=== PATIENT | male | born 1945 | race Caucasian/White ===

== ENCOUNTER 2019-09-02 21:14 | Emergency (ER) | payer OTHER ==
--- OUTSIDE RECORDS SUMMARY | 2019-09-02 21:16 | XMS REPORT ---
:1945 Author Organization eClinicalWorks Care Team Providers Name Role Phone Adriano Efrain Provider Role Unavailable Allergies No Known Allergies Problems Problem Type Condition Code Onset Dates Condition Status Problem Hypertension I10 Active Problem Sleep apnea, obstructive G47.33 Active Problem Osteoarthritis M19.90 Active Assessment Diabetes type 2, uncontrolled E11.65 Active Problem Diabetes type 2, uncontrolled E11.65 Active Problem Asthma J45.909 Active Problem GERD with esophagitis K21.0 Active Problem Adult BMI 31.0-31.9 kg/sq m Z68.31 Active Problem Positive FIT (fecal immunochemical R19.5 Active test) Problem Neck pain M54.2 Active Problem Mixed hyperlipidemia E78.2 Active Problem Nonalcoholic fatty liver disease K76.0 Active Problem CPAP (continuous positive airway Z99.89 Active pressure) dependence Medications Medication Code Code Instructions Start End Date Status Dosage System Date Metformin HCl [facility] 94698740407 1000 MG Orally Active 1 tablet Twice a day with meals Results No Known Results Summary Purpose eClinicalWorks Submission
--- OUTSIDE RECORDS SUMMARY | 2019-09-02 21:16 | XMS REPORT ---
:1945 Author Organization eClinicalWorks Care Team Providers Name Role Phone Efrain Oh Provider Role Unavailable Allergies No Known Allergies Problems Problem Type Condition Code Onset Dates Condition Status Problem Asthma J45.909 Active Problem Osteoarthritis M19.90 Active Problem Hypertension I10 Active Assessment Positive FIT (fecal immunochemical R19.5 Active test) Problem Diabetes type 2, uncontrolled E11.65 Active Problem Adult BMI 31.0-31.9 kg/sq m Z68.31 Active Problem Nonalcoholic fatty liver disease K76.0 Active Problem Positive FIT (fecal immunochemical R19.5 Active test) Problem Mixed hyperlipidemia E78.2 Active Problem Sleep apnea, obstructive G47.33 Active Problem CPAP (continuous positive airway Z99.89 Active pressure) dependence Problem Neck pain M54.2 Active Medications No Known Medications Results No Known Results Summary Purpose eClinicalWorks Submission
--- OUTSIDE RECORDS SUMMARY | 2019-09-02 21:16 | XMS REPORT ---
:1945 Author Organization eClinicalWorks Care Team Providers Name Role Phone Adriano Efrain Provider Role Unavailable Allergies No Known Allergies Problems Problem Type Condition Code Onset Dates Condition Status Problem Asthma J45.909 Active Problem Osteoarthritis M19.90 Active Problem Hypertension I10 Active Problem Adult BMI 31.0-31.9 kg/sq m Z68.31 Active Problem Nonalcoholic fatty liver disease K76.0 Active Problem Positive FIT (fecal immunochemical R19.5 Active test) Problem Mixed hyperlipidemia E78.2 Active Problem Sleep apnea, obstructive G47.33 Active Problem CPAP (continuous positive airway Z99.89 Active pressure) dependence Problem Neck pain M54.2 Active Assessment Diabetes type 2, uncontrolled E11.65 Active Assessment Hypertension I10 Active Assessment Anemia, unspecified type D64.9 Active Assessment Mixed hyperlipidemia E78.2 Active Problem Diabetes type 2, uncontrolled E11.65 Active Medications No Known Medications Results No Known Results Summary Purpose eClinicalWorks Submission
--- OUTSIDE RECORDS SUMMARY | 2019-09-02 21:16 | XMS REPORT ---
:1945 Author Organization eClinicalWorks Care Team Providers Name Role Phone Adriano Efrain Provider Role Unavailable Allergies No Known Allergies Problems Problem Type Condition Code Onset Dates Condition Status Problem Hypertension I10 Active Problem Sleep apnea, obstructive G47.33 Active Problem Osteoarthritis M19.90 Active Assessment Hypertension I10 Active Problem Diabetes type 2, uncontrolled E11.65 [...] Start End Date Status Dosage System Date Amlodipine [facility] 37269290994 5 MG Orally Once Active 1 tablet Besylate a day Results No Known Results Summary Purpose eClinicalWorkSnug Submission
--- OUTSIDE RECORDS SUMMARY | 2019-09-02 21:16 | XMS REPORT ---
:1945 Author Organization eClinicalWorks Care Team Providers Name Role Phone Efrain Oh Provider Role Unavailable Allergies, Adverse Reactions, Alerts Substance Reaction Event Type N.K.D.A. Info Not Available Non Drug Allergy Problems Problem Type Condition Code Onset Dates Condition Status Assessment Chronic cough R05 Active Assessment Adult BMI 31.0-31.9 kg/sq m Z68.31 Active Problem Diabetes type 2, uncontrolled E11.65 Active Assessment Anemia, unspecified type D64.9 Active Problem Asthma J45.909 Active Assessment Elevated LFTs R94.5 Active Problem Hypertension I10 Active Problem Sleep apnea, obstructive G47.33 Active Problem Osteoarthritis M19.90 Active Problem GERD with esophagitis K21.0 Active Problem Adult BMI 31.0-31.9 kg/sq m Z68.31 Active Assessment CPAP (continuous positive airway Z99.89 Active pressure) dependence Assessment Asthma J45.909 Active Problem Positive FIT (fecal immunochemical R19.5 Active test) Assessment Osteoarthritis M19.90 Active Problem Neck pain M54.2 Active Problem Mixed hyperlipidemia E78.2 Active Problem Nonalcoholic fatty liver disease K76.0 Active Problem CPAP (continuous positive airway Z99.89 Active pressure) dependence Assessment GERD with esophagitis K21.0 Active Assessment Mixed hyperlipidemia E78.2 Active Assessment Nonalcoholic fatty liver disease K76.0 Active Assessment Sleep apnea, obstructive G47.33 Active Assessment Diabetes type 2, uncontrolled E11.65 Active Assessment Hypertension I10 Active Assessment Medicare annual wellness visit, Z00.00 Active subsequent Medications Medication Code Code Instructions Start End Status Dosage System Date Date [facility] 56868827507 81 MG Orally Active 1 tablet Once a day Amlodipine Besylate [facility] 81897040326 5 MG Orally Active 1 tablet Once a day Vitamin B12 [facility] 00049685376 2500 orally Active one under tongue once a day Multivitamins [facility] 83433137279 - Orally Active not defined Metformin HCl [place] 53554853852 1000 MG Orally Active 1 tablet Twice a day with meals Omeprazole [facility] 96003971744 40 MG Orally Active 1 capsule Once a day 30 minutes before morning meal Simvastatin [facility] 64005018154 40 MG Orally Active 1 tablet Once a day in the evening Omeprazole [facility] 30718885798 40 MG Orally Jun 09, Active 1 capsule Once a day 2018 30 minutes before morning meal Garlic [facility] 12388012401 500 MG Orally Active not defined Fish Oil [facility] 11540978832 1000 MG Orally Active 1 capsule Once a day Etodolac [facility] 96088401947 500 MG Orally Active 1 tablet Twice a day with food Hydrochlorothiazide [facility] 58374802888 25 MG Orally Active 1 tablet Once a day in the morning Breo Ellipta [facility] [address]-89 Active not defined Results No Known Results Summary Purpose eClinicalWorks Submission
--- OUTSIDE RECORDS SUMMARY | 2019-09-02 21:16 | XMS REPORT ---
[...] Start End Status Dosage System Date Date Hydrochlorothiazide [facility] 80438787526 25 MG Orally Active 1 tablet Once a day in the morning Results No Known Results Summary Purpose eClinicalWorks Submission
--- NOTE | 2019-09-02 22:37 | EDPHYS ---
Physician Documentation [facility] Name: Kevin Barrow Age: 74 yrs Sex: Male : 1945 Arrival Date: 09/02/2019 Time: 21:15 Bed 20 Private MD: ED Physician Jaden Steinberg HPI: 09/01 22:32 This 74 yrs old Male presents to ER via Ambulatory with complaints of Pain In la1 Right Calf. 22:32 The patient presents with pain, swelling. The complaints affect the posterior aspect of la1 right knee and right calf. Context: The problem was sustained at home, the patient can fully bear weight, the patient is able to ambulate, without difficulty, Problem is a result from a previous injury: No. Onset: The symptoms/episode began/occurred today. Treatment prior to arrival includes: no previous treatment. Severity of symptoms: At their worst the symptoms were moderate. The patient has experienced a previous episode. Historical: - Allergies: 21:39 No Known Allergies; ea - Home Meds: 21:39 amlodipine oral [Active]; Metformin Oral [Active]; Aspirin Oral [Active]; etodolac 500 ea mg Oral tab 1 tab 2 times per day [Active]; - PMHx: 21:39 Hypertension; ea - PSHx: 21:39 neck surgery; ankle surgery; wrist surgery; rotator cuff; ea - Immunization history:: Adult Immunizations up to date. - Social history:: Smoking status: Patient denies any tobacco usage or history of. ROS: 22:33 Constitutional: Negative for fever, chills, and weight loss, Eyes: Negative for injury, la1 pain, redness, and discharge, ENT: Negative for injury, pain, and discharge, Neck: Negative for injury, pain, and swelling, Cardiovascular: Negative for chest pain, palpitations, and edema, Respiratory: Negative for shortness of breath, cough, wheezing, and pleuritic chest pain, Abdomen/GI: Negative for abdominal pain, nausea, vomiting, diarrhea, and constipation, Back: Negative for injury and pain, : Negative for injury, bleeding, discharge, and swelling, Skin: Negative for injury, rash, and discoloration, Neuro: Negative for headache, weakness, numbness, tingling, and seizure. 22:33 MS/extremity: Positive for pain, swelling, of the posterior aspect of right knee and right calf. Exam: 22:33 Constitutional: This is a well developed, well nourished patient who is awake, alert, la1 and in no acute distress. Head/Face: Normocephalic, atraumatic. ENT: Mucous membranes moist. Neck: Trachea midline, Chest/axilla: Normal chest wall appearance and motion. Nontender with no deformity. No lesions are appreciated. Cardiovascular: Regular rate and rhythm with a normal S1 and S2. Respiratory: Lungs have equal breath sounds bilaterally, clear to auscultation Abdomen/GI: Soft, non-tender, with normal bowel sounds. No distension or tympany. No guarding or rebound. No evidence of tenderness throughout. Back: No spinal tenderness. No costovertebral tenderness. Full range of motion. Skin: Warm, dry with normal turgor. Normal color with no rashes, no lesions, and no evidence of cellulitis. MS/ Extremity: Pulses equal, no cyanosis. Neurovascular intact. Full, normal range of motion. 22:33 Cardiovascular: Pulses: Pulses are 3+ in right posterior tibial artery, right dorsalis pedis artery, left posterior tibial artery and left dorsalis pedis artery. Edema: 2+ edema to level of right midcalf and right ankle. 22:33 Musculoskeletal/extremity: Vital Signs: 21:29 BP 149 / 86; Pulse 88; Resp 18; Temp 98.1; Pulse Ox 98% on R/A; ea MDM: 21:51 Patient medically screened. la1 22:34 Data reviewed: vital signs, nurses notes, radiologic studies, I have discussed the la1 patient's presentation/case with the attending Emergency Department Physician; and as a result, I will discharge patient. Counseling: I had a detailed discussion with the patient and/or guardian regarding: the historical points, exam findings, and any diagnostic results supporting the discharge/admit diagnosis, radiology results, the need for outpatient follow up, a family practitioner, to return to the emergency department if symptoms worsen or persist or if there are any questions or concerns that arise at home. ED course: Ultrasound negative for DVT but does identify a bakers cyst. Pt given strict return precautions and instructed to FU with PCP and ortho. . 09/01 21:27 Order name: US Extremity Venous Unilateral Ltd kb 09/01 22:38 Order name: Miller Wrap; Complete Time: 22:44 la1 Administered Medications: No medications were administered Disposition: 09/02 03:50 Co-signature as Attending Physician, Jaden Steinberg MD I agree with the assessment and tw4 plan of care. Disposition: 09/02/19 22:36 Discharged to Home. Impression: Synovial cyst of popliteal space [[place]ll[place]], right knee, Swelling of the distal right lower extremity. - Condition is Stable. - Discharge Instructions: [place] Cyst. - Medication Reconciliation Form, Thank You Letter form. - Follow up: Private Physician; When: 2 - 3 days; Reason: Recheck today's complaints, Re-evaluation by your physician. - Problem is new. - Symptoms have improved. Signatures: Dispatcher [employer] EDMS Vaughn Zeng, PIPING DESIGN SPECIALIST-C PIPING DESIGN SPECIALIST-Cla1 Tiffani Francois, RN Jaden Dempsey ea, MD MD tw4 Mehreen Harding RN RN Corrections: (The following items were deleted from the chart) 03 22:50 22:36 09/02/2019 22:36 Discharged to Home. Impression: Synovial cyst of popliteal space ah [[place]ll[place]], right knee; Swelling of the distal right lower extremity. Condition is Stable. Forms are Medication Reconciliation Form, Thank You Letter, Antibiotic Education, Prescription Opioid Use. Follow up: Private Physician; When: 2 - 3 days; Reason: Recheck today's complaints, Re-evaluation by your physician. Problem is new. Symptoms have improved. la1
--- NOTE | 2019-09-02 22:37 | ER ---
Nurse's Notes [facility] Name: Kevin Barrow Age: 74 yrs Sex: Male : 1945 Arrival Date: 09/02/2019 Time: 21:15 Bed 20 Private MD: Diagnosis: Synovial cyst of popliteal space [[place]ll[place]], right knee;Swelling of the distal right lower extremity Presentation: 09/01 21:29 Chief complaint: Patient states: Pt reports around lunch time he noticed swelling to ea right lower extremity, reports it worsened in the evening and started having pain and tightness with walking. Coronavirus screen: The patient has NOT traveled to a country currently being monitored by the [facility] within the last 14 days. Ebola Screen: No symptoms or risks identified at this time. Initial Sepsis Screen: Does the patient meet any 2 criteria? No. Patient's initial sepsis screen is negative. Does the patient have a suspected source of infection? No. Patient's initial sepsis screen is negative. Risk Assessment: Do you want to hurt yourself or someone else? Patient reports no desire to harm self or others. 21:29 Method Of Arrival: Ambulatory ea 21:29 Acuity: PIERRE 3 ea 22:48 Onset of symptoms was September 02, 2019. Triage Assessment: 21:50 General: Appears in no apparent distress. Behavior is appropriate for age. Pain: ea Complains of pain in right calf. Neuro: Level of Consciousness is awake, alert, obeys commands, Oriented to person, place, time, situation. Respiratory: Airway is patent Respiratory effort is even, unlabored, Respiratory pattern is regular, symmetrical. Derm: Reports swelling to right lower extremity. Historical: - Allergies: 21:39 No Known Allergies; ea - Home Meds: 21:39 amlodipine oral [Active]; Metformin Oral [Active]; Aspirin Oral [Active]; etodolac 500 ea mg Oral tab 1 tab 2 times per day [Active]; - PMHx: 21:39 Hypertension; ea - PSHx: 21:39 neck surgery; ankle surgery; wrist surgery; rotator cuff; ea - Immunization history:: Adult Immunizations up to date. - Social history:: Smoking status: Patient denies any tobacco usage or history of. Screenin:31 Abuse screen: Denies threats or abuse. Nutritional screening: No deficits noted. ea Tuberculosis screening: No symptoms or risk factors identified. Fall Risk None identified. Vital Signs: 21:29 BP 149 / 86; Pulse 88; Resp 18; Temp 98.1; Pulse Ox 98% on R/A; ea ED Course: 21:15 Patient arrived in ED. cl3 21:23 Mehreen Harding, RN is Primary Nurse. 21:31 Triage completed. ea 21:31 Arm band placed on right wrist. Patient placed in an exam room, on a stretcher, on ea pulse oximetry. 21:32 Patient has correct armband on for positive identification. Bed in low position. Call ea light in reach. Side rails up X2. 21:50 Vaughn Zeng FNP-C is PHCP. la1 21:51 Jaden Steinberg MD is Attending Physician. la1 22:07 US Extremity Venous Unilateral Ltd In Process Unspecified. EDMS 22:47 Patient did not have IV access during this emergency room visit. Miller wrap to right knee. 22:48 No provider procedures requiring assistance completed. Administered Medications: No medications were administered Outcome: 22:36 Discharge ordered by . la1 22:45 Discharged to home ambulatory. 22:45 Condition: good 22:45 Discharge instructions given to patient, family, Instructed on discharge instructions, follow up and referral plans. Demonstrated understanding of instructions, follow-up care. 22:50 Patient left the ED. Signatures: Dispatcher [employer] EDMS Vaughn Zeng FNP-C COMPUTER GAME PROGRAMMER-Cla1 Tiffani Francois RN RN ea Lewis, Charde cl3 Mehreen Harding, RN [place]
[2019-09-02 23:11] VITALS: BP 149/86; TEMP 98.1; O2SAT 98
--- NOTE | 2019-09-03 08:01 | RAD REPORT ---
EXAM DESCRIPTION: USExtremity Venous Uni Ltd09/02/2019 10:06 pm CLINICAL HISTORY: Right leg pain and swelling. COMPARISON: None. FINDINGS: Right common femoral, superficial femoral, popliteal and right posterior tibial veins are compressible and demonstrate augmentation. Doppler demonstrates good flow. A 3 centimeter right popliteal cyst IMPRESSION: No evidence of deep venous thrombosis involving the right lower extremity. Two 3 centimeter right popliteal cyst
== END 2019-09-02 22:50 | disposition home or self-care (01) ==
LOC: ER 21:14
DX: M71.21 Synovial cyst of popliteal space [Baker], right knee (principal); M79.89 Other specified soft tissue disorders; Z79.82 Long term (current) use of aspirin
CPT/HCPCS: 93971; 99283

== ENCOUNTER 2020-12-23 19:54 | Observation (INO) | payer OTHER ==
--- OUTSIDE RECORDS SUMMARY | 2020-12-23 19:59 | XMS REPORT | Continuity of Care Document ---
:1945 Author Organization [facility] t Address 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 5-24 Me thodi L3-L4 L3-L4 00:00: st level level 00 723.0 - Diagnosis Active 2013-01-20 Me moria CERVICAL - 13:13:00 l SPINAL 723.0 - 00:01: [place] CERVICAL 00 SPINAL Active 12/22/2012 [facility] [place] LFLT Diagnosis Active 2011-062013-03-23 Mem oria - 15:36:00 l LFLT 09:30: Jason 00 Active 05/09/2012 [facility] CERVICAL Diagnosis Active 2011-062012-05-18 M emoria STENOSIS,S - 13:43:00 l /P FALL CERVICAL 00:00: Marjorie nn STENOSIS,S 00 /P FALL Active 05/09/2012 [facility] ADMINISTRT Diagnosis Active 2012-05-18 Memoria VE ENCOUNT 13:43:00 l NOS Jason ADMINISTRT VE ENCOUNT NOS Active [facility] Pain Problem Active 2013-01-30 Memor ia 20:46:12 l Pain Jason Active Problem 01/30/2013 [facility], [facility] Jason Allergies, Adverse Reactions, Alerts This patient has no known allergies or adverse reactions. Social History Social Habit Start Date Stop Date Quantity Comments Source Tobacco use and 2017-11-17 2017-11-17 Never used [facility] ethodist exposure 00:00:00 00:00:00 Alcohol intake 2017-11-17 2017-11-17 Current [facility] thodist 00:00:00 00:00:00 non-drinker of alcohol (finding) Sex Ass[birth year] At [birth year] [place] ethodist 00:00:00 00:00:00 Smoking Status Start Date Stop Date Source Never smoker [place] Method[facility] t Medications Ordered Filled Start Stop Current Ordering Indication Dosage Frequency Signature Comments Components Source Medication Medication Date Date Medication? Clinician (SIG) Name Name valsartan Yes 160mg QD Take [address]on (DIOVAN) 5-21 mg by Methodi 160 MG 13:00: mouth st tablet 04 daily. aspirin Yes 81mg QD Take 81 mg [place] (ECOTRIN) 5-21 by mouth Method i 81 MG 13:00: daily. st enteric 04 coated tablet gluc Yes Take by Tamayo mejia/chondro 5-21 mouth. Methodi mejia A/vit 13:00: st C/Mn 04 (GLUCOSAMIN E 1500 COMPLEX ORAL) metFORMIN Yes 1000mg Q.5D Take 1,000 Tamayo (GLUCOPHAGE 5-21 mg by Methodi ) 1,000 mg 13:00: mouth 2 st tablet 04 (two) times a day with meals. simvastatin Yes 20mg QD Take 20 mg Roni (ZOCOR) 20 4-03 by mouth Metho di MG tablet 00:00: every st 00 evening. docusate 2011-06 Yes Kayla 100 mg, 1 Me moria sodium 100 1-14 Stevan cap, PO, l mg oral 16:19: Q12H, PRN, Herm sherry capsule 05 30 cap, as needed for constipati on, Substituti on Allowed, CAP diazepam 5 2011-06 Yes Kayla 5 mg, 1 Me moria mg oral 14 Stevan tab, PO, l tablet 16:19: Q8H, PRN, Izaiah n 01 30 tab, spasm, Substituti on Allowed, TAB acetaminoph 2011-06 Yes Kayla 1 tab, PO, Memoria en-hydrocod 14 Stevan Q4H, PRN, l one 325 16:18: 60 tab, Jason mg-10 mg 59 Pain Score oral tablet 4-6, Substituti on Allowed, Maintenanc e, TAB heparin 2011-06 No [place] 5,000 Mem oria 5000 -14 n Mike unit, 1 l units/mL 13:14: mL, Route: Her kraft injectable 00 SUB-Q, solution Drug form: INJ, Q8H, Dosing Weight 102.273, kg, Priority: STAT, Start date: 05/13/12 7:14:00, Duration: 30 day, Stop date: 06/12/12 0:00:00 bisacodyl 2011-06 No Wilbert M 10 mg, 1 M emoria 14 Allam supp, l 03:00: Route: [place], [place] 00 Drug form: SUPP, Bedtime, Dosing Weight 102.273, kg, Start date: 05/12/12 21:00:00, Duration: 30 day, Stop date: 06/10/12 21:00:00 Ancef + 2011-06 No [facility] 2 gm, Mem oria Sodium -13 ammon Mckeon Route: l Chloride 03:00: IVPB, Drug Her kraft 0.9% IV 100 00 form: INJ, mL ABXQ8H, Dosing Weight 102.273, kg, Start date: 05/11/12 21:00:00, Duration: 1 day, Stop date: 05/12/12 13:00:00 metFORmin 2011-06 No [facility] 500 mg, 1 Memoria -12 ammon Mckeon tab, l 23:00: Route: PO, [place] 00 Drug form: TAB, BID, Dosing Weight 102.273, kg, Start date: 05/11/12 17:00:00, Duration: 30 day, Stop date: 06/10/12 9:00:00 ondansetron 2011-06 No Elaine 4 mg, 2 Memoria 1-12 Elder mL, Route: l 22:29: [place] IVP, Drug Izaiah n 00 form: INJ, ONCE, Dosing Weight 102.273, kg, PRN Nausea & Vomiting, Start date: 05/11/12 16:29:00 naloxone 2011-06 No Elaine 0.04 mg, Me moria 1-12 Elder 0.1 mL, l 22:29: [place] Route: Jason 00 IVP, Drug form: INJ, Q2MIN, Dosing Weight 102.273, kg, PRN Narcotic Reversal, Start date: 05/11/12 16:29:00, Duration: 8 doses or times, Stop date: 05/11/12 23:00:00 flumazenil 2011-06 No Elaine 0.2 mg, 2 Memoria 1-12 Elder mL, Route: l 22:29: [place] IVP, Drug Izaiah n 00 form: INJ, PRN, Dosing Weight 102.273, kg, PRN Benzodiaze pine Reversal, Initial dose, Start date: 05/11/12 16:29:00, Stop date: 05/11/12 23:00:00 hydromorpho 2011-06 No Elaine 0.5 mg, Memoria ne 1-12 Elder 0.25 mL, l 22:29: [place] Route: Jason 00 IVP, Drug form: INJ, Q5Min, Dosing Weight 102.273, kg, PRN Pain Score 4-6, Start date: 05/11/12 16:29:00, Duration: 5 doses or times, Stop date: 05/11/12 23:00:00 labetalol 2011-06 No Elaine 5 mg, 1 Me moria 1-12 Elder mL, Route: l 22:29: [place] IVP, Drug Izaiah n 00 form: INJ, Q5Min, Dosing Weight 102.273, kg, PRN Elevated BP, Start date: 05/11/12 16:29:00, Duration: 5 doses or times, Stop date: 05/11/12 23:00:00 labetalol 2011-06 No [facility] 20 mg, 4 Memoria 1-12 n Mike mL, Route: l 21:59: IVP, Drug Jason 00 form: INJ, Q15Min, Dosing Weight 102.273, kg, Start date: 05/11/12 15:59:00, Duration: 3 doses or times, Stop date: 05/11/12 16:29:00, SBP > 150 mmHg Ancef 2011-06 No Tomasz Jerry 2 gm, Memor ia 07-11 [place] Route: l 20:33: IVPB, [place] 00 ONCE, Dosing Weight 102.273, kg, Start date: 05/11/12 14:33:00, Duration: 1 doses or times, Stop date: 05/11/12 14:33:00 Sodium 2011-06 No [facility] 1,000 mL, Memoria Chloride 12 ammon Mckeon Rate: 100 l 0.9% IV 06:01: ml/hr, Jason 1,000 mL 00 Infuse over: 10 hr, Route: IV, kg, Total Volume: 1,000, Start date: 05/11/12 0:01:00, Duration: 30 day, Stop date: 06/10/12 0:00:00 heparin 2011-06 No [place] 5,000 Mem oria -11 ammon Mckeon unit, 1 l 06:00: mL, Route: Jason 00 SUB-Q, Drug form: INJ, Q8H, Dosing Weight 102.273, kg, Start date: 05/10/12 0:00:00, Duration: 30 day, Stop date: 06/08/12 16:00:00 diazepam 2011-06 No [place] 5 mg, 1 Memoria -11 ammon Mckeon tab, l 06:00: Route: PO, [place] 00 Drug form: TAB, Q8H, Dosing Weight 102.273, kg, Start date: 05/10/12 0:00:00, Duration: 30 day, Stop date: 06/08/12 16:00:00 metFORmin 2011-06 Yes [facility] 500 mg, Memoria 1-11 ammon Mckeon PO, BID, l 03:15: Substituti Jason 49 on Allowed Diovan HCT 2011-06 Yes 12.5 mg, Mem oria 1-11 PO, Daily, l 03:12: Substituti Jason 23 on Allowed, Maintenanc e Saline 2011-06 No [facility] 5 ml, Robin gilma Flush 0.9% 07-10 ammon Mckeon Route: l 03:00: IVP, Drug Jason 00 Form: INJ, Dosing Weight 102.273, kg, Q12H, Start date: 05/09/12 21:00:00, Duration: 30 day, Stop date: 06/08/12 9:00:00 senna 2011- No [facility] 8.6 mg, 1 M emoria 07-10 ammon Mckeon tab, l 03:00: Route: PO, [place] 00 Drug Form: TAB, Dosing Weight 102.273, kg, Q12H, Start date: 05/09/12 21:00:00, Duration: 30 day, Stop date: 06/08/12 9:00:00 docusate 2011- No [facility] 100 mg, 1 Memoria 07-10 ammon Mckeon cap, l 03:00: Route: PO, Jason 00 Drug form: CAP, Q12H, Dosing Weight 102.273, kg, Start date: 05/09/12 21:00:00, Duration: 30 day, Stop date: 06/08/12 9:00:00 morphine 2011-06 No Sean 6 mg, 1.5 M emoria Sulfate 07-10 Aman mL, Route: l 01:29: Giovani IVP, Drug Izaiah n 00 form: INJ, ONCE, Dosing Weight 102.273, kg, Start date: 05/09/12 19:29:00, Stop date: 05/09/12 19:29:00 Saline 2011- No [facility] 5 ml, Robin gilma Flush 0.9% 07-09 ammon Mckeon Route: l 23:57: IVP, Drug [place] Form: INJ, Dosing Weight 102.273, kg, PRN, PRN Line Flush, Start date: 05/09/12 17:57:00, Duration: 30 day, Stop date: 06/08/12 17:56:00 morphine 2011-06 No [facility] 2 mg, 1 Memoria Sulfate 07-09 ammon Mckeon mL, Route: l 23:57: IVP, Drug Jason 00 form: INJ, Q1H, Dosing Weight 102.273, kg, PRN Pain Score 7-10, Start date: 05/09/12 17:57:00, Duration: 30 day, Stop date: 06/08/12 17:56:00 acetaminoph 2011-06 No [facility] 1 tab, Memoria en-hydrocod 1-10 n Mike Route: PO, l one 325 23:57: Drug Form: Herm sherry mg-10 mg 00 TAB, oral tablet Dosing Weight 102.273, kg, Q4H, PRN Pain Score 4-6, Start date: 05/09/12 17:57:00, Duration: 30 day, Stop date: 06/08/12 17:56:00 ondansetron 2011-06 No [place] 4 mg, 2 Memoria 1-10 n Mike mL, Route: l 23:57: IVP, Drug Jason form: INJ, Q8H, Dosing Weight 102.273, kg, PRN Nausea & Vomiting, Start date: 05/09/12 17:57:00, Duration: 30 day, Stop date: 06/08/12 17:56:00 Lactated 2011-06 No Sean 1,000 mL, M emoria Ringers -10 Aman Rate: l (Bolus) IV 22:33: Giovani 1,000 Herm sherry 1,000 mL 00 ml/hr, Infuse over: 1 hr, Route: IV, kg, Total Volume: 1,000, Bolus Dose, Priority: STAT, Start date: 05/09/12 16:33:00, Duration: 1 doses or times, Stop date: 05/09/12 17:32:00 Visipaque 2011-06 No Cain D 85 mL, Me moria 320mg/ml 1-10 Person Route: l 21:46: IVP, Drug Form: SOLN, Dosing Weight 102.273, kg, ONCALL, STAT, Start date: 05/09/12 15:46:00, Duration: 1 doses or times, Dose = 2.2ml/kg, Max dose = 150mlDose = 2.2ml/kg, Max dose = 150ml Omnipaque 2011-06 No Cain D 100 mL, M emoria 350mg/ml 1-10 Person Route: l 21:40: IVP, Drug Jason 00 Form: SOLN, Dosing Weight 102.273, kg, ONCALL, STAT, Start date: 05/09/12 15:40:00, Duration: 1 doses or times, Dose = 2.2ml/kg, Max dose = 100mlDose = 2.2ml/kg, Max dose = 100ml morphine 2011-06 No Sean 6 mg, 0.6 M emoria Sulfate 1-10 Aman mL, Route: l 21:14: Giovani IVP, Drug Izaiah n 00 form: INJ, ONCE, Dosing Weight 102.273, kg, Priority: STAT, Start date: 05/09/12 15:14:00, Stop date: 05/09/12 15:14:00 morphine 2011-06 No Sean 6 mg, 3 Mem oria Sulfate -10 Aman mL, Route: l 17:31: Giovani IVP, Drug Izaiah n 00 form: INJ, ONCE, Dosing Weight 102.273, kg, Priority: STAT, Start date: 05/09/12 11:31:00, Stop date: 05/09/12 11:31:00 Visipaque 2011-06 No Sean 126 mL, Me moria 320mg/ml 07-09 Aman Route: l 17:22: Giovani IVP, Drug Izaiah n 00 Form: SOLN, Dosing Weight 102.273, kg, ONCALL, STAT, Start date: 05/09/12 11:22:00, Duration: 1 doses or times, Dose = 2.2ml/kg, Max dose = 150mlDose = 2.2ml/kg, Max dose = 150ml Tdap 2011-06 No Sean 0.5 mL, Memoria 1-10 Aman Route: IM, l 16:06: Giovani Drug Form: Marjorie nn 00 INJ, Dosing Weight 102.273, kg, ONCE, Start date: 05/09/12 10:06:00, Stop date: 05/09/12 10:06:00 morphine 2011-06 No Sean 4 mg, 1 Mem oria Sulfate 1-10 Aman mL, Route: l 16:06: Giovani IVP, Drug Izaiah n 00 form: INJ, ONCE, Dosing Weight 102.273, kg, Priority: STAT, Start date: 05/09/12 10:06:00, Stop date: 05/09/12 10:06:00 ondansetron 2011-06 No Sean 4 mg, 2 Memoria 1-10 Aman mL, Route: l 16:06: Giovani IVP, Drug Izaiah n 00 form: INJ, ONCE, Dosing Weight 102.273, kg, Priority: STAT, Start date: 05/09/12 10:06:00, Stop date: 05/09/12 10:06:00 Saline 2011-06 No Sean 5 ml, Memoria Flush 0.9% 10 Aman Route: l 16:06: Giovani IVP, Drug Izaiah n 00 Form: INJ, Dosing Weight 102.273, kg, PRN, PRN Line Flush, Administer at least once every 12 hours, Start date: 05/09/12 10:06:00, Duration: 30 day, Stop date: 06/08/12 10:05:00 Lactated 2011-06 No Sean 1,000 mL, M emoria Ringers 10 Aman Rate: l (Bolus) IV 16:06: Giovani 1,000 Herm sherry 1,000 mL 00 ml/hr, Infuse over: 1 hr, Route: IV, kg, Total Volume: 1,000, Bolus dose, Priority: STAT, Start date: 05/09/12 10:06:00, Duration: 1 doses or times, Stop date: 05/09/12 11:05:00 Hydrochloro Hydrochloro Yes Efrain [address] [facility] thiazide thiazide Oh in the Luke s - morning [facility] Atorvastati Atorvastati Yes Efrain [address] [facility] n Calcium n Calcium Oh Luke s - [facility] Omeprazole Omeprazole Yes Efrain [address] [facility] Oh 30 minutes [facility] - before Memoria morning l meal [facility] Fish Oil Fish Oil Yes Efrain [address] [facility] Iron Iron Yes Efrain [address] [facility] Oh with water [facility] - or juice Memoria between l meals [facility] Breo Breo Yes Efrain not [facility] Ellipta Ellipta Oh defined [facility] Simvastatin Simvastatin Yes Efrain [address] [facility] Oh in the [facility] - evening [facility] Metformin Metformin Yes Efrain [address] [facility] HCl HCl Oh with meals [facility] Simvastatin Simvastatin Yes Efrain [address] [facility] Oh in the [facility] - evening [facility] Vitamin B12 Vitamin B12 Yes Efrain one [facility] Multivitami Multivitami Yes Ef[place] not [facility] ns ns Oh defined [facility] Garlic Garlic Yes Efrain not [facility] defined [facility] Amlodipine Amlodipine Yes Efrain [address] [facility] Besylate Besylate Oh [facility] Etodolac Etodolac Yes Efrain [address] [facility] with food [facility] Aspir-81 Aspir-81 Yes Efrain [address] [facility] Immunizations Ordered Filled Immunization Date Status Comments Sourc e Immunization Name Name FLUZONE HIGH DOSE FLUZONE HIGH DOSE 2019-03-[address] [facility] OVER [facility] OVER 65 00:00:00 [facility] Vital Signs Vital Name Observation Time Observation Value Comments Source Diastolic (mm Hg) 2012-05-13 17:51:00 Mem orial [place] Systolic (mm Hg) 2012-05-13 17:51:00 Robin rial [place] Heart Rate 2012-05-13 17:51:00 [facility] Jason Temperature Oral (F) 2012-05-13 17:51:00 98.6 F [facility] [place] Respitory Rate 2012-05-13 17:51:00 Memori al Jason Systolic (mm Hg) 2012-05-13 13:50:00 Robin rial [place] Diastolic (mm Hg) 2012-05-13 13:50:00 Mem orial Jason Heart Rate 2012-05-13 13:50:00 Memorial Jason Respitory Rate 2012-05-13 13:50:00 Memori al Jason Temperature Oral (F) 2012-05-13 13:50:00 98.4 F Memorial Jason Temperature Oral (F) 2012-05-13 10:35:00 97.7 F [facility] Jason Diastolic (mm Hg) 2012-05-13 10:35:00 Mem orial [place] Systolic (mm Hg) 2012-05-13 10:35:00 Robin rial Jason Respitory Rate 2012-05-13 10:35:00 Memori al Jason Heart Rate 2012-05-13 10:35:00 Memorial Jason Height 2012-05-09 15:43:00 177.80 cm [facility] [place] Weight 2012-05-09 15:43:00 [facility] [place] Procedures This patient has no known procedures. Plan of Care Planned Activity Planned Date Details Comments Source Future Scheduled 2021-01-28 INFLUENZA VACCINE [place] [facility] 00:00:00 [code = INFLUENZA VACCINE] Future Scheduled 2011 65+ PNEUMOCOCCAL [place] [facility] Test 00:00:00 VACCINE (1 of 1 - PPSV23) [code = 65+ PNEUMOCOCCAL VACCINE (1 of 1 - PPSV23)] Future Scheduled 1996 COLONOSCOPY SCREENING Ho servando [facility] Test 00:00:00 [code = COLONOSCOPY SCREENING] Future Scheduled 1996 SHINGLES VACCINES (#1) H prashant [facility] Test 00:00:00 [code = SHINGLES VACCINES (#1)] Future Scheduled 1958 COVID-19 VACCINE (1) Richa pastrana [facility] Test 00:00:00 [code = COVID-19 VACCINE (1)] Encounters Start End Encounter Admission Attending Care Care Encounter Source Date/Time Date/Time Type Type Clinicians Facility Department ID 2020-12-23 2020-12-23 Urgent Provider, [facility] [id number] 18:46:40 19:25:50 Care [facility] [id number] Care [place] [id number] [facility] [id number] nal [address] 2020-12-23 2020-12-23 Orders Doctor AMBER [id number] 00:00:00 00:00:00 Only Unassigned, FREDDY [id number] [place] [facility] [id number] 2020-12-22 2020-12-22 Outpatient [facility] [id number] [facility] 2020-12-21 2020-12-21 [facility] [id number] [facility] 2020-12-07 2020-12-07 [facility] [id number] [facility] 2020-11-07 2020-11-07 Outpatient [facility] [id number] [facility] 2020-11-07 2020-11-07 Outpatient [facility] [id number] [facility] 2020-10-18 2020-10-18 Outpatient [facility] [id number] [facility] 2020-10-18 2020-10-18 Outpatient [facility] [id number] [facility] 2020-10-13 2020-10-13 Outpatient [facility] [id number] [facility] 2020-10-05 2020-10-05 Outpatient [facility] [id number] [facility] 2020-10-05 2020-10-05 Outpatient [facility] [id number] [facility] 2020-10-05 2020-10-05 Outpatient [facility] [id number] [facility] 2020-09-28 2020-09-28 Outpatient [facility] [id number] [facility] 2020-08-30 2020-08-30 Outpatient [facility] [id number] [facility] 2020-07-25 2020-07-25 Outpatient [facility] [id number] [facility] 2020-07-07 2020-07-07 Outpatient [facility] [id number] [facility] 2020-07-06 2020-07-06 Outpatient [facility] [id number] [facility] 2020-07-06 2020-07-06 Outpatient [facility] [id number] [facility] 2020-06-16 2020-06-16 Outpatient [facility] [id number] [facility] 2020-05-08 2020-05-08 Outpatient [facility] [id number] [facility] 2020-05-05 2020-05-05 Outpatient [facility] [id number] [facility] 2020-04-18 2020-04-18 Outpatient [facility] [id number] [facility] 2020-03-14 2020-03-14 [facility] [id number] [facility] 09:47:00 09:47:00 [facility] l Medicine Outpati ent Clinics 2020-03-14 2020-03-14 [facility] [id number] 08:40:00 08:40:00 t [place] [employer] [facility] - Drive [facility] l Medicine Outpati ent Clinics 2019-12-30 2019-12-30 [facility] [id number] 16:19:00 16:19:00 [facility] Medicine l Medicine Outpati ent Clinics 2019-12-14 2019-12-14 [facility] [id number] [address] 16:59:00 16:59:00 [facility] - Drive [facility] Medicine l Medicine Outpati ent Clinics 2019-12-09 2019-12-09 [facility] [id number] 08:30:00 08:30:00 t [place] [employer] [facility] - [facility]end[facility] l Medicine Outpati ent Clinics 2019-11-30 2019-11-30 [facility] [id number] 14:15:00 14:15:00 t [facility] l Medicine Outpati ent Clinics 2019-10-01 2019-10-01 [facility] [id number] 15:37:00 15:37:00 t [place] [employer] [facility] - [place] [facility] l Medicine Outpati ent Clinics 2019-09-17 2019-09-17 [facility] [id number] 14:18:00 14:18:00 t [facility] [employer] [facility] Medicine Outpati ent Clinics 2019-09-16 2019-09-16 [facility] [id number] 11:31:00 11:31:00 t [facility] [employer] [facility] Medicine Outpati ent Clinics 2019-09-16 2019-09-16 [facility] [id number] 10:40:00 10:40:00 t [facility] [employer] [facility] Medicine Outpati ent Clinics 2019-09-08 2019-09-08 [facility] [id number] 08:00:00 08:00:00 t [facility] [employer] [facility] Medicine Medicine Outpati ent Clinics 2019-07-07 2019-07-07 [facility] [id number] 11:04:00 11:04:00 t [facility] [employer] [facility] Medicine Outpati ent Clinics 2019-06-28 2019-06-28 [facility] [id number] 10:47:00 10:47:00 t [facility] [employer] [address] [facility] Medicine Outpati ent Clinics 2019-06-17 2019-06-17 [facility] [id number] 10:39:00 10:39:[address] [place] [address] [facility] [place] [address] [facility] Medicine Medicine Outpati ent Clinics 2019-06-09 2019-06-09 [facility] [id number] [facility] 08:45:00 08:45:[address] [place] [address] [facility] [place] - [address] [facility] l Medicine Outpati ent Clinics 2019-06-02 2019-06-02 [facility] [id number] [facility] 09:21:00 09:21:00 [place] [facility] [place] - Drive [facility] Medicine Medicine Outpati ent Clinics 2019-04-08 2019-04-08 [facility] [id number] 10:52:00 10:52:00 [place] [facility] - Drive [facility] Medicine Outpati ent Clinics 2019-04-05 2019-04-05 [facility] [id number] 16:24:00 16:24:00 [place] [facility] - Drive [facility] Medicine Outpati ent Clinics 2019-03-30 2019-03-30 [facility] [id number] [address] 15:56:00 15:56:00 [place] - Drive [facility] Medicine Outpati ent Clinics 2019-03-19 2019-03-19 [facility] [id number] 11:15:00 11:15:00 [place] [facility] - Drive [facility] Medicine Medicine Outpati ent Clinics 2019-03-10 2019-03-10 [facility] [id number] 10:03:00 10:03:00 [place] - Drive [facility] Medicine Medicine Outpati ent Clinics 2019-03-10 2019-03-10 [facility] [id number] 08:45:00 08:45:00 [place] - Drive [facility] Medicine Outpati ent Clinics 2019-01-11 2019-01-11 [facility] [id number] 16:12:00 16:12:00 [place] [facility] - Drive [facility] l Medicine Outpati ent Clinics 2018-12-24 2018-12-24 [facility] [id number] 13:08:00 13:08:[address] [place] [address] [facility] [place] - [address] [facility] Medicine Medicine Outpati ent Clinics 2018-12-15 2018-12-15 [facility] [id number] 11:30:00 11:30:[address] [place] [address] [facility] [place] - [address] [facility] Medicine l Medicine Outpati ent Clinics 2018-12-11 2018-12-11 [facility] [id number] [facility] 10:00:00 10:00:00 [place] [facility] - [facility] Medicine l Medicine Outpati ent Clinics 2018-12-10 2018-12-10 [facility] [id number] [facility] 11:32:00 11:32:00 [place] - [facility] l Medicine Outpati ent Clinics 2018-12-10 2018-12-10 [facility] [id number] [facility] 08:15:00 08:15:00 [place] Luke s - Drive [facility] Medicine Medicine Outpati ent Clinics 2018-10-29 2018-10-29 [facility] [id number] [facility] 14:57:00 14:57:00 [place] [facility] - [facility] Medicine l Medicine Outpati ent Clinics 2018-10-19 2018-10-19 [facility] [id number] [facility] 08:45:00 08:45:00 [place] Luke s - Drive [facility] Medicine l Medicine Outpati ent Clinics 2018-10-15 2018-10-15 [facility] [id number] [facility] 10:55:00 10:55:00 [place] Luke [place] - Drive [facility] Medicine Medicine Outpati ent Clinics 2018-10-12 2018-10-12 [facility] [id number] [facility] 16[facility]02:00 16:02:00 [place] [facility] - Drive [facility] Medicine l Medicine Outpati ent Clinics 2018-09-10 2018-09-10 [facility] [id number] [facility] 08:30:00 08:30:00 [place] [facility] - Drive [facility] Clinics 2018-07-15 2018-07-15 [facility] [id number] [facility] 08:15:00 08:15:[address] [place] [address] Luke [address] - Drive [facility] Medicine l Medicine Outpati ent Clinics 2018-06-09 2018-06-09 [facility] [id number] [facility] 08:15:00 08:15:[address] Luke [address] - Drive [facility] Medicine l Medicine Outpati ent Clinics 2018-04-10 2018-04-10 [facility] [id number] [facility] 08:45:00 08:45:[address] Luke [address] - [address] [facility] Medicine l Medicine Outpati ent Clinics 2018-03-13 2018-03-13 [facility] [id number] [facility] 14:12:00 14:12:00 [place] [facility] - Drive [facility] Medicine l Medicine Outpati ent Clinics 2018-02-13 2018-02-13 [facility] [id number] [facility] 10:02:00 10:02:00 [place] Luke [place] - Drive [facility] Medicine l Medicine Outpati ent Clinics 2018-01-12 2018-01-12 [facility] [id number] 15:40:00 15:40:00 [place] [facility] - Drive [facility] Medicine l Medicine Outpati ent Clinics 2018-01-08 2018-01-08 [facility] [id number] [address] 08:15:00 08:15:00 [place] Luke s - Drive [facility] Medicine l Medicine Outpati ent Clinics 2017-12-18 2017-12-18 [facility] [id number] 08:30:00 08:30:[address] Luke [address] - Drive [facility] Medicine l Medicine Outpati ent Clinics 2017-10-29 2017-10-29 [facility] [id number] [address] 08:15:00 08:15:00 [place] Luke [place] - Drive [facility] Medicine l Medicine Outpati ent Clinics 2017-10-10 2017-10-10 [facility] [id number] [facility] 15:42:00 15:42:00 t [facility] 2017-09-30 2017-09-30 [facility] [id number] 14:06:00 14:06:00 t [facility] 2017-09-30 2017-09-30 [facility] [id number] 09:30:00 09:30:00 [facility] Results Test Description Test Time Test Comments Results Result Comments Source BEDSIDE GLUCOSE 2012-05-13 136 [facility] TESTING 17:31:00 BEDSIDE GLUCOSE 2012-05-13 79 [facility] TESTING 12:28:00 BEDSIDE GLUCOSE 2012-05-13 135 [facility] TESTING 03:17:00 CHEMISTRY 2012-05-11 11.3 [facility] 07:59:00 CHEMISTRY 2012-05-11 79 [facility] 07[facility]59:00 CHEMISTRY 2012-05-11 1.0 [facility] 07:59:00 CHEMISTRY 2012-05-11 12 [facility] 07:59:00 CHEMISTRY 2012-05-11 4.3 [facility] 07:59:00 CHEMISTRY 2012-05-11 137 [facility] 07:59:00 CHEMISTRY 2012-05-11 8.4 [facility] 07:59:00 CHEMISTRY 2012-05-11 28 [facility] 07:59:00 CHEMISTRY 2012-05-11 102 [facility] 07:59:00 CHEMISTRY 2012-05-11 126 [facility] 07:59:00 HEMATOLOGY 2012-05-11 184 [facility] 07:59:00 HEMATOLOGY 2012-05-11 8.4 [facility] 07:59:00 HEMATOLOGY 2012-05-11 34.4 [facility] 07:59:00 HEMATOLOGY 2012-05-11 15.0 [facility] 07:59:00 HEMATOLOGY 2012-05-11 9.0 [facility] 07:59:00 HEMATOLOGY 2012-05-11 36.4 [facility] 07:59:00 HEMATOLOGY 2012-05-11 96.4 [facility] 07:59:00 HEMATOLOGY 2012-05-11 3.78 [facility] 07:59:00 HEMATOLOGY 2012-05-11 12.5 [facility] 07:59:00 HEMATOLOGY 2012-05-11 07:59:00 Test Item Value Reference Range Interpretation Comme nts MCH (test code = MCH) 33.1 pg 27.0-31.0 H [facility] PdloosyUEVCWMUQUT6246-06-34 07:59:001.03[facility]ann[facility]MATOLOGY 2012-05-11 07:59:00 Test Item Value Reference Range Interpretation Comments PTT (test code = PTT) 29.3 s 22.9-35.8 N [facility] ItazmrkTJRIDKCDWV3190-64-54 07:59:00 Test Item Value Reference Range Interpretation Comments PT (test code = PT) 13.7 s 12.0-14.7 N [facility] DhywakkWYYPQMVTLP8491-32-70 07:59:000.8[facility]annHEMATOLOGY 2012-05-11 07:59:000.2[facility] MpyriynDSTMTFDXHB3953-63-53 07:59:001.6[facility] IajwihlQBQDBMWCXY1654-68-24 07:59:0071.2[facility] TxnydjdGQVORDGVRY7947-99-67 07:59:000.3[facility] ComneslKLJTYECYZA6310-38-36 07:59:006.4[facility] UMXORORSSG5963-86-99 07:59:008.5[facility] BqfqvxzFSWIMQUZYA9379-14-95 07:59:002.3 [facility] BpcpjnnYDEBCBAXZQ9117-28-88 07:59:0017.7[facility] HermannURINALYSIS 2012-05-09 22:00:00 Test Item Value Reference Range Interpretation Comments UA pH (test code = UA pH) 5.5 1 5.0-8.0 N [facility] GcaahsqSXXSWHOQWI4386-00-46 22:00:00Negative (05/09/2012 16:00:00) [facility] FfhsrniYNTSQMUWQQ0909-80-77 22:00:00Negative *NA*(05/09/2012 16:00:00) [facility] OipnfddYWJOTUCGAN1559-80-13 22:00:00Moderate *ABN*(05/09/2012 16:00:00) [facility] QtxmrykETCIYMWYBG5443-76-26 22:00:00Occasional /HPF (05/09/2012 16:00:00)[facility] EcidmboODMMHYZVBS0422-16-63 22:00:00Performed (05/09/2012 16:00:00)[facility] OzhagmiBAYJBBHASR9308-08-20 22:00:00Negative (05/09/2012 16:00:00)[facility] GothupnHYWDTMSKEH4662-43-10 22:00:003-5 /HPF *ABN*(05/09/2012 16:00:00)[facility] LidzpgiQTIMTTSVEW7795-60-00 22:00:00Rare /LPF (05/09/2012 16:00:00)[facility] SyampypRGUJFFGDAT2247-62-23 22:00:000-2 /HPF (05/09/2012 16:00:00)[facility] KwlfmgvSBZNYUQFZX1112-51-50 22:00:00 Test Item Value Reference Range Interpretation Comments UA Spec Grav (test code = UA Spec 1.010 1 N Grav) [facility] RpjaffqLIHZJZYZKT5834-37-71 22:00:00Slight Cloudy (05/09/2012 16:00:00) [facility] ThmeylzXLSVAIHEQU0474-45-95 22:00:00Light Yellow (05/09/2012 16:00:00) [facility] PtdamfmDEWMDJWBKD6512-85-69 22:00:00Negative *NA*(05/09/2012 16:00:00) [facility] HeouueiTWMKJKCYXT8150-30-87 22:00:00Negative (05/09/2012 16:00:00) [facility] CdejhjpATGCTTEFSY3387-65-67 22:00:000.2[facility] HermannURINALYSIS 2012-05-09 22:00:00Negative (05/09/2012 16:00:00)[facility]annCHEMISTRY 2012-05-09 19:55:00<0.02[facility] BmzcdxaSXVEAWVJK8237-34-11 15:48:0037.0 [facility] MujevdfSYXYKPASC0206-36-03 15:48:007.37[facility] HermannCHEMISTRY 2012-05-09 15:48:0044[facility] EzzfgmlBAOQAXDDL8258-03-33 15:48:0067[facility] FtznnyzIFIXYNSHS6227-27-16 15:48:0025.4[facility] SifbcazYUWKLIYLE9441-13-80 15:48:0092.0[facility] DuvzhecWATCNOTQQ2206-69-23 15:48:000[facility] TAGRPSLRH2773-78-06 15:48:00<3[facility] IltuijcTOVZFSUIA8683-31-06 15:48:00 <0.003[facility] XhmsyfyIFYXWAZBK0009-36-26 15:48:001.5[facility] EPVQGEZUN6221-34-00 15:48:0015.5[facility] GnkkneoOSCHHDCXG4355-86-97 15:48:0079 [facility] JxpwwykJBKGJDXZC5962-22-00 15:48:009.1[facility] HermannCHEMISTRY 2012-05-09 15:48:0023[facility] EnaxpwzKXNHOMDWX9510-66-31 15:48:31003Dephnlbr VjgsoxcOPUUNUWNB2363-06-07 15:48:004.5[facility] YyqzvyeAQKYGROTN3625-32-64 15:48:35879Uvrytmvj VtallmxHTSGJDXMT1615-66-82 15:48:001.0[facility] SFCPQHQHS8818-89-76 15:48:89980Vhlownqa YoibrmcYNLEYVOLG5405-96-31 15:48:0015 [facility] GbzaiecRUDYYIFEIB6468-08-87 15:48:0014.0[facility] HermannHEMATOLOGY 2012-05-09 15:48:93079Svxvqxst RpymsdrWHVEDDOCBV2330-26-28 15:48:008.7[facility] ZdxmxmhZCNDMFMDOU4466-43-65 15:48:00 Test Item Value Reference Range Interpretation Comments MCH (test code = MCH) 32.1 pg 27.0-31.0 H [facility] UubnqtdVENOWDLFFT3721-40-88 15:48:0033.4[facility] HermannHEMATOLOGY 2012-05-09 15:48:0012.7[facility] NvlooneVJZXJZEQRB6963-09-21 15:48:0038.1[facility] YylavkhCGGVGFBRGV9256-58-90 15:48:0096.0[facility] FwhkubgMQPDQZLEDF2050-93-59 15:48:009.0[facility] CmwgkcbQQJFVXIYBE5240-45-29 15:48:003.97[facility] TQUGNYFXYF9396-35-42 15:48:00 Test Item Value Reference Range Interpretation Comments K-time (test code = K-time) 1.0 min 0.6-2.3 N [facility] IxvflpaEIQLLBKBVL8340-20-26 15:48:00 Test Item Value Reference Range Interpretation Comments Split Point (test code = Split Point) 0.6 min [facility] EyffpxjPJVAPWCHMA0469-39-55 15:48:00 Test Item Value Reference Range Interpretation Comments R-time (test code = R-time) 0.8 min 0.4-0.7 H [facility] EgaenduTNTINVKRAO5361-23-74 15:48:00 Test Item Value Reference Range Interpretation Comments Angle (test code = Angle) 76 degrees 64-80 N [facility] WhvnxgtRPPCOGEWLZ4510-74-04 15:48:00 Test Item Value Reference Range Interpretation Comments Max Amp (test code = Max Amp) 69 mm 52-71 N [facility] GewpfvrOHHDLVHYTA3550-74-29 15:48:0011.1[facility] HermannHEMATOLOGY 2012-05-09 15:48:00 Test Item Value Reference Range Interpretation Comments ACT (TEG) (test code = ACT (TEG)) 121 s 86-118 H [facility] WayvjzdDKNLRKTZDL1949-52-79 15:48:000.1[facility] HermannHEMATOLOGY 2012-05-09 15:48:002.3[facility] FlmikwxSWTLYRHJRQ1381-48-31 15:48:000.3[facility] BaddakcKGWNVLGMNF2044-36-10 15:48:006.2[facility] TzxscsbSZLCJRHXXN0709-42-73 15:48:001.9[facility] LtuzzjbSIJJDGFMFX0442-48-98 15:48:0021.7[facility] UITLHRLTYB8427-30-16 15:48:006.4[facility] FdmgpdmDSNWCESPXF2747-79-65 15:48:00 69.3[facility] VufxucrEUZYLRGDUV9159-11-85 15:48:000.2[facility] HermannHEMATOLOGY 2012-05-09 15:48:000.6[facility] ZWHAWKE2383-46-92 15:40:00 Negative (05/09/2012 09:40:00)[facility]
[2020-12-23 20:42] LABS: Basophils % 0.6 % (0-1.3); Hematocrit 37.9 % (39.6-49.0); Lymphocytes % 26.7 % (15.3-44.8); MPV 8.4 fL (7.6-11.3); RBC Red Blood Cell Count 4.07 M/uL (4.33-5.43)
[2020-12-23 20:47] LABS: Protime INR 0.97
[2020-12-23 21:02] LABS: ALT/SGPT 48 U/L (12-78); AST/SGOT 18 U/L (15-37); Albumin 3.9 g/dL (3.4-5.0); Alkaline Phosphatase 67 U/L (45-117); BUN Blood Urea Nitrogen 14 mg/dL (7-18); Bicarbonate 27 mmol/L (21-32); Bilirubin Direct < 0.1 mg/dL (0-0.2); Bilirubin Total 0.3 mg/dL (0.2-1.0); Glucose Level 104 mg/dL (74-106); Magnesium 2.1 mg/dL (1.8-2.4); NT PRO-BNP 149 pg/mL (<125); Potassium 3.7 mmol/L (3.5-5.1); Protein, Total 7.4 g/dL (6.4-8.2); Sodium Level 138 mmol/L (136-145); Troponin (Emerg Dept Use Only) < 0.02 ng/mL (0.0-0.045)
--- NOTE | 2020-12-23 21:43 | RAD REPORT ---
EXAM DESCRIPTION: RAD - Chest Single View - 12/23/2020 9:27 pm CLINICAL HISTORY: PALPITATIONS COMPARISON: Two view chest December 2018 TECHNIQUE: AP portable chest image was obtained 12/23/2020 9:27 pm . FINDINGS: Lung volumes are low accentuating the baseline interstitial pattern. No true significant c hange to the lung markings. No mass, consolidation or failure suspected. Heart and vasculature are no rmal. No measurable pleural effusion and no pneumothorax. No acute bony abnormality seen. No acute ao rtic findings suspected. IMPRESSION: No acute cardiopulmonary process. No significant change from comparison study.
--- NOTE | 2020-12-23 22:05 | ER ---
Nurse's Notes [facility] Name: Kevin Barrow Age: 75 yrs Sex: Male : 1945 Arrival Date: 12/23/2020 Time: 19:58 Bed 8 Private MD: Efrain Oh Diagnosis: Bradycardia, unspecified;Bigeminy Presentation: 12/23 20:09 Chief complaint: Patient states: he took his blood pressure because he was hot bb and feeling week and noticed his heart rate was low in the 30s to 40s went to Urgent Care today and was told to come to the ED. Coronavirus screen: At this time, the client does not indicate any symptoms associated with coronavirus-19. Ebola Screen: No symptoms or risks identified at this time. Initial Sepsis Screen: Does the patient meet any 2 criteria? No. Patient's initial sepsis screen is negative. Does the patient have a suspected source of infection? No. Patient's initial sepsis screen is negative. Risk Assessment: Do you want to hurt yourself or someone else? Patient reports no desire to harm self or others. Onset of symptoms was December 21, 2020. 20:09 Method Of Arrival: Ambulatory bb 20:09 Acuity: PIERRE 3 bb Historical: - Allergies: 20:15 No Known Allergies; bb - Home Meds: 20:15 Hydrochlorothiazide Oral [Active]; amlodipine oral [Active]; atorvastatin oral oral bb [Active]; Metformin Oral [Active]; B-12 [Active]; garlic oral oral [Active]; multivitamin [Active]; Fish Oil oral oral [Active]; glucosamine-chondroitin oral oral [Active]; Iron CR Oral [Active]; curcumin/tummeric [Active]; Aspirin Oral [Active]; - PMHx: 20:15 Hypertension; Diabetes - NIDDM; bb - PSHx: 20:15 neck surgery; ankle surgery; wrist surgery; rotator cuff; bb - Immunization history:: Adult Immunizations up to date, Client reports receiving the 2nd dose of the Covid vaccine. - Social history:: Smoking status: Patient denies any tobacco usage or history of. Screenin:29 Abuse screen: Denies threats or abuse. Denies injuries from another. Nutritional rr5 screening: No deficits noted. Tuberculosis screening: No symptoms or risk factors identified. Fall Risk IV access (20 points). Total Lamar Fall Scale indicates No Risk (0-24 pts). Assessment: 20:29 General: Appears in no apparent distress. comfortable, Behavior is calm, cooperative, rr5 appropriate for age. Pain: Denies pain. Neuro: Level of Consciousness is awake, alert, obeys commands, Oriented to person, place, time, Reports weakness. Cardiovascular: Reports low HR Capillary refill < 3 seconds. Respiratory: Airway is patent Respiratory effort is even, unlabored, Respiratory pattern is regular, symmetrical. GI: No signs and/or symptoms were reported involving the gastrointestinal system. : No signs and/or symptoms were reported regarding the genitourinary system. EENT: No signs and/or symptoms were reported regarding the EENT system. Derm: Skin is intact, is healthy with good turgor, Skin temperature is warm. Musculoskeletal: Circulation, motion, and sensation intact. 22:30 Reassessment: Patient and/or family updated on plan of care and expected duration. Pain ea level reassessed. Patient is alert, oriented x 3, equal unlabored respirations, skin warm/dry/pink. 23:25 Reassessment: Patient and/or family updated on plan of care and expected duration. Pain ea level reassessed. Patient is alert, oriented x 3, equal unlabored respirations, skin warm/dry/pink. Report called to receiving nurse, pt left ED via wheelchair per tech. Pt tolerating well. Vital Signs: 20:09 BP 149 / 77; Pulse 41; Resp 16 S; Temp 98.5(O); Pulse Ox 97% on R/A; Weight 101.15 kg bb (R); Height 5 ft. 10 in. (177.80 cm) (R); Pain 0/10; 21:14 BP 130 / 82; Pulse 74; Resp 18; Pulse Ox 96% ; rr5 23:30 BP 129 / 68; Pulse 72; Resp 18; Pulse Ox 98% ; ea 20:09 Body Mass Index 32.00 (101.15 kg, 177.80 cm) bb ED Course: 19:58 Patient arrived in ED. es 19:58 Efrain Oh, is Private Physician. es 20:11 Triage completed. bb 20:15 Arm band placed on Patient placed in an exam room, on a stretcher, on monitoring manager, bb on pulse oximetry. Family accompanied patient. 20:16 Rupesh Lynn, RN is Primary Nurse. rr5 20:17 Chi Gross NP is PHCP. pm1 20:17 Joshua Barclay MD is Attending Physician. pm1 20:25 EKG done, by ED staff, reviewed by Chi Gross NP. rr5 20:29 Inserted saline lock: 20 gauge in right forearm, using aseptic technique. ,using rr5 aseptic technique. inserted by tiffani Blood collected. 20:30 Patient has correct armband on for positive identification. Bed in low position. Call rr5 light in reach. lunchroom monitor on. Pulse ox on. NIBP on. 21:27 XRAY Chest (1 view) In Process Unspecified. EDMS 22:04 Rupesh Ortiz MD is Hospitalizing Provider. pm1 23:14 No provider procedures requiring assistance completed. Patient admitted, IV remains in ea place. Administered Medications: No medications were administered Outcome: 22:04 Decision to Hospitalize by Provider. pm1 23:15 Condition: stable ea 23:15 Instructed on the need for admit, Demonstrated understanding of instructions. 23:25 Admitted to Med/surg accompanied by tech, via wheelchair, room 223, with chart, Report ea called to Receiving nurse on second floor. 23:31 Patient left the ED. ea Signatures: Dispatcher [employer] EDDC Karen Garcia Brenda, RN RN Chi Wright NP TUMBLERS SUPERVISOR pm1 Tiffani Francois RN RN ea Roque, Raymond, RN RN rr5
--- NOTE | 2020-12-23 22:05 | EDPHYS ---
Physician Documentation [facility] Name: Kevin Barrow Age: 75 yrs Sex: Male : 1945 Arrival Date: 12/23/2020 Time: 19:58 Bed 8 Private MD: Ritu Ohh ED Physician Joshua Barclay HPI: 12/23 20:27 This 75 yrs old Male presents to ER via Ambulatory with complaints of low pm1 heart rate. 20:27 The patient presents with a history of bradycardia. pm1 20:27 Context: The symptoms occur at rest. Onset: The symptoms/episode began/occurred 3 pm1 day(s) ago. Duration: The patient or guardian reports multiple episodes. Modifying factors: The symptoms are aggravated by nothing. The symptoms are alleviated by nothing. Associated signs and symptoms: The patient has no apparent associated signs or symptoms, Pertinent negatives: chest pain, lightheadedness, SOB, syncope, near-syncope. Severity of symptoms: in the emergency department the symptoms have improved. The patient has not experienced similar symptoms in the past. The patient has not recently seen a physician. Patient reports heart rates intermittently going into the upper 30s and lower 40s for the past three days. Feels that the bradycardia is lasting longer. Historical: - Allergies: 20:15 No Known Allergies; bb - Home Meds: 20:15 Hydrochlorothiazide Oral [Active]; amlodipine oral [Active]; atorvastatin oral oral bb [Active]; Metformin Oral [Active]; B-12 [Active]; garlic oral oral [Active]; multivitamin [Active]; Fish Oil oral oral [Active]; glucosamine-chondroitin oral oral [Active]; Iron CR Oral [Active]; curcumin/tummeric [Active]; Aspirin Oral [Active]; - PMHx: 20:15 Hypertension; Diabetes - NIDDM; bb - PSHx: 20:15 neck surgery; ankle surgery; wrist surgery; rotator cuff; bb - Immunization history:: Adult Immunizations up to date, Client reports receiving the 2nd dose of the Covid vaccine. - Social history:: Smoking status: Patient denies any tobacco usage or history of. ROS: 20:27 Constitutional: Negative for fever, chills, and weight loss. pm1 20:27 Eyes: Negative for injury, pain, redness, and discharge, ENT: Negative for injury, pain, and discharge, Neck: Negative for injury, pain, and swelling, Respiratory: Negative for shortness of breath, cough, wheezing, and pleuritic chest pain, Abdomen/GI: Negative for abdominal pain, nausea, vomiting, diarrhea, and constipation, Back: Negative for injury and pain, MS/Extremity: Negative for injury and deformity, Skin: Negative for injury, rash, and discoloration, Neuro: Negative for headache, weakness, numbness, tingling, and seizure. 20:27 Cardiovascular: Negative for chest pain, edema, palpitations. Exam: 20:27 Constitutional: This is a well developed, well nourished patient who is awake, alert, pm1 and in no acute distress. Head/Face: Normocephalic, atraumatic. 20:27 Back: No spinal tenderness. No costovertebral tenderness. Full range of motion. Skin: Warm, dry with normal turgor. Normal color with no rashes, no lesions, and no evidence of cellulitis. MS/ Extremity: Pulses equal, no cyanosis. Neurovascular intact. Full, normal range of motion. 20:27 Eyes: Exam is negative for acute changes, Extraocular movements: intact throughout, Conjunctiva: normal, no injection. 20:27 ENT: Mouth: Lips: normal, Oral mucosa: normal, pink and intact, moist. 20:27 Cardiovascular: Rate: normal, Rhythm: irregular, Pulses: no pulse deficits are appreciated, Edema: is not appreciated, Bigeminy on ECG and NSR both with rates in the 70s. 20:27 Respiratory: Exam negative for acute changes, the patient does not display signs of respiratory distress, Respirations: normal, Breath sounds: are clear throughout. 20:27 Abdomen/GI: Inspection: abdomen appears normal, Palpation: abdomen is soft and non-tender, in all quadrants. 20:27 Neuro: Exam negative for acute changes, Orientation: is normal, Mentation: is normal, Motor: is normal, moves all fours. Vital Signs: 20:09 BP 149 / 77; Pulse 41; Resp 16 S; Temp 98.5(O); Pulse Ox 97% on R/A; Weight 101.15 kg bb (R); Height 5 ft. 10 in. (177.80 cm) (R); Pain 0/10; 21:14 BP 130 / 82; Pulse 74; Resp 18; Pulse Ox 96% ; rr5 23:30 BP 129 / 68; Pulse 72; Resp 18; Pulse Ox 98% ; ea 20:09 Body Mass Index 32.00 (101.15 kg, 177.80 cm) bb MDM: 20:19 Patient medically screened. pm1 20:31 Data reviewed: vital signs. Data interpreted: Pulse oximetry: on room air is 97 %. pm1 Interpretation: normal. 21:12 Counseling: I had a detailed discussion with the patient and/or guardian regarding: the pm1 historical points, exam findings, and any diagnostic results supporting the discharge/admit diagnosis, lab results, radiology results, the need for further work-up and treatment in the hospital. 21:59 Physician consultation: Vaughn FERNANDEZ and will see patient in ED, . pm1 12/23 20:27 Order name: Basic Metabolic Panel; Complete Time: 21: 12/23 20:27 Order name: CBC with Diff; Complete Time: 21: 12/23 20:27 Order name: LFT's; Complete Time: 21: 12/23 20:27 Order name: Magnesium; Complete Time: 21: 12/23 20:27 Order name: NT PRO-BNP; Complete Time: 21: 12/23 20:27 Order name: PT-INR; Complete Time: 21: 12/23 20:27 Order name: Troponin (emerg Dept Use Only); Complete Time: 21: 12/23 20:27 Order name: XRAY Chest (1 view); Complete Time: 21:47 12/23 20:27 Order name: EKG; Complete Time: 20: 12/23 20:27 Order name: Cardiac monitoring; Complete Time: 20:27 12/23 20:27 Order name: EKG - Nurse/Tech; Complete Time: 20: 12/23 21:12 Order name: TSH pm1 12/23 21:12 Order name: Thyroid Stimulating Hormone; Complete Time: 22:21 [facility] 12/23 21:48 Order name: T4 Free; Complete Time: 22:21 EDDC 12/23 20:27 Order name: IV Saline Lock; Complete Time: 20: 12/23 20:27 Order name: Labs collected and sent; Complete Time: 20: bb 12/23 20:27 Order name: O2 Per Protocol; Complete Time: bb 12/23 20: Order name: O2 Sat Monitoring; Complete Time: bb Administered Medications: No medications were administered Disposition: 12/24 05:36 Co-signature as Attending Physician, Joshua Barclay MD. 7 Disposition: 12/23/20 22:04 Hospitalization ordered by Rupesh Ortiz for Observation. Preliminary diagnosis are Bradycardia, unspecified, Bigeminy. - Bed requested for Telemetry/MedSurg (observation). - Status is Observation. ea - Condition is Stable. - Problem is new. - Symptoms have improved. Signatures: Dispatcher [employer] EDMS Fatuma Blakely, RN RN bb Chi Gross, AUTO SUSPENSION AND STEERING MECHANIC AUTO SUSPENSION AND STEERING MECHANIC pm1 Tiffani Francois, RN RN Joshua Hernandez MD MD 7 Amber Richardson, RN RN rd1 Corrections: (The following items were deleted from the chart) 12/23 23:04 22:04 Hospitalization Ordered by Rupesh Ortiz MD for Observation. Preliminary rd1 diagnosis is Bradycardia, unspecified; Bigeminy. Bed requested for Telemetry/MedSurg (observation). Status is Observation. Condition is Stable. Problem is new. Symptoms have improved. pm1 23:31 23:04 12/23/2020 22:04 Hospitalization Ordered by Rupesh Ortiz MD for Observation. ea Preliminary diagnosis is Bradycardia, unspecified; Bigeminy. Bed requested for Telemetry/MedSurg (observation). Status is Observation. Condition is Stable. Problem is new. Symptoms have improved. rd1
--- NOTE | 2020-12-23 23:01 | P.HP ---
Certification for Inpatient Patient admitted to: Observation With expected LOS: <2 Midnights Patient will require the following post-hospital care: None Practitioner: I am a practitioner with admitting privileges, knowledge of patient current condition, hospital course, and medical plan of care. Services: Services provided to patient in accordance with Admission requirements found in Title 42 Section 412.3 of the Code of Federal Regulations Patient History Date of Service: 12/23/20 Reason for admission: Bradycardia History of Present Illness: 75-year-old male with history of hypertension, diabetes mellitus type 2, hyperlipidemia presents emergency department for bradycardia. Patient reports that he is feeling flushed and a little bit weak so he went to urgent care, urgent care noted that his heart rate was very low in the 30s to 40s and sent into the emergency department for evaluation. Upon arrival to the emergency department patient's heart rate was in the 30s to 40s, EKGs obtained but did not catch the significant bradycardia, EKG did demonstrate ventricular bigeminy. Patient in and out of ventricular bigeminy alternating with normal sinus rhythm with a rate of around 70 throughout his stay in the emergency department. Patient denies any chest pain, shortness of breath, dizziness, lightheadedness, syncope. ED provider wishes to admit patient under observation for further evaluation and management. Patient denies taking any beta-blockers, takes amlodipine for his blood pressure. Will admit for further evaluation and management. - Past Medical/Surgical History -: Hypertension -: Diabetes mellitus type 2 -: Hyperlipidemia -: Right hip surgery -: Neck surgery -: Hernia repair -: Testicular surgery Psychosocial/ Personal History: Lives with , retired - Family History Father -: Heart disease Mother -: Lung disease - Social History Smoking Status: Never smoker Alcohol use: No CD- Drugs: No Caffeine use: Yes Place of Residence: Home Review of Systems Unremarkable Physical Examination - Physical Exam General: Alert, In no apparent distress, Oriented x3 HEENT: Atraumatic, PERRLA, Mucous membr. moist/pink, EOMI, Sclerae nonicteric Neck: Supple, 2+ carotid pulse no bruit, No LAD, Without JVD or thyroid abnormality Respiratory: Clear to auscultation bilaterally, Normal air movement Cardiovascular: Regular rate/rhythm, Normal S1 S2, Irregular heart rate/rhythm (Intermittent bradycardia versus sinus rhythm) Capillary refill: <2 Seconds Gastrointestinal: Normal bowel sounds, No tenderness Musculoskeletal: No tenderness Integumentary: No rashes Neurological: Normal speech, Normal strength at 5/5 x4 extr, Normal tone, Normal affect Lymphatics: No axilla or inguinal lymphadenopathy - Studies Laboratory Data (last 24 hrs) 12/23/20 20:26: PT 11.1, INR 0.97 12/23/20 20:26: WBC 7.50, Hgb 12.9 L, Hct 37.9 L, Plt Count 209 12/23/20 20:26: Sodium 138, Potassium 3.7, BUN 14, Creatinine 0.82, Glucose 104, Magnesium 2.1, Total Bilirubin 0.3, AST 18, ALT 48, Alkaline Phosphatase 67 Assessment and Plan - Plan Assessment Bradycardia, ventricular bigeminy-paroxysmal Diabetes mellitus type 2 Hypertension, hyperlipidemia Plan Bradycardia, ventricular bigeminy-paroxysmal: Will monitor on telemetry throughout the evening, recheck electrolytes the morning. Thyroid panel pending. Cardiology consult in place. DVT prophylaxis Lovenox 40 mg subcutaneous once daily. Patient not taking any beta-blockers. Patient asymptomatic at this time. Diabetes mellitus type 2: A.c. HS Accu-Cheks, sliding scale insulin therapy. Hypertension, hyperlipidemia: Continue medications, withhold any beta-anna therapy. Discharge Plan: Home Plan to discharge in: 24 Hours - Advance Directives Does patient have a Living Will: No Does patient have a Durable POA for Healthcare: No - Code Status/Comfort Care Code Status Assessed: Yes (Full code) Critical Care: No Time Spent Managing Pts Care (In Minutes): 55
[2020-12-23] MEDS ORDERED: ONDANSETRON 4 MG/2 ML VIAL IV PRN (23:43)
[2020-12-23] MEDS ORDERED: ACETAMINOPHEN 500 MG TAB PO PRN (23:43)
[2020-12-23 23:50] VITALS: BMI 31.6
[2020-12-24 07:10] LABS: Absolute Lymphocytes (CBC) 1.5 K/uL (0.7-4.9); Basophils % 0.8 % (0-1.3); Hematocrit 36.6 % (39.6-49.0); Lymphocytes % 24.4 % (15.3-44.8); MPV 8.6 fL (7.6-11.3); RBC Red Blood Cell Count 3.87 M/uL (4.33-5.43)
[2020-12-24 07:30] LABS: ALT/SGPT 42 U/L (12-78); AST/SGOT 17 U/L (15-37); Albumin 3.3 g/dL (3.4-5.0); Alkaline Phosphatase 60 U/L (45-117); BUN Blood Urea Nitrogen 14 mg/dL (7-18); Bicarbonate 27 mmol/L (21-32); Bilirubin Total 0.3 mg/dL (0.2-1.0); Glucose Level 118 mg/dL (74-106); Magnesium 2.1 mg/dL (1.8-2.4); Potassium 3.6 mmol/L (3.5-5.1); Protein, Total 6.7 g/dL (6.4-8.2); Sodium Level 142 mmol/L (136-145); Troponin I < 0.02 ng/mL (0.0-0.045)
[2020-12-24] MEDS ORDERED: INSULIN -REGULAR HUMAN 50 UNIT/0.5 ML ML SQ SCH (07:30)
[2020-12-24 08:40] VITALS: BP 138/65; TEMP 97.6
--- NOTE | 2020-12-24 08:44 | EKG ---
Test Date: 2020-12-23 Test Time: 20:24:39 Wool And Pelt Grader: ALIYAH MEASUREMENT RESULTS: Intervals: Rate: 83 NC: 152 QRSD: 88 QT: 392 QTc: 460 [place]: P: 39 NC: 152 QRS: 6 T: 35 INTERPRETIVE STATEMENTS: Sinus rhythm with frequent premature ventricular complexes in a pattern of bigeminy Moderate voltage criteria for LVH, may be normal variant Borderline ECG Compared to ECG 03/02/1994 16:12:00 Ventricular premature complex(es) now present Left ventricular hypertrophy now present Electronically Signed On 12-24-20 08:43:05 CDT by Diomedes Fox
[2020-12-24] MEDS ORDERED: ENOXAPARIN 40 MG/0.4 ML SQ SCH (09:00)
[2020-12-24 09:09] VITALS: O2SAT 95
--- NOTE | 2020-12-24 11:34 | P.DS ---
Admission Date: 12/23/20 Discharge Date: 12/24/20 Disposition: ROUTINE DISCHARGE Reason for Admission: Bradycardia Consultations: Cardiology - Dr. Fox Procedures: CXR (12/23): FINDINGS: Lung volumes are low accentuating the baseline interstitial pattern. No true significant change to the lung markings. No mass, consolidation or failure suspected. Heart and vasculature are normal. No measurable pleural effusion and no pneumothorax. No acute bony abnormality seen. No acute aortic findings suspected. IMPRESSION: No acute cardiopulmonary process. No significant change from comparison study. Problem List Bradycardia, Ventricular bigeminy-paroxysmal Diabetes mellitus type 2, non-insulin dependent Hypertension Hyperlipidemia Brief History of Present Illness: 75-year-old male with history of hypertension, diabetes mellitus type 2, hyperlipidemia presents emergency department for bradycardia. Patient reports that he is feeling flushed and a little bit weak so he went to urgent care, urgent care noted that his heart rate was very low in the 30s to 40s and sent into the emergency department for evaluation. Upon arrival to the emergency department patient's heart rate was in the 30s to 40s, EKGs obtained but did not catch the significant bradycardia, EKG did demonstrate ventricular bigeminy. Patient in and out of ventricular bigeminy alternating with normal sinus rhythm with a rate of around 70 throughout his stay in the emergency department. Patient denies any chest pain, shortness of breath, dizziness, lig htheadedness, syncope. ED provider wishes to admit patient under observation for further evaluation and management. Patient denies taking any beta-blockers, takes amlodipine for his blood pressure. Will admit for further evaluation and management. Hospital Course: Monitored on telemetry with paroxysmal bigeminy. Troponin trended and negative. Cardiology was consulted. Recommended discharge home, to be set up for event monitor as outpatient. Patient was feeling at his baseline, denied any symptoms while hospitalized. Follow up with Dr. Fox Vital Signs/Physical Exam: Physical Exam General: Alert, In no apparent distress, Oriented x3 HEENT: normal conjunctiva, sclera anicteric Neck: 2+ carotid pulse no bruit Respiratory: Clear to auscultation bilaterally, Normal air movement Cardiovascular: Normal S1 S2, no murmur Gastrointestinal: soft, nontender, nondistended Integumentary: No rashes Neurological: Normal speech, Normal strength at 5/5 x4 extr, Normal tone, Normal affect Temp Pulse Resp BP Pulse Ox 97.6 F 78 16 138/65 95 12/24/20 08:00 12/24/20 08:00 12/24/20 08:00 12/24/20 08:00 12/24/20 08:00 Laboratory Data at Discharge: WBC 6.30 K/uL (4.3-10.9) D 12/24/20 05:55 Hgb 12.1 g/dL (13.6-17.9) L 12/24/20 05:55 Hct 36.6 % (39.6-49.0) L 12/24/20 05:55 Plt Count 218 K/uL (152-406) 12/24/20 05:55 PT 11.1 SECONDS (9.5-12.5) 12/23/20 20:26 INR 0.97 12/23/20 20:26 Sodium 142 mmol/L (136-145) 12/24/20 05:55 Potassium 3.6 mmol/L (3.5-5.1) 12/24/20 05:55 BUN 14 mg/dL (7-18) 12/24/20 05:55 Creatinine 0.67 mg/dL (0.55-1.3) 12/24/20 05:55 Glucose 118 mg/dL (74-106) H 12/24/20 05:55 Magnesium 2.1 mg/dL (1.8-2.4) 12/24/20 05:55 Total Bilirubin 0.3 mg/dL (0.2-1.0) 12/24/20 05:55 AST 17 U/L (15-37) 12/24/20 05:55 ALT 42 U/L (12-78) 12/24/20 05:55 Alkaline Phosphatase 60 U/L (45-117) 12/24/20 05:55 Troponin I < 0.02 ng/mL (0.0-0.045) 12/24/20 05:55 Home Medications: Amlodipine [Norvasc*] 5 mg PO DAILY 12/24/20 Aspirin 81 mg PO DAILY 12/24/20 Atorvastatin Calcium [Lipitor*] 20 mg PO DAILY 12/24/20 Metformin HCl 1,000 mg PO BID 12/24/20 hydroCHLOROthiazide [Hydrochlorothiazide] 25 mg PO DAILY 12/24/20 Physician Discharge Instructions: You were found to have an irregular rhythm with occasional bigeminy. Dr.. Fox was consulted and recommended follow up with him to be set up for a cardiac event monitor. Diet: ADA Activity: Ad manny Followup: Diomedes Fox MD [ACTIVE - CAN ADMIT] - Efrain Oh DO [Primary Care Provider] - Time spent managing pt's care (in minutes): 40
--- NOTE | 2020-12-25 13:16 | CON ---
Date of Consultation: 12/23/2020 Reason For Consultation: Bradycardia and bigeminy. History Of Present Illness: Mr. Barrow is a 75-year-old male who has a history of hypertension, di abetes, dyslipidemia, had noted on the pulse ox that his heart rate was low and came to the hospital. He was found to have bradycardia with bigeminy. By the time I saw, his heart rate was 70, he had n o cardiac symptoms with that. Denied chest pain, shortness of breath, nausea, vomiting, diaphoresis, PND, orthopnea, pedal edema, palpitations, or syncope. Past Medical History: As stated above. Allergies: NONE. Review of Systems: Negative. Social History: Negative. Family History: Noncontributory. Medications: At home include Norvasc, Lipitor, metformin, hydrochlorothiazide, and aspirin. Physical Examination: Vital Signs: Stable, afebrile HEENT: Negative. Neck: Supple without any bruit, lymphadenopathy, JVD, or thyromegaly. Chest: Clear to auscultation and percussion. Cardiac: Revealed a regular rhythm and rate. No murmurs, gallops, or rubs. Abdomen: Benign. Extremities: Revealed no clubbing, cyanosis, or edema. Physical Examination: Vital Signs: Stable. He was afebrile. . Diagnostic Data: Normal. Impression And Plan: Bigeminy, premature ventricular contractions, bradycardia. He is not on any be ta anna, asymptomatic, has significant past medical history including hypertension, dyslipidemia, and diabetes all of that was controlled. I am comfortable with him going home. I will make arrangem ents for him to have an outpatient echocardiogram and event monitor and see me as soon as possible. No change in medical therapy for now. TAE/CRYSTAL Voice ID: [id number] Report ID: [id number]
--- NOTE | 2020-12-25 15:52 | EKG ---
Test Date: 2020-12-23 Test Time: 20:26:21 Marsh Buggy Operator: ALIYAH MEASUREMENT RESULTS: Intervals: Rate: 76 [place]: 154 QRSD: 90 QT: 382 QTc: 429 [place]: P: 22 AK: 154 QRS: 3 T: 33 INTERPRETIVE STATEMENTS: Normal sinus rhythm Moderate voltage criteria for LVH, may be normal variant Borderline ECG Compared to ECG 12/23/2020 20:24:39 Ventricular premature complex(es) no longer present Electronically Signed On 12-25-20 15:47:31 CDT by Diomedes Fox
--- NOTE | 2020-12-25 15:52 | EKG ---
Test Date: 2020-12-23 Test Time: 21:23:45 Keno Writer: ALIYAH MEASUREMENT RESULTS: Intervals: Rate: 74 LA: 150 QRSD: 86 QT: 408 QTc: 452 [place]: P: 33 LA: 150 QRS: 4 T: 35 INTERPRETIVE STATEMENTS: Sinus rhythm with frequent premature ventricular complexes in a pattern of bigeminy Moderate voltage criteria for LVH, may be normal variant Borderline ECG Compared to ECG 12/23/2020 20:26:21 Ventricular premature complex(es) now present Electronically Signed On 12-25-20 15:47:31 CDT by Diomedes Fox
== END 2020-12-24 11:40 | disposition home or self-care (01) ==
LOC: ER 19:54 → 2ND 23:18
PROVIDERS: ADMIT Hospitalist; ATTEND Hospitalist
DX: R00.1 Bradycardia, unspecified (principal); R00.8 Other abnormalities of heart beat; E11.9 Type 2 diabetes mellitus without complications; I10 Essential (primary) hypertension; E78.5 Hyperlipidemia, unspecified; Z79.84 Long term (current) use of oral hypoglycemic drugs
CPT/HCPCS: 93005 ×3; 85025 ×2; 80048; 36415; 83735 ×2; 85610; 82947 ×2; 80076; 84443; 84484 ×2; 84439; 80053; 83880; 71045; 99285; J1650; G0378 ×2

== ENCOUNTER 2021-03-21 06:07 | Day surgery (SDC) | payer OTHER ==
[2021-03-15 08:55] LABS: Absolute Lymphocytes (CBC) 1.5 K/uL (0.7-4.9); Basophils % 0.7 % (0-1.3); Hematocrit 38.1 % (39.6-49.0); Lymphocytes % 27.6 % (15.3-44.8); MPV 7.6 fL (7.6-11.3); RBC Red Blood Cell Count 4.03 M/uL (4.33-5.43)
[2021-03-15 08:57] LABS: Protime INR 1.01
[2021-03-15 09:05] LABS: Potassium 3.9 mmol/L (3.5-5.1)
[2021-03-21] MEDS ORDERED: CEFAZOLIN/SWI 1gm 1 GM/10 ML SYR ONE (06:37)
[2021-03-21] MEDS ORDERED: NA CHLORIDE 0.9% 1,000 ML ONE (06:37)
[2021-03-21] MEDS ORDERED: dexAMETHasone 10 MG/ML VIAL ONE (06:42)
[2021-03-21] MEDS ORDERED: LIDOCAINE 1% MPF 5 ML VIAL ONE (06:42)
[2021-03-21] MEDS ORDERED: NS 0.9% VIAL 10 ML ONE (06:42)
[2021-03-21] MEDS ORDERED: FENTANYL CITR 100 MCG/2 ML ONE ×2 (06:42→09:59)
[2021-03-21] MEDS ORDERED: MIDAZOLAM HCL 2 MG/2 ML INJ ONE ×2 (06:42→09:59)
[2021-03-21] MEDS ORDERED: ROPLVACAINE HCL 40 ML ONE (06:43)
[2021-03-21] MEDS ORDERED: EPINEPHRINE/PF 1 MG/ML AMP ONE (07:09)
[2021-03-21] MEDS ORDERED: ROCURONIUM 50 MG/5 ML VIAL IV ONE (07:46)
[2021-03-21] MEDS ORDERED: LIDOCAINE 2% MPF 5 ML VIAL ONE ×2 (07:46→09:59)
[2021-03-21] MEDS ORDERED: propofoL 200 MG/20 ML VIAL IV ONE ×2 (07:46→09:59)
[2021-03-21] MEDS ORDERED: Ringers Lactate 1,000 ML IV ONE (07:50)
[2021-03-21] MEDS ORDERED: EPHEDRINE SULF 50 MG/ML VIAL ONE (08:19)
[2021-03-21] MEDS ORDERED: KETOROLAC 30 MG/ML INJ ONE (09:54)
--- NOTE | 2021-03-21 10:09 | P.BOP ---
Preoperative diagnosis: left rotator cuff tear, bicipital tenosynovitis Postoperative diagnosis: same Primary procedure: left shoulder arthroscopic rotator cuff repair Secondary procedure: left shoulder arthroscopic biceps tenotomy Mortuary Technician: NONE,NONE Estimated blood loss: 5 cc Specimen: none Findings: see dictation Anesthesia: General Complications: None Implants: 1- 5.5 mm Arthrex Corkscrew, 1- 4.75 mm Arthrex Swivelock Fluids & blood products: per anesthesia record Transferred to: Recovery Room Condition: Good
[2021-03-21] MEDS ORDERED: ONDANSETRON 4 MG/2 ML VIAL ONE (11:04)
[2021-03-21 11:05] VITALS: BP 141/57; TEMP 97.2
--- NOTE | 2021-03-21 11:34 | RAD REPORT ---
EXAM DESCRIPTION: RAD - Shoulder 1 View - 03/21/2021 10:16 am CLINICAL HISTORY: s/p L shoulder RCR COMPARISON: Shoulder Left Wo Cont dated 02/07/2021 FINDINGS: Frontal AP projection of the left shoulder is submitted. No unexpected postoperative findi ng is evident. Mild degenerative AC joint and glenohumeral joint arthritic changes.
[2021-03-21 14:32] VITALS: O2SAT 95
--- NOTE | 2021-03-21 23:40 | OP ---
Date of Procedure: 03/21/2021 Surgeon: Angelo Ram MD Preoperative Diagnoses: 1.Left shoulder rotator cuff tear. 2.Left shoulder bicipital tenosynovitis. Postoperative Diagnoses: 1.Left shoulder rotator cuff tear. 2.Left shoulder bicipital tenosynovitis. Procedures Performed: 1.Left shoulder arthroscopic rotator cuff repair. 2.Left shoulder arthroscopic biceps tenotomy. Anesthesia: General endotracheal. Fluids: Per Anesthesia record. Estimated Blood Loss: 5 cc. Complications: None. Implants: 1.One 5.5 mm Arthrex Corkscrew. 2.One 4.75 mm Arthrex SwiveLock. Complications: None. Indication For Procedure: Kevin is a 75-year-old male presented to my clinic signs, symptoms, and MRI findings consistent with a left shoulder rotator cuff tear. The patient had significant pain and difficulties with activities of daily living. I discussed with the patient at length risks and bene fits associated with operative and nonoperative treatment. He expressed understanding, elected to pr oceed with operative treatment. Description Of Procedure: After informed consent was obtained, the patient was identified in the pre operative holding area. The left upper extremity was marked. The patient was transferred to PACU where he underwent an interscalene block to his left upper extrem ity and was then transferred to the operating room, transferred to operating table in supine fashion, placed under general endotracheal anesthesia. The patient was noted to have his wedding ring on as it was too tight to remove preoperatively. At that point, it was elected to cut the ring as given th e significant amount of fluid put through his shoulder. There was a chance for swelling in the left hand putting his ring finger at risk. The wedding ring was cut prior to surgery. The left upper ext remity was then prepped and draped in usual sterile fashion. A time-out was initiated. The correct patient and procedure confirmed and identified. The patient did receive his preoperative prophylacti c antibiotics. The left upper extremity was then prepped and draped in usual sterile fashion. A neelam e-out was initiated. Correct patient and procedure were confirmed and identified. The patient did r eceive his preoperative prophylactic antibiotics. A spinal needle was brought into the glenohumeral joint via the posterior portal position and then shoulder was injected with 30 cc of normal saline. The skin capsule standard approach posterior portal was created using 11 blade and arthroscope was br ought in via the posterior portal position. Diagnostic arthroscopy was performed. The patient was n oted to have some significant fraying and tenosynovitis of the biceps tendon at the anchor. A biceps tenotomy was performed using a meniscal biter. After an anterior portal and cannula were placed, th ere was some mild degenerative changes noted at the humeral head and glenoid surface. Anterior and p osterior labral more stable to probe. No loose bodies were found within the axillary pouch. There w as some fraying over the superior port of the subscapularis, which was debrided using arthroscopic sh aver. The patient was noted to have fraying and tearing on the undersurface of the supraspinatus ant erior. A lateral portal was created and it was noted that the patient had a full-thickness tear of t he anterior supraspinatus. The supraspinatus tear was then debrided using an arthroscopic shaver. B oth on the articular and the bursal side. Arthroscope was brought in the subacromial space and then subacromial bursectomy was performed. The rotator cuff tear was again identified and debrided using arthroscopic shaver. The greater tuberosity was then debrided to create a bleeding bony bed to aid w ith healing. A stab incision was made just lateral to the acromion and a 5.5 mm double loaded Arthre x Corkscrew was placed just lateral to the articular surface. The sutures were then passed through t he rotator cuff tear in an anterior-posterior fashion and were tied in a horizontal mattress fashion with overall good reduction of the rotator cuff tear. The four sutures were then brought into one si ngle lateral row of SwiveLock anchor for increasing of the surface area on the repair site over the g reater tuberosity. There was no significant fraying noted of the local acromial again and no subacro mial decompression was required. Arthroscopic instruments were removed without complications. Wound irrigated with normal saline. Skin was approximated using 3-0 Monocryl. Sterile dressings were suma lied. The patient was placed in his postoperative shoulder immobilizer, awakened, and transferred to PACU in stable condition. Postoperative Plan: The patient will be nonweightbearing to his left lower extremity. Recycler apy will be consulted in 4 weeks postoperatively. Now, we will proceed with a medium rotator cuff re pair protocol. GORDO/PANFILOL Voice ID: [id number] Report ID: [id number]
== END 2021-03-21 12:00 | disposition home or self-care (01) ==
LOC: OR 06:07
PROVIDERS: ATTEND Orthopaedic Surgery Sports Medicine
PROC: 0RHK44Z Insertion of Internal Fixation Device into Left Shoulder Joint, Percutaneous Endoscopic Approach (ICD-10-PCS; 2021-03-21)
PROC: 0LQ24ZZ Repair Left Shoulder Tendon, Percutaneous Endoscopic Approach (ICD-10-PCS; principal; 2021-03-21 07:30)
DX: M75.102 Unspecified rotator cuff tear or rupture of left shoulder, not specified as traumatic (principal); M75.52 Bursitis of left shoulder; M75.22 Bicipital tendinitis, left shoulder; M75.42 Impingement syndrome of left shoulder; Z20.822 Contact with and (suspected) exposure to COVID-19
CPT/HCPCS: 85025; 80048; 36415; 85610; 82947 ×2; 85730; 73020; 29827; U0002; J2704; J0171; J2250; J3010; J1100; J2795; J0690; J7120; J7030; J2405

== ENCOUNTER 2022-01-24 06:08 | Observation (INO) | payer OTHER ==
--- NOTE | 2022-01-18 11:21 | RAD REPORT ---
EXAM DESCRIPTION: Martha Steele (2 Views)01/18/2022 11:14 am CLINICAL HISTORY: Preop for knee surgery COMPARISON: 2020 FINDINGS: The lungs appear clear of acute infiltrate. The heart is normal size IMPRESSION: No acute abnormalities displayed
[2022-01-18 11:24] LABS: Protime INR 1.09
[2022-01-18 11:37] LABS: SARS-CoV-2 Antigen Rapid Res Negative (Negative)
--- NOTE | 2022-01-19 06:22 | EKG ---
Test Date: 2022-01-18 Test Time: 10:56:29 Fruit Press Operator: KEESHA MEASUREMENT RESULTS: Intervals: Rate: 68 AL: 172 QRSD: 96 QT: 398 QTc: 423 [place]: P: 0 AL: 172 QRS: -9 T: 8 INTERPRETIVE STATEMENTS: Normal sinus rhythm Moderate voltage criteria for LVH, may be normal variant Borderline ECG Compared to ECG 12/23/2020 21:23:45 Ventricular premature complex(es) no longer present Electronically Signed On 01-19-22 06:21:48 CDT by Diomedes Fox
[2022-01-24] MEDS ORDERED: CEFAZOLIN 2 GM IN 0.9% NACL 2 GM/100 ML BAG ONE (06:21)
[2022-01-24] MEDS ORDERED: NA CHLORIDE 0.9% 1,000 ML ONE (06:21)
[2022-01-24] MEDS ORDERED: dexAMETHasone 10 MG/ML VIAL ONE ×2 (06:43→08:36)
[2022-01-24] MEDS ORDERED: LIDOCAINE 1% MPF 5 ML VIAL ONE (06:43)
[2022-01-24] MEDS ORDERED: BUPIVACAINE 0.25% PF 10 ML VIAL ONE (06:43)
[2022-01-24] MEDS ORDERED: FENTANYL CITR 100 MCG/2 ML ONE (06:43)
[2022-01-24] MEDS ORDERED: MIDAZOLAM HCL 2 MG/2 ML INJ ONE (06:44)
[2022-01-24] MEDS ORDERED: LIDOCAINE 2% MPF 5 ML VIAL ONE (06:46)
[2022-01-24] MEDS ORDERED: propofoL 200 MG/20 ML VIAL IV ONE (06:46)
[2022-01-24] MEDS ORDERED: ONDANSETRON 4 MG/2 ML VIAL ONE (06:49)
[2022-01-24] MEDS ORDERED: BUPIVACA 0.5%/EPI 0.0005%/PF 30 ML VIAL ONE (07:37)
[2022-01-24] MEDS ORDERED: TRANEXAMIC ACID 1,000 MG/10 ML VIAL IV ONE (07:38)
[2022-01-24] MEDS ORDERED: HYDROMORPHONE HCL 1 MG/ML INJ ONE ×2 (08:02→11:30)
[2022-01-24] MEDS ORDERED: KETAMINE HCL 500 MG/5 ML VIAL ONE (08:36)
[2022-01-24] MEDS ORDERED: EPHEDRINE SULF 50 MG/ML VIAL ONE (08:42)
--- NOTE | 2022-01-24 10:48 | P.BOP ---
Preoperative diagnosis: left knee osteoarthritis Postoperative diagnosis: same Primary procedure: left total knee arthroplasty Properties Supervisor: NONE,NONE Estimated blood loss: 30 cc Specimen: left knee bone remnants Findings: see dictation Anesthesia: General Complications: None Implants: Biomet Renea Persona 10 CR femur, F tibia, 10 CR poly, 29 patella Fluids & blood products: per anesthesia record; TT: 79 mins @ 300 mmHg Transferred to: Recovery Room Condition: Good
[2022-01-24] MEDS ORDERED: ACETAMINOPHEN 325 MG TABLET PO PRN (10:49)
[2022-01-24] MEDS ORDERED: ONDANSETRON 4 MG/2 ML VIAL IV PRN (10:49)
[2022-01-24] MEDS ORDERED: DOCUSATE NA 100 MG CAP PO PRN (10:49)
[2022-01-24] MEDS ORDERED: TRAMADOL HCL 50 MG TAB PO PRN (10:51)
--- NOTE | 2022-01-24 11:43 | RAD REPORT ---
EXAM DESCRIPTION: RAD - Knee Left 2 View - 01/24/2022 11:08 am CLINICAL HISTORY: Post Op COMPARISON: No comparisons FINDINGS/IMPRESSION: Postoperative changes from left knee arthroplasty. No evidence of immediate clayton dware complications. A curvilinear metallic radiopaque foreign body overlies the anterior joint space . It is not seen on the frontal view. It may be external to the patient however correlation is needed . This was discussed with Nayely in the PACU by Dr. Lim at 1132 on 01/24/22
[2022-01-24 11:46] LABS: Hematocrit 33.2 % (39.6-49.0)
[2022-01-24 12:37] VITALS: O2SAT 96
[2022-01-24] MEDS: IRON 18 MG PO SCH ×2 (14:00→21:00)
[2022-01-24] MEDS: MORPHINE 2 MG/ML SYR IV PRN ×3 (14:47→23:33)
[2022-01-24 15:02] VITALS: BMI 31.7
[2022-01-24] MEDS: HYDROCODONE/APAP 7.5/325 MG TAB PO PRN ×2 (15:57→21:15)
[2022-01-24] MEDS ORDERED: PNEUMOCOCCAL VACCINE 0.5 ML IMVAC ONE (16:00)
[2022-01-24] MEDS: CEFAZOLIN SODIUM 2 GM in NA CHLORIDE 0.9% 100 ML IVPB SCH (17:37)
[2022-01-24] MEDS: METFORMIN HCL 500 MG TAB PO SCH (17:39)
[2022-01-24] MEDS ORDERED: ATORVASTATIN 20 MG TAB PO SCH (21:00)
[2022-01-24] MEDS ORDERED: HOME MED 1 EA UNK (Metformin Hcl [Metformin Hcl] 1,000 MG Tablet) PO SCH (21:00)
[2022-01-25] MEDS: CEFAZOLIN SODIUM 2 GM in NA CHLORIDE 0.9% 100 ML IVPB SCH (01:13)
[2022-01-25] MEDS: HYDROCODONE/APAP 7.5/325 MG TAB PO PRN ×2 (01:13→05:41)
[2022-01-25] MEDS: MORPHINE 2 MG/ML SYR IV PRN (03:55)
[2022-01-25] MEDS ORDERED: ENOXAPARIN 30 MG/0.3 ML SQ SCH (06:00)
[2022-01-25 06:21] LABS: Hematocrit 31.7 % (39.6-49.0)
[2022-01-25] MEDS ORDERED: MULTIVIT W/ MINERAL TAB PO SCH (09:00)
[2022-01-25] MEDS ORDERED: HOME MED 1 EA UNK (Omeprazole [Prilosec] 40 MG Capsule.Dr) PO SCH (09:00)
[2022-01-25] MEDS ORDERED: CELECOXIB 100 MG CAPSULE PO SCH (09:00)
[2022-01-25] MEDS ORDERED: PANTOPRAZOLE 40MG TABLET PO SCH (09:00)
[2022-01-25] MEDS ORDERED: AMLODIPINE 5 MG TAB PO SCH (09:00)
[2022-01-25] MEDS: IRON 18 MG PO SCH (09:00)
[2022-01-25] MEDS ORDERED: HOME MED 1 EA UNK (Multivitamin [Multivitamin] Tablet) PO SCH (09:00)
[2022-01-25] MEDS ORDERED: hydroCHLOROthiazide 25 MG TAB PO SCH (09:00)
[2022-01-25] MEDS: METFORMIN HCL 500 MG TAB PO SCH (09:03)
[2022-01-25 10:31] VITALS: BP 146/63; TEMP 97
--- NOTE | 2022-01-29 08:10 | P.OP ---
Preoperative diagnosis: left knee osteoarthritis Postoperative diagnosis: same Primary procedure: left total knee arthroplasty Anesthesia: general Estimated blood loss: 30 cc Specimen: left knee bone remnants Findings: see dictation Operative Technique: Indication For Procedure: Kevin is a 76 year-old male presenting to my clinic with signs, symptoms and x-ray findings consistent with left knee osteoarthritis. I discussed with the patient at length risks and benefits associated with operative and nonoperative treatment. He had failed conservative treatment measures including corticosteroid injections, viscosupplementation injections and had significant difficulties with ADLs secondary to his pain. We discussed operative treatment and elected to proceed with left total knee arthroplasty. He expressed understanding and elected to proceed with operative treatment. Description Of Procedure: After informed consent was obtained, the patient was identified in the preoperative holding area. The leftt lower extremity was marked. The patient was then taken to the PACU where he underwent a left lower extremity adductor canal block performed by Anesthesia. He was then taken to the operating room, transferred to the operating table in supine fashion, and placed under general anesthesia. His left lower extremity was then prepped and draped in usual sterile fashion. A time-out was initiated. The correct patient and procedure were confirmed and identified. The patient did receive his preoperative prophylactic antibiotics. The left lower extremity was then exsanguinated and tourniquet was inflated to 300 mmHg. Approximately 15 cm longitudinal incision was made centered over the anterior aspect of the left knee. Dissection was then taken to the extensor mechanism and a medial parapatellar arthrotomy was performed. The patella was everted and dislocated laterally with some difficulty and the knee was flexed and the fat pad was excised. Medial meniscus, lateral meniscus and ACL were all excised exposing the distal femur. Excess hypertrophic synovium was also excised within the suprapatellar pouch. The patient had a CT scanI of his left knee preoperatively for surgical planning and creation of cutting blocks. The cutting block was then placed over the distal femur and pins were then placed. The distal femoral cutting block was then placed over the pins. Knee joint was then used to ensure proper depth cut and the distal femur was then cut. The chamfer cutting guide was then placed over the distal end of the femur. Anterior, posterior cuts as well as anterior and posterior chamfer cuts were then made again confirming proper depth of the cut using an Rojelio wing. Excess bone remnants were then sent to pathology for further evaluation. Next, attention was taken to the proximal tibia. A tibial jig and tibial cutting block was then placed on proximal aspect of the left tibia and locked into position. Pins were then angie maryjo and alignment guide was then used to confirm proper alignment of the cut and then coronal and sagittal planes. Once this was confirmed, the cutting jig was placed over the pins and the proximal tibia was cut. Sizing trays were then selected and size 10 mm spacer was used. After this was completed there was good overall balance in flexion and extension with the 10 mm spacer. Next, the trial implants were then placed using the size 10 standard CR femur and a size F tibia with an 10 mm poly. There was overall good range of motion and good stability trial implants were then removed. The wound was then irrigated thoroughly with normal saline and the knee was then injected with 30 cc of 0.5% Marcaine both in the posterior capsule and medial and lateral gutters as well as quadriceps tendon and periosteum. The tibia was then punched and marked after the patella button was placed. The femur was drilled. The cement was then prepared on the back table. Cement was then placed first on the tibial surface followed by size F tibia. Excess cement was removed with [place] elevators. Size 10 standard CR femur was then placed on the distal femur after cement was placed on the distal femur. Excess cement was then removed and a size 10 mm trial poly was then placed. The knee was held in extension as the cement hardened. Undersurface of the patella was prepared debriding osteophytes using rongeurs as well as osteophytes had been debrided off the proximal tibia with rongeurs and osteotomes to aid with the medial tightness. Cement was placed on the undersurface of the patella after it was cut and a size 29 patella was placed. Once the cement was hardened, the knee was ranged, there was good overall stability both in flexion, extension and as well as stability with varus and valgus stresses. Trial poly was then removed and a size 10 mm CR poly was then placed and locked into position. The knee was then ranged again. There was good overall range of motion both for flexion and extension with good stability. The wound was then irrigated again thoroughly with normal saline using pulse lavage. Tourniquet was let down. Hemostasis was achieved using Bovie electrocautery. Extensor mechanism was then approximated using a #1 Vicryl both in interrupted and running fashion. The fascia was then approximated using 0 Vicryl. Subcutaneous tissue was approximated with a 2-0 Vicryl. Skin was approximated using kaye. Sterile dressings were applied. The patient was awakened and transferred back in stable condition Complications: None Implants: Biomet Renea Persona 10 CR femur, F tibia, 10 CR poly, 29 patella Fluids & blood products: per anesthesia record; TT: 79 mins @ 300 mmHg Transferred to: Recovery Room Condition: Good
== END 2022-01-25 10:50 | disposition home health service (06) ==
LOC: OR 06:08 → 2ND 10:49 → 4TH 01-25 10:13 → 2ND 01-25 10:28
PROVIDERS: ADMIT Orthopaedic Surgery Sports Medicine; ATTEND Orthopaedic Surgery Sports Medicine
PROC: 0SRD069 Replacement of Left Knee Joint with Oxidized Zirconium on Polyethylene Synthetic Substitute, Cemented, Open Approach (ICD-10-PCS; principal; 2022-01-24 08:00)
DX: M17.12 Unilateral primary osteoarthritis, left knee (principal); E11.9 Type 2 diabetes mellitus without complications; I10 Essential (primary) hypertension; G47.33 Obstructive sleep apnea (adult) (pediatric); J45.909 Unspecified asthma, uncomplicated; E78.2 Mixed hyperlipidemia; Z20.822 Contact with and (suspected) exposure to COVID-19; Z79.84 Long term (current) use of oral hypoglycemic drugs; Z79.82 Long term (current) use of aspirin; Z79.899 Other long term (current) drug therapy; Z85.47 Personal history of malignant neoplasm of testis; Z87.891 Personal history of nicotine dependence; Z82.49 Family history of ischemic heart disease and other diseases of the circulatory system; Z83.3 Family history of diabetes mellitus
CPT/HCPCS: 93005; 36415 ×3; 85610; 82947 ×5; 88304; 88311; 85730; 85018 ×2; 85014 ×2; 71046; 73560; 97110; 97116 ×2; 97139 ×2; 97161; 97530; 94010; 87811; 27447; C1776; J2704; J1650; J2250; J3010; J1100 ×2; J2270 ×4; J1170 ×2; J0690; J7030; J2405; G0379; G0378 ×2

== ENCOUNTER 2022-08-21 06:39 | Observation (INO) | payer OTHER ==
--- NOTE | 2022-08-16 10:03 | RAD REPORT ---
EXAM DESCRIPTION: RAD - Chest Pa And Lat (2 Views) - 08/16/2022 9:35 am CLINICAL HISTORY: pre op for surgery COMPARISON: Chest Pa And Lat (2 Views) dated 01/18/2022; Chest Single View dated 12/23/2020; Chest Pa And Lat (2 Views) dated 01/13/2019; Chest Pa And Lat (2 Views) dated 12/10/2018 FINDINGS: Lines: None. Lungs: No evidence of edema or pneumonia. Pleural: No significant pleural effusions or pneumothorax. Cardiac: The heart size is within normal limits. Mediastinum: Within normal limits. Bones: No acute fractures. Other: None IMPRESSION: No acute cardiopulmonary disease.
[2022-08-16 10:54] LABS: Absolute Lymphocytes (CBC) 1.3 K/uL (0.7-4.9); Hematocrit 37.1 % (39.6-49.0); Lymphocytes % 18.1 % (15.3-44.8); MCV 91.9 fL (80-100); MPV 8.2 fL (7.6-11.3); RBC Red Blood Cell Count 4.04 M/uL (4.33-5.43)
[2022-08-16 11:01] LABS: Protime INR 0.94
[2022-08-16 11:02] LABS: Potassium 3.9 mmol/L (3.5-5.1)
[2022-08-16 11:07] LABS: SARS-CoV-2 Antigen Rapid Res Negative (Negative)
--- NOTE | 2022-08-16 16:00 | EKG ---
Test Date: 2022-08-16 Test Time: 09:12:25 Civil Engineer: YULI MEASUREMENT RESULTS: Intervals: Rate: 80 LA: 160 QRSD: 92 QT: 372 QTc: 429 [place]: P: 47 LA: 160 QRS: 13 T: 40 INTERPRETIVE STATEMENTS: Normal sinus rhythm Normal ECG Compared to ECG 01/18/2022 10:56:29 Left ventricular hypertrophy no longer present Electronically Signed On 08-16-22 15:59:49 [employer] HELPER by Prasad Conner
[2022-08-21] MEDS ORDERED: dexAMETHasone 10 MG/ML VIAL ONE (06:52)
[2022-08-21] MEDS ORDERED: MIDAZOLAM HCL 2 MG/2 ML INJ ONE (06:53)
[2022-08-21] MEDS ORDERED: EPINEPHRINE/PF 1 MG/ML AMP ONE (06:53)
[2022-08-21] MEDS ORDERED: FENTANYL CITR 100 MCG/2 ML ONE (06:53)
[2022-08-21] MEDS ORDERED: BUPIVACAINE 0.25% PF 30 ML VIAL ONE (06:54)
[2022-08-21] MEDS ORDERED: CEFAZOLIN SODIUM 2 GM/VIAL ONE (07:01)
[2022-08-21] MEDS ORDERED: NA CHLORIDE 0.9% 1,000 ML ONE ×2 (07:01→10:12)
[2022-08-21] MEDS ORDERED: LIDOCAINE 2% MPF 5 ML VIAL ONE ×2 (07:07→07:28)
[2022-08-21] MEDS ORDERED: CELECOXIB 100 MG CAPSULE ONE (07:14)
[2022-08-21] MEDS ORDERED: GABAPENTIN 100 MG CAP ONE (07:14)
[2022-08-21] MEDS ORDERED: Oxycodone HCl/Acetaminophen 1 TAB TAB ONE (07:14)
[2022-08-21] MEDS ORDERED: ACETAMINOPHEN 500 MG TAB ONE (07:15)
[2022-08-21] MEDS ORDERED: HYDROMORPHONE HCL 2 MG/ML inj ONE (07:26)
[2022-08-21] MEDS ORDERED: propofoL 200 MG/20 ML VIAL IV ONE (07:28)
[2022-08-21] MEDS ORDERED: TRANEXAMIC ACID 1,000 MG/10 ML VIAL IV ONE (07:32)
[2022-08-21] MEDS ORDERED: EPHEDRINE SULF 50 MG/ML VIAL ONE (08:53)
[2022-08-21] MEDS ORDERED: KETAMINE HCL 500 MG/5 ML VIAL ONE (08:53)
--- NOTE | 2022-08-21 11:23 | P.BOP ---
Preoperative diagnosis: right knee osteoarthritis Postoperative diagnosis: same Primary procedure: right total knee arthroplasty Door Trimmer: NONE,NONE Estimated blood loss: 40 cc Specimen: right knee bone remnants Findings: see dictation Anesthesia: General Complications: None Implants: Biomet Renea Persona 9 CR femur, F tibia, 29 patella, 13 CR poly Fluids & blood products: per anesthesia record; TT: 95 mins @ 300 mmHg Transferred to: Recovery Room Condition: Good
[2022-08-21] MEDS ORDERED: ACETAMINOPHEN 325 MG TABLET PO PRN (11:27)
[2022-08-21] MEDS ORDERED: ONDANSETRON 4 MG/2 ML VIAL IV PRN (11:27)
[2022-08-21] MEDS ORDERED: DOCUSATE NA 100 MG CAP PO PRN (11:27)
[2022-08-21] MEDS ORDERED: HYDROCODONE/APAP 7.5/325 MG TAB PO PRN (11:27)
[2022-08-21] MEDS: NALOXONE 0.4 MG/ML VIAL ONE ×3 (11:35→11:45)
--- NOTE | 2022-08-21 12:25 | RAD REPORT ---
EXAM DESCRIPTION: RAD - Knee Right 2 View - 08/21/2022 12:00 pm CLINICAL HISTORY: Post Op COMPARISON: No comparisons FINDINGS/IMPRESSION: Interval right total knee arthroplasty. No evidence of immediate hardware compl ications. No malalignment. No fractures.
[2022-08-21 12:36] LABS: Hematocrit 31.9 % (39.6-49.0)
[2022-08-21] MEDS ORDERED: MORPHINE 2 MG/ML SYR IV PRN (12:53)
[2022-08-21 13:09] VITALS: BMI 32.4
--- OUTSIDE RECORDS SUMMARY | 2022-08-21 13:11 | XMS REPORT | Continuity of Care Document ---
:1945 Author Organization [facility] t Address [address] [place] [address] Care Team Providers Name Role Phone Adriano DO [facility] Primary Care Physician [phone] Efrain Oh Attending Clinician Unavailable Gracy العلي RN Attending Clinician Unavailable Only, Darren Db Test Attending Clinician Unavailable Megan Davenport MD Attending Clinician MEGAN DAVENPORT Attending Clinician Unavailable Mabel Leonard Attending Clinician MABEL RAYO Attending Clinician Unavailable Provider, [facility] Attending Clinician Unavailable Epifanio Land MD Attending Clinician EPIFANIO LAND Attending Clinician Unavailable Doctor Unassigned, [place] Attending Clinician Unavailable Perla-Mbayo_A_AH Attending Clinician Unavailable Perla-Mbayo_A_AH Admitting Clinician Unavailable Payers Payer Name Policy Type Policy Number Effective Date Expiration Date [place] wer[place] [address] [id number] 2018 [facility] 00:00:00 [place] [address] [id number] 2018 [facility] 00:00:[place] [address] [id number] 2018 [facility] 00:00:00 - [facility] C1 [id number] 2018 [facility] t 00:00:00 - [facility] C1 [id number] 2018 [facility] t 00:00:00 - [facility] [place] [facility] C1 [id number] 2018 [facility] t 00:00:00 - [facility] [place] [facility] [id number] 2018 [facility] 00:00:00 - [facility] C1 [id number] 2018 [facility] 00:00:00 - [facility]ARE OF [place] [id number] 2019 - [employer] 00:00:00 (MEDICARE REPLACEMENT/ADV ANTAGE - HMO) Problems Condition Condition Condition Status Onset Resolution Last Treating Co mments Source Name Details Category Date Date Treatment Clinician Date Cervical Cervical Disease Active 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 00 l Spondyloli Spondyloli Disease Active 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-L4 00:00: Hospita level level 00 l 723.0 - 723.0 - Diagnosis Active 2013-01-20 Memoria CERVICAL CERVICAL 6-25 13:13:00 l SPINAL SPINAL 00:01: Jason Active 12/22/2012 JANNA Gomez LFLT LFLT Diagnosis Active 2011-062013-03-23 Mem oria Active 07-09 15:36:00 l 05/09/2012 09:30: Izaiah verde [address] CERVICAL CERVICAL Diagnosis Active 2011-062012-05-18 Memoria STENOSIS,S STENOSIS,S 07-09 13:43:00 l /P FALL /P FALL 00:00: Jason Active 00 05/09/2012 [facility] [id number] Status Problem Commo n 105 post total [id number] Aftercare Problem Com mon [facility] joint - [facility] repl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 - CHI knee joint [facility] Obstructiv Sleep Problem Commo n e sleep apnea, Spirit apnea obstructiv - CHI syndrome e [facility] Asthma Asthma Problem Common Spirit - [facility] Type II Diabetes Problem Common diabetes type 2, Spirit mellitus uncontroll - CH I uncontroll ed [facility] Osteoarthr Osteoarthr Problem C ommon itis itis [facility] Hypertensi Hypertensi Problem C ommon on on Spirit - [facility] [id number] Neck pain Problem Comm on Spirit [facility] [id number] Mixed Problem Common hyperlipid [facility] emia - [facility] [id number] Adult BMI Problem Com mon 31.0-31.9 Spirit kg/sq m [facility] [id number] Gastroesop Problem Co mmon hageal Spirit reflux - CHI disease [facility] esophagiti Medica l s, Center unspecifie d whether hemorrhage [id number] Positive Problem Commo n FIT (fecal Spirit immunochem - [facility] ical test) [facility] [id number] Arthritis Problem Co mmon [id number] of knee, [facility] left [facility] [id number] Nonalcohol Problem Co mmon ic fatty Spirit liver - CHI disease [facility] [id number] Tear of Problem Commo n left Spirit rotator - [facility], [facility] unspecifie d whether traumatic [id number] Spondylosi Problem Comm on s Spirit [facility] [id number] CPAP Problem Common (continuou Spirit s positive - CHI airway St pressure) [facility] dependence Medica l Center [id number] Other Problem Common chronic Spirit pain - [facility] [id number] Osteoarthr Problem Co mmon itis of Spirit lumbar - [facility], [facility] Center itis complicati on status [id number] Irregular Problem Com mon cardiac Spirit rhythm - [facility] [id number] Arthritis Problem Co mmon [id number] of right Spirit knee - CHI [facility] [id number] Primary Problem Comm on osteoarthr Spirit itis of - CHI right knee [facility] [id number] Status Problem Common post left Spirit rotator - CHI cuff [facility] Hearing Decreased Problem Commo n loss hearing of Spirit both ears - [facility] Arthritis Arthritis Problem Com mon of both of both Spirit knees knees - [facility] Pain Pain Problem Active 2013-01-30 Memor maximino Active 20:46:12 l Problem Jason 01/30/2013 [facility], JANNA Gomez ADMINISTRT ADMINISTR Diagnosis Active 2012-05-18 Memoria VE ENCOUNT TVE 13:43:00 l NOS ENCOUNT Jason NOS Active [facility] No known No known Disease Unive rs active active ity of problems problems [facility] Allergies, Adverse Reactions, Alerts Allergy Allergy Status Severity Reaction(s) Onset Inactive Treating Comm ents Source Name Type Date Date Clinician NO KNOWN Drug Active Univers ALLERGIE Class ity of [facility] Social History Social Habit Start Date Stop Date Quantity Comments Source History of [facility] - Tobacco Use [facility] Exposure to Not sure [facility]-CoV-2 [facility] (event) [place] Tobacco use and 2020-12-23 2020-12-23 Never used Universit y of exposure 00:00:00 00:00:00 [facility] Alcohol intake 2017-11-17 2017-11-17 [facility] 00:00:00 00:00:00 non-drinker of alcohol (finding) Sex Ass[birth year] [facility] 00:00:00 00:00:00 Smoking Status Start Date Stop Date Source Unknown if ever smoked [facility] Former Smoker 2022-08-02 00:00:00 2022-08-02 00:00:00 Common S [facility]irit - [facility] Never smoker [facility] Medications Ordered Filled Start Stop Current Ordering Indication Dosage Frequency Signature Comments Components Source Medication Medication Date Date Medication? Clinician (SIG) Name Name traMADol traMADol No 1{table traMADol HCl 50 MG HCl 50 MG 8-11 t_as_ne HCl 50 MG 00:00: eded} 00 traMADol traMADol No 1{table traMADol HCl 50 MG HCl 50 MG 8-11 t_as_ne HCl 50 MG 00:00: eded} 00 traMADol traMADol No 1{table traMADol HCl 50 MG HCl 50 MG 8-11 t_as_ne HCl 50 MG 00:00: eded} 00 traMADol traMADol 2-0 No 1{table traMADol HCl 50 MG HCl 50 MG 8-11 t_as_ne HCl 50 MG 00:00: eded} 00 traMADol traMADol 2-0 No 1{table traMADol HCl 50 MG HCl 50 MG 8-11 t_as_ne HCl 50 MG 00:00: eded} 00 traMADol traMADol 2-0 No 1{table traMADol HCl 50 MG HCl 50 MG 8-11 t_as_ne HCl 50 MG 00:00: eded} 00 traMADol traMADol 2021-0 No 1{table traMADol HCl 50 MG HCl 50 MG 8-11 t_as_ne HCl 50 MG 00:00: eded} 00 traMADol traMADol 2021-0 No 1{table traMADol HCl 50 MG HCl 50 MG 8-11 t_as_ne HCl 50 MG 00:00: eded} 00 traMADol traMADol 2021-0 No 1{table traMADol HCl 50 MG HCl 50 MG 8-11 t_as_ne HCl 50 MG 00:00: eded} 00 traMADol traMADol 2021-0 No 1{table traMADol HCl 50 MG HCl 50 MG 8-11 t_as_ne HCl 50 MG 00:00: eded} 00 Xarelto 10 Xarelto 10 2021-0 No 1{table QD Xarelto 10 MG MG 7-26 t} MG 00:00: 00 HYDROcodone HYDROcodone 2021-0 No 1{table HYDROcodon -Acetaminop -Acetaminop 7-26 t_as_ne e-Acetamin hen 7.5-325 hen 7.5-325 00:00: eded} ophen MG MG 00 7.5-325 MG Xarelto 10 Xarelto 10 2021-0 No 1{table QD Xarelto 10 MG MG 7-26 t} MG 00:00: 00 HYDROcodone HYDROcodone 2021-0 No 1{table HYDROcodon -Acetaminop -Acetaminop 7-26 t_as_ne e-Acetamin hen 7.5-325 hen 7.5-325 00:00: eded} ophen MG MG 00 7.5-325 MG Xarelto 10 Xarelto 10 2021-0 No 1{table QD Xarelto 10 MG MG 7-26 t} MG 00:00: 00 Xarelto 10 Xarelto 10 2021-0 No 1{table QD Xarelto 10 MG MG 7-26 t} MG 00:00: 00 HYDROcodone HYDROcodone 2021-0 No 1{table HYDROcodon -Acetaminop -Acetaminop 7-26 t_as_ne e-Acetamin hen 7.5-325 hen 7.5-325 00:00: eded} ophen MG MG 00 7.5-325 MG Xarelto 10 Xarelto 10 2021-0 No 1{table QD Xarelto 10 MG MG 7-26 t} MG 00:00: 00 HYDROcodone HYDROcodone 2021-0 No 1{table HYDROcodon -Acetaminop -Acetaminop 7-26 t_as_ne e-Acetamin hen 7.5-325 hen 7.5-325 00:00: eded} ophen MG MG 00 7.5-325 MG Xarelto 10 Xarelto 10 2021-0 No 1{table QD Xarelto 10 MG MG 7-26 t} MG 00:00: 00 HYDROcodone HYDROcodone 2021-0 No 1{table HYDROcodon -Acetaminop -Acetaminop 7-26 t_as_ne e-Acetamin hen 7.5-325 hen 7.5-325 00:00: eded} ophen MG MG 00 7.5-325 MG Xarelto 10 Xarelto 10 2021-0 No 1{table QD Xarelto 10 MG MG 7-26 t} MG 00:00: 00 HYDROcodone HYDROcodone 2021-0 No 1{table HYDROcodon -Acetaminop -Acetaminop 7-26 t_as_ne e-Acetamin hen 7.5-325 hen 7.5-325 00:00: eded} ophen MG MG 00 7.5-325 MG Xarelto 10 Xarelto 10 2021-0 No 1{table QD Xarelto 10 MG MG 7-26 t} MG 00:00: 00 HYDROcodone HYDROcodone 2021-0 No 1{table HYDROcodon -Acetaminop -Acetaminop 7-26 t_as_ne e-Acetamin hen 7.5-325 hen 7.5-325 00:00: eded} ophen MG MG 00 7.5-325 MG HYDROcodone HYDROcodone 2021-0 No 1{table HYDROcodon -Acetaminop -Acetaminop 7-26 t_as_ne e-Acetamin hen 7.5-325 hen 7.5-325 00:00: eded} ophen MG MG 00 7.5-325 MG Xarelto 10 Xarelto 10 2021-0 No 1{table QD Xarelto 10 MG MG 7-26 t} MG 00:00: 00 HYDROcodone HYDROcodone 2021-0 No 1{table HYDROcodon -Acetaminop -Acetaminop 7-26 t_as_ne e-Acetamin hen 7.5-325 hen 7.5-325 00:00: eded} ophen MG MG 00 7.5-325 MG Xarelto 10 Xarelto 10 2021-0 No 1{table QD Xarelto 10 MG MG 7-26 t} MG 00:00: 00 HYDROcodone HYDROcodone 2021-0 No 1{table HYDROcodon -Acetaminop -Acetaminop 7-26 t_as_ne e-Acetamin hen 7.5-325 hen 7.5-325 00:00: eded} ophen MG MG 00 7.5-325 MG Xarelto 10 Xarelto 10 2021-0 No 1{table QD Xarelto 10 MG MG 7-26 t} MG 00:00: 00 HYDROcodone HYDROcodone 2021-0 No 1{table HYDROcodon -Acetaminop -Acetaminop 7-26 t_as_ne e-Acetamin hen 7.5-325 hen 7.5-325 00:00: eded} ophen MG MG 00 7.5-325 MG Xarelto 10 Xarelto 10 2021-0 No 1{table QD Xarelto 10 MG MG 7-26 t} MG 00:00: 00 HYDROcodone HYDROcodone 2021-0 No 1{table HYDROcodon -Acetaminop -Acetaminop 7-26 t_as_ne e-Acetamin hen 7.5-325 hen 7.5-325 00:00: eded} ophen MG MG 00 7.5-325 MG Xarelto 10 Xarelto 10 2021-0 No 1{table QD Xarelto 10 MG MG 7-26 t} MG 00:00: 00 HYDROcodone HYDROcodone 2022-0 No 1{table HYDROcodon -Acetaminop -Acetaminop -26 t_as_ne e-Acetamin hen 7.5-325 hen 7.5-325 00:00: eded} ophen MG MG 00 7.5-325 MG Bupivicaine Bupivicaine 2020-06 No 2.5mg [place] 2-21 Spirit 00:00: - CHI 00 [facility] Hyalgan 20 Hyalgan 20 2020-06 No 20mg C ommon mg mg 2-21 Spirit 00:00: - CHI 00 [facility] Hyalgan 20 Hyalgan 20 2020-06 No 20mg C ommon mg mg 2-21 Spirit 00:00: - CHI 00 [facility] Kenalog Kenalog 2020-06 No 40mg Common (Triamcinol (Triamcinol 2-21 S pirit one) one) 00:00: - CHI 00 [facility] Bupivicaine Bupivicaine 2020-06 No 2.5mg [place] 2-21 Spirit 00:00: - CHI 00 [facility] Hyalgan 20 Hyalgan 20 2020-06 No 20mg C ommon mg mg 2-21 Spirit 00:00: - CHI 00 [facility] Hyalgan 20 Hyalgan 20 2020-06 No 20mg C ommon mg mg 2-21 Spirit 00:00: - CHI 00 [facility] Kenalog Kenalog 2020-06 No 40mg Common (Triamcinol (Triamcinol 2-21 S pirit one) one) 00:00: - CHI 00 [facility] Bupivicaine Bupivicaine 2020-06 No 2.5mg [place] 2-21 Spirit 00:00: - CHI 00 [facility] Hyalgan 20 Hyalgan 20 2020-06 No 20mg C ommon mg mg 2-21 Spirit 00:00: - CHI 00 [facility] Hyalgan 20 Hyalgan 20 2020-06 No 20mg C ommon mg mg 2-21 Spirit 00:00: - CHI 00 [facility] Kenalog Kenalog 2020-06 No 40mg Common (Triamcinol (Triamcinol 2-21 S pirit one) one) 00:00: - CHI 00 [facility] Bupivicaine Bupivicaine 2020-06 No 2.5mg [place] 2-21 Spirit 00:00: - CHI 00 [facility] Hyalgan 20 Hyalgan 20 2020-06 No 20mg C ommon mg mg 2-21 Spirit 00:00: - CHI 00 [facility] Hyalgan 20 Hyalgan 20 2020-06 No 20mg C ommon mg mg 2-21 Spirit 00:00: - CHI 00 [facility] Kenalog Kenalog 2020-06 No 40mg Common (Triamcinol (Triamcinol 2-21 S pirit one) one) 00:00: - CHI 00 [facility] Bupivicaine Bupivicaine 2020-06 No 2.5mg [place] 2-21 Spirit 00:00: - CHI 00 [facility] Hyalgan 20 Hyalgan 20 2020-06 No 20mg C ommon mg mg 2-21 Spirit 00:00: - CHI 00 [facility] Hyalgan 20 Hyalgan 20 2020-06 No 20mg C ommon mg mg 2-21 Spirit 00:00: - CHI 00 [facility] Kenalog Kenalog 2020-06 No 40mg Common (Triamcinol (Triamcinol 2-21 S pirit one) one) 00:00: - CHI 00 [facility] Bupivicaine Bupivicaine 2020-06 No 2.5mg Common [place] 2-21 Spirit 00:00: - CHI 00 [facility] Hyalgan 20 Hyalgan 20 2020-06 No 20mg C ommon mg mg 2-21 Spirit 00:00: - CHI 00 [facility] Hyalgan 20 Hyalgan 20 2020-06 No 20mg C ommon mg mg 2-21 Spirit 00:00: - CHI 00 [facility] Kenalog Kenalog 2020-06 No 40mg Common (Triamcinol (Triamcinol 2-21 S pirit one) one) 00:00: - CHI 00 [facility] Bupivicaine Bupivicaine 2020-06 No 2.5mg [place] 2-21 Spirit 00:00: - CHI 00 [facility] Hyalgan 20 Hyalgan 20 2020-06 No 20mg C ommon mg mg 2-21 Spirit 00:00: - CHI 00 [facility] Hyalgan 20 Hyalgan 20 2020-06 No 20mg C ommon mg mg 2-21 Spirit 00:00: - CHI 00 [facility] Kenalog Kenalog 2020-06 No 40mg Common (Triamcinol (Triamcinol 2-21 S pirit one) one) 00:00: - CHI 00 [facility] Bupivicaine Bupivicaine 2020-06 No 2.5mg [place] 2-21 Spirit 00:00: - CHI 00 [facility] Hyalgan 20 Hyalgan 20 2020-06 No 20mg C ommon mg mg 2-21 Spirit 00:00: - CHI 00 [facility] Hyalgan 20 Hyalgan 20 2020-06 No 20mg C ommon mg mg 2-21 Spirit 00:00: - CHI 00 [facility] Kenalog Kenalog 2020-06 No 40mg Common (Triamcinol (Triamcinol 2-21 S pirit one) one) 00:00: - CHI 00 [facility] Bupivicaine Bupivicaine 2020-06 No 2.5mg [place] 2-21 Spirit 00:00: - CHI 00 [facility] Hyalgan 20 Hyalgan 20 2020-06 No 20mg C ommon mg mg 2-21 Spirit 00:00: - CHI 00 [facility] Hyalgan 20 Hyalgan 20 2020-06 No 20mg C ommon mg mg 2-21 Spirit 00:00: - CHI 00 [facility] Kenalog Kenalog 2020-06 No 40mg Common (Triamcinol (Triamcinol 2-21 S pirit one) one) 00:00: - CHI 00 [facility] Bupivicaine Bupivicaine 2020-06 No 2.5mg [place] 2-21 Spirit 00:00: - CHI 00 [facility] Hyalgan 20 Hyalgan 20 2020-06 No 20mg C ommon mg mg 2-21 Spirit 00:00: - CHI 00 [facility] Hyalgan 20 Hyalgan 20 2020-06 No 20mg C ommon mg mg 2-21 Spirit 00:00: - CHI 00 [facility] Kenalog Kenalog 2020-06 No 40mg Common (Triamcinol (Triamcinol 2-21 S pirit one) one) 00:00: - CHI 00 [facility] Bupivicaine Bupivicaine 2020-06 No 2.5mg [place] 2-21 Spirit 00:00: - CHI 00 [facility] Hyalgan 20 Hyalgan 20 2020-06 No 20mg C ommon mg mg 2-21 Spirit 00:00: - CHI 00 [facility] Hyalgan 20 Hyalgan 20 2020-06 No 20mg C ommon mg mg 2-21 Spirit 00:00: - CHI 00 [facility] Kenalog Kenalog 2020-06 No 40mg Common (Triamcinol (Triamcinol 2-21 S pirit one) one) 00:00: - CHI 00 [facility] Bupivicaine Bupivicaine 2020-06 No 2.5mg [place] 2-21 Spirit 00:00: - CHI 00 [facility] Hyalgan 20 Hyalgan 20 2020-06 No 20mg C ommon mg mg 2-21 Spirit 00:00: - CHI 00 [facility] Hyalgan 20 Hyalgan 20 2020-06 No 20mg C ommon mg mg 2-21 Spirit 00:00: - CHI 00 [facility] Alexi Kenalog 2020-06 No 40mg Common (Triamcinol (Triamcinol 2-21 S pirit one) one) 00:00: - CHI 00 [facility] Bupivicaine Bupivicaine 2020-06 No 2.5mg [place] 2-21 Spirit 00:00: - CHI 00 [facility] Hyalgan 20 Hyalgan 20 2020-06 No 20mg C ommon mg mg 2-21 Spirit 00:00: - CHI 00 [facility] Hyalgan 20 Hyalgan 20 2020-06 No 20mg C ommon mg mg 2-21 Spirit 00:00: - CHI 00 [facility] Kenalog Kenalog 2020-06 No 40mg Common (Triamcinol (Triamcinol 2-21 S pirit one) one) 00:00: - CHI 00 [facility] Bupivicaine Bupivicaine 2020-06 No 2.5mg [place] 2-21 Spirit 00:00: - CHI 00 [facility] Hyalgan 20 Hyalgan 20 2020-06 No 20mg C ommon mg mg 2-21 Spirit 00:00: - CHI 00 [facility] Hyalgan 20 Hyalgan 20 2020-06 No 20mg C ommon mg mg 2-21 Spirit 00:00: - CHI 00 [facility] Kenalog Kenalog 2020-06 No 40mg Common (Triamcinol (Triamcinol 2-21 S pirit one) one) 00:00: - CHI 00 [facility] Bupivicaine Bupivicaine 2020-06 No 2.5mg [place] 2-21 Spirit 00:00: - CHI 00 [facility] Hyalgan 20 Hyalgan 20 2020-06 No 20mg C ommon mg mg 2-21 Spirit 00:00: - CHI 00 [facility] Hyalgan 20 Hyalgan 20 2020-06 No 20mg C ommon mg mg 2-21 Spirit 00:00: - CHI 00 [facility] Kenalog Kenalog 2020-06 No 40mg Common (Triamcinol (Triamcinol 2-21 S pirit one) one) 00:00: - CHI 00 [facility] Bupivicaine Bupivicaine 2020-06 No 2.5mg [place] 2-21 Spirit 00:00: - CHI 00 [facility] Hyalgan 20 Hyalgan 20 2020-06 No 20mg C ommon mg mg 2-21 Spirit 00:00: - CHI 00 [facility] Hyalgan 20 Hyalgan 20 2020-06 No 20mg C ommon mg mg 2-21 Spirit 00:00: - CHI 00 [facility] Kenalog Kenalog 2020-06 No 40mg Common (Triamcinol (Triamcinol 2-21 S pirit one) one) 00:00: - CHI 00 [facility] Bupivicaine Bupivicaine 2020-06 No 2.5mg [place] 2-21 Spirit 00:00: - CHI 00 [facility] Hyalgan 20 Hyalgan 20 2020-06 No 20mg C ommon mg mg 2-21 Spirit 00:00: - CHI 00 [facility] Hyalgan 20 Hyalgan 20 2020-06 No 20mg C ommon mg mg 2-21 Spirit 00:00: - CHI 00 [facility] Kenalog Kenalog 2020-06 No 40mg Common (Triamcinol (Triamcinol 2-21 S pirit one) one) 00:00: - CHI 00 [facility] Bupivicaine Bupivicaine 2020-06 No 2.5mg [place] 2-21 Spirit 00:00: - CHI 00 [facility] Hyalgan 20 Hyalgan 20 2020-06 No 20mg C ommon mg mg 2-21 Spirit 00:00: - CHI 00 [facility] Hyalgan 20 Hyalgan 20 2020-06 No 20mg C ommon mg mg 2-21 Spirit 00:00: - CHI 00 [facility] Kenalog Kenalog 2020-06 No 40mg Common (Triamcinol (Triamcinol 2-21 S pirit one) one) 00:00: - CHI 00 [facility] Bupivicaine Bupivicaine 2020-06 No [place] 2-21 Spirit 00:00: - CHI 00 [facility] Hyalgan 20 Hyalgan 20 2020-06 No 20mg C ommon mg mg 2-21 Spirit 00:00: - CHI 00 [facility] Hyalgan 20 Hyalgan 20 2020-06 No 20mg C ommon mg mg 2-21 Spirit 00:00: - CHI 00 [facility] Kenalog Kenalog 2020-06 No 40mg Common (Triamcinol (Triamcinol 2-21 S pirit one) one) 00:00: - CHI 00 [facility] Bupivicaine Bupivicaine 2020-06 No [place] 2-21 Spirit 00:00: - CHI 00 [facility] Hyalgan 20 Hyalgan 20 2020-06 No 20mg C ommon mg mg 2-21 Spirit 00:00: - CHI 00 [facility] Hyalgan 20 Hyalgan 20 2020-06 No 20mg C ommon mg mg 2-21 Spirit 00:00: - CHI 00 [facility] Kenalog Kenalog 2020-06 No 40mg Common (Triamcinol (Triamcinol 2-21 S pirit one) one) 00:00: - CHI 00 [facility] Bupivicaine Bupivicaine 2020-06 No 2.5mg [place] 2-21 Spirit 00:00: - CHI 00 [facility] Hyalgan 20 Hyalgan 20 2020-06 No 20mg C ommon mg mg 2-21 Spirit 00:00: - CHI 00 [facility] Hyalgan 20 Hyalgan 20 2020-06 No 20mg C ommon mg mg 2-21 Spirit 00:00: - CHI 00 [facility] Kenalog Kenalog 2020-06 No 40mg Common (Triamcinol (Triamcinol 2-21 S pirit one) one) 00:00: - CHI 00 [facility] Bupivicaine Bupivicaine 2020-06 No 2.5mg [place] 2-21 Spirit 00:00: - CHI 00 [facility] Hyalgan 20 Hyalgan 20 2020-06 No 20mg C ommon mg mg 2-21 Spirit 00:00: - CHI 00 [facility] Hyalgan 20 Hyalgan 20 2020-06 No 20mg C ommon mg mg 2-21 Spirit 00:00: - CHI 00 [facility] Kenalog Kenalog 2020-06 No 40mg Common (Triamcinol (Triamcinol 2-21 S pirit one) one) 00:00: - CHI 00 [facility] Bupivicaine Bupivicaine 2020-06 No 2.5mg [place] 2-21 Spirit 00:00: - CHI 00 [facility] Hyalgan 20 Hyalgan 20 2020-06 No 20mg C ommon mg mg 2-21 Spirit 00:00: - CHI 00 [facility] Hyalgan 20 Hyalgan 20 2020-06 No 20mg C ommon mg mg 2-21 Spirit 00:00: - CHI 00 [facility] Kenalog Kenalog 2020-06 No 40mg Common (Triamcinol (Triamcinol 2-21 S pirit one) one) 00:00: - CHI 00 [facility] Bupivicaine Bupivicaine 2020-06 No 2.5mg [place] 2-21 Spirit 00:00: - CHI 00 [facility] Hyalgan 20 Hyalgan 20 2020-06 No 20mg C ommon mg mg 2-21 Spirit 00:00: - CHI 00 [facility] Hyalgan 20 Hyalgan 20 2020-06 No 20mg C ommon mg mg 2-21 Spirit 00:00: - CHI 00 [facility] Kenalog Kenalog 2020-06 No 40mg Common (Triamcinol (Triamcinol 2-21 S pirit one) one) 00:00: - CHI 00 [facility] Bupivicaine Bupivicaine 2020-06 No 2.5mg [place] 2-21 Spirit 00:00: - CHI 00 [facility] Hyalgan 20 Hyalgan 20 2020-06 No 20mg C ommon mg mg 2-21 Spirit 00:00: - CHI 00 [facility] Hyalgan 20 Hyalgan 20 2020-06 No 20mg C ommon mg mg 2-21 Spirit 00:00: - CHI 00 [facility] Kenalog Kenalog 2020-06 No 40mg Common (Triamcinol (Triamcinol 2-21 S pirit one) one) 00:00: - CHI 00 [facility] Bupivicaine Bupivicaine 2020-06 No 2.5mg [place] 2-21 Spirit 00:00: - CHI 00 [facility] Hyalgan 20 Hyalgan 20 2020-06 No 20mg C ommon mg mg 2-21 Spirit 00:00: - CHI 00 [facility] Hyalgan 20 Hyalgan 20 2020-06 No 20mg C ommon mg mg 2-21 Spirit 00:00: - CHI 00 [facility] Kenalog Kenalog 2020-06 No 40mg Common (Triamcinol (Triamcinol 2-21 S pirit one) one) 00:00: - CHI 00 [facility] Bupivicaine Bupivicaine 2020-06 No 2.5mg [place] 2-21 Spirit 00:00: - CHI 00 [facility] Hyalgan 20 Hyalgan 20 2020-06 No 20mg C ommon mg mg 2-21 Spirit 00:00: - CHI 00 [facility] Hyalgan 20 Hyalgan 20 2020-06 No 20mg C ommon mg mg 2-21 Spirit 00:00: - CHI 00 [facility] Alexi Kenalog 2020-06 No 40mg Common (Triamcinol (Triamcinol 2-21 S pirit one) one) 00:00: - [facility] 00 [facility] Bupivicaine Bupivicaine 2020-06 No 2.5mg [place] [facility] 00:00: - [facility] 00 [facility] Hyalgan 20 Hyalgan 20 2020-06 No 20mg C ommon mg mg 2-21 Spirit 00:00: - [facility] 00 [facility] Hyalgan 20 Hyalgan 20 2020-06 No 20mg C ommon mg mg 2-21 Spirit 00:00: - [facility] 00 [facility] Alexi Truong 2020-06 No 40mg Common (Triamcinol (Triamcinol 2-21 S pirit one) one) 00:00: - [facility]I 00 [facility] Bupivicaine Bupivicaine 2020-06 No 2.5mg Common [place]21 Spirit 00:00: - [facility] 00 [facility] Hyalgan 20 Hyalgan 20 2020-06 No 20mg C ommon mg mg 2-21 Spirit 00:00: - [facility]I 00 [facility] Hyalgan 20 Hyalgan 20 2020-06 No 20mg C ommon mg mg 2-21 Spirit 00:00: - [facility] 00 [facility] Alexi Truong 2020-06 No 40mg Common (Triamcinol (Triamcinol 2-21 S pirit one) one) 00:00: - [facility]I 00 [facility] Hyalgan 20 Hyalgan 20 2020-06 No 20mg C ommon mg mg 2-14 Spirit 00:00: - [facility]I 00 [facility] Hyalgan 20 Hyalgan 20 2020-06 No 20mg C ommon mg mg 2-14 Spirit 00:00: - [facility] 00 [facility] Hyalgan 20 Hyalgan 20 2020-06 No 20mg C ommon mg mg 2-14 Spirit 00:00: - [facility] 00 [facility] Hyalgan 20 Hyalgan 20 2020-06 No 20mg C ommon mg mg 2-14 Spirit 00:00: - [facility] 00 [facility] Hyalgan 20 Hyalgan 20 2020-06 No 20mg C ommon mg mg 2-14 Spirit 00:00: - [facility] 00 [facility] Hyalgan 20 Hyalgan 20 2020-06 No 20mg C ommon mg mg 2-14 Spirit 00:00: - [facility] 00 [facility] Hyalgan 20 Hyalgan 20 2020-06 No 20mg C ommon mg mg 2-14 Spirit 00:00: - [facility] 00 [facility] Hyalgan 20 Hyalgan 20 2020-06 No 20mg C ommon mg mg 2-14 Spirit 00:00: - [facility] 00 [facility] Hyalgan 20 Hyalgan 20 2020-06 No 20mg C ommon mg mg 2-14 Spirit 00:00: - [facility] 00 [facility] Hyalgan 20 Hyalgan 20 2020-06 No 20mg C ommon mg mg 2-14 Spirit 00:00: - [facility] 00 [facility] Hyalgan 20 Hyalgan 20 2020-06 No 20mg C ommon mg mg 2-14 Spirit 00:00: - [facility] 00 [facility] Hyalgan 20 Hyalgan 20 2020-06 No 20mg C ommon mg mg 2- Spirit 00:00: - [facility] 00 [facility] Hyalgan 20 Hyalgan 20 2020-06 No 20mg C ommon mg mg 2- Spirit 00:00: - [facility] 00 [facility] Hyalgan 20 Hyalgan 20 2020-06 No 20mg C ommon mg mg 2- Spirit 00:00: - [facility] 00 [facility] Hyalgan 20 Hyalgan 20 2020-06 No 20mg C ommon mg mg 2-14 Spirit 00:00: - [facility] 00 [facility] Hyalgan 20 Hyalgan 20 2020-06 No 20mg C ommon mg mg 2-14 Spirit 00:00: - [facility] 00 [facility] Hyalgan 20 Hyalgan 20 2020-06 No 20mg C ommon mg mg 2-14 Spirit 00:00: - [facility] 00 [facility] Hyalgan 20 Hyalgan 20 2020-06 No 20mg C ommon mg mg 2-14 Spirit 00:00: - [facility] 00 [facility] Hyalgan 20 Hyalgan 20 2020-06 No 20mg C ommon mg mg 2-14 Spirit 00:00: - [facility]I 00 [facility] Hyalgan 20 Hyalgan 20 2020-06 No 20mg C ommon mg mg 2-14 Spirit 00:00: - [facility]I 00 [facility] Hyalgan 20 Hyalgan 20 2020-06 No 20mg C ommon mg mg 2-14 Spirit 00:00: - [facility]I 00 [facility] Hyalgan 20 Hyalgan 20 2020-06 No 20mg C ommon mg mg 2-14 Spirit 00:00: - [facility]I 00 [facility] Hyalgan 20 Hyalgan 20 2020-06 No 20mg C ommon mg mg 2-14 Spirit 00:00: - [facility]I 00 [facility] Hyalgan 20 Hyalgan 20 2020-06 No 20mg C ommon mg mg 2-14 Spirit 00:00: - [facility]I 00 [facility] Hyalgan 20 Hyalgan 20 2020-06 No 20mg C ommon mg mg 2-14 Spirit 00:00: - [facility]I 00 [facility] Hyalgan 20 Hyalgan 20 2020-06 No 20mg C ommon mg mg 2-14 Spirit 00:00: - [facility]I 00 [facility] Hyalgan 20 Hyalgan 20 2020-06 No 20mg C ommon mg mg 2-14 Spirit 00:00: - [facility]I 00 [facility] Hyalgan 20 Hyalgan 20 2020-06 No 20mg C ommon mg mg 2-14 Spirit 00:00: - [facility]I 00 [facility] Hyalgan 20 Hyalgan 20 2020-06 No 20mg C ommon mg mg 2-14 Spirit 00:00: - [facility]I 00 [facility] Hyalgan 20 Hyalgan 20 2020-06 No 20mg C ommon mg mg 2-14 Spirit 00:00: - [facility]I 00 [facility] Hyalgan 20 Hyalgan 20 2020-06 No 20mg C ommon mg mg 2-14 Spirit 00:00: - [facility]I 00 [facility] Hyalgan 20 Hyalgan 20 2020-06 No 20mg C ommon mg mg 2-14 Spirit 00:00: - [facility]I 00 [facility] Hyalgan 20 Hyalgan 20 2020-06 No 20mg C ommon mg mg 2-14 Spirit 00:00: - [facility]I 00 [facility] Hyalgan 20 Hyalgan 20 2020-06 No 20mg C ommon mg mg 2-14 Spirit 00:00: - [facility]I 00 [facility] Hyalgan 20 Hyalgan 20 2020-06 No 20mg C ommon mg mg 2-14 Spirit 00:00: - [facility]I 00 [facility] Hyalgan 20 Hyalgan 20 2020-06 No 20mg C ommon mg mg 2-14 Spirit 00:00: - [facility]I 00 [facility] Hyalgan 20 Hyalgan 20 2020-06 No 20mg C ommon mg mg 2-14 Spirit 00:00: - [facility]I 00 [facility] Hyalgan 20 Hyalgan 20 2020-06 No 20mg C ommon mg mg 2-14 Spirit 00:00: - [facility]I 00 [facility] Hyalgan 20 Hyalgan 20 2020-06 No 20mg C ommon mg mg 2-14 Spirit 00:00: - [facility]I 00 [facility] Hyalgan 20 Hyalgan 20 2020-06 No 20mg C ommon mg mg 2-14 Spirit 00:00: - [facility]I 00 [facility] Hyalgan 20 Hyalgan 20 2020-06 No 20mg C ommon mg mg 2-14 Spirit 00:00: - [facility]I 00 [facility] Hyalgan 20 Hyalgan 20 2020-06 No 20mg C ommon mg mg 2-14 Spirit 00:00: - [facility]I 00 [facility] Hyalgan 20 Hyalgan 20 2020-06 No 20mg C ommon mg mg 2-14 Spirit 00:00: - [facility]I 00 [facility] Hyalgan 20 Hyalgan 20 2020-06 No 20mg C ommon mg mg 2-14 Spirit 00:00: - [facility]I 00 [facility] Hyalgan 20 Hyalgan 20 2020-06 No 20mg C ommon mg mg 2-14 Spirit 00:00: - [facility]I 00 [facility] Hyalgan 20 Hyalgan 20 2020-06 No 20mg C ommon mg mg 2-14 Spirit 00:00: - [facility] 00 [facility] Hyalgan 20 Hyalgan 20 2020-06 No 20mg C ommon mg mg 2-14 Spirit 00:00: - [facility]I 00 [facility] Hyalgan 20 Hyalgan 20 2020-06 No 20mg C ommon mg mg 2-14 Spirit 00:00: - [facility] 00 [facility] Hyalgan 20 Hyalgan 20 2020-06 No 20mg C ommon mg mg 2-14 Spirit 00:00: - [facility] 00 [facility] Hyalgan 20 Hyalgan 20 2020-06 No 20mg C ommon mg mg 2-14 Spirit 00:00: - [facility]I 00 [facility] Hyalgan 20 Hyalgan 20 2020-06 No 20mg C ommon mg mg 2-14 Spirit 00:00: - [facility]I 00 [facility] Hyalgan 20 Hyalgan 20 2020-06 No 20mg C ommon mg mg 2-14 Spirit 00:00: - [facility]I 00 [facility] Hyalgan 20 Hyalgan 20 2020-06 No 20mg C ommon mg mg 2-14 Spirit 00:00: - [facility] 00 [facility] Hyalgan 20 Hyalgan 20 2020-06 No 20mg C ommon mg mg 2-14 Spirit 00:00: - [facility] 00 [facility] Hyalgan 20 Hyalgan 20 2020-06 No 20mg C ommon mg mg 2-14 Spirit 00:00: - [facility] 00 [facility] Hyalgan 20 Hyalgan 20 2020-06 No 20mg C ommon mg mg 2-14 Spirit 00:00: - [facility] 00 [facility] Hyalgan 20 Hyalgan 20 2020-06 No 20mg C ommon mg mg 2- Spirit 00:00: - [facility] 00 [facility] Hyalgan 20 Hyalgan 20 2020-06 No 20mg C ommon mg mg 2- Spirit 00:00: - [facility] 00 [facility] Hyalgan 20 Hyalgan 20 2020-06 No 20mg C ommon mg mg 2- Spirit 00:00: - [facility] 00 [facility] Hyalgan 20 Hyalgan 20 2020-06 No 20mg C ommon mg mg 2- Spirit 00:00: - [facility] 00 [facility] Bupivicaine Bupivicaine 2020-06 No 2.5mg Common [place]- Spirit 00:00: - [facility] 00 [facility] Kenalog Kenalog 2020-06 No 40mg Common (Triamcinol (Triamcinol 2- S pirit one) one) 00:00: - [facility]I 00 [facility] Hyalgan 20 Hyalgan 20 2020-06 No 20mg C ommon mg mg 2- Spirit 00:00: - [facility]I 00 [facility] Hyalgan 20 Hyalgan 20 2020-06 No 20mg C ommon mg mg 2 Spirit 00:00: - [facility] 00 [facility] Bupivicaine Bupivicaine 2020-06 No 2.5mg Common [place] 2 [facility] 00:00: - [facility]I 00 [facility] Onielalog Kenalog 2020-06 No 40mg Common (Triamcinol (Triamcinol 2-07 S pirit one) one) 00:00: - [facility]I 00 [facility] Hyalgan 20 Hyalgan 20 2020-06 No 20mg C ommon mg mg 2 Spirit 00:00: - [facility] 00 [facility] Hyalgan 20 Hyalgan 20 2020-06 No 20mg C ommon mg mg 2 Spirit 00:00: - [facility] 00 [facility] Bupivicaine Bupivicaine 2020-06 No 2.5mg Common [place] 2 [facility] 00:00: - CHI [facility] Alexi Kenalog 2020-06 No 40mg Common (Triamcinol (Triamcinol 2-07 S pirit one) one) 00:00: - [facility]I 00 [facility] Hyalgan 20 Hyalgan 20 2020-06 No 20mg C ommon mg mg 2 Spirit 00:00: - [facility] 00 [facility] Hyalgan 20 Hyalgan 20 2020-06 No 20mg C ommon mg mg 2 Spirit 00:00: - [facility] 00 [facility] Bupivicaine Bupivicaine 2020-06 No 2.5mg Common [place] 2 [facility] 00:00: - [facility] 00 [facility] Kengilda Kenalog 2020-06 No 40mg Common (Triamcinol (Triamcinol 2-07 S pirit one) one) 00:00: - [facility]I 00 [facility] Hyalgan 20 Hyalgan 20 2020-06 No 20mg C ommon mg mg 2 Spirit 00:00: - [facility]I 00 [facility] Hyalgan 20 Hyalgan 20 2020-06 No 20mg C ommon mg mg 2 Spirit 00:00: - [facility] 00 [facility] Bupivicaine Bupivicaine 2020-06 No 2.5mg Common [place] 2-07 Spirit 00:00: - [facility]I 00 [facility] Kenalog Kenalog 2020-06 No 40mg Common (Triamcinol (Triamcinol 2-07 S pirit one) one) 00:00: - [facility]I 00 [facility] Hyalgan 20 Hyalgan 20 2020-06 No 20mg C ommon mg mg 2-07 Spirit 00:00: - [facility]I 00 [facility] Hyalgan 20 Hyalgan 20 2020-06 No 20mg C ommon mg mg 207 Spirit 00:00: - [facility]I 00 [facility] Bupivicaine Bupivicaine 2020-06 No Common [place] 2-07 Spirit 00:00: - [facility] 00 [facility] Alexi Truong 2020-06 No 40mg Common (Triamcinol (Triamcinol 2-07 S pirit one) one) 00:00: - [facility]I 00 [facility] Hyalgan 20 Hyalgan 20 2020-06 No 20mg C ommon mg mg 207 Spirit 00:00: - [facility]I 00 [facility] Hyalgan 20 Hyalgan 20 2020-06 No 20mg C ommon mg mg 2-07 Spirit 00:00: - [facility]I 00 [facility] Bupivicaine Bupivicaine 2020-06 No Common [place] 2-07 Spirit 00:00: - [facility]I 00 [facility] Alexi Truong 2020-06 No 40mg Common (Triamcinol (Triamcinol 2-07 S pirit one) one) 00:00: - [facility]I 00 [facility] Hyalgan 20 Hyalgan 20 2020-06 No 20mg C ommon mg mg 2-07 Spirit 00:00: - [facility]I 00 [facility] Hyalgan 20 Hyalgan 20 2020-06 No 20mg C ommon mg mg 2-07 Spirit 00:00: - [facility]I 00 [facility] Bupivicaine Bupivicaine 2020-06 No 2.5mg Common [place] 2-07 Spirit 00:00: - [facility]I 00 [facility] Onielalog Kenalog 2020-06 No 40mg Common (Triamcinol (Triamcinol 2-07 S pirit one) one) 00:00: - [facility]I 00 [facility] Hyalgan 20 Hyalgan 20 2020-06 No 20mg C ommon mg mg 2 Spirit 00:00: - [facility]I 00 [facility] Hyalgan 20 Hyalgan 20 2020-06 No 20mg C ommon mg mg 2 Spirit 00:00: - [facility] 00 [facility] Bupivicaine Bupivicaine 2020-06 No 2.5mg Common [place] 2 [facility] 00:00: - [facility]I 00 [facility] Kenalog Kenalog 2020-06 No 40mg Common (Triamcinol (Triamcinol 2-07 S pirit one) one) 00:00: - [facility]I 00 [facility] Hyalgan 20 Hyalgan 20 2020-06 No 20mg C ommon mg mg 2 Spirit 00:00: - [facility]I 00 [facility] Hyalgan 20 Hyalgan 20 2020-06 No 20mg C ommon mg mg 2 Spirit 00:00: - [facility] 00 [facility] Bupivicaine Bupivicaine 2020-06 No 2.5mg Common [place] 2 [facility] 00:00: - [facility]I 00 [facility] Kenalog Kenalog 2020-06 No 40mg Common (Triamcinol (Triamcinol 2-07 S pirit one) one) 00:00: - [facility]I 00 [facility] Hyalgan 20 Hyalgan 20 2020-06 No 20mg C ommon mg mg 08-06 Spirit 00:00: - [facility]I 00 [facility] Hyalgan 20 Hyalgan 20 2020-06 No 20mg C ommon mg mg 2 Spirit 00:00: - [facility] 00 [facility] Bupivicaine Bupivicaine 2020-06 No 2.5mg Common [place] 2 [facility] 00:00: - [facility] 00 [facility] Kenalog Kenalog 2020-06 No 40mg Common (Triamcinol (Triamcinol 2-07 S pirit one) one) 00:00: - [facility]I 00 [facility] Hyalgan 20 Hyalgan 20 2020-06 No 20mg C ommon mg mg 2 Spirit 00:00: - [facility]I 00 [facility] Hyalgan 20 Hyalgan 20 2020-06 No 20mg C ommon mg mg 2 Spirit 00:00: - [facility]I 00 [facility] Bupivicaine Bupivicaine 2020-06 No 2.5mg Common [place] 2- [facility] 00:00: - [facility]I 00 [facility] Kenalog Kenalog 2020-06 No 40mg Common (Triamcinol (Triamcinol 2-07 S pirit one) one) 00:00: - [facility]I 00 [facility] Hyalgan 20 Hyalgan 20 2020-06 No 20mg C ommon mg mg 2 Spirit 00:00: - [facility]I 00 [facility] Hyalgan 20 Hyalgan 20 2020-06 No 20mg C ommon mg mg 2 Spirit 00:00: - [facility]I 00 [facility] Bupivicaine Bupivicaine 2020-06 No 2.5mg Common [place] 2 [facility] 00:00: - [facility]I 00 [facility] Kenalog Kenalog 2020-06 No 40mg Common (Triamcinol (Triamcinol 2-07 S pirit one) one) 00:00: - [facility]I 00 [facility] Hyalgan 20 Hyalgan 20 2020-06 No 20mg C ommon mg mg 2 Spirit 00:00: - [facility]I 00 [facility] Hyalgan 20 Hyalgan 20 2020-06 No 20mg C ommon mg mg 2 Spirit 00:00: - [facility]I 00 [facility] Bupivicaine Bupivicaine 2020-06 No 2.5mg Common [place] 2 [facility] 00:00: - [facility]I 00 [facility] Kenalog Kenalog 2020-06 No 40mg Common (Triamcinol (Triamcinol 2-07 S pirit one) one) 00:00: - CHI 00 [facility] Hyalgan 20 Hyalgan 20 2020-06 No 20mg C ommon mg mg 2 Spirit 00:00: - [facility]I 00 [facility] Hyalgan 20 Hyalgan 20 2020-06 No 20mg C ommon mg mg 2 Spirit 00:00: - [facility]I 00 [facility] Bupivicaine Bupivicaine 2020-06 No 2.5mg Common [place] 2 [facility] 00:00: - [facility]I 00 [facility] Kenalog Kenalog 2021-1 No 40mg Common (Triamcinol (Triamcinol 2-07 S pirit one) one) 00:00: - CHI 00 [facility] Hyalgan 20 Hyalgan 20 2020-06 No 20mg C ommon mg mg 2 Spirit 00:00: - [facility]I 00 [facility] Hyalgan 20 Hyalgan 20 2020-06 No 20mg C ommon mg mg 2 Spirit 00:00: - [facility]I 00 [facility] Bupivicaine Bupivicaine 2020-06 No 2.5mg Common [place] 2 [facility] 00:00: - [facility]I 00 [facility] Kenalog Kenalog 2020-06 No 40mg Common (Triamcinol (Triamcinol 2-07 S pirit one) one) 00:00: - CHI 00 [facility] Hyalgan 20 Hyalgan 20 2020-06 No 20mg C ommon mg mg 2 Spirit 00:00: - [facility]I 00 [facility] Hyalgan 20 Hyalgan 20 2020-06 No 20mg C ommon mg mg 2 Spirit 00:00: - [facility]I 00 [facility] Bupivicaine Bupivicaine 2020-06 No 2.5mg Common [place] 2 [facility] 00:00: - [facility]I 00 [facility] Kenalog Kenalog 2020-06 No 40mg Common (Triamcinol (Triamcinol 2-07 S pirit one) one) 00:00: - CHI 00 [facility] Hyalgan 20 Hyalgan 20 2020-06 No 20mg C ommon mg mg 2 Spirit 00:00: - [facility]I 00 [facility] Hyalgan 20 Hyalgan 20 2020-06 No 20mg C ommon mg mg 2 Spirit 00:00: - [facility]I 00 [facility] Bupivicaine Bupivicaine 2020-06 No 2.5mg Common [place] 2 [facility] 00:00: - [facility]I 00 [facility] Kenalog Kenalog 2020-06 No 40mg Common (Triamcinol (Triamcinol 2-07 S pirit one) one) 00:00: - CHI 00 [facility] Hyalgan 20 Hyalgan 20 2020-06 No 20mg C ommon mg mg 2 Spirit 00:00: - [facility]I 00 [facility] Hyalgan 20 Hyalgan 20 2020-06 No 20mg C ommon mg mg 2 Spirit 00:00: - [facility]I 00 [facility] Bupivicaine Bupivicaine 2020-06 No 2.5mg Common [place] 2 [facility] 00:00: - [facility]I 00 [facility] Kenalog Kenalog 2020-06 No 40mg Common (Triamcinol (Triamcinol 2-07 S pirit one) one) 00:00: - CHI 00 [facility] Hyalgan 20 Hyalgan 20 2020-06 No 20mg C ommon mg mg 2 Spirit 00:00: - [facility]I 00 [facility] Hyalgan 20 Hyalgan 20 2020-06 No 20mg C ommon mg mg 2 Spirit 00:00: - [facility]I 00 [facility] Bupivicaine Bupivicaine 2020-06 No 2.5mg Common [place] 2 [facility] 00:00: - [facility]I 00 [facility] Kenalog Kenalog 2020-06 No 40mg Common (Triamcinol (Triamcinol 2-07 S pirit one) one) 00:00: - CHI 00 [facility] Hyalgan 20 Hyalgan 20 2020-06 No 20mg C ommon mg mg 2 Spirit 00:00: - [facility]I 00 [facility] Hyalgan 20 Hyalgan 20 2020-06 No 20mg C ommon mg mg 2 [facility] 00:00: - [facility]I 00 [facility] Bupivicaine Bupivicaine 2020-06 No 2.5mg Common [place] 2 [facility] 00:00: - [facility]I 00 [facility] Kenalog Kenalog 2020-06 No 40mg Common (Triamcinol (Triamcinol 2-07 S pirit one) one) 00:00: - [facility]I 00 [facility] Hyalgan 20 Hyalgan 20 2020-06 No 20mg C ommon mg mg 2 Spirit 00:00: - [facility]I 00 [facility] Hyalgan 20 Hyalgan 20 2020-06 No 20mg C ommon mg mg 2 [facility] 00:00: - [facility]I 00 [facility] Bupivicaine Bupivicaine 2020-06 No 2.5mg Common [place] 2-07 [facility] 00:00: - [facility]I 00 [facility] Kenalog Kenalog 2020-06 No 40mg Common (Triamcinol (Triamcinol 2-07 S pirit one) one) 00:00: - [facility]I 00 [facility] Hyalgan 20 Hyalgan 20 2020-06 No 20mg C ommon mg mg 207 [facility] 00:00: - [facility] 00 [facility] Hyalgan 20 Hyalgan 20 2020-06 No 20mg C ommon mg mg 2 [facility] 00:00: - [facility] 00 [facility] Bupivicaine Bupivicaine 2020-06 No 2.5mg Common [place] 2 [facility] 00:00: - [facility] 00 [facility] Kenalog Kenalog 2020-06 No 40mg Common (Triamcinol (Triamcinol 2-07 S pirit one) one) 00:00: - [facility]I 00 [facility] Hyalgan 20 Hyalgan 20 2020-06 No 20mg C ommon mg mg 2 Spirit 00:00: - [facility]I 00 [facility] Hyalgan 20 Hyalgan 20 2020-06 No 20mg C ommon mg mg 2 [facility] 00:00: - [facility] 00 [facility] Bupivicaine Bupivicaine 2020-06 No 2.5mg Common [place] 2- [facility] 00:00: - [facility]I 00 [facility] Kenalog Kenalog 2020-06 No 40mg Common (Triamcinol (Triamcinol 2-07 S pirit one) one) 00:00: - CHI 00 [facility] Hyalgan 20 Hyalgan 20 2020-06 No 20mg C ommon mg mg 2- Spirit 00:00: - [facility]I 00 [facility] Hyalgan 20 Hyalgan 20 2020-06 No 20mg C ommon mg mg 2- Spirit 00:00: - [facility] 00 [facility] Bupivicaine Bupivicaine 2020-06 No 2.5mg [place] 2-07 [facility] 00:00: - [facility] 00 [facility] Kenalog Kenalog 2020-06 No 40mg Common (Triamcinol (Triamcinol 2-07 S pirit one) one) 00:00: - [facility]I 00 [facility] Hyalgan 20 Hyalgan 20 2020-06 No 20mg C ommon mg mg 2 Spirit 00:00: - [facility] 00 [facility] Hyalgan 20 Hyalgan 20 2020-06 No 20mg C ommon mg mg 2 [facility] 00:00: - [facility] 00 [facility] Bupivicaine Bupivicaine 2020-06 No 2.5mg [place] 2 [facility] 00:00: - [facility] 00 [facility] Kenalog Kenalog 2020-06 No 40mg Common (Triamcinol (Triamcinol 2-07 S pirit one) one) 00:00: - [facility]I 00 [facility] Hyalgan 20 Hyalgan 20 2020-06 No 20mg C ommon mg mg 2 [facility] 00:00: - [facility] 00 [facility] Hyalgan 20 Hyalgan 20 2020-06 No 20mg C ommon mg mg 2 [facility] 00:00: - [facility] 00 [facility] Bupivicaine Bupivicaine 2020-06 No 2.5mg [place] 2 [facility] 00:00: - [facility] 00 [facility] Kenalog Kenalog 2020-06 No 40mg Common (Triamcinol (Triamcinol 2-07 S pirit one) one) 00:00: - [facility]I 00 [facility] Hyalgan 20 Hyalgan 20 2020-06 No 20mg C ommon mg mg 2 [facility] 00:00: - [facility] 00 [facility] Hyalgan 20 Hyalgan 20 2020-06 No 20mg C ommon mg mg 2 [facility] 00:00: - [facility] 00 [facility] Bupivicaine Bupivicaine 2020-06 No 2.5mg [place] 2 [facility] 00:00: - [facility] 00 [facility] Kenalog Kenalog 2020-06 No 40mg Common (Triamcinol (Triamcinol 2-07 S pirit one) one) 00:00: - [facility]I 00 [facility] Hyalgan 20 Hyalgan 20 2020-06 No 20mg C ommon mg mg 2 [facility] 00:00: - [facility] 00 [facility] Hyalgan 20 Hyalgan 20 2020-06 No 20mg C ommon mg mg 2-07 [facility] 00:00: - [facility] 00 [facility] Bupivicaine Bupivicaine 2020-06 No 2.5mg [place] 2 [facility] 00:00: - [facility] 00 [facility] Kenalog Kenalog 2020-06 No 40mg Common (Triamcinol (Triamcinol 2-07 S pirit one) one) 00:00: - [facility] 00 [facility] HYDROcodone HYDROcodone 2020- No 1{table HYDROcodon -Acetaminop -Acetaminop 03-26 t_as_ne e-Acetamin hen 7.5-325 hen 7.5-325 00:00: 00:00 eded} ophen MG MG 00 :00 7.5-325 MG HYDROcodone HYDROcodone 2020- No 1{table HYDROcodon -Acetaminop -Acetaminop 03-26 t_as_ne e-Acetamin hen 7.5-325 hen 7.5-325 00:00: 00:00 eded} ophen MG MG 00 :00 7.5-325 MG HYDROcodone HYDROcodone 2020- No 1{table HYDROcodon -Acetaminop -Acetaminop 03-26 t_as_ne e-Acetamin hen 7.5-325 hen 7.5-325 00:00: 00:00 eded} ophen MG MG 00 :00 7.5-325 MG HYDROcodone HYDROcodone 2020- No 1{table HYDROcodon -Acetaminop -Acetaminop 03-26 t_as_ne e-Acetamin hen 7.5-325 hen 7.5-325 00:00: 00:00 eded} ophen MG MG 00 :00 7.5-325 MG HYDROcodone HYDROcodone 2020- No 1{table HYDROcodon -Acetaminop -Acetaminop 03-26 t_as_ne e-Acetamin hen 7.5-325 hen 7.5-325 00:00: 00:00 eded} ophen MG MG 00 :00 7.5-325 MG HYDROcodone HYDROcodone 2020- No 1{table HYDROcodon -Acetaminop -Acetaminop -16 04-14 t_as_ne e-Acetamin hen 5-325 hen 5-325 00:00: 00:00 eded} ophen MG MG 00 :00 5-325 MG HYDROcodone HYDROcodone 202- No 1{table HYDROcodon -Acetaminop -Acetaminop -04-14 t_as_ne e-Acetamin hen 5-325 hen 5-325 00:00: 00:00 eded} ophen MG MG 00 :00 5-325 MG HYDROcodone HYDROcodone 202- No 1{table HYDROcodon -Acetaminop -Acetaminop -16 04-14 t_as_ne e-Acetamin hen 5-325 hen 5-325 00:00: 00:00 eded} ophen MG MG 00 :00 5-325 MG HYDROcodone HYDROcodone 2020- No 1{table HYDROcodon -Acetaminop -Acetaminop -04-14 t_as_ne e-Acetamin hen 5-325 hen 5-325 00:00: 00:00 eded} ophen MG MG 00 :00 5-325 MG aspirin 81 Yes 81mg Take 81 mg U nivers mg EC 6-27 by mouth. ity of tablet 00:06: [address] metFORMIN Yes 1000mg Take 1,000 Univers 1,000 mg 6-27 mg by ity of tablet 00:06: mouth. [address] cyanocobala Yes Take by Uni vers min, 6-27 mouth. ity of vitamin 00:06: [place] [id number] (VITAMIN Branch B-12 ORAL) MULTIVITAMI Yes Take by Uni vers N ORAL 6-27 mouth ity of 00:06: daily. [address] TURMERIC Yes Take by Univer s ORAL 6-27 mouth ity of 00:06: daily. [address] aspirin 81 0 Yes 81mg Take 81 mg U nivers mg EC 6-27 by mouth. ity of tablet 00:06: [address] metFORMIN Yes 1000mg Take 1,000 Univers 1,000 mg 6-27 mg by ity of tablet 00:06: mouth. [address] cyanocobala Yes Take by Uni vers min, 6- mouth. ity of vitamin 00:06: [place] [id number] [facility] (VITAMIN Branch B-12 ORAL) MULTIVITAMI Yes Take by Uni vers N ORAL 6- mouth ity of 00:06: daily. [address] TURMERIC Yes Take by Univer s ORAL 6- mouth ity of 00:06: daily. [address] aspirin 81 Yes 81mg Take 81 mg U nivers mg EC 6 by mouth. ity of tablet 00:06: [address] metFORMIN Yes 1000mg Take 1,000 Univers 1,000 mg 6-27 mg by ity of tablet 00:06: mouth. [address] cyanocobala Yes Take by Uni vers min, - mouth. ity of vitamin 00:06: [place] [id number] [facility] (VITAMIN Branch B-12 ORAL) MULTIVITAMI Yes Take by Uni vers N ORAL 6- mouth ity of 00:06: daily. [address] TURMERIC Yes Take by Univer s ORAL 6- mouth ity of 00:06: daily. [address] metFORMIN Yes 1000mg Take 1,000 [facility] 1,000 mg 6-26 mg by ity of tablet 19:06: mouth. [address] cyanocobala Yes Take by Uni vers min, 6- mouth. ity of vitamin 19:06: [place] [id number] Medical (VITAMIN Branch B-12 ORAL) MULTIVITAMI Yes Take by Uni vers N ORAL 6- mouth ity of 19:06: daily. [address] TURMERIC Yes Take by Univer s ORAL 6-26 mouth ity of 19:06: daily. [address] aspirin 81 0 Yes 81mg Take 81 mg U nivers mg EC 6 by mouth. ity of tablet 19:06: [address] metFORMIN Yes 1000mg Take 1,000 [facility] 1,000 mg 6-26 mg by ity of tablet 19:06: mouth. [address] cyanocobala Yes Take by Uni vers min, - mouth. ity of vitamin 19:06: [place] B12, Medical (VITAMIN Branch B-12 ORAL) MULTIVITAMI 0 Yes Take by Uni vers N ORAL - mouth ity of 19:06: daily. [address] Branch TURMERIC 0 Yes Take by Univer s ORAL - mouth ity of 19:06: daily. [address] aspirin 81 2020-0 Yes 81mg Take 81 mg U nivers mg EC 12-23 by mouth. ity of tablet 19:06: [address] [place] atorvastati 0 Yes Univer s n 20 mg 6-25 ity of tablet 00:00: [facility] atorvastati 0 Yes Univer s n 20 mg 6-25 ity of tablet 00:00: [facility] atorvastati 0 Yes Univer s n 20 mg 6-25 ity of tablet 00:00: [place] [facility] atorvastati 0 Yes Univer s n 20 mg 6-25 ity of tablet 00:00: [facility] atorvastati 0 Yes Univer s n 20 mg 6-25 ity of tablet 00:00: [address] [place] hydroCHLORO 0 Yes Univer s thiazide 25 6-11 ity of mg tablet 00:00: [address] amLODIPine 2020-0 Yes Univers 5 mg tablet 6-11 ity of 00:00: [address] hydroCHLORO 2020-0 Yes Univer s thiazide 25 6-11 ity of mg tablet 00:00: [place] [facility] amLODIPine 2020-0 Yes Univers 5 mg tablet 6-11 ity of 00:00: [place] [facility] hydroCHLORO 2020-0 Yes Univer s thiazide 25 6-11 ity of mg tablet 00:00: [address] amLODIPine 2020-0 Yes Univers 5 mg tablet 6-11 ity of 00:00: [address] hydroCHLORO 2020-0 Yes Univer s thiazide 25 6-11 ity of mg tablet 00:00: [address] amLODIPine 2020-0 Yes Univers 5 mg tablet 6-11 ity of 00:00: [place] [facility] hydroCHLORO 2020-0 Yes Univer s thiazide 25 6-11 ity of mg tablet 00:00: [place] [facility] amLODIPine 2020-0 Yes Univers 5 mg tablet 6-11 ity of 00:00: [facility] Kenalog Kenalog 2020-0 No 40mg Common (Triamcinol (Triamcinol 6-10 S pirit one) one) 00:00: - [facility] Bupivicaine Bupivicaine 2020-0 No 2.5mg [place] [facility] 00:00: - [facility] Bupivicaine Bupivicaine 2020-0 No 2.5mg [place] [facility] 00:00: - [facility] Kenalog Kenalog 2020-0 No 40mg Common (Triamcinol (Triamcinol 6-10 S pirit one) one) 00:00: - [facility] Kenalog Kenalog 2020-0 No 40mg Common (Triamcinol (Triamcinol 6-10 S pirit one) one) 00:00: - [facility] Bupivicaine Bupivicaine 2020-0 No 2.5mg [place] [facility] 00:00: - [facility] Bupivicaine Bupivicaine 2020-0 No 2.5mg [place] [facility] 00:00: - [facility] Kenalog Kenalog 2020-0 No 40mg Common (Triamcinol (Triamcinol 6-10 S pirit one) one) 00:00: - [facility] Kenalog Kenalog 2020-0 No 40mg Common (Triamcinol (Triamcinol 6-10 S pirit one) one) 00:00: - [facility] Bupivicaine Bupivicaine 2020-0 No 2.5mg [place] [facility] 00:00: - [facility] Bupivicaine Bupivicaine 2020-0 No 2.5mg [place] [facility] [facility] 00:00: - [facility] Kenalog Kenalog 2020-0 No 40mg Common (Triamcinol (Triamcinol 6-10 S pirit one) one) 00:00: - [facility] Kenalog Kenalog 2020-0 No 40mg Common (Triamcinol (Triamcinol 6-10 S pirit one) one) 00:00: - [facility] Bupivicaine Bupivicaine 2020-0 No 2.5mg [place] [facility] [facility] 00:00: - [facility] Bupivicaine Bupivicaine 2020-0 No 2.5mg [facility] [place] [facility] [facility] 00:00: - [facility] Kenalog Kenalog 2020-0 No 40mg Common (Triamcinol (Triamcinol 6-10 S pirit one) one) 00:00: - [facility] Kenalog Kenalog 2020-0 No 40mg Common (Triamcinol (Triamcinol 6-10 S pirit one) one) 00:00: - [facility] Bupivicaine Bupivicaine 2020-0 No 2.5mg [place] [facility] [facility] 00:00: - [facility] Bupivicaine Bupivicaine 2020-0 No 2.5mg [place] [facility] [facility] 00:00: - [facility] Kenalog Kenalog 2020-0 No 40mg Common (Triamcinol (Triamcinol 6-10 S pirit one) one) 00:00: - [facility] Kenalog Kenalog 2020-0 No 40mg Common (Triamcinol (Triamcinol 6-10 S pirit one) one) 00:00: - [facility] Bupivicaine Bupivicaine 2020-0 No 2.5mg [place] [facility] [facility] 00:00: - [facility] Bupivicaine Bupivicaine 2020-0 No 2.5mg [place] [facility] [facility] 00:00: - [facility] Kenalog Kenalog 2020-0 No 40mg Common (Triamcinol (Triamcinol 6-10 S pirit one) one) 00:00: - [facility] Kenalog Kenalog 2020-0 No 40mg Common (Triamcinol (Triamcinol 6-10 S pirit one) one) 00:00: - [facility] Bupivicaine Bupivicaine 2020-0 No 2.5mg [place] [facility] [facility] 00:00: - [facility] Bupivicaine Bupivicaine 2020-0 No 2.5mg [place] [facility] [facility] 00:00: - [facility] Kenalog Kenalog 2020-0 No 40mg Common (Triamcinol (Triamcinol 6-10 S pirit one) one) 00:00: - [facility] Kenalog Kenalog 2020-0 No 40mg Common (Triamcinol (Triamcinol 6-10 S pirit one) one) 00:00: - [facility] Bupivicaine Bupivicaine 2020-0 No 2.5mg [place] [facility] [facility] 00:00: - [facility] Bupivicaine Bupivicaine 2020-0 No 2.5mg [place] [facility] [facility] 00:00: - [facility] Kenalog Kenalog 2020-0 No 40mg Common (Triamcinol (Triamcinol 6-10 S pirit one) one) 00:00: - [facility] Kenalog Kenalog 2020-0 No 40mg Common (Triamcinol (Triamcinol 6-10 S pirit one) one) 00:00: - [facility] Bupivicaine Bupivicaine 2020-0 No 2.5mg [place] [facility] [facility] 00:00: - [facility] Bupivicaine Bupivicaine 2020-0 No 2.5mg [place] [facility] [facility] 00:00: - [facility] Kenalog Kenalog 2020-0 No 40mg Common (Triamcinol (Triamcinol 6-10 S pirit one) one) 00:00: - [facility] Kenalog Kenalog 2020-0 No 40mg Common (Triamcinol (Triamcinol 6-10 S pirit one) one) 00:00: - [facility] Bupivicaine Bupivicaine 2020-0 No 2.5mg [place] [facility] [facility] 00:00: - [facility] Bupivicaine Bupivicaine 2020-0 No 2.5mg [place] [facility] [facility] 00:00: - [facility] Kenalog Kenalog 2020-0 No 40mg Common (Triamcinol (Triamcinol 6-10 S pirit one) one) 00:00: - [facility] Kenalog Kenalog 2020-0 No 40mg Common (Triamcinol (Triamcinol 6-10 S pirit one) one) 00:00: - [facility] Bupivicaine Bupivicaine 2020-0 No 2.5mg [place] [facility] [facility] 00:00: - [facility] Bupivicaine Bupivicaine 2020-0 No 2.5mg [place] [facility] [facility] 00:00: - [facility] Kenalog Kenalog 2020-0 No 40mg Common (Triamcinol (Triamcinol 6-10 S pirit one) one) 00:00: - [facility] Kenalog Kenalog 2020-0 No 40mg Common (Triamcinol (Triamcinol 6-10 S pirit one) one) 00:00: - [facility] Bupivicaine Bupivicaine 2020-0 No 2.5mg [place] [facility] [facility] 00:00: - [facility] Bupivicaine Bupivicaine 2020-0 No 2.5mg [place] [facility] [facility] 00:00: - [facility] Kenalog Kenalog 2020-0 No 40mg Common (Triamcinol (Triamcinol 6-10 S pirit one) one) 00:00: - [facility] Kenalog Kenalog 2020-0 No 40mg Common (Triamcinol (Triamcinol 6-10 S pirit one) one) 00:00: - [facility] Bupivicaine Bupivicaine 2020-0 No 2.5mg [place] [facility] [facility] 00:00: - [facility] Bupivicaine Bupivicaine 2020-0 No 2.5mg [place] [facility] [facility] 00:00: - [facility] Kenalog Kenalog 2020-0 No 40mg Common (Triamcinol (Triamcinol 6-10 S pirit one) one) 00:00: - [facility] Kenalog Kenalog 2020-0 No 40mg Common (Triamcinol (Triamcinol 6-10 S pirit one) one) 00:00: - [facility] Bupivicaine Bupivicaine 2020-0 No 2.5mg [place] [facility] [facility] 00:00: - [facility] Bupivicaine Bupivicaine 2020-0 No 2.5mg [place] [facility] [facility] 00:00: - [facility] Kenalog Kenalog 2020-0 No 40mg Common (Triamcinol (Triamcinol 6-10 S pirit one) one) 00:00: - [facility] Kenalog Kenalog 2020-0 No 40mg Common (Triamcinol (Triamcinol 6-10 S pirit one) one) 00:00: - [facility] Bupivicaine Bupivicaine 2020-0 No 2.5mg [place] [facility] [facility] 00:00: - [facility] Bupivicaine Bupivicaine 2020-0 No 2.5mg [place] [facility] [facility] 00:00: - [facility] Kenalog Kenalog 2020-0 No 40mg Common (Triamcinol (Triamcinol 6-10 S pirit one) one) 00:00: - [facility] Kenalog Kenalog 2020-0 No 40mg Common (Triamcinol (Triamcinol 6-10 S pirit one) one) 00:00: - [facility] Bupivicaine Bupivicaine 2020-0 No 2.5mg [place] [facility] [facility] 00:00: - [facility] Bupivicaine Bupivicaine 2020-0 No 2.5mg [place] [facility] [facility] 00:00: - [facility] Kenalog Kenalog 2020-0 No 40mg Common (Triamcinol (Triamcinol 6-10 S pirit one) one) 00:00: - [facility] Kenalog Kenalog 2020-0 No 40mg Common (Triamcinol (Triamcinol 6-10 S pirit one) one) 00:00: - [facility] Bupivicaine Bupivicaine 2020-0 No 2.5mg [place] [facility] [facility] 00:00: - [facility] Bupivicaine Bupivicaine 2020-0 No 2.5mg [place] [facility] [facility] 00:00: - [facility] Kenalog Kenalog 2020-0 No 40mg Common (Triamcinol (Triamcinol 6-10 S pirit one) one) 00:00: - [facility] Kenalog Kenalog 2020-0 No 40mg Common (Triamcinol (Triamcinol 6-10 S pirit one) one) 00:00: - [facility] Bupivicaine Bupivicaine 2020-0 No 2.5mg [place] [facility] [facility] 00:00: - [facility] Bupivicaine Bupivicaine 2020-0 No 2.5mg [place] [facility] [facility] 00:00: - [facility] Kenalog Kenalog 2020-0 No 40mg Common (Triamcinol (Triamcinol 6-10 S pirit one) one) 00:00: - [facility] Kenalog Kenalog 2020-0 No 40mg Common (Triamcinol (Triamcinol 6-10 S pirit one) one) 00:00: - [facility] Bupivicaine Bupivicaine 2020-0 No [place] [facility] [facility] 00:00: - [facility] Bupivicaine Bupivicaine 2020-0 No [place] [facility] 00:00: - [facility] Kenalog Kenalog 2020-0 No 40mg Common (Triamcinol (Triamcinol 6-10 S pirit one) one) 00:00: - [facility] Kenalog Kenalog 2020-0 No 40mg Common (Triamcinol (Triamcinol 6-10 S pirit one) one) 00:00: - [facility] Bupivicaine Bupivicaine 2020-0 No [place] [facility] [facility] 00:00: - [facility] Bupivicaine Bupivicaine 2020-0 No [place] [facility] [facility] 00:00: - [facility] Kenalog Kenalog 2020-0 No 40mg Common (Triamcinol (Triamcinol 6-10 S pirit one) one) 00:00: - [facility] Kenalog Kenalog 2020-0 No 40mg Common (Triamcinol (Triamcinol 6-10 S pirit one) one) 00:00: - [facility] Bupivicaine Bupivicaine 2020-0 No 2.5mg [place] [facility] [facility] 00:00: - [facility] Bupivicaine Bupivicaine 2020-0 No 2.5mg [place] [facility] [facility] 00:00: - [facility] Kenalog Kenalog 2020-0 No 40mg Common (Triamcinol (Triamcinol 6-10 S pirit one) one) 00:00: - [facility] Kenalog Kenalog 2020-0 No 40mg Common (Triamcinol (Triamcinol 6-10 S pirit one) one) 00:00: - [facility] Bupivicaine Bupivicaine 1-0 No 2.5mg [place] [facility] [facility] 00:00: - [facility] Bupivicaine Bupivicaine 1-0 No 2.5mg [place] [facility] [facility] 00:00: - [facility] Kenalog Kenalog 2020-0 No 40mg Common (Triamcinol (Triamcinol 6-10 S pirit one) one) 00:00: - [facility] Kenalog Kenalog 2020-0 No 40mg Common (Triamcinol (Triamcinol 6-10 S pirit one) one) 00:00: - [facility] Bupivicaine Bupivicaine 2020-0 No 2.5mg [place] [facility] 00:00: - [facility] Bupivicaine Bupivicaine 2020-0 No 2.5mg [place] [facility] [facility] 00:00: - [facility] Kenalog Kenalog 2020-0 No 40mg Common (Triamcinol (Triamcinol 6-10 S pirit one) one) 00:00: - [facility] Kenalog Kenalog 2020-0 No 40mg Common (Triamcinol (Triamcinol 6-10 S pirit one) one) 00:00: - [facility] Bupivicaine Bupivicaine 2020-0 No 2.5mg [facility] [place] [facility] [facility] 00:00: - [facility] Bupivicaine Bupivicaine 2020-0 No 2.5mg [facility] [place] [facility] [facility] 00:00: - [facility] Kenalog Kenalog 2020-0 No 40mg Common (Triamcinol (Triamcinol 6-10 S pirit one) one) 00:00: - [facility] Kenalog Kenalog 2020-0 No 40mg Common (Triamcinol (Triamcinol 6-10 S pirit one) one) 00:00: - [facility] Bupivicaine Bupivicaine 1-0 No 2.5mg [place] [facility] [facility] 00:00: - [facility] Bupivicaine Bupivicaine 2020-0 No 2.5mg [facility] [place] [facility] [facility] 00:00: - [facility] Kenalog Kenalog 2020-0 No 40mg Common (Triamcinol (Triamcinol 6-10 S pirit one) one) 00:00: - [facility] Alexi Kenalog 2020-0 No 40mg Common (Triamcinol (Triamcinol 6-10 S pirit one) one) 00:00: - [facility] Bupivicaine Bupivicaine 2020-0 No 2.5mg [facility] [place] [facility] 00:00: - [facility] Bupivicaine Bupivicaine 2020-0 No 2.5mg [facility] [place] [facility] [facility] 00:00: - [facility] Alexi Englealog 2020-0 No 40mg Common (Triamcinol (Triamcinol 6-10 S pirit one) one) 00:00: - [facility] Alexi Englealog 2020-0 No 40mg Common (Triamcinol (Triamcinol 6-10 S pirit one) one) 00:00: - [facility] Bupivicaine Bupivicaine 2020-0 No 2.5mg [facility] [place] [facility] 00:00: - [facility] Bupivicaine Bupivicaine 2020-0 No 2.5mg [facility] [place] [facility] 00:00: - [facility] Alexi Kenalog 2020-0 No 40mg Common (Triamcinol (Triamcinol 6-10 S pirit one) one) 00:00: - [facility] Alexi Kenalog 2020-0 No 40mg Common (Triamcinol (Triamcinol 6-10 S pirit one) one) 00:00: - [facility] Bupivicaine Bupivicaine 2020-0 No 2.5mg [facility] [place] [facility] 00:00: - [facility] Bupivicaine Bupivicaine 2020-0 No 2.5mg [facility] [place] [facility] 00:00: - [facility] Alexi Kenalog 2020-0 No 40mg Common (Triamcinol (Triamcinol 6-10 S pirit one) one) 00:00: - [facility] Kenalog Kenalog 2020-0 No 40mg Common (Triamcinol (Triamcinol 6-10 S pirit one) one) 00:00: - [facility] Bupivicaine Bupivicaine 2020-0 No 2.5mg [facility] [place] [facility] 00:00: - [facility] Bupivicaine Bupivicaine 2020-0 No 2.5mg [facility] [place] [facility] 00:00: - [facility] Kenalog Kenalog 2020-0 No 40mg Common (Triamcinol (Triamcinol 6-10 S pirit one) one) 00:00: - [facility] Kenalog Kenalog 2020-0 No 40mg Common (Triamcinol (Triamcinol 5-11 S pirit one) one) 00:00: - [facility] Bupivicaine Bupivicaine 2020-0 No 2.5mg [facility] [place] [facility] 00:00: - [facility] Kenalog Kenalog 2020-0 No 40mg Common (Triamcinol (Triamcinol 5-11 S pirit one) one) 00:00: - [facility] Bupivicaine Bupivicaine 2020-0 No 2.5mg [facility] [place] [facility] 00:00: - [facility] Kenalog Kenalog 2020-0 No 40mg Common (Triamcinol (Triamcinol 5-11 S pirit one) one) 00:00: - [facility] Bupivicaine Bupivicaine 2020-0 No 2.5mg [facility] [place] [facility] 00:00: - [facility] Kenalog Kenalog 2020-0 No 40mg Common (Triamcinol (Triamcinol 5-11 S pirit one) one) 00:00: - [facility] Bupivicaine Bupivicaine 2020-0 No 2.5mg [facility] [place] [facility] 00:00: - [facility] Kenalog Kenalog 2020-0 No 40mg Common (Triamcinol (Triamcinol 5-11 S pirit one) one) 00:00: - [facility] Bupivicaine Bupivicaine 2020-0 No 2.5mg [facility] [place] [facility] 00:00: - [facility] Kenalog Kenalog 2020-0 No 40mg Common (Triamcinol (Triamcinol 5-11 S pirit one) one) 00:00: - [facility] Bupivicaine Bupivicaine 2020-0 No 2.5mg [facility] [place] [facility] 00:00: - [facility] Kenalog Kenalog 2020-0 No 40mg Common (Triamcinol (Triamcinol 5-11 S pirit one) one) 00:00: - [facility] Bupivicaine Bupivicaine 2020-0 No 2.5mg [facility] [place] [facility] 00:00: - [facility] Kenalog Kenalog 2020-0 No 40mg Common (Triamcinol (Triamcinol 5-11 S pirit one) one) 00:00: - [facility] Bupivicaine Bupivicaine 2020-0 No 2.5mg [facility] [place] [facility] 00:00: - [facility] Kenalog Kenalog 2020-0 No 40mg Common (Triamcinol (Triamcinol 5-11 S pirit one) one) 00:00: - [facility] Bupivicaine Bupivicaine 2020-0 No 2.5mg [facility] [place] [facility] 00:00: - [facility] Kenalog Kenalog 2020-0 No 40mg Common (Triamcinol (Triamcinol 5-11 S pirit one) one) 00:00: - [facility] Bupivicaine Bupivicaine 2020-0 No 2.5mg [facility] [place] [facility] 00:00: - [facility] Kenalog Kenalog 2020-0 No 40mg Common (Triamcinol (Triamcinol 5-11 S pirit one) one) 00:00: - [facility] Bupivicaine Bupivicaine 2020-0 No 2.5mg [facility] [place] [facility] 00:00: - [facility] Kenalog Kenalog 2020-0 No 40mg Common (Triamcinol (Triamcinol 5-11 S pirit one) one) 00:00: - [facility] Bupivicaine Bupivicaine 2020-0 No 2.5mg [facility] [place] [facility] 00:00: - [facility] Kenalog Kenalog 2020-0 No 40mg Common (Triamcinol (Triamcinol 5-11 S pirit one) one) 00:00: - [facility] Bupivicaine Bupivicaine 2020-0 No 2.5mg [facility] [place] [facility] 00:00: - [facility] Kenalog Kenalog 2020-0 No 40mg Common (Triamcinol (Triamcinol 5-11 S pirit one) one) 00:00: - [facility] Bupivicaine Bupivicaine 2020-0 No 2.5mg [facility] [place] [facility] 00:00: - [facility] Kenalog Kenalog 2020-0 No 40mg Common (Triamcinol (Triamcinol 5-11 S pirit one) one) 00:00: - [facility] Bupivicaine Bupivicaine 2020-0 No 2.5mg [facility] [place] [facility] 00:00: - [facility] Kenalog Kenalog 2020-0 No 40mg Common (Triamcinol (Triamcinol 5-11 S pirit one) one) 00:00: - [facility] Bupivicaine Bupivicaine 1-0 No 2.5mg [facility] [place] [facility] 00:00: - [facility] Kenalog Kenalog 2020-0 No 40mg Common (Triamcinol (Triamcinol 5-11 S pirit one) one) 00:00: - [facility] Bupivicaine Bupivicaine 2020-0 No 2.5mg [facility] [place] [facility] 00:00: - [facility] Kenalog Kenalog 2020-0 No 40mg Common (Triamcinol (Triamcinol 5-11 S pirit one) one) 00:00: - [facility] Bupivicaine Bupivicaine 2020-0 No 2.5mg [facility] [place] [facility] 00:00: - [facility] Kenalog Kenalog 2020-0 No 40mg Common (Triamcinol (Triamcinol 5-11 S pirit one) one) 00:00: - [facility] Bupivicaine Bupivicaine 2020-0 No [place] [facility] 00:00: - [facility] Kenalog Kenalog 2020-0 No 40mg Common (Triamcinol (Triamcinol 5-11 S pirit one) one) 00:00: - [facility] Bupivicaine Bupivicaine 2020-0 No [place] [facility] 00:00: - [facility] Kenalog Kenalog 2020-0 No 40mg Common (Triamcinol (Triamcinol 5-11 S pirit one) one) 00:00: - [facility] Bupivicaine Bupivicaine 2020-0 No 2.5mg [facility] [place] [facility] 00:00: - [facility] Kenalog Kenalog 2020-0 No 40mg Common (Triamcinol (Triamcinol 5-11 S pirit one) one) 00:00: - [facility] Bupivicaine Bupivicaine 2020-0 No 2.5mg [facility] [place] [facility] 00:00: - [facility] Kenalog Kenalog 2020-0 No 40mg Common (Triamcinol (Triamcinol 5-11 S pirit one) one) 00:00: - [facility] Bupivicaine Bupivicaine 2020-0 No 2.5mg [facility] [place] [facility] 00:00: - [facility] Kenalog Kenalog 2020-0 No 40mg Common (Triamcinol (Triamcinol 5-11 S pirit one) one) 00:00: - [facility] Bupivicaine Bupivicaine 2020-0 No 2.5mg [facility] [place] [facility] 00:00: - [facility] Kenalog Kenalog 2020-0 No 40mg Common (Triamcinol (Triamcinol 5-11 S pirit one) one) 00:00: - [facility] Bupivicaine Bupivicaine 2020-0 No 2.5mg [facility] [place] [facility] 00:00: - [facility] Kenalog Kenalog 2020-0 No 40mg Common (Triamcinol (Triamcinol 5-11 S pirit one) one) 00:00: - [facility] Bupivicaine Bupivicaine 2020-0 No 2.5mg [facility] [place] [facility] 00:00: - [facility] Kenalog Kenalog 2020-0 No 40mg Common (Triamcinol (Triamcinol 5-11 S pirit one) one) 00:00: - [facility] Bupivicaine Bupivicaine 2020-0 No 2.5mg [facility] [place] [facility] 00:00: - [facility] Kenalog Kenalog 2020-0 No 40mg Common (Triamcinol (Triamcinol 5-11 S pirit one) one) 00:00: - [facility] Bupivicaine Bupivicaine 2020-0 No 2.5mg [facility] [place] [facility] 00:00: - [facility] Kenalog Kenalog 2020-0 No 40mg Common (Triamcinol (Triamcinol 5-11 S pirit one) one) 00:00: - [facility] Bupivicaine Bupivicaine 1-0 No 2.5mg [place] 5-11 Spirit 00:00: - [facility] 00 [facility] Kenalog Kenalog 2019-0 No 40mg Common (Triamcinol (Triamcinol 4-22 S pirit one) one) 00:00: - [facility] 00 [facility] Kenalog Kenalog 2019-0 No 40mg Common (Triamcinol (Triamcinol 4-22 S pirit one) one) 00:00: - [facility] 00 [facility] Kenalog Kenalog 2019-0 No 40mg Common (Triamcinol (Triamcinol 4-22 S pirit one) one) 00:00: - [facility] 00 [facility] Kenalog Kenalog 2019-0 No 40mg Common (Triamcinol (Triamcinol 4-22 S pirit one) one) 00:00: - [facility] 00 [facility] [place] Kenalog 2019-0 No 40mg Common (Triamcinol (Triamcinol 4-22 S pirit one) one) 00:00: - [facility] 00 [facility] [place] Kenalog 2019-0 No 40mg Common (Triamcinol (Triamcinol 4-22 S pirit one) one) 00:00: - [facility] 00 [facility] Kenalog Kenalog 2019-0 No 40mg Common (Triamcinol (Triamcinol 4-22 S pirit one) one) 00:00: - [facility] 00 [facility] Kenalog Kenalog 2019-0 No 40mg Common (Triamcinol (Triamcinol 4-22 S pirit one) one) 00:00: - [facility] Kenalog Kenalog 2019-0 No 40mg Common (Triamcinol (Triamcinol 4-22 S pirit one) one) 00:00: - [facility] Kenalog Kenalog 2019-0 No 40mg Common (Triamcinol (Triamcinol 4-22 S pirit one) one) 00:00: - [facility] Kenalog Kenalog 2019-0 No 40mg Common (Triamcinol (Triamcinol 4-22 S pirit one) one) 00:00: - [facility] Kenalog Kenalog 2019-0 No 40mg Common (Triamcinol (Triamcinol 4-22 S pirit one) one) 00:00: - [facility] Kenalog Kenalog 2019-0 No 40mg Common (Triamcinol (Triamcinol 4-22 S pirit one) one) 00:00: - [facility] Kenalog Kenalog 2019-0 No 40mg Common (Triamcinol (Triamcinol 4-22 S pirit one) one) 00:00: - [facility] Kenalog Kenalog 2019-0 No 40mg Common (Triamcinol (Triamcinol 4-22 S pirit one) one) 00:00: - [facility] Kenalog Kenalog 2019-0 No 40mg Common (Triamcinol (Triamcinol 4-22 S pirit one) one) 00:00: - [facility] Kengilda Kenalog 2019-0 No 40mg Common (Triamcinol (Triamcinol 4-22 S pirit one) one) 00:00: - [facility] Kengilda Kenalog 2019-0 No 40mg Common (Triamcinol (Triamcinol 4-22 S pirit one) one) 00:00: - [facility] Kengilda Kenalog 2019-0 No 40mg Common (Triamcinol (Triamcinol 4-22 S pirit one) one) 00:00: - [facility] Kengilda Kenalog 2019-0 No 40mg Common (Triamcinol (Triamcinol 4-22 S pirit one) one) 00:00: - [facility] Kenalog Kenalog 2019-0 No 40mg Common (Triamcinol (Triamcinol 4-22 S pirit one) one) 00:00: - [facility] Kenalog Kenalog 2019-0 No 40mg Common (Triamcinol (Triamcinol 4-22 S pirit one) one) 00:00: - [facility] Kenalog Kenalog 2019-0 No 40mg Common (Triamcinol (Triamcinol 4-22 S pirit one) one) 00:00: - [facility] Kenalog Kenalog 2019-0 No 40mg Common (Triamcinol (Triamcinol 4-22 S pirit one) one) 00:00: - [facility] Alexi Kenalog 2019-0 No 40mg Common (Triamcinol (Triamcinol 4-22 S pirit one) one) 00:00: - [facility] Onielalog Kenalog 2019-0 No 40mg Common (Triamcinol (Triamcinol 4-22 S pirit one) one) 00:00: - [facility] Alexi Kenalog 2019-0 No 40mg Common (Triamcinol (Triamcinol 4-22 S pirit one) one) 00:00: - [facility] Alexi Kenalog 2019-0 No 40mg Common (Triamcinol (Triamcinol 4-22 S pirit one) one) 00:00: - [facility] Alexi Kenalog 2019-0 No 40mg Common (Triamcinol (Triamcinol 4-22 S pirit one) one) 00:00: - [facility] aspirin 2018-0 Yes 81mg QD Take 81 mg Meth carla (ECOTRIN) 5-[address] 81 MG 13:00: daily. [facility]osp[facility] enteric 04 l coated tablet valsartan 2017-0 Yes 160mg QD Take 160 Met hodi (DIOVAN) 5-[address] 160 MG 13:00: mouth Hospita tablet 04 daily. l aspirin 2018-0 Yes 81mg QD Take 81 mg Meth carla (ECOTRIN) 5-[address] 81 MG 13:00: daily. [facility]osp[facility] enteric 04 l coated tablet gluc 2018-0 Yes Take by [facility] mejia/chondro 5-[address] mejia A/vit 13:00: Hospita C/Mn 04 l (GLUCOSAMIN E 1500 COMPLEX ORAL) metFORMIN 2018-0 Yes 1000mg Q.5D Take 1,000 [facility] (GLUCOPHAGE 5-[address] ) 1,000 mg 13:00: mouth 2 [facility]osp [facility] tablet 04 (two) l times a day with meals. gluc 2018-0 Yes Take by [facility] mejia/chondro 5-[address] mejia A/vit 13:00: Hospita C/Mn 04 l (GLUCOSAMIN E 1500 COMPLEX ORAL) metFORMIN 2018-0 Yes 1000mg Q.5D Take 1,000 [facility] (GLUCOPHAGE 5-[address] ) 1,000 mg 13:00: mouth 2 [facility]osp [facility] tablet 04 (two) l times a day with meals. valsartan Yes 160mg QD Take 160 Met [facility] (DIOVAN) 5-[address] 160 MG 13:00: mouth Hospita tablet 04 daily. l simvastatin Yes 20mg QD Take 20 mg [facility] (ZOCOR) 20 4-[address] MG tablet 00:00: every Hospita 00 evening. l simvastatin 0 Yes 20mg QD Take 20 mg [facility] (ZOCOR) 20 4-[address] MG tablet 00:00: every Hospita 00 evening. l docusate 2011-06 Yes Kayla 100 mg, 1 Me moria sodium 100 07-13 Stevan cap, PO, l mg oral 16:19: Q12H, PRN, Herm sherry capsule 05 30 cap, as needed for constipati on, Substituti on Allowed, CAP docusate 2011-06 Yes Kayla 100 mg, 1 Me moria sodium 100 07-13 Stevan cap, PO, l mg oral 16:19: Q12H, PRN, Herm sherry capsule 05 30 cap, as needed for constipati on, Substituti on Allowed, CAP diazepam 5 2011-06 Yes Kayla 5 mg, 1 Me moria mg oral 07-13 Stevan tab, PO, l tablet 16:19: Q8H, PRN, Izaiah n 01 30 tab, spasm, Substituti on Allowed, TAB diazepam 5 2011-06 Yes Kayla 5 mg, 1 Me moria mg oral 07-13 Stevan tab, PO, l tablet 16:19: Q8H, PRN, Izaiah n 01 30 tab, spasm, Substituti on Allowed, TAB acetaminoph 2011-06 Yes Kayla 1 tab, PO, Memoria en-hydrocod 07-13 Stevan Q4H, PRN, l one 325 16:18: 60 tab, [place] mg-10 mg 59 Pain Score oral tablet 4-6, Substituti on Allowed, Maintenanc e, TAB acetaminoph 2011-06 Yes Kayla 1 tab, PO, Memoria en-hydrocod - Stevan Q4H, PRN, l one 325 16:18: 60 tab, Jason mg-10 mg 59 Pain Score oral tablet 4-6, Substituti on Allowed, Maintenanc e, TAB heparin 2011-06 No [facility] 5,000 Mem oria 5000 1-14 n Mike unit, 1 l units/mL 13:14: mL, Route: Her kraft injectable 00 SUB-Q, solution Drug form: INJ, Q8H, Dosing Weight 102.273, kg, Priority: STAT, Start date: 05/13/12 7:14:00, Duration: 30 day, Stop date: 06/12/12 0:00:00 heparin 2011- No [facility] 5,000 Mem oria 5000 1-14 n Mike unit, 1 l units/mL 13:14: mL, Route: Her kraft injectable 00 SUB-Q, solution Drug form: INJ, Q8H, Dosing Weight 102.273, kg, Priority: STAT, Start date: 05/13/12 7:14:00, Duration: 30 day, Stop date: 06/12/12 0:00:00 bisacodyl 2011-06 No Wilbert M 10 mg, 1 M emoria -14 Allam supp, l 03:00: Route: ID, Jason Drug form: SUPP, Bedtime, Dosing Weight 102.273, kg, Start date: 05/12/12 21:00:00, Duration: 30 day, Stop date: 06/10/12 21:00:00 bisacodyl 2011-06 No Wilbert M 10 mg, 1 M emoria -14 Allam supp, l 03:00: Route: ID, Jason Drug form: SUPP, Bedtime, Dosing Weight 102.273, kg, Start date: 05/12/12 21:00:00, Duration: 30 day, Stop date: 06/10/12 21:00:00 Ancef + 2011-06 No [facility] 2 gm, Mem oria Sodium -13 n Mike Route: l Chloride 03:00: IVPB, Drug Her kraft 0.9% IV 100 00 form: INJ, mL ABXQ8H, Dosing Weight 102.273, kg, Start date: 05/11/12 21:00:00, Duration: 1 day, Stop date: 05/12/12 13:00:00 Ancef + 2011-06 No [facility] 2 gm, Mem oria Sodium 1-13 ammon Mckeon Route: l Chloride 03:00: IVPB, Drug Her kraft 0.9% IV 100 00 form: INJ, mL ABXQ8H, Dosing Weight 102.273, kg, Start date: 05/11/12 21:00:00, Duration: 1 day, Stop date: 05/12/12 13:00:00 metFORmin 2011- No [facility] 500 mg, 1 Memoria -12 ammon Mckeon tab, l 23:00: Route: PO, Jason 00 Drug form: TAB, BID, Dosing Weight 102.273, kg, Start date: 05/11/12 17:00:00, Duration: 30 day, Stop date: 06/10/12 9:00:00 metFORmin 2011- No [facility] 500 mg, 1 Memoria -12 ammon Mckeon tab, l 23:00: Route: PO, Jason 00 Drug form: TAB, BID, Dosing Weight 102.273, kg, Start date: 05/11/12 17:00:00, Duration: 30 day, Stop date: 06/10/12 9:00:00 ondansetron 2011- No Elaine 4 mg, 2 Memoria 1-12 Elder mL, Route: l 22:29: [place] IVP, Drug Izaiah n 00 form: INJ, ONCE, Dosing Weight 102.273, kg, PRN Nausea & Vomiting, Start date: 05/11/12 16:29:00 naloxone 2011-06 No Elaine 0.04 mg, Me moria - Elder 0.1 mL, l 22:29: [place] Route: [place] 00 IVP, Drug form: INJ, Q2MIN, Dosing Weight 102.273, kg, PRN Narcotic Reversal, Start date: 05/11/12 16:29:00, Duration: 8 doses or times, Stop date: 05/11/12 23:00:00 flumazenil 2011-06 No Elaine 0.2 mg, 2 Memoria 1-12 Elder mL, Route: l 22:29: [place] IVP, Drug Izaiah n 00 form: INJ, PRN, Dosing Weight 102.273, kg, PRN Benzodiaze pine Reversal, Initial dose, Start date: 05/11/12 16:29:00, Stop date: 05/11/12 23:00:00 hydromorpho 2011-06 No Elaine 0.5 mg, Memoria ne 1-12 Elder 0.25 mL, l 22:29: [place] Route: Jason 00 IVP, Drug form: INJ, Q5Min, Dosing Weight 102.273, kg, PRN Pain Score 4-6, Start date: 05/11/12 16:29:00, Duration: 5 doses or times, Stop date: 05/11/12 23:00:00 labetalol 2011-06 No Elaine 5 mg, 1 Me moria 1-12 Elder mL, Route: l 22:29: [place] IVP, Drug Izaiah n 00 form: INJ, Q5Min, Dosing Weight 102.273, kg, PRN Elevated BP, Start date: 05/11/12 16:29:00, Duration: 5 doses or times, Stop date: 05/11/12 23:00:00 ondansetron 2011-06 No Elaine 4 mg, 2 Memoria 1-12 Elder mL, Route: l 22:29: [place] IVP, Drug Izaiah n 00 form: INJ, ONCE, Dosing Weight 102.273, kg, PRN Nausea & Vomiting, Start date: 05/11/12 16:29:00 naloxone 2011-06 No Elaine 0.04 mg, Me moria 1-12 Elder 0.1 mL, l 22:29: [place] Route: Jason 00 IVP, Drug form: INJ, Q2MIN, Dosing Weight 102.273, kg, PRN Narcotic Reversal, Start date: 05/11/12 16:29:00, Duration: 8 doses or times, Stop date: 05/11/12 23:00:00 flumazenil 2011-06 No Elaine 0.2 mg, 2 Memoria 1-12 Elder mL, Route: l 22:29: [place] IVP, Drug Izaiah n 00 form: INJ, PRN, Dosing Weight 102.273, kg, PRN Benzodiaze pine Reversal, Initial dose, Start date: 05/11/12 16:29:00, Stop date: 05/11/12 23:00:00 hydromorpho 2011-06 No Elaine 0.5 mg, Memoria ne 1-12 Elder 0.25 mL, l 22:29: [place] Route: Jason 00 IVP, Drug form: INJ, Q5Min, Dosing Weight 102.273, kg, PRN Pain Score 4-6, Start date: 05/11/12 16:29:00, Duration: 5 doses or times, Stop date: 05/11/12 23:00:00 labetalol 2011- No Elaine 5 mg, 1 Me moria 1-12 Elder mL, Route: l 22:29: [place] IVP, Drug Izaiah n 00 form: INJ, Q5Min, Dosing Weight 102.273, kg, PRN Elevated BP, Start date: 05/11/12 16:29:00, Duration: 5 doses or times, Stop date: 05/11/12 23:00:00 labetalol 2011- No [facility] 20 mg, 4 Memoria 1-12 n Mike mL, Route: l 21:59: IVP, Drug [place] 00 form: INJ, Q15Min, Dosing Weight 102.273, kg, Start date: 05/11/12 15:59:00, Duration: 3 doses or times, Stop date: 05/11/12 16:29:00, SBP > 150 mmHg labetalol 2011-06 No [facility] 20 mg, 4 Memoria 1-12 n Mike mL, Route: l 21:59: IVP, Drug [place] 00 form: INJ, Q15Min, Dosing Weight 102.273, kg, Start date: 05/11/12 15:59:00, Duration: 3 doses or times, Stop date: 05/11/12 16:29:00, SBP > 150 mmHg Ancef 2011-06 No Tomasz Rosalino 2 gm, Memor ia -12 Mirna Route: l 20:33: IVPB, [place] 00 ONCE, Dosing Weight 102.273, kg, Start date: 05/11/12 14:33:00, Duration: 1 doses or times, Stop date: 05/11/12 14:33:00 Ancef 2011-06 No Tomasz Rosalino 2 gm, Memor ia -12 [place] Route: l 20:33: IVPB, Jason 00 ONCE, Dosing Weight 102.273, kg, Start date: 05/11/12 14:33:00, Duration: 1 doses or times, Stop date: 05/11/12 14:33:00 Sodium 2011-06 No [facility] 1,000 mL, Memoria Chloride 1-12 n Mike Rate: 100 l 0.9% IV 06:01: ml/hr, [place] 1,000 mL 00 Infuse over: 10 hr, Route: IV, kg, Total Volume: 1,000, Start date: 05/11/12 0:01:00, Duration: 30 day, Stop date: 06/10/12 0:00:00 Sodium 2011-06 No [facility] 1,000 mL, Memoria Chloride 1-12 n Mike Rate: 100 l 0.9% IV 06:01: ml/hr, [place] 1,000 mL 00 Infuse over: 10 hr, Route: IV, kg, Total Volume: 1,000, Start date: 05/11/12 0:01:00, Duration: 30 day, Stop date: 06/10/12 0:00:00 heparin 2011-06 No [facility] 5,000 Mem oria 1-11 n Mike unit, 1 l 06:00: mL, Route: Jason 00 SUB-Q, Drug form: INJ, Q8H, Dosing Weight 102.273, kg, Start date: 05/10/12 0:00:00, Duration: 30 day, Stop date: 06/08/12 16:00:00 diazepam 2011-06 No [facility] 5 mg, 1 Memoria 1-11 n Mike tab, l 06:00: Route: PO, Jason 00 Drug form: TAB, Q8H, Dosing Weight 102.273, kg, Start date: 05/10/12 0:00:00, Duration: 30 day, Stop date: 06/08/12 16:00:00 heparin 2011-06 No [facility] 5,000 Mem oria 1-11 n Mike unit, 1 l 06:00: mL, Route: [place] 00 SUB-Q, Drug form: INJ, Q8H, Dosing Weight 102.273, kg, Start date: 05/10/12 0:00:00, Duration: 30 day, Stop date: 06/08/12 16:00:00 diazepam 2011-06 No [facility] 5 mg, 1 Memoria 1-11 n Mike tab, l 06:00: Route: PO, [place] 00 Drug form: TAB, Q8H, Dosing Weight 102.273, kg, Start date: 05/10/12 0:00:00, Duration: 30 day, Stop date: 06/08/12 16:00:00 metFORmin 2011-06 Yes [facility] 500 mg, Memoria 1-11 n Mike PO, BID, l 03:15: Substituti [place] 49 on Allowed metFORmin 2011-06 Yes [facility] 500 mg, Memoria -11 n Mike PO, BID, l 03:15: Substituti Jason 49 on Allowed Diovan HCT 2011-06 Yes 12.5 mg, Mem oria 1-11 PO, Daily, l 03:12: Substituti Jason 23 on Allowed, Maintenanc e Diovan HCT 2011-06 Yes 12.5 mg, Mem oria 1-11 PO, Daily, l 03:12: Substituti [place] 23 on Allowed, Maintenanc e Saline 2011-06 No [facility] 5 ml, Robin gilma Flush 0.9% 07-10 ammon Mckeon Route: l 03:00: IVP, Drug Form: INJ, Dosing Weight 102.273, kg, Q12H, Start date: 05/09/12 21:00:00, Duration: 30 day, Stop date: 06/08/12 9:00:00 senna 2011-06 No [facility] 8.6 mg, 1 M emoria 07-10 ammon Mckeon tab, l 03:00: Route: PO, Drug Form: TAB, Dosing Weight 102.273, kg, Q12H, Start date: 05/09/12 21:00:00, Duration: 30 day, Stop date: 06/08/12 9:00:00 docusate 2011-06 No [facility] 100 mg, 1 Memoria -11 n Mike cap, l 03:00: Route: PO, Drug form: CAP, Q12H, Dosing Weight 102.273, kg, Start date: 05/09/12 21:00:00, Duration: 30 day, Stop date: 06/08/12 9:00:00 Saline 2011-06 No [facility] 5 ml, Robin gilma Flush 0.9% 07-10 ammon Mckeon Route: l 03:00: IVP, Drug Jason 00 Form: INJ, Dosing Weight 102.273, kg, Q12H, Start date: 05/09/12 21:00:00, Duration: 30 day, Stop date: 06/08/12 9:00:00 senna 2011- No [facility] 8.6 mg, 1 M emoria 07-10 ammon Mckeon tab, l 03:00: Route: PO, Jason 00 Drug Form: TAB, Dosing Weight 102.273, kg, Q12H, Start date: 05/09/12 21:00:00, Duration: 30 day, Stop date: 06/08/12 9:00:00 docusate 2011-06 No [facility] 100 mg, 1 Memoria 07-10 ammon Mckeon cap, l 03:00: Route: PO, [place] 00 Drug form: CAP, Q12H, Dosing Weight 102.273, kg, Start date: 05/09/12 21:00:00, Duration: 30 day, Stop date: 06/08/12 9:00:00 morphine 2011-06 No Sean 6 mg, 1.5 M emoria Sulfate 07-10 Aman mL, Route: l 01:29: Giovani IVP, Drug Izaiah n 00 form: INJ, ONCE, Dosing Weight 102.273, kg, Start date: 05/09/12 19:29:00, Stop date: 05/09/12 19:29:00 morphine 2011-06 No Sean 6 mg, 1.5 M emoria Sulfate 07-10 Aman mL, Route: l 01:29: Giovani IVP, Drug Izaiah n 00 form: INJ, ONCE, Dosing Weight 102.273, kg, Start date: 05/09/12 19:29:00, Stop date: 05/09/12 19:29:00 Saline 2011-06 No [facility] 5 ml, Robin gilma Flush 0.9% 07-09 ammon Mckeon Route: l 23:57: IVP, Drug Jason 00 Form: INJ, Dosing Weight 102.273, kg, PRN, PRN Line Flush, Start date: 05/09/12 17:57:00, Duration: 30 day, Stop date: 06/08/12 17:56:00 morphine 2011-06 No [facility] 2 mg, 1 Memoria Sulfate 10 n Mike mL, Route: l 23:57: IVP, Drug [place] form: INJ, Q1H, Dosing Weight 102.273, kg, [...] 23:57: IVP, Drug Jason 00 form: INJ, Q8H, Dosing Weight 102.273, kg, PRN Nausea & Vomiting, Start date: 05/09/12 17:57:00, Duration: 30 day, Stop date: 06/08/12 17:56:00 Saline 2011-06 No [facility] 5 ml, Robin gilma Flush 0.9% 1-10 n Mike Route: l 23:57: IVP, Drug [place] 00 Form: INJ, Dosing Weight 102.273, kg, PRN, PRN Line Flush, Start date: 05/09/12 17:57:00, Duration: 30 day, Stop date: 06/08/12 17:56:00 morphine 2011- No [facility] 2 mg, 1 Memoria Sulfate 1-10 n Mike mL, Route: l 23:57: [...] Stop date: 06/08/12 17:56:00 ondansetron 2011-06 No Felice 4 mg, 2 Memoria 1-10 n Mike mL, Route: l 23:57: IVP, Drug form: INJ, Q8H, Dosing Weight 102.273, kg, PRN Nausea & Vomiting, Start date: 05/09/12 17:57:00, Duration: 30 day, Stop date: 06/08/12 17:56:00 Lactated 2011-06 No Sean 1,000 mL, M emoria Ringers 1-10 Aman Rate: l (Bolus) IV 22:33: Giovani 1,000 Herm sherry 1,000 mL 00 ml/hr, Infuse over: 1 hr, Route: IV, kg, Total Volume: 1,000, Bolus Dose, Priority: STAT, Start date: 05/09/12 16:33:00, Duration: 1 doses or times, Stop date: 05/09/12 17:32:00 Lactated 2011-06 No Sean 1,000 mL, M emoria Ringers 1-10 Aman Rate: l (Bolus) IV 22:33: Giovani 1,000 Herm sherry 1,000 mL 00 ml/hr, Infuse over: 1 hr, Route: IV, kg, Total Volume: 1,000, Bolus Dose, Priority: STAT, Start date: 05/09/12 16:33:00, Duration: 1 doses or times, Stop date: 05/09/12 17:32:00 Visipaque 2011-06 No Cain D 85 mL, Me moria 320mg/ml 1-10 Person Route: l 21:46: IVP, Drug Jason 00 Form: SOLN, Dosing Weight 102.273, kg, ONCALL, STAT, Start date: 05/09/12 15:46:00, Duration: 1 doses or times, Dose = 2.2ml/kg, Max dose = 150mlDose = 2.2ml/kg, Max dose = 150ml Visipaque 2011-06 No Cain D 85 mL, Me moria 320mg/ml 1-10 Person Route: l 21:46: IVP, Drug [place] 00 Form: SOLN, Dosing Weight 102.273, kg, ONCALL, STAT, Start date: 05/09/12 15:46:00, Duration: 1 doses or times, Dose = 2.2ml/kg, Max dose = 150mlDose = 2.2ml/kg, Max dose = 150ml Omnipaque 2011-06 No Cain D 100 mL, M emoria 350mg/ml 07-09 Person Route: l 21:40: IVP, Drug [place] Form: SOLN, Dosing Weight 102.273, kg, ONCALL, STAT, Start date: 05/09/12 15:40:00, Duration: 1 doses or times, Dose = 2.2ml/kg, Max dose = 100mlDose = 2.2ml/kg, Max dose = 100ml Omnipaque 2011-06 No Cain D 100 mL, M emoria 350mg/ml 07-09 Person Route: l 21:40: IVP, Drug Jason Form: SOLN, Dosing Weight 102.273, kg, ONCALL, [...] 15:14:00 morphine 2011-06 No Sean 6 mg, 0.6 [...] date: 05/09/12 11:31:00, Stop date: 05/09/12 11:31:00 morphine 2011-06 No Sean 6 mg, 3 Mem oria Sulfate 07-09 Aman mL, Route: l 17:31: Giovani IVP, [...] 150mlDose = 2.2ml/kg, Max dose = 150ml Visipaque 2011-06 No Sean 126 mL, Me moria 320mg/ml 07-09 Aman Route: l 17:22: Giovani IVP, Drug Izaiah n 00 Form: SOLN, Dosing Weight 102.273, kg, ONCALL, STAT, Start date: 05/09/12 11:22:00, Duration: 1 doses or times, Dose = 2.2ml/kg, Max dose = 150mlDose = 2.2ml/kg, Max dose = 150ml Tdap 2011-06 No Sean 0.5 mL, Memoria 10 Aman Route: IM, l 16:06: Giovani Drug Form: Marjorie nn 00 INJ, Dosing Weight 102.273, kg, ONCE, Start date: 05/09/12 10:06:00, Stop date: 05/09/12 10:06:00 morphine 2011-06 No Sean 4 mg, 1 Mem oria Sulfate 07-09 Aman mL, Route: l 16:06: Giovani IVP, Drug Izaiah n 00 form: INJ, ONCE, Dosing Weight 102.273, kg, Priority: STAT, Start date: 05/09/12 10:06:00, Stop date: 05/09/12 10:06:00 Tdap 2011- No Sean 0.5 mL, Memoria 1-10 Aman Route: IM, l 16:06: Giovani Drug Form: Marjorie nn 00 INJ, Dosing Weight 102.273, kg, ONCE, Start date: 05/09/12 10:06:00, Stop date: 05/09/12 10:06:00 morphine 2011- No Sean 4 mg, 1 Mem oria [...] 05/09/12 10:06:00, Stop date: 05/09/12 10:06:00 Saline 2011- No Sean 5 ml, Memoria Flush 0.9% 1-10 Aman Route: l 16:06: Giovani IVP, Drug Izaiah n 00 Form: INJ, Dosing Weight 102.273, kg, PRN, PRN Line Flush, Administer at least once every 12 hours, Start date: 05/09/12 10:06:00, Duration: 30 day, Stop date: 06/08/12 10:05:00 Lactated 2011- No Sean 1,000 mL, M emoria Ringers 1-10 Aman Rate: l (Bolus) IV 16:06: Giovani 1,000 Herm sherry 1,000 mL 00 ml/hr, Infuse over: 1 hr, Route: IV, kg, Total Volume: 1,000, Bolus dose, Priority: STAT, Start date: 05/09/12 10:06:00, Duration: 1 doses or times, Stop date: 05/09/12 11:05:00 ondansetron 2011-06 No Sean 4 mg, 2 Memoria 1-10 Aman mL, Route: l 16:06: Giovani IVP, Drug Izaiah n 00 form: INJ, ONCE, Dosing Weight 102.273, kg, Priority: STAT, Start date: 05/09/12 10:06:00, Stop date: 05/09/12 10:06:00 Saline 2011- No Sean 5 ml, Memoria Flush 0.9% 1-10 Aman Route: l 16:06: Giovani IVP, Drug Izaiah n 00 Form: INJ, Dosing Weight 102.273, kg, PRN, PRN Line Flush, Administer at least once every 12 hours, Start date: 05/09/12 10:06:00, Duration: 30 day, Stop date: 06/08/12 10:05:00 Lactated 2011- No Sean 1,000 mL, M emoria Ringers 1-10 Aman Rate: l (Bolus) IV 16:06: Giovani 1,000 Herm sherry 1,000 mL 00 ml/hr, Infuse over: 1 hr, Route: IV, kg, Total Volume: 1,000, Bolus dose, Priority: STAT, Start date: 05/09/12 10:06:00, Duration: 1 doses or times, Stop date: 05/09/12 11:05:00 Hydrochloro Hydrochloro Yes Efrain 1 tablet Common thiazide thiazide Oh in the [facility] morning [facility] Atorvastati Atorvastati Yes Efrain 1 tablet Common n Calcium n Calcium Ho [facility] Omeprazole Omeprazole Yes Efrain 1 capsule Common Oh 30 minutes [facility] before - [facility] morning [facility] Fish Oil Fish Oil Yes Efrain 1 capsule Common Oh [facility] Iron Iron Yes Efrain 1 tablet Common Oh with water Spirit or juice - [facility] between [facility] Breo Breo Yes Efrain not Common Ellipta Ellipta Oh defined [facility] Simvastatin Simvastatin Yes Efrain 1 tablet Common Oh in the [facility] evening [facility] Metformin Metformin Yes Efrain 1 tablet Common HCl HCl Oh with meals [facility] Simvastatin Simvastatin Yes Efrain 1 tablet Common Oh in the [facility] evening [facility] Vitamin B12 Vitamin B12 Yes Efrain one Common Oh [facility] Multivitami Multivitami Yes Efrain not Common ns ns Ho defined [facility] Garlic Garlic Yes Efrain not Common Oh defined [facility] Amlodipine Amlodipine Yes Efrain 1 tablet Common Besylate Besylate Oh [facility] Etodolac Etodolac Yes Efrain 1 tablet C ommon Oh with food [facility] Aspir-81 Aspir-81 Yes Efrain 1 tablet C ommon Oh [facility] Breo Breo No Breo Ellipta Ellipta Ellipta hydroCHLORO hydroCHLORO No hydroCHLOR thiazide 25 thiazide 25 Othiazide MG MG 25 MG amLODIPine amLODIPine No 1{table QD amLODIPine Besylate 5 Besylate 5 t} Besylate 5 MG MG MG Multivitami Multivitami No Multivitam ns - ns - ins - Zinc 50 MG Zinc 50 MG No 1{table QD Zinc 50 MG t} Etodolac Etodolac No 1{table BID Etodolac 500 MG 500 MG t_with_ 500 MG food} Fish Oil Fish Oil No 1{capsu QD Fish Oil 1000 MG 1000 MG le} 1000 MG Vitamin B12 Vitamin B12 No QD Vitamin 2500 2500 B12 2500 Vitamin D3 Vitamin D3 No Vitamin D3 Iron 240 Iron 240 No QD Iron 240 (27 Fe) MG (27 Fe) MG (27 Fe) MG Trelegy Trelegy No Trelegy Ellipta Ellipta Ellipta metFORMIN metFORMIN No 1{table BID metFORMIN HCl 1000 MG HCl 1000 MG t_with_ HCl 1000 meals} MG Atorvastati Atorvastati No 1{table QD Atorvastat n Calcium n Calcium t} in Calcium 20 MG 20 MG 20 MG Garlic 500 Garlic 500 No Garlic 500 MG MG MG Turmeric Turmeric No Turmeric Curcumin Curcumin Curcumin hydroCHLORO hydroCHLORO No 1{table QD hydroCHLOR thiazide 25 thiazide 25 t_in_th Othiazide MG MG e_morni 25 MG ng} Glucosamine Glucosamine No Glucosamin e amLODIPine amLODIPine No amLODIPine Besylate 5 Besylate 5 Besylate 5 MG MG MG Aspir-81 81 Aspir-81 81 No 1{table QD Aspir-81 MG MG t} 81 MG Omeprazole Omeprazole No QD Omeprazole 40 MG 40 MG 40 MG Breo Breo No Breo Ellipta Ellipta Ellipta hydroCHLORO hydroCHLORO No hydroCHLOR thiazide 25 thiazide 25 Othiazide MG MG 25 MG amLODIPine amLODIPine No 1{table QD amLODIPine Besylate 5 Besylate 5 t} Besylate 5 MG MG MG Multivitami Multivitami No Multivitam ns - ns - ins - Zinc 50 MG Zinc 50 MG No 1{table QD Zinc 50 MG t} Etodolac Etodolac No 1{table BID Etodolac 500 MG 500 MG t_with_ 500 MG food} Fish Oil Fish Oil No 1{capsu QD Fish Oil 1000 MG 1000 MG le} 1000 MG Vitamin B12 Vitamin B12 No QD Vitamin 2500 2500 B12 2500 Vitamin D3 Vitamin D3 No Vitamin D3 Iron 240 Iron 240 No QD Iron 240 (27 Fe) MG (27 Fe) MG (27 Fe) MG Trelegy Trelegy No Trelegy Ellipta Ellipta Ellipta metFORMIN metFORMIN No 1{table BID metFORMIN HCl 1000 MG HCl 1000 MG t_with_ HCl 1000 meals} MG Atorvastati Atorvastati No 1{table QD Atorvastat n Calcium n Calcium t} in Calcium 20 MG 20 MG 20 MG Garlic 500 Garlic 500 No Garlic 500 MG MG MG Turmeric Turmeric No Turmeric Curcumin Curcumin Curcumin hydroCHLORO hydroCHLORO No 1{table QD hydroCHLOR thiazide 25 thiazide 25 t_in_ Othiazide MG MG e_morni 25 MG ng} Glucosamine Glucosamine No Glucosamin e amLODIPine amLODIPine No amLODIPine Besylate 5 Besylate 5 Besylate 5 MG MG MG Aspir-81 81 Aspir-81 81 No 1{table QD Aspir-81 MG MG t} 81 MG Omeprazole Omeprazole No QD Omeprazole 40 MG 40 MG 40 MG Breo Breo No Breo Ellipta Ellipta Ellipta hydroCHLORO hydroCHLORO No hydroCHLOR thiazide 25 thiazide 25 Othiazide MG MG 25 MG amLODIPine amLODIPine No 1{table QD amLODIPine Besylate 5 Besylate 5 t} Besylate 5 MG MG MG Multivitami Multivitami No Multivitam ns - ns - ins - Zinc 50 MG Zinc 50 MG No 1{table QD Zinc 50 MG t} Etodolac Etodolac No 1{table BID Etodolac 500 MG 500 MG t_with_ 500 MG food} Fish Oil Fish Oil No 1{capsu QD Fish Oil 1000 MG 1000 MG le} 1000 MG Vitamin B12 Vitamin B12 No QD Vitamin 2500 2500 B12 2500 Vitamin D3 Vitamin D3 No Vitamin D3 Iron 240 Iron 240 No QD Iron 240 (27 Fe) MG (27 Fe) MG (27 Fe) MG Garlic 500 Garlic 500 No Garlic 500 MG MG MG Turmeric Turmeric No Turmeric Curcumin Curcumin Curcumin Trelegy Trelegy No Trelegy Ellipta Ellipta Ellipta Aspir-81 81 Aspir-81 81 No 1{table QD Aspir-81 MG MG t} 81 MG amLODIPine amLODIPine No 1{table QD amLODIPine Besylate 5 Besylate 5 t} Besylate 5 MG MG MG Etodolac Etodolac No 1{table BID Etodolac 500 MG 500 MG t_with_ 500 MG food} Vitamin D3 Vitamin D3 No Vitamin D3 hydroCHLORO hydroCHLORO No hydroCHLOR thiazide 25 thiazide 25 Othiazide MG MG 25 MG metFORMIN metFORMIN No 1{table BID metFORMIN HCl 1000 MG HCl 1000 MG t_with_ HCl 1000 meals} MG Multivitami Multivitami No Multivitam ns - ns - ins - Iron 240 Iron 240 No QD Iron 240 (27 Fe) MG (27 Fe) MG (27 Fe) MG Vitamin B12 Vitamin B12 No QD Vitamin 2500 2500 B12 2500 Breo Breo No Breo Ellipta Ellipta Ellipta Fish Oil Fish Oil No 1{capsu QD Fish Oil 1000 MG 1000 MG le} 1000 MG Glucosamine Glucosamine No Glucosamin e Zinc 50 MG Zinc 50 MG No 1{table QD Zinc 50 MG t} Atorvastati Atorvastati No 1{table QD Atorvastat n Calcium n Calcium t} in Calcium 20 MG 20 MG 20 MG Omeprazole Omeprazole No QD Omeprazole 40 MG 40 MG 40 MG amLODIPine amLODIPine No amLODIPine Besylate 5 Besylate 5 Besylate 5 MG MG MG Garlic 500 Garlic 500 No Garlic 500 MG MG MG Turmeric Turmeric No Turmeric Curcumin Curcumin Curcumin Trelegy Trelegy No Trelegy Ellipta Ellipta Ellipta Aspir-81 81 Aspir-81 81 No 1{table QD Aspir-81 MG MG t} 81 MG amLODIPine amLODIPine No 1{table QD amLODIPine Besylate 5 Besylate 5 t} Besylate 5 MG MG MG Etodolac Etodolac No 1{table BID Etodolac 500 MG 500 MG t_with_ 500 MG food} Vitamin D3 Vitamin D3 No Vitamin D3 hydroCHLORO hydroCHLORO No hydroCHLOR thiazide 25 thiazide 25 Othiazide MG MG 25 MG metFORMIN metFORMIN No 1{table BID metFORMIN HCl 1000 MG HCl 1000 MG t_with_ HCl 1000 meals} MG Multivitami Multivitami No Multivitam ns - ns - ins - Iron 240 Iron 240 No QD Iron 240 (27 Fe) MG (27 Fe) MG (27 Fe) MG Vitamin B12 Vitamin B12 No QD Vitamin 2500 2500 B12 2500 Breo Breo No Breo Ellipta Ellipta Ellipta Fish Oil Fish Oil No 1{capsu QD Fish Oil 1000 MG 1000 MG le} 1000 MG Glucosamine Glucosamine No Glucosamin e Zinc 50 MG Zinc 50 MG No 1{table QD Zinc 50 MG t} Atorvastati Atorvastati No 1{table QD Atorvastat n Calcium n Calcium t} in Calcium 20 MG 20 MG 20 MG Omeprazole Omeprazole No QD Omeprazole 40 MG 40 MG 40 MG amLODIPine amLODIPine No amLODIPine Besylate 5 Besylate 5 Besylate 5 MG MG MG Etodolac Etodolac No 1{table BID Etodolac 500 MG 500 MG t_with_ 500 MG food} Glucosamine Glucosamine No Glucosamin e Breo Breo No Breo Ellipta Ellipta Ellipta Atorvastati Atorvastati No 1{table QD Atorvastat n Calcium n Calcium t} in Calcium 20 MG 20 MG 20 MG Aspir-81 81 Aspir-81 81 No 1{table QD Aspir-81 MG MG t} 81 MG metFORMIN metFORMIN No 1{table BID metFORMIN HCl 1000 MG HCl 1000 MG t_with_ HCl 1000 meals} MG Vitamin B12 Vitamin B12 No QD Vitamin 2500 2500 B12 2500 Trelegy Trelegy No Trelegy Ellipta Ellipta Ellipta Fish Oil Fish Oil No 1{capsu QD Fish Oil 1000 MG 1000 MG le} 1000 MG Multivitami Multivitami No Multivitam ns - ns - ins - hydroCHLORO hydroCHLORO No hydroCHLOR thiazide 25 thiazide 25 Othiazide MG MG 25 MG Iron 240 Iron 240 No QD Iron 240 (27 Fe) MG (27 Fe) MG (27 Fe) MG Turmeric Turmeric No Turmeric Curcumin Curcumin Curcumin Garlic 500 Garlic 500 No Garlic 500 MG MG MG Vitamin D3 Vitamin D3 No Vitamin D3 Zinc 50 MG Zinc 50 MG No 1{table QD Zinc 50 MG t} Omeprazole Omeprazole No QD Omeprazole 40 MG 40 MG 40 MG amLODIPine amLODIPine No amLODIPine Besylate 5 Besylate 5 Besylate 5 MG MG MG Garlic 500 Garlic 500 No Garlic 500 MG MG MG Iron 240 Iron 240 No QD Iron 240 (27 Fe) MG (27 Fe) MG (27 Fe) MG Multivitami Multivitami No Multivitam ns - ns - ins - Etodolac Etodolac No 1{table BID Etodolac 500 MG 500 MG t_with_ 500 MG food} Zinc 50 MG Zinc 50 MG No 1{table QD Zinc 50 MG t} amLODIPine amLODIPine No 1{table QD amLODIPine Besylate 5 Besylate 5 t} Besylate 5 MG MG MG Vitamin D3 Vitamin D3 No Vitamin D3 hydroCHLORO hydroCHLORO No hydroCHLOR thiazide 25 thiazide 25 Othiazide MG MG 25 MG Breo Breo No Breo Ellipta Ellipta Ellipta Vitamin B12 Vitamin B12 No QD Vitamin 2500 2500 B12 2500 metFORMIN metFORMIN No 1{table BID metFORMIN HCl 1000 MG HCl 1000 MG t_with_ HCl 1000 meals} MG hydroCHLORO hydroCHLORO No 1{table QD hydroCHLOR thiazide 25 thiazide 25 t_in_th Othiazide MG MG e_morni 25 MG ng} Atorvastati Atorvastati No 1{table QD Atorvastat n Calcium n Calcium t} in Calcium 20 MG 20 MG 20 MG Fish Oil Fish Oil No 1{capsu QD Fish Oil 1000 MG 1000 MG le} 1000 MG Turmeric Turmeric No Turmeric Curcumin Curcumin Curcumin Omeprazole Omeprazole No QD Omeprazole 40 MG 40 MG 40 MG Atorvastati Atorvastati No Atorvastat n Calcium n Calcium in Calcium 20 MG 20 MG 20 MG amLODIPine amLODIPine No amLODIPine Besylate 5 Besylate 5 Besylate 5 MG MG MG Aspir-81 81 Aspir-81 81 No 1{table QD Aspir-81 MG MG t} 81 MG Glucosamine Glucosamine No Glucosamin e Trelegy Trelegy No Trelegy Ellipta Ellipta Ellipta Garlic 500 Garlic 500 No Garlic 500 MG MG MG amLODIPine amLODIPine No 1{table QD amLODIPine Besylate 5 Besylate 5 t} Besylate 5 MG MG MG Atorvastati Atorvastati No 1{table QD Atorvastat n Calcium n Calcium t} in Calcium 20 MG 20 MG 20 MG hydroCHLORO hydroCHLORO No hydroCHLOR thiazide 25 thiazide 25 Othiazide MG MG 25 MG Aspir-81 81 Aspir-81 81 No 1{table QD Aspir-81 MG MG t} 81 MG Iron 240 Iron 240 No QD Iron 240 (27 Fe) MG (27 Fe) MG (27 Fe) MG Vitamin B12 Vitamin B12 No QD Vitamin 2500 2500 B12 2500 metFORMIN metFORMIN No 1{table BID metFORMIN HCl 1000 MG HCl 1000 MG t_with_ HCl 1000 meals} MG hydroCHLORO hydroCHLORO No 1{table QD hydroCHLOR thiazide 25 thiazide 25 t_in_th Othiazide MG MG e_morni 25 MG ng} amLODIPine amLODIPine No amLODIPine Besylate 5 Besylate 5 Besylate 5 MG MG MG Turmeric Turmeric No Turmeric Curcumin Curcumin Curcumin Zinc 50 MG Zinc 50 MG No 1{table QD Zinc 50 MG t} Atorvastati Atorvastati No Atorvastat n Calcium n Calcium in Calcium 20 MG 20 MG 20 MG Breo Breo No Breo Ellipta Ellipta Ellipta Glucosamine Glucosamine No Glucosamin e Vitamin D3 Vitamin D3 No Vitamin D3 Omeprazole Omeprazole No QD Omeprazole 40 MG 40 MG 40 MG Multivitami Multivitami No Multivitam ns - ns - ins - Fish Oil Fish Oil No 1{capsu QD Fish Oil 1000 MG 1000 MG le} 1000 MG Etodolac Etodolac No 1{table BID Etodolac 500 MG 500 MG t_with_ 500 MG food} Trelegy Trelegy No Trelegy Ellipta Ellipta Ellipta Multivitami Multivitami No Multivitam ns - ns - ins - Zinc 50 MG Zinc 50 MG No 1{table QD Zinc 50 MG t} amLODIPine amLODIPine No 1{table QD amLODIPine Besylate 5 Besylate 5 t} Besylate 5 MG MG MG Garlic 500 Garlic 500 No Garlic 500 MG MG MG Fish Oil Fish Oil No 1{capsu QD Fish Oil 1000 MG 1000 MG le} 1000 MG Aspir-81 81 Aspir-81 81 No 1{table QD Aspir-81 MG MG t} 81 MG Breo Breo No Breo Ellipta Ellipta Ellipta Trelegy Trelegy No Trelegy Ellipta Ellipta Ellipta metFORMIN metFORMIN No 1{table BID metFORMIN HCl 1000 MG HCl 1000 MG t_with_ HCl 1000 meals} MG Atorvastati Atorvastati No 1{table QD Atorvastat n Calcium n Calcium t} in Calcium 20 MG 20 MG 20 MG Atorvastati Atorvastati No Atorvastat n Calcium n Calcium in Calcium 20 MG 20 MG 20 MG Iron 240 Iron 240 No QD Iron 240 (27 Fe) MG (27 Fe) MG (27 Fe) MG Vitamin D3 Vitamin D3 No Vitamin D3 amLODIPine amLODIPine No amLODIPine Besylate 5 Besylate 5 Besylate 5 MG MG MG Turmeric Turmeric No Turmeric Curcumin Curcumin Curcumin hydroCHLORO hydroCHLORO No hydroCHLOR thiazide 25 thiazide 25 Othiazide MG MG 25 MG Vitamin B12 Vitamin B12 No QD Vitamin 2500 2500 B12 2500 hydroCHLORO hydroCHLORO No 1{table QD hydroCHLOR thiazide 25 thiazide 25 t_in_th Othiazide MG MG e_morni 25 MG ng} Omeprazole Omeprazole No QD Omeprazole 40 MG 40 MG 40 MG Glucosamine Glucosamine No Glucosamin e Etodolac Etodolac No 1{table BID Etodolac 500 MG 500 MG t_with_ 500 MG food} Multivitami Multivitami No Multivitam ns - ns - ins - Zinc 50 MG Zinc 50 MG No 1{table QD Zinc 50 MG t} amLODIPine amLODIPine No 1{table QD amLODIPine Besylate 5 Besylate 5 t} Besylate 5 MG MG MG Garlic 500 Garlic 500 No Garlic 500 MG MG MG Fish Oil Fish Oil No 1{capsu QD Fish Oil 1000 MG 1000 MG le} 1000 MG Aspir-81 81 Aspir-81 81 No 1{table QD Aspir-81 MG MG t} 81 MG Breo Breo No Breo Ellipta Ellipta Ellipta Trelegy Trelegy No Trelegy Ellipta Ellipta Ellipta metFORMIN metFORMIN No 1{table BID metFORMIN HCl 1000 MG HCl 1000 MG t_with_ HCl 1000 meals} MG Atorvastati Atorvastati No 1{table QD Atorvastat n Calcium n Calcium t} in Calcium 20 MG 20 MG 20 MG Atorvastati Atorvastati No Atorvastat n Calcium n Calcium in Calcium 20 MG 20 MG 20 MG Iron 240 Iron 240 No QD Iron 240 (27 Fe) MG (27 Fe) MG (27 Fe) MG Vitamin D3 Vitamin D3 No Vitamin D3 amLODIPine amLODIPine No amLODIPine Besylate 5 Besylate 5 Besylate 5 MG MG MG Turmeric Turmeric No Turmeric Curcumin Curcumin Curcumin hydroCHLORO hydroCHLORO No hydroCHLOR thiazide 25 thiazide 25 Othiazide MG MG 25 MG Vitamin B12 Vitamin B12 No QD Vitamin 2500 2500 B12 2500 hydroCHLORO hydroCHLORO No 1{table QD hydroCHLOR thiazide 25 thiazide 25 t_in_th Othiazide MG MG e_morni 25 MG ng} Omeprazole Omeprazole No QD Omeprazole 40 MG 40 MG 40 MG Glucosamine Glucosamine No Glucosamin e Etodolac Etodolac No 1{table BID Etodolac 500 MG 500 MG t_with_ 500 MG food} Multivitami Multivitami No Multivitam ns - ns - ins - Zinc 50 MG Zinc 50 MG No 1{table QD Zinc 50 MG t} amLODIPine amLODIPine No 1{table QD amLODIPine Besylate 5 Besylate 5 t} Besylate 5 MG MG MG Garlic 500 Garlic 500 No Garlic 500 MG MG MG Fish Oil Fish Oil No 1{capsu QD Fish Oil 1000 MG 1000 MG le} 1000 MG Aspir-81 81 Aspir-81 81 No 1{table QD Aspir-81 MG MG t} 81 MG Breo Breo No Breo Ellipta Ellipta Ellipta Trelegy Trelegy No Trelegy Ellipta Ellipta Ellipta metFORMIN metFORMIN No 1{table BID metFORMIN HCl 1000 MG HCl 1000 MG t_with_ HCl 1000 meals} MG Atorvastati Atorvastati No 1{table QD Atorvastat n Calcium n Calcium t} in Calcium 20 MG 20 MG 20 MG Atorvastati Atorvastati No Atorvastat n Calcium n Calcium in Calcium 20 MG 20 MG 20 MG Iron 240 Iron 240 No QD Iron 240 (27 Fe) MG (27 Fe) MG (27 Fe) MG Vitamin D3 Vitamin D3 No Vitamin D3 amLODIPine amLODIPine No amLODIPine Besylate 5 Besylate 5 Besylate 5 MG MG MG Turmeric Turmeric No Turmeric Curcumin Curcumin Curcumin hydroCHLORO hydroCHLORO No hydroCHLOR thiazide 25 thiazide 25 Othiazide MG MG 25 MG Vitamin B12 Vitamin B12 No QD Vitamin 2500 2500 B12 2500 hydroCHLORO hydroCHLORO No 1{table QD hydroCHLOR thiazide 25 thiazide 25 t_in_th Othiazide MG MG e_morni 25 MG ng} Omeprazole Omeprazole No QD Omeprazole 40 MG 40 MG 40 MG Glucosamine Glucosamine No Glucosamin e Etodolac Etodolac No 1{table BID Etodolac 500 MG 500 MG t_with_ 500 MG food} Fish Oil Fish Oil No 1{capsu QD Fish Oil 1000 MG 1000 MG le} 1000 MG Breo Breo No Breo Ellipta Ellipta Ellipta Vitamin B12 Vitamin B12 No QD Vitamin 2500 2500 B12 2500 metFORMIN metFORMIN No 1{table BID metFORMIN HCl 1000 MG HCl 1000 MG t_with_ HCl 1000 meals} MG Trelegy Trelegy No Trelegy Ellipta Ellipta Ellipta Iron 240 Iron 240 No QD Iron 240 (27 Fe) MG (27 Fe) MG (27 Fe) MG Atorvastati Atorvastati No Atorvastat n Calcium n Calcium in Calcium 20 MG 20 MG 20 MG Omeprazole Omeprazole No QD Omeprazole 40 MG 40 MG 40 MG hydroCHLORO hydroCHLORO No hydroCHLOR thiazide 25 thiazide 25 Othiazide MG MG 25 MG Vitamin B12 Vitamin B12 No QD Vitamin 2500 2500 B12 2500 Vitamin D3 Vitamin D3 No Vitamin D3 Glucosamine Glucosamine No Glucosamin e Etodolac Etodolac No 1{table BID Etodolac 500 MG 500 MG t_with_ 500 MG food} Garlic 500 Garlic 500 No Garlic 500 MG MG MG Aspir-81 81 Aspir-81 81 No 1{table QD Aspir-81 MG MG t} 81 MG Turmeric Turmeric No Turmeric Curcumin Curcumin Curcumin hydroCHLORO hydroCHLORO No 1{table QD hydroCHLOR thiazide 25 thiazide 25 t_in_th Othiazide MG MG e_morni 25 MG ng} Zinc 50 MG Zinc 50 MG No 1{table QD Zinc 50 MG t} amLODIPine amLODIPine No amLODIPine Besylate 5 Besylate 5 Besylate 5 MG MG MG Fish Oil Fish Oil No 1{capsu QD Fish Oil 1000 MG 1000 MG le} 1000 MG Multivitami Multivitami No Multivitam ns - ns - ins - Omeprazole Omeprazole No QD Omeprazole 40 MG 40 MG 40 MG Garlic 500 Garlic 500 No Garlic 500 MG MG MG Fish Oil Fish Oil No 1{capsu QD Fish Oil 1000 MG 1000 MG le} 1000 MG Breo Breo No Breo Ellipta Ellipta Ellipta Vitamin B12 Vitamin B12 No QD Vitamin 2500 2500 B12 2500 metFORMIN metFORMIN No 1{table BID metFORMIN HCl 1000 MG HCl 1000 MG t_with_ HCl 1000 meals} MG Trelegy Trelegy No Trelegy Ellipta Ellipta Ellipta Iron 240 Iron 240 No QD Iron 240 (27 Fe) MG (27 Fe) MG (27 Fe) MG Iron 240 Iron 240 No QD Iron 240 (27 Fe) MG (27 Fe) MG (27 Fe) MG Atorvastati Atorvastati No Atorvastat n Calcium n Calcium in Calcium 20 MG 20 MG 20 MG Omeprazole Omeprazole No QD Omeprazole 40 MG 40 MG 40 MG hydroCHLORO hydroCHLORO No hydroCHLOR thiazide 25 thiazide 25 Othiazide MG MG 25 MG Vitamin D3 Vitamin D3 No Vitamin D3 Glucosamine Glucosamine No Glucosamin e Etodolac Etodolac No 1{table BID Etodolac 500 MG 500 MG t_with_ 500 MG food} Garlic 500 Garlic 500 No Garlic 500 MG MG MG Aspir-81 81 Aspir-81 81 No 1{table QD Aspir-81 MG MG t} 81 MG Turmeric Turmeric No Turmeric Curcumin Curcumin Curcumin hydroCHLORO hydroCHLORO No 1{table QD hydroCHLOR thiazide 25 thiazide 25 t_in_th Othiazide MG MG e_morni 25 MG ng} Breo Breo No Breo Ellipta Ellipta Ellipta Zinc 50 MG Zinc 50 MG No 1{table QD Zinc 50 MG t} amLODIPine amLODIPine No amLODIPine Besylate 5 Besylate 5 Besylate 5 MG MG MG Multivitami Multivitami No Multivitam ns - ns - ins - amLODIPine amLODIPine No 1{table QD amLODIPine Besylate 5 Besylate 5 t} Besylate 5 MG MG MG Atorvastati Atorvastati No 1{table QD Atorvastat n Calcium n Calcium t} in Calcium 20 MG 20 MG 20 MG hydroCHLORO hydroCHLORO No hydroCHLOR thiazide 25 thiazide 25 Othiazide MG MG 25 MG Aspir-81 81 Aspir-81 81 No 1{table QD Aspir-81 MG MG t} 81 MG Trelegy Trelegy No Trelegy Ellipta Ellipta Ellipta Atorvastati Atorvastati No 1{table QD Atorvastat n Calcium n Calcium t} in Calcium 20 MG 20 MG 20 MG Vitamin B12 Vitamin B12 No QD Vitamin 2500 2500 B12 2500 Atorvastati Atorvastati No Atorvastat n Calcium n Calcium in Calcium 20 MG 20 MG 20 MG Garlic 500 Garlic 500 No Garlic 500 MG MG MG hydroCHLORO hydroCHLORO No 1{table QD hydroCHLOR thiazide 25 thiazide 25 t_in_th Othiazide MG MG e_morni 25 MG ng} metFORMIN metFORMIN No 1{table BID metFORMIN HCl 1000 MG HCl 1000 MG t_with_ HCl 1000 meals} MG Vitamin D3 Vitamin D3 No Vitamin D3 Fish Oil Fish Oil No 1{capsu QD Fish Oil 1000 MG 1000 MG le} 1000 MG Breo Breo No Breo Ellipta Ellipta Ellipta Iron 240 Iron 240 No QD Iron 240 (27 Fe) MG (27 Fe) MG (27 Fe) MG Omeprazole Omeprazole No QD Omeprazole 40 MG 40 MG 40 MG hydroCHLORO hydroCHLORO No 1{table QD hydroCHLOR thiazide 25 thiazide 25 t_in_th Othiazide MG MG e_morni 25 MG ng} Turmeric Turmeric No Turmeric Curcumin Curcumin Curcumin amLODIPine amLODIPine No amLODIPine Besylate 5 Besylate 5 Besylate 5 MG MG MG Multivitami Multivitami No Multivitam ns - ns - ins - Glucosamine Glucosamine No Glucosamin e Etodolac Etodolac No 1{table BID Etodolac 500 MG 500 MG t_with_ 500 MG food} Vitamin B12 Vitamin B12 No QD Vitamin 2500 2500 B12 2500 hydroCHLORO hydroCHLORO No hydroCHLOR thiazide 25 thiazide 25 Othiazide MG MG 25 MG Aspir-81 81 Aspir-81 81 No 1{table QD Aspir-81 MG MG t} 81 MG Fish Oil Fish Oil No 1{capsu QD Fish Oil 1000 MG 1000 MG le} 1000 MG amLODIPine amLODIPine No amLODIPine Besylate 5 Besylate 5 Besylate 5 MG MG MG Breo Breo No Breo Ellipta Ellipta Ellipta hydroCHLORO hydroCHLORO No 1{table QD hydroCHLOR thiazide 25 thiazide 25 t_in_th Othiazide MG MG e_morni 25 MG ng} Atorvastati Atorvastati No Atorvastat n Calcium n Calcium in Calcium 20 MG 20 MG 20 MG Garlic 500 Garlic 500 No Garlic 500 MG MG MG Turmeric Turmeric No Turmeric Curcumin Curcumin Curcumin Vitamin D3 Vitamin D3 No Vitamin D3 Multivitami Multivitami No Multivitam ns - ns - ins - Glucosamine Glucosamine No Glucosamin e Ibuprofen Ibuprofen No Ibuprofen 800 MG 800 MG 800 MG Trelegy Trelegy No Trelegy Ellipta Ellipta Ellipta Iron 240 Iron 240 No QD Iron 240 (27 Fe) MG (27 Fe) MG (27 Fe) MG metFORMIN metFORMIN No 1{table BID metFORMIN HCl 1000 MG HCl 1000 MG t_with_ HCl 1000 meals} MG Omeprazole Omeprazole No QD Omeprazole 40 MG 40 MG 40 MG Aspir-81 81 Aspir-81 81 No 1{table QD Aspir-81 MG MG t} 81 MG metFORMIN metFORMIN No 1{table BID metFORMIN HCl 1000 MG HCl 1000 MG t_with_ HCl 1000 meals} MG Tumersaid Tumersaid No Tumersaid Multivitami Multivitami No Multivitam ns - ns - ins - amLODIPine amLODIPine No amLODIPine Besylate 5 Besylate 5 Besylate 5 MG MG MG hydroCHLORO hydroCHLORO No hydroCHLOR thiazide 25 thiazide 25 Othiazide MG MG 25 MG Vitamin D3 Vitamin D3 No Vitamin D3 Multivitami Multivitami No Multivitam ns - ns - ins - Atorvastati Atorvastati No Atorvastat n Calcium n Calcium in Calcium 20 MG 20 MG 20 MG Breo Breo No Breo Ellipta Ellipta Ellipta Garlic 500 Garlic 500 No Garlic 500 MG MG MG Iron 240 Iron 240 No QD Iron 240 (27 Fe) MG (27 Fe) MG (27 Fe) MG Turmeric Turmeric No Turmeric Curcumin Curcumin Curcumin Omeprazole Omeprazole No QD Omeprazole 40 MG 40 MG 40 MG Aspir-81 81 Aspir-81 81 No 1{table QD Aspir-81 MG MG t} 81 MG Fish Oil Fish Oil No 1{capsu QD Fish Oil 1000 MG 1000 MG le} 1000 MG Glucosamine Glucosamine No Glucosamin e metFORMIN metFORMIN No 1{table BID metFORMIN HCl 1000 MG HCl 1000 MG t_with_ HCl 1000 meals} MG Trelegy Trelegy No Trelegy Ellipta Ellipta Ellipta Vitamin B12 Vitamin B12 No QD Vitamin 2500 2500 B12 2500 amLODIPine amLODIPine No amLODIPine Besylate 5 Besylate 5 Besylate 5 MG MG MG hydroCHLORO hydroCHLORO No hydroCHLOR thiazide 25 thiazide 25 Othiazide MG MG 25 MG Vitamin D3 Vitamin D3 No Vitamin D3 Multivitami Multivitami No Multivitam ns - ns - ins - Atorvastati Atorvastati No Atorvastat n Calcium n Calcium in Calcium 20 MG 20 MG 20 MG Breo Breo No Breo Ellipta Ellipta Ellipta Garlic 500 Garlic 500 No Garlic 500 MG MG MG Iron 240 Iron 240 No QD Iron 240 (27 Fe) MG (27 Fe) MG (27 Fe) MG Turmeric Turmeric No Turmeric Curcumin Curcumin Curcumin Omeprazole Omeprazole No QD Omeprazole 40 MG 40 MG 40 MG Aspir-81 81 Aspir-81 81 No 1{table QD Aspir-81 MG MG t} 81 MG Fish Oil Fish Oil No 1{capsu QD Fish Oil 1000 MG 1000 MG le} 1000 MG Glucosamine Glucosamine No Glucosamin e metFORMIN metFORMIN No 1{table BID metFORMIN HCl 1000 MG HCl 1000 MG t_with_ HCl 1000 meals} MG Trelegy Trelegy No Trelegy Ellipta Ellipta Ellipta Vitamin B12 Vitamin B12 No QD Vitamin 2500 2500 B12 2500 Aspir-81 81 Aspir-81 81 No 1{table QD Aspir-81 MG MG t} 81 MG Vitamin B12 Vitamin B12 No QD Vitamin 2500 2500 B12 2500 Turmeric Turmeric No Turmeric Curcumin Curcumin Curcumin Iron 240 Iron 240 No QD Iron 240 (27 Fe) MG (27 Fe) MG (27 Fe) MG Glucosamine Glucosamine No Glucosamin e hydroCHLORO hydroCHLORO No 1{table QD hydroCHLOR thiazide 25 thiazide 25 t_in_th Othiazide MG MG e_morni 25 MG ng} Vitamin D3 Vitamin D3 No Vitamin D3 Breo Breo No Breo Ellipta Ellipta Ellipta amLODIPine amLODIPine No 1{table QD amLODIPine Besylate 5 Besylate 5 t} Besylate 5 MG MG MG Omeprazole Omeprazole No QD Omeprazole 40 MG 40 MG 40 MG Dexamethaso Dexamethaso No 1{table BID Dexamethas ne 2 MG ne 2 MG t} one 2 MG Fish Oil Fish Oil No 1{capsu QD Fish Oil 1000 MG 1000 MG le} 1000 MG Trelegy Trelegy No Trelegy Ellipta Ellipta Ellipta Ibuprofen Ibuprofen No TID Ibuprofen 800 MG 800 MG 800 MG metFORMIN metFORMIN No 1{table BID metFORMIN HCl 1000 MG HCl 1000 MG t_with_ HCl 1000 meals} MG Atorvastati Atorvastati No Atorvastat n Calcium n Calcium in Calcium 20 MG 20 MG 20 MG Multivitami Multivitami No Multivitam ns - ns - ins - amLODIPine amLODIPine No amLODIPine Besylate 5 Besylate 5 Besylate 5 MG MG MG Etodolac Etodolac No 1{table BID Etodolac 500 MG 500 MG t_with_ 500 MG food} Atorvastati Atorvastati No 1{table QD Atorvastat n Calcium n Calcium t} in Calcium 20 MG 20 MG 20 MG hydroCHLORO hydroCHLORO No hydroCHLOR thiazide 25 thiazide 25 Othiazide MG MG 25 MG Garlic 500 Garlic 500 No Garlic 500 MG MG MG Atorvastati Atorvastati No 1{table QD Atorvastat n Calcium n Calcium t} in Calcium 20 MG 20 MG 20 MG Etodolac Etodolac No 1{table BID Etodolac 500 MG 500 MG t_with_ 500 MG food} Omeprazole Omeprazole No QD Omeprazole 40 MG 40 MG 40 MG metFORMIN metFORMIN No 1{table BID metFORMIN HCl 1000 MG HCl 1000 MG t_with_ HCl 1000 meals} MG Garlic 500 Garlic 500 No Garlic 500 MG MG MG Iron 240 Iron 240 No QD Iron 240 (27 Fe) MG (27 Fe) MG (27 Fe) MG amLODIPine amLODIPine No 1{table QD amLODIPine Besylate 5 Besylate 5 t} Besylate 5 MG MG MG Tumersaid Tumersaid No Tumersaid Breo Breo No Breo Ellipta Ellipta Ellipta Ibuprofen Ibuprofen No Ibuprofen 800 MG 800 MG 800 MG Vitamin B12 Vitamin B12 No QD Vitamin 2500 2500 B12 2500 Aspir-81 81 Aspir-81 81 No 1{table QD Aspir-81 MG MG t} 81 MG Multivitami Multivitami No Multivitam ns - ns - ins - hydroCHLORO hydroCHLORO No 1{table QD hydroCHLOR thiazide 25 thiazide 25 t_in_th Othiazide MG MG e_morni 25 MG ng} Fish Oil Fish Oil No 1{capsu QD Fish Oil 1000 MG 1000 MG le} 1000 MG Atorvastati Atorvastati No 1{table QD Atorvastat n Calcium n Calcium t} in Calcium 20 MG 20 MG 20 MG Atorvastati Atorvastati No 1{table QD Atorvastat n Calcium n Calcium t} in Calcium 20 MG 20 MG 20 MG Etodolac Etodolac No 1{table BID Etodolac 500 MG 500 MG t_with_ 500 MG food} Omeprazole Omeprazole No QD Omeprazole 40 MG 40 MG 40 MG metFORMIN metFORMIN No 1{table BID metFORMIN HCl 1000 MG HCl 1000 MG t_with_ HCl 1000 meals} MG Garlic 500 Garlic 500 No Garlic 500 MG MG MG Iron 240 Iron 240 No QD Iron 240 (27 Fe) MG (27 Fe) MG (27 Fe) MG amLODIPine amLODIPine No 1{table QD amLODIPine Besylate 5 Besylate 5 t} Besylate 5 MG MG MG Tumersaid Tumersaid No Tumersaid Breo Breo No Breo Ellipta Ellipta Ellipta Ibuprofen Ibuprofen No Ibuprofen 800 MG 800 MG 800 MG Vitamin B12 Vitamin B12 No QD Vitamin 2500 2500 B12 2500 Aspir-81 81 Aspir-81 81 No 1{table QD Aspir-81 MG MG t} 81 MG Multivitami Multivitami No Multivitam ns - ns - ins - hydroCHLORO hydroCHLORO No 1{table QD hydroCHLOR thiazide 25 thiazide 25 t_in_th Othiazide MG MG e_morni 25 MG ng} Fish Oil Fish Oil No 1{capsu QD Fish Oil 1000 MG 1000 MG le} 1000 MG Atorvastati Atorvastati No 1{table QD Atorvastat n Calcium n Calcium t} in Calcium 20 MG 20 MG 20 MG amLODIPine amLODIPine No 1{table QD amLODIPine Besylate 5 Besylate 5 t} Besylate 5 MG MG MG hydroCHLORO hydroCHLORO No 1{table QD hydroCHLOR thiazide 25 thiazide 25 t_in_th Othiazide MG MG e_morni 25 MG ng} Ibuprofen Ibuprofen No Ibuprofen 800 MG 800 MG 800 MG Omeprazole Omeprazole No QD Omeprazole 40 MG 40 MG 40 MG Breo Breo No Breo Ellipta Ellipta Ellipta Aspir-81 81 Aspir-81 81 No 1{table QD Aspir-81 MG MG t} 81 MG Atorvastati Atorvastati No 1{table QD Atorvastat n Calcium n Calcium t} in Calcium 20 MG 20 MG 20 MG Vitamin B12 Vitamin B12 No QD Vitamin 2500 2500 B12 2500 Atorvastati Atorvastati No 1{table QD Atorvastat n Calcium n Calcium t} in Calcium 20 MG 20 MG 20 MG Fish Oil Fish Oil No 1{capsu QD Fish Oil 1000 MG 1000 MG le} 1000 MG Tumersaid Tumersaid No Tumersaid Etodolac Etodolac No 1{table BID Etodolac 500 MG 500 MG t_with_ 500 MG food} Iron 240 Iron 240 No QD Iron 240 (27 Fe) MG (27 Fe) MG (27 Fe) MG Multivitami Multivitami No Multivitam ns - ns - ins - Garlic 500 Garlic 500 No Garlic 500 MG MG MG metFORMIN metFORMIN No 1{table BID metFORMIN HCl 1000 MG HCl 1000 MG t_with_ HCl 1000 meals} MG Atorvastati Atorvastati No 1{table QD Atorvastat n Calcium n Calcium t} in Calcium 20 MG 20 MG 20 MG Omeprazole Omeprazole No QD Omeprazole 40 MG 40 MG 40 MG Fish Oil Fish Oil No 1{capsu QD Fish Oil 1000 MG 1000 MG le} 1000 MG Atorvastati Atorvastati No 1{table QD Atorvastat n Calcium n Calcium t} in Calcium 20 MG 20 MG 20 MG Garlic 500 Garlic 500 No Garlic 500 MG MG MG Aspir-81 81 Aspir-81 81 No 1{table QD Aspir-81 MG MG t} 81 MG Vitamin B12 Vitamin B12 No QD Vitamin 2500 2500 B12 2500 Iron 240 Iron 240 No QD Iron 240 (27 Fe) MG (27 Fe) MG (27 Fe) MG hydroCHLORO hydroCHLORO No 1{table QD hydroCHLOR thiazide 25 thiazide 25 t_in_th Othiazide MG MG e_morni 25 MG ng} Etodolac Etodolac No 1{table BID Etodolac 500 MG 500 MG t_with_ 500 MG food} Tumersaid Tumersaid No Tumersaid metFORMIN metFORMIN No 1{table BID metFORMIN HCl 1000 MG HCl 1000 MG t_with_ HCl 1000 meals} MG amLODIPine amLODIPine No 1{table QD amLODIPine Besylate 5 Besylate 5 t} Besylate 5 MG MG MG Breo Breo No Breo Ellipta Ellipta Ellipta Multivitami Multivitami No Multivitam ns - ns - ins - Ibuprofen Ibuprofen No Ibuprofen 800 MG 800 MG 800 MG Atorvastati Atorvastati No 1{table QD Atorvastat n Calcium n Calcium t} in Calcium 20 MG 20 MG 20 MG Omeprazole Omeprazole No QD Omeprazole 40 MG 40 MG 40 MG Fish Oil Fish Oil No 1{capsu QD Fish Oil 1000 MG 1000 MG le} 1000 MG Atorvastati Atorvastati No 1{table QD Atorvastat n Calcium n Calcium t} in Calcium 20 MG 20 MG 20 MG Garlic 500 Garlic 500 No Garlic 500 MG MG MG Aspir-81 81 Aspir-81 81 No 1{table QD Aspir-81 MG MG t} 81 MG Vitamin B12 Vitamin B12 No QD Vitamin 2500 2500 B12 2500 Iron 240 Iron 240 No QD Iron 240 (27 Fe) MG (27 Fe) MG (27 Fe) MG hydroCHLORO hydroCHLORO No 1{table QD hydroCHLOR thiazide 25 thiazide 25 t_in_th Othiazide MG MG e_morni 25 MG ng} Etodolac Etodolac No 1{table BID Etodolac 500 MG 500 MG t_with_ 500 MG food} Tumersaid Tumersaid No Tumersaid metFORMIN metFORMIN No 1{table BID metFORMIN HCl 1000 MG HCl 1000 MG t_with_ HCl 1000 meals} MG amLODIPine amLODIPine No 1{table QD amLODIPine Besylate 5 Besylate 5 t} Besylate 5 MG MG MG Breo Breo No Breo Ellipta Ellipta Ellipta Multivitami Multivitami No Multivitam ns - ns - ins - Ibuprofen Ibuprofen No Ibuprofen 800 MG 800 MG 800 MG metFORMIN metFORMIN No 1{table BID metFORMIN HCl 1000 MG HCl 1000 MG t_with_ HCl 1000 meals} MG Ibuprofen Ibuprofen No Ibuprofen 800 MG 800 MG 800 MG Atorvastati Atorvastati No 1{table QD Atorvastat n Calcium n Calcium t} in Calcium 20 MG 20 MG 20 MG Garlic 500 Garlic 500 No Garlic 500 MG MG MG Fish Oil Fish Oil No 1{capsu QD Fish Oil 1000 MG 1000 MG le} 1000 MG Vitamin B12 Vitamin B12 No QD Vitamin 2500 2500 B12 2500 Multivitami Multivitami No Multivitam ns - ns - ins - Breo Breo No Breo Ellipta Ellipta Ellipta Atorvastati Atorvastati No 1{table QD Atorvastat n Calcium n Calcium t} in Calcium 20 MG 20 MG 20 MG Omeprazole Omeprazole No QD Omeprazole 40 MG 40 MG 40 MG Tumersaid Tumersaid No Tumersaid Aspir-81 81 Aspir-81 81 No 1{table QD Aspir-81 MG MG t} 81 MG amLODIPine amLODIPine No 1{table QD amLODIPine Besylate 5 Besylate 5 t} Besylate 5 MG MG MG Iron 240 Iron 240 No QD Iron 240 (27 Fe) MG (27 Fe) MG (27 Fe) MG hydroCHLORO hydroCHLORO No 1{table QD hydroCHLOR thiazide 25 thiazide 25 t_in_th Othiazide MG MG e_morni 25 MG ng} Etodolac Etodolac No 1{table BID Etodolac 500 MG 500 MG t_with_ 500 MG food} metFORMIN metFORMIN No 1{table BID metFORMIN HCl 1000 MG HCl 1000 MG t_with_ HCl 1000 meals} MG Ibuprofen Ibuprofen No Ibuprofen 800 MG 800 MG 800 MG Atorvastati Atorvastati No 1{table QD Atorvastat n Calcium n Calcium t} in Calcium 20 MG 20 MG 20 MG Garlic 500 Garlic 500 No Garlic 500 MG MG MG Fish Oil Fish Oil No 1{capsu QD Fish Oil 1000 MG 1000 MG le} 1000 MG Vitamin B12 Vitamin B12 No QD Vitamin 2500 2500 B12 2500 Multivitami Multivitami No Multivitam ns - ns - ins - Breo Breo No Breo Ellipta Ellipta Ellipta Atorvastati Atorvastati No 1{table QD Atorvastat n Calcium n Calcium t} in Calcium 20 MG 20 MG 20 MG Omeprazole Omeprazole No QD Omeprazole 40 MG 40 MG 40 MG Tumersaid Tumersaid No Tumersaid Aspir-81 81 Aspir-81 81 No 1{table QD Aspir-81 MG MG t} 81 MG amLODIPine amLODIPine No 1{table QD amLODIPine Besylate 5 Besylate 5 t} Besylate 5 MG MG MG Iron 240 Iron 240 No QD Iron 240 (27 Fe) MG (27 Fe) MG (27 Fe) MG hydroCHLORO hydroCHLORO No 1{table QD hydroCHLOR thiazide 25 thiazide 25 t_in_th Othiazide MG MG e_morni 25 MG ng} Etodolac Etodolac No 1{table BID Etodolac 500 MG 500 MG t_with_ 500 MG food} metFORMIN metFORMIN No 1{table BID metFORMIN HCl 1000 MG HCl 1000 MG t_with_ HCl 1000 meals} MG Aspir-81 81 Aspir-81 81 No 1{table QD Aspir-81 MG MG t} 81 MG Atorvastati Atorvastati No 1{table QD Atorvastat n Calcium n Calcium t} in Calcium 20 MG 20 MG 20 MG hydroCHLORO hydroCHLORO No 1{table QD hydroCHLOR thiazide 25 thiazide 25 t_in_th Othiazide MG MG e_morni 25 MG ng} Fish Oil Fish Oil No 1{capsu QD Fish Oil 1000 MG 1000 MG le} 1000 MG Omeprazole Omeprazole No QD Omeprazole 40 MG 40 MG 40 MG Iron 240 Iron 240 No QD Iron 240 (27 Fe) MG (27 Fe) MG (27 Fe) MG Multivitami Multivitami No Multivitam ns - ns - ins - Ibuprofen Ibuprofen No Ibuprofen 800 MG 800 MG 800 MG Breo Breo No Breo Ellipta Ellipta Ellipta Vitamin B12 Vitamin B12 No QD Vitamin 2500 2500 B12 2500 Etodolac Etodolac No 1{table BID Etodolac 500 MG 500 MG t_with_ 500 MG food} Garlic 500 Garlic 500 No Garlic 500 MG MG MG Tumersaid Tumersaid No Tumersaid amLODIPine amLODIPine No 1{table QD amLODIPine Besylate 5 Besylate 5 t} Besylate 5 MG MG MG Atorvastati Atorvastati No 1{table QD Atorvastat n Calcium n Calcium t} in Calcium 20 MG 20 MG 20 MG metFORMIN metFORMIN No 1{table BID metFORMIN HCl 1000 MG HCl 1000 MG t_with_ HCl 1000 meals} MG Aspir-81 81 Aspir-81 81 No 1{table QD Aspir-81 MG MG t} 81 MG Atorvastati Atorvastati No 1{table QD Atorvastat n Calcium n Calcium t} in Calcium 20 MG 20 MG 20 MG hydroCHLORO hydroCHLORO No 1{table QD hydroCHLOR thiazide 25 thiazide 25 t_in_th Othiazide MG MG e_morni 25 MG ng} Fish Oil Fish Oil No 1{capsu QD Fish Oil 1000 MG 1000 MG le} 1000 MG Omeprazole Omeprazole No QD Omeprazole 40 MG 40 MG 40 MG Iron 240 Iron 240 No QD Iron 240 (27 Fe) MG (27 Fe) MG (27 Fe) MG Multivitami Multivitami No Multivitam ns - ns - ins - Ibuprofen Ibuprofen No Ibuprofen 800 MG 800 MG 800 MG Breo Breo No Breo Ellipta Ellipta Ellipta Vitamin B12 Vitamin B12 No QD Vitamin 2500 2500 B12 2500 Etodolac Etodolac No 1{table BID Etodolac 500 MG 500 MG t_with_ 500 MG food} Garlic 500 Garlic 500 No Garlic 500 MG MG MG Tumersaid Tumersaid No Tumersaid amLODIPine amLODIPine No 1{table QD amLODIPine Besylate 5 Besylate 5 t} Besylate 5 MG MG MG Atorvastati Atorvastati No 1{table QD Atorvastat n Calcium n Calcium t} in Calcium 20 MG 20 MG 20 MG hydroCHLORO hydroCHLORO No 1{table QD thiazide 25 thiazide 25 t_in_th MG MG e_morni ng} Omeprazole Omeprazole No QD 40 MG 40 MG Multivitami Multivitami No ns - ns - Garlic 500 Garlic 500 No MG MG Etodolac Etodolac No 1{table BID 500 MG 500 MG t_with_ food} Ibuprofen Ibuprofen No 800 MG 800 MG Iron 240 Iron 240 No QD (27 Fe) MG (27 Fe) MG amLODIPine amLODIPine No 1{table QD Besylate 5 Besylate 5 t} MG MG Breo Breo No Ellipta Ellipta Vitamin B12 Vitamin B12 No QD 2500 2500 Aspir- 81 Aspir-81 81 No 1{table QD MG MG t} Fish Oil Fish Oil No 1{capsu QD 1000 MG 1000 MG le} Atorvastati Atorvastati No 1{table QD n Calcium n Calcium t} 20 MG 20 MG Tumersaid Tumersaid No Atorvastati Atorvastati No 1{table QD n Calcium n Calcium t} 20 MG 20 MG metFORMIN metFORMIN No 1{table BID HCl 1000 MG HCl 1000 MG t_with_ meals} Garlic 500 Garlic 500 No Garlic 500 MG MG MG Vitamin B12 Vitamin B12 No QD Vitamin 2500 2500 B12 2500 Fish Oil Fish Oil No 1{capsu QD Fish Oil 1000 MG 1000 MG le} 1000 MG metFORMIN metFORMIN No 1{table BID metFORMIN HCl 1000 MG HCl 1000 MG t_with_ HCl 1000 meals} MG amLODIPine amLODIPine No 1{table QD amLODIPine Besylate 5 Besylate 5 t} Besylate 5 MG MG MG Breo Breo No Breo Ellipta Ellipta Ellipta Atorvastati Atorvastati No 1{table QD Atorvastat n Calcium n Calcium t} in Calcium 20 MG 20 MG 20 MG Tumersaid Tumersaid No Tumersaid Iron 240 Iron 240 No QD Iron 240 (27 Fe) MG (27 Fe) MG (27 Fe) MG hydroCHLORO hydroCHLORO No 1{table QD hydroCHLOR thiazide 25 thiazide 25 t_in_th Othiazide MG MG e_morni 25 MG ng} Aspir-81 81 Aspir-81 81 No 1{table QD Aspir-81 MG MG t} 81 MG Multivitami Multivitami No Multivitam ns - ns - ins - Ibuprofen Ibuprofen No Ibuprofen 800 MG 800 MG 800 MG Omeprazole Omeprazole No QD Omeprazole 40 MG 40 MG 40 MG Etodolac Etodolac No 1{table BID Etodolac 500 MG 500 MG t_with_ 500 MG food} Atorvastati Atorvastati No Atorvastat n Calcium n Calcium in Calcium 20 MG 20 MG 20 MG Etodolac Etodolac No 1{table BID Etodolac 500 MG 500 MG t_with_ 500 MG food} Multivitami Multivitami No Multivitam ns - ns - ins - amLODIPine amLODIPine No 1{table QD amLODIPine Besylate 5 Besylate 5 t} Besylate 5 MG MG MG Fish Oil Fish Oil No 1{capsu QD Fish Oil 1000 MG 1000 MG le} 1000 MG Aspir-81 81 Aspir-81 81 No 1{table QD Aspir-81 MG MG t} 81 MG Glucosamine Glucosamine No Glucosamin e Zinc 50 MG Zinc 50 MG No 1{table QD Zinc 50 MG t} Garlic 500 Garlic 500 No Garlic 500 MG MG MG Breo Breo No Breo Ellipta Ellipta Ellipta Ibuprofen Ibuprofen No Ibuprofen 800 MG 800 MG 800 MG Vitamin D3 Vitamin D3 No Vitamin D3 Iron 240 Iron 240 No QD Iron 240 (27 Fe) MG (27 Fe) MG (27 Fe) MG Atorvastati Atorvastati No 1{table QD Atorvastat n Calcium n Calcium t} in Calcium 20 MG 20 MG 20 MG metFORMIN metFORMIN No 1{table BID metFORMIN HCl 1000 MG HCl 1000 MG t_with_ HCl 1000 meals} MG Turmeric Turmeric No Turmeric Curcumin Curcumin Curcumin Vitamin B12 Vitamin B12 No QD Vitamin 2500 2500 B12 2500 hydroCHLORO hydroCHLORO No 1{table QD hydroCHLOR thiazide 25 thiazide 25 t_in_th Othiazide MG MG e_morni 25 MG ng} Etodolac Etodolac No 1{table BID Etodolac 500 MG 500 MG t_with_ 500 MG food} Multivitami Multivitami No Multivitam ns - ns - ins - amLODIPine amLODIPine No 1{table QD amLODIPine Besylate 5 Besylate 5 t} Besylate 5 MG MG MG Fish Oil Fish Oil No 1{capsu QD Fish Oil 1000 MG 1000 MG le} 1000 MG Aspir-81 81 Aspir-81 81 No 1{table QD Aspir-81 MG MG t} 81 MG Glucosamine Glucosamine No Glucosamin e Zinc 50 MG Zinc 50 MG No 1{table QD Zinc 50 MG t} Garlic 500 Garlic 500 No Garlic 500 MG MG MG Breo Breo No Breo Ellipta Ellipta Ellipta Ibuprofen Ibuprofen No Ibuprofen 800 MG 800 MG 800 MG Vitamin D3 Vitamin D3 No Vitamin D3 Iron 240 Iron 240 No QD Iron 240 (27 Fe) MG (27 Fe) MG (27 Fe) MG Atorvastati Atorvastati No 1{table QD Atorvastat n Calcium n Calcium t} in Calcium 20 MG 20 MG 20 MG metFORMIN metFORMIN No 1{table BID metFORMIN HCl 1000 MG HCl 1000 MG t_with_ HCl 1000 meals} MG Turmeric Turmeric No Turmeric Curcumin Curcumin Curcumin Vitamin B12 Vitamin B12 No QD Vitamin 2500 2500 B12 2500 hydroCHLORO hydroCHLORO No 1{table QD hydroCHLOR thiazide 25 thiazide 25 t_in_th Othiazide MG MG e_morni 25 MG ng} amLODIPine amLODIPine No 1{table QD amLODIPine Besylate 5 Besylate 5 t} Besylate 5 MG MG MG hydroCHLORO hydroCHLORO No hydroCHLOR thiazide 25 thiazide 25 Othiazide MG MG 25 MG Iron 240 Iron 240 No QD Iron 240 (27 Fe) MG (27 Fe) MG (27 Fe) MG Breo Breo No Breo Ellipta Ellipta Ellipta Ibuprofen Ibuprofen No Ibuprofen 800 MG 800 MG 800 MG Vitamin B12 Vitamin B12 No QD Vitamin 2500 2500 B12 2500 Aspir-81 81 Aspir-81 81 No 1{table QD Aspir-81 MG MG t} 81 MG Vitamin D3 Vitamin D3 No Vitamin D3 Fish Oil Fish Oil No 1{capsu QD Fish Oil 1000 MG 1000 MG le} 1000 MG Multivitami Multivitami No Multivitam ns - ns - ins - Etodolac Etodolac No 1{table BID Etodolac 500 MG 500 MG t_with_ 500 MG food} Atorvastati Atorvastati No 1{table QD Atorvastat n Calcium n Calcium t} in Calcium 20 MG 20 MG 20 MG Garlic 500 Garlic 500 No Garlic 500 MG MG MG metFORMIN metFORMIN No 1{table BID metFORMIN HCl 1000 MG HCl 1000 MG t_with_ HCl 1000 meals} MG Omeprazole Omeprazole No QD Omeprazole 40 MG 40 MG 40 MG hydroCHLORO hydroCHLORO No 1{table QD hydroCHLOR thiazide 25 thiazide 25 t_in_th Othiazide MG MG e_morni 25 MG ng} Zinc 50 MG Zinc 50 MG No 1{table QD Zinc 50 MG t} Turmeric Turmeric No Turmeric Curcumin Curcumin Curcumin Glucosamine Glucosamine No Glucosamin e amLODIPine amLODIPine No 1{table QD amLODIPine Besylate 5 Besylate 5 t} Besylate 5 MG MG MG hydroCHLORO hydroCHLORO No hydroCHLOR thiazide 25 thiazide 25 Othiazide MG MG 25 MG Iron 240 Iron 240 No QD Iron 240 (27 Fe) MG (27 Fe) MG (27 Fe) MG Breo Breo No Breo Ellipta Ellipta Ellipta Ibuprofen Ibuprofen No Ibuprofen 800 MG 800 MG 800 MG Vitamin B12 Vitamin B12 No QD Vitamin 2500 2500 B12 2500 Aspir-81 81 Aspir-81 81 No 1{table QD Aspir-81 MG MG t} 81 MG Vitamin D3 Vitamin D3 No Vitamin D3 Fish Oil Fish Oil No 1{capsu QD Fish Oil 1000 MG 1000 MG le} 1000 MG Multivitami Multivitami No Multivitam ns - ns - ins - Etodolac Etodolac No 1{table BID Etodolac 500 MG 500 MG t_with_ 500 MG food} Atorvastati Atorvastati No 1{table QD Atorvastat n Calcium n Calcium t} in Calcium 20 MG 20 MG 20 MG Garlic 500 Garlic 500 No Garlic 500 MG MG MG metFORMIN metFORMIN No 1{table BID metFORMIN HCl 1000 MG HCl 1000 MG t_with_ HCl 1000 meals} MG Omeprazole Omeprazole No QD Omeprazole 40 MG 40 MG 40 MG hydroCHLORO hydroCHLORO No 1{table QD hydroCHLOR thiazide 25 thiazide 25 t_in_th Othiazide MG MG e_morni 25 MG ng} Zinc 50 MG Zinc 50 MG No 1{table QD Zinc 50 MG t} Turmeric Turmeric No Turmeric Curcumin Curcumin Curcumin Glucosamine Glucosamine No Glucosamin e Breo Breo No Breo Ellipta Ellipta Ellipta Vitamin B12 Vitamin B12 No QD Vitamin 2500 2500 B12 2500 amLODIPine amLODIPine No 1{table QD amLODIPine Besylate 5 Besylate 5 t} Besylate 5 MG MG MG Iron 240 Iron 240 No QD Iron 240 (27 Fe) MG (27 Fe) MG (27 Fe) MG Aspir-81 81 Aspir-81 81 No 1{table QD Aspir-81 MG MG t} 81 MG Vitamin D3 Vitamin D3 No Vitamin D3 Glucosamine Glucosamine No Glucosamin e Turmeric Turmeric No Turmeric Curcumin Curcumin Curcumin Ibuprofen Ibuprofen No Ibuprofen 800 MG 800 MG 800 MG hydroCHLORO hydroCHLORO No 1{table QD hydroCHLOR thiazide 25 thiazide 25 t_in_th Othiazide MG MG e_morni 25 MG ng} Atorvastati Atorvastati No 1{table QD Atorvastat n Calcium n Calcium t} in Calcium 20 MG 20 MG 20 MG Fish Oil Fish Oil No 1{capsu QD Fish Oil 1000 MG 1000 MG le} 1000 MG hydroCHLORO hydroCHLORO No hydroCHLOR thiazide 25 thiazide 25 Othiazide MG MG 25 MG Omeprazole Omeprazole No QD Omeprazole 40 MG 40 MG 40 MG Zinc 50 MG Zinc 50 MG No 1{table QD Zinc 50 MG t} Multivitami Multivitami No Multivitam ns - ns - ins - metFORMIN metFORMIN No 1{table BID metFORMIN HCl 1000 MG HCl 1000 MG t_with_ HCl 1000 meals} MG Etodolac Etodolac No 1{table BID Etodolac 500 MG 500 MG t_with_ 500 MG food} Garlic 500 Garlic 500 No Garlic 500 MG MG MG Breo Breo No Breo Ellipta Ellipta Ellipta Vitamin B12 Vitamin B12 No QD Vitamin 2500 2500 B12 2500 amLODIPine amLODIPine No 1{table QD amLODIPine Besylate 5 Besylate 5 t} Besylate 5 MG MG MG Iron 240 Iron 240 No QD Iron 240 (27 Fe) MG (27 Fe) MG (27 Fe) MG Aspir-81 81 Aspir-81 81 No 1{table QD Aspir-81 MG MG t} 81 MG Vitamin D3 Vitamin D3 No Vitamin D3 Glucosamine Glucosamine No Glucosamin e Turmeric Turmeric No Turmeric Curcumin Curcumin Curcumin Ibuprofen Ibuprofen No Ibuprofen 800 MG 800 MG 800 MG hydroCHLORO hydroCHLORO No 1{table QD hydroCHLOR thiazide 25 thiazide 25 t_in_th Othiazide MG MG e_morni 25 MG ng} Atorvastati Atorvastati No 1{table QD Atorvastat n Calcium n Calcium t} in Calcium 20 MG 20 MG 20 MG Fish Oil Fish Oil No 1{capsu QD Fish Oil 1000 MG 1000 MG le} 1000 MG hydroCHLORO hydroCHLORO No hydroCHLOR thiazide 25 thiazide 25 Othiazide MG MG 25 MG Omeprazole Omeprazole No QD Omeprazole 40 MG 40 MG 40 MG Zinc 50 MG Zinc 50 MG No 1{table QD Zinc 50 MG t} Multivitami Multivitami No Multivitam ns - ns - ins - metFORMIN metFORMIN No 1{table BID metFORMIN HCl 1000 MG HCl 1000 MG t_with_ HCl 1000 meals} MG Etodolac Etodolac No 1{table BID Etodolac 500 MG 500 MG t_with_ 500 MG food} Garlic 500 Garlic 500 No Garlic 500 MG MG MG Breo Breo No Breo Ellipta Ellipta Ellipta Vitamin B12 Vitamin B12 No QD Vitamin 2500 2500 B12 2500 amLODIPine amLODIPine No 1{table QD amLODIPine Besylate 5 Besylate 5 t} Besylate 5 MG MG MG Iron 240 Iron 240 No QD Iron 240 (27 Fe) MG (27 Fe) MG (27 Fe) MG Aspir-81 81 Aspir-81 81 No 1{table QD Aspir-81 MG MG t} 81 MG Vitamin D3 Vitamin D3 No Vitamin D3 Glucosamine Glucosamine No Glucosamin e Turmeric Turmeric No Turmeric Curcumin Curcumin Curcumin Ibuprofen Ibuprofen No Ibuprofen 800 MG 800 MG 800 MG hydroCHLORO hydroCHLORO No 1{table QD hydroCHLOR thiazide 25 thiazide 25 t_in_th Othiazide MG MG e_morni 25 MG ng} Atorvastati Atorvastati No 1{table QD Atorvastat n Calcium n Calcium t} in Calcium 20 MG 20 MG 20 MG Fish Oil Fish Oil No 1{capsu QD Fish Oil 1000 MG 1000 MG le} 1000 MG hydroCHLORO hydroCHLORO No hydroCHLOR thiazide 25 thiazide 25 Othiazide MG MG 25 MG Omeprazole Omeprazole No QD Omeprazole 40 MG 40 MG 40 MG Zinc 50 MG Zinc 50 MG No 1{table QD Zinc 50 MG t} Multivitami Multivitami No Multivitam ns - ns - ins - metFORMIN metFORMIN No 1{table BID metFORMIN HCl 1000 MG HCl 1000 MG t_with_ HCl 1000 meals} MG Etodolac Etodolac No 1{table BID Etodolac 500 MG 500 MG t_with_ 500 MG food} Garlic 500 Garlic 500 No Garlic 500 MG MG MG Breo Breo No Breo Ellipta Ellipta Ellipta Vitamin B12 Vitamin B12 No QD Vitamin 2500 2500 B12 2500 amLODIPine amLODIPine No 1{table QD amLODIPine Besylate 5 Besylate 5 t} Besylate 5 MG MG MG Iron 240 Iron 240 No QD Iron 240 (27 Fe) MG (27 Fe) MG (27 Fe) MG Aspir-81 81 Aspir-81 81 No 1{table QD Aspir-81 MG MG t} 81 MG Vitamin D3 Vitamin D3 No Vitamin D3 Glucosamine Glucosamine No Glucosamin e Turmeric Turmeric No Turmeric Curcumin Curcumin Curcumin Ibuprofen Ibuprofen No Ibuprofen 800 MG 800 MG 800 MG hydroCHLORO hydroCHLORO No 1{table QD hydroCHLOR thiazide 25 thiazide 25 t_in_th Othiazide MG MG e_morni 25 MG ng} Atorvastati Atorvastati No 1{table QD Atorvastat n Calcium n Calcium t} in Calcium 20 MG 20 MG 20 MG Fish Oil Fish Oil No 1{capsu QD Fish Oil 1000 MG 1000 MG le} 1000 MG hydroCHLORO hydroCHLORO No hydroCHLOR thiazide 25 thiazide 25 Othiazide MG MG 25 MG Omeprazole Omeprazole No QD Omeprazole 40 MG 40 MG 40 MG Zinc 50 MG Zinc 50 MG No 1{table QD Zinc 50 MG t} Multivitami Multivitami No Multivitam ns - ns - ins - metFORMIN metFORMIN No 1{table BID metFORMIN HCl 1000 MG HCl 1000 MG t_with_ HCl 1000 meals} MG Etodolac Etodolac No 1{table BID Etodolac 500 MG 500 MG t_with_ 500 MG food} Garlic 500 Garlic 500 No Garlic 500 MG MG MG Breo Breo No Breo Ellipta Ellipta Ellipta Vitamin B12 Vitamin B12 No QD Vitamin 2500 2500 B12 2500 amLODIPine amLODIPine No 1{table QD amLODIPine Besylate 5 Besylate 5 t} Besylate 5 MG MG MG Iron 240 Iron 240 No QD Iron 240 (27 Fe) MG (27 Fe) MG (27 Fe) MG Aspir-81 81 Aspir-81 81 No 1{table QD Aspir-81 MG MG t} 81 MG Vitamin D3 Vitamin D3 No Vitamin D3 Glucosamine Glucosamine No Glucosamin e Turmeric Turmeric No Turmeric Curcumin Curcumin Curcumin Ibuprofen Ibuprofen No Ibuprofen 800 MG 800 MG 800 MG hydroCHLORO hydroCHLORO No 1{table QD hydroCHLOR thiazide 25 thiazide 25 t_in_th Othiazide MG MG e_morni 25 MG ng} Atorvastati Atorvastati No 1{table QD Atorvastat n Calcium n Calcium t} in Calcium 20 MG 20 MG 20 MG Fish Oil Fish Oil No 1{capsu QD Fish Oil 1000 MG 1000 MG le} 1000 MG hydroCHLORO hydroCHLORO No hydroCHLOR thiazide 25 thiazide 25 Othiazide MG MG 25 MG Omeprazole Omeprazole No QD Omeprazole 40 MG 40 MG 40 MG Zinc 50 MG Zinc 50 MG No 1{table QD Zinc 50 MG t} Multivitami Multivitami No Multivitam ns - ns - ins - metFORMIN metFORMIN No 1{table BID metFORMIN HCl 1000 MG HCl 1000 MG t_with_ HCl 1000 meals} MG Etodolac Etodolac No 1{table BID Etodolac 500 MG 500 MG t_with_ 500 MG food} Garlic 500 Garlic 500 No Garlic 500 MG MG MG Breo Breo No Breo Ellipta Ellipta Ellipta Vitamin B12 Vitamin B12 No QD Vitamin 2500 2500 B12 2500 amLODIPine amLODIPine No 1{table QD amLODIPine Besylate 5 Besylate 5 t} Besylate 5 MG MG MG Iron 240 Iron 240 No QD Iron 240 (27 Fe) MG (27 Fe) MG (27 Fe) MG Aspir-81 81 Aspir-81 81 No 1{table QD Aspir-81 MG MG t} 81 MG Vitamin D3 Vitamin D3 No Vitamin D3 Glucosamine Glucosamine No Glucosamin e Turmeric Turmeric No Turmeric Curcumin Curcumin Curcumin Ibuprofen Ibuprofen No Ibuprofen 800 MG 800 MG 800 MG hydroCHLORO hydroCHLORO No 1{table QD hydroCHLOR thiazide 25 thiazide 25 t_in_th Othiazide MG MG e_morni 25 MG ng} Atorvastati Atorvastati No 1{table QD Atorvastat n Calcium n Calcium t} in Calcium 20 MG 20 MG 20 MG Fish Oil Fish Oil No 1{capsu QD Fish Oil 1000 MG 1000 MG le} 1000 MG hydroCHLORO hydroCHLORO No hydroCHLOR thiazide 25 thiazide 25 Othiazide MG MG 25 MG Omeprazole Omeprazole No QD Omeprazole 40 MG 40 MG 40 MG Zinc 50 MG Zinc 50 MG No 1{table QD Zinc 50 MG t} Multivitami Multivitami No Multivitam ns - ns - ins - metFORMIN metFORMIN No 1{table BID metFORMIN HCl 1000 MG HCl 1000 MG t_with_ HCl 1000 meals} MG Etodolac Etodolac No 1{table BID Etodolac 500 MG 500 MG t_with_ 500 MG food} Garlic 500 Garlic 500 No Garlic 500 MG MG MG Glucosamine Glucosamine No Glucosamin e Turmeric Turmeric No Turmeric Curcumin Curcumin Curcumin Vitamin B12 Vitamin B12 No QD Vitamin 2500 2500 B12 2500 Iron 240 Iron 240 No QD Iron 240 (27 Fe) MG (27 Fe) MG (27 Fe) MG Aspir-81 81 Aspir-81 81 No 1{table QD Aspir-81 MG MG t} 81 MG metFORMIN metFORMIN No 1{table BID metFORMIN HCl 1000 MG HCl 1000 MG t_with_ HCl 1000 meals} MG Garlic 500 Garlic 500 No Garlic 500 MG MG MG amLODIPine amLODIPine No 1{table QD amLODIPine Besylate 5 Besylate 5 t} Besylate 5 MG MG MG hydroCHLORO hydroCHLORO No 1{table QD hydroCHLOR thiazide 25 thiazide 25 t_in_th Othiazide MG MG e_morni 25 MG ng} Breo Breo No Breo Ellipta Ellipta Ellipta Zinc 50 MG Zinc 50 MG No 1{table QD Zinc 50 MG t} hydroCHLORO hydroCHLORO No hydroCHLOR thiazide 25 thiazide 25 Othiazide MG MG 25 MG Multivitami Multivitami No Multivitam ns - ns - ins - Vitamin D3 Vitamin D3 No Vitamin D3 Fish Oil Fish Oil No 1{capsu QD Fish Oil 1000 MG 1000 MG le} 1000 MG amLODIPine amLODIPine No amLODIPine Besylate 5 Besylate 5 Besylate 5 MG MG MG Omeprazole Omeprazole No QD Omeprazole 40 MG 40 MG 40 MG Etodolac Etodolac No 1{table BID Etodolac 500 MG 500 MG t_with_ 500 MG food} Atorvastati Atorvastati No 1{table QD Atorvastat n Calcium n Calcium t} in Calcium 20 MG 20 MG 20 MG Trelegy Trelegy No Trelegy Ellipta Ellipta Ellipta metFORMIN metFORMIN No 1{table BID metFORMIN HCl 1000 MG HCl 1000 MG t_with_ HCl 1000 meals} MG Atorvastati Atorvastati No 1{table QD Atorvastat n Calcium n Calcium t} in Calcium 20 MG 20 MG 20 MG Garlic 500 Garlic 500 No Garlic 500 MG MG MG Turmeric Turmeric No Turmeric Curcumin Curcumin Curcumin hydroCHLORO hydroCHLORO No 1{table QD hydroCHLOR thiazide 25 thiazide 25 t_in_th Othiazide MG MG e_morni 25 MG ng} Glucosamine Glucosamine No Glucosamin e amLODIPine amLODIPine No amLODIPine Besylate 5 Besylate 5 Besylate 5 MG MG MG Aspir-81 81 Aspir-81 81 No 1{table QD Aspir-81 MG MG t} 81 MG Omeprazole Omeprazole No QD Omeprazole 40 MG 40 MG 40 MG Immunizations Ordered Immunization Filled Immunization Date Status Commen ts Source Name Name [facility] [place] [facility] [place] 2020-12-07 Completed [facility] - 09:[facility]:00 [facility] [place] [place] [facility] [place] 2020-12-07 Completed [facility] - 09:00:00 [facility] [place] Bupivicaine [place] Bupivicaine [place] 2020-12-07 Completed [facility] - 09:00:00 [facility] [place] Bupivicaine [place] Bupivicaine [place] 2020-12-07 Completed [facility] - 09:00:00 [facility] [place] Bupivicaine [place] Bupivicaine [place] 2020-12-07 Completed [facility] - 09:00:00 [facility] [place] Bupivicaine [place] Bupivicaine [place] 2020-12-07 Completed [facility] - 09:00:00 [facility] [place] Bupivicaine [place] Bupivicaine [place] 2020-12-07 Completed [facility] - 08:59:00 [facility] [place] Kengilda Kenalog 2020-12-07 Completed [facility] - (Triamcinolone) (Triamcinolone) 08:59:00 [facility] [place] Kenalog Kenalog 2020-12-07 Completed [facility] - (Triamcinolone) (Triamcinolone) 08:59:00 [facility] Bupivicaine [place] Bupivicaine [place] 2020-12-07 Completed [facility] - 08:59:00 [facility] Kengilda Kenalog 2020-12-07 Completed [facility] - (Triamcinolone) (Triamcinolone) 08:59:00 [facility] Kenalog Kenalog 2020-12-07 Completed [facility] (Triamcinolone) (Triamcinolone) 08:59:00 [facility] Bupivicaine [place] Bupivicaine [place] 2020-12-07 Completed [facility] - 08:59:00 [facility] Kenalog Kenalog 2020-12-07 Completed [facility] - (Triamcinolone) (Triamcinolone) 08:59:00 [facility] Kenalog Kenalog 2020-12-07 Completed [facility] (Triamcinolone) (Triamcinolone) 08:59:00 [facility] Bupivicaine [place] Bupivicaine [place] 2020-12-07 Completed [facility] - 08:59:00 [facility] Alexi Truong 2020-12-07 Completed [facility] - (Triamcinolone) (Triamcinolone) 08:59:00 [facility] Alexi Englealog 2020-12-07 Completed [facility] (Triamcinolone) (Triamcinolone) 08:59:00 [facility] Bupivicaine [place] Bupivicaine [place] 2020-12-07 Completed [facility] - 08:59:00 [facility] Kengilda Kenalog 2020-12-07 Completed [facility] - (Triamcinolone) (Triamcinolone) 08:59:00 [facility] Alexi Truong 2020-12-07 Completed [facility] - (Triamcinolone) (Triamcinolone) 08:59:00 [facility] Bupivicaine [place] Bupivicaine [place] 2020-12-07 Completed [facility] - 08:59:00 [facility] Alexi Truong 2020-12-07 Completed [facility] - (Triamcinolone) (Triamcinolone) 08:59:00 [facility] Alexi Truong 2020-12-07 Completed [facility] (Triamcinolone) (Triamcinolone) 08:59:00 [facility] Bupivicaine [place] Bupivicaine [place] 2020-11-07 Completed [facility] - 09:26:00 [facility] Alexi Truong 2020-11-07 Completed [facility] (Triamcinolone) (Triamcinolone) 09:26:00 [facility] Bupivicaine [place] Bupivicaine [place] 2020-11-07 Completed [facility] - 09:26:00 [facility] Kengilda Kenalog 2020-11-07 Completed [facility] (Triamcinolone) (Triamcinolone) 09:26:00 [facility] Bupivicaine [place] Bupivicaine [place] 2020-11-07 Completed [facility] - 09:26:00 [facility] Kengilda Kenalog 2020-11-07 Completed [facility] - (Triamcinolone) (Triamcinolone) 09:26:00 [facility] Bupivicaine [place] Bupivicaine [place] 2020-11-07 Completed [facility] - 09:26:00 [facility] Kenalog Kenalog 2020-11-07 Completed [facility] (Triamcinolone) (Triamcinolone) 09:26:00 [facility] Bupivicaine [place] Bupivicaine [place] 2020-11-07 Completed [facility] - 09:26:00 [facility] Kenalog Kenalog 2020-11-07 Completed [facility] (Triamcinolone) (Triamcinolone) 09:26:00 [facility] Bupivicaine [place] Bupivicaine [place] 2020-11-07 Completed [facility] - 09:26:00 [facility] Kenalog Kenalog 2020-11-07 Completed [facility] - (Triamcinolone) (Triamcinolone) 09:26:00 [facility] FLUZONE HIGH DOSE FLUZONE HIGH DOSE 2019-03-10 Completed [facility] - OVER 65 OVER 65 09:22:00 [facility] FLUZONE HIGH DOSE FLUZONE HIGH DOSE 2019-03-10 Completed [facility] - OVER 65 OVER 65 09:22:00 [facility] FLUZONE HIGH DOSE FLUZONE HIGH DOSE 2019-03-10 Completed [facility] - OVER 65 OVER 65 09:22:00 [facility] FLUZONE HIGH DOSE FLUZONE HIGH DOSE 2019-03-10 Completed [facility] - OVER 65 OVER 65 09:22:00 [facility] FLUZONE HIGH DOSE FLUZONE HIGH DOSE 2019-03-10 Completed [facility] - OVER 65 OVER 65 09:22:00 [facility] FLUZONE HIGH DOSE FLUZONE HIGH DOSE 2019-03-10 Completed [facility] - OVER 65 OVER 65 09:22:00 [facility] FLUZONE HIGH DOSE FLUZONE HIGH DOSE 2019-03-10 Completed [facility] - OVER 65 OVER 65 09:22:00 [facility] FLUZONE HIGH DOSE FLUZONE HIGH DOSE 2019-03-10 Completed [facility] - OVER 65 OVER 65 09:22:00 [facility] FLUZONE HIGH DOSE FLUZONE HIGH DOSE 2019-03-10 Completed [facility] - OVER 65 OVER 65 09:22:00 [facility] FLUZONE HIGH DOSE FLUZONE HIGH DOSE 2019-03-10 Completed [facility] - OVER 65 OVER 65 09:22:00 [facility] FLUZONE HIGH DOSE FLUZONE HIGH DOSE 2019-03-10 Completed [facility] - OVER 65 OVER 65 09:22:00 [facility] FLUZONE HIGH DOSE FLUZONE HIGH DOSE 2019-03-10 Completed [facility] - OVER 65 OVER 65 09:22:00 [facility] FLUZONE HIGH DOSE FLUZONE HIGH DOSE 2019-03-10 Completed [facility] - OVER 65 OVER 65 09:22:00 [facility] FLUZONE HIGH DOSE FLUZONE HIGH DOSE 2019-03-10 Completed [facility] - OVER 65 OVER 65 09:22:00 [facility] FLUZONE HIGH DOSE FLUZONE HIGH DOSE 2019-03-10 Completed [facility] - OVER 65 OVER 65 09:22:00 [facility] FLUZONE HIGH DOSE FLUZONE HIGH DOSE 2019-03-10 Completed [facility] - OVER 65 OVER 65 09:22:00 [facility] FLUZONE HIGH DOSE FLUZONE HIGH DOSE 2019-03-10 Completed [facility] - OVER 65 OVER 65 09:22:00 [facility] FLUZONE HIGH DOSE FLUZONE HIGH DOSE 2019-03-10 Completed [facility] - OVER 65 OVER 65 09:22:00 [facility] FLUZONE HIGH DOSE FLUZONE HIGH DOSE 2019-03-10 Completed [facility] - OVER 65 OVER 65 09:22:00 [facility] FLUZONE HIGH DOSE FLUZONE HIGH DOSE 2019-03-10 Completed [facility] - OVER 65 OVER 65 09:22:00 [facility] FLUZONE HIGH DOSE FLUZONE HIGH DOSE 2019-03-10 Completed [facility] - OVER 65 OVER 65 09:22:00 [facility] FLUZONE HIGH DOSE FLUZONE HIGH DOSE 2019-03-10 Completed [facility] - OVER 65 OVER 65 09:22:00 [facility] FLUZONE HIGH DOSE FLUZONE HIGH DOSE 2019-03-10 Completed [facility] - OVER 65 OVER 65 09:22:00 [facility] FLUZONE HIGH DOSE FLUZONE HIGH DOSE 2019-03-10 Completed [facility] - OVER 65 OVER 65 09:22:00 [facility] FLUZONE HIGH DOSE FLUZONE HIGH DOSE 2019-03-10 Completed [facility] - OVER 65 OVER 65 09:22:00 [facility] FLUZONE HIGH DOSE FLUZONE HIGH DOSE 2019-03-10 Completed [facility] - OVER 65 OVER 65 09:22:00 [facility] FLUZONE HIGH DOSE FLUZONE HIGH DOSE 2019-03-10 Completed [facility] - OVER 65 OVER 65 09:22:00 [facility] FLUZONE HIGH DOSE FLUZONE HIGH DOSE 2019-03-10 Completed [facility] - OVER 65 OVER 65 09:22:00 [facility] FLUZONE HIGH DOSE FLUZONE HIGH DOSE 2019-03-10 Completed [facility] - OVER 65 OVER 65 09:22:00 [facility] FLUZONE HIGH DOSE FLUZONE HIGH DOSE 2019-03-10 Completed [facility] - OVER 65 OVER 65 09:22:00 [facility] FLUZONE HIGH DOSE FLUZONE HIGH DOSE 2019-03-10 Completed [facility] - OVER 65 OVER 65 09:22:00 [facility] FLUZONE HIGH DOSE FLUZONE HIGH DOSE 2019-03-10 Completed [facility] - OVER 65 OVER 65 09:22:00 [facility] FLUZONE HIGH DOSE FLUZONE HIGH DOSE 2019-03-10 Completed [facility] - OVER 65 OVER 65 09:22:00 [facility] FLUZONE HIGH DOSE FLUZONE HIGH DOSE 2019-03-10 Completed [facility] - OVER 65 OVER 65 09:22:00 [facility] FLUZONE HIGH DOSE FLUZONE HIGH DOSE 2019-03-10 Completed [facility] - OVER 65 OVER 65 09:22:00 [facility] FLUZONE HIGH DOSE FLUZONE HIGH DOSE 2019-03-10 Completed [facility] - OVER 65 OVER 65 09:22:00 [facility] FLUZONE HIGH DOSE FLUZONE HIGH DOSE 2019-03-10 Completed [facility] - OVER 65 OVER 65 09:22:00 [facility] FLUZONE HIGH DOSE FLUZONE HIGH DOSE 2019-03-10 Completed [facility] - OVER 65 OVER 65 09:22:00 [facility] FLUZONE HIGH DOSE FLUZONE HIGH DOSE 2019-03-10 Completed [facility] - OVER 65 OVER 65 09:22:00 [facility] FLUZONE HIGH DOSE FLUZONE HIGH DOSE 2019-03-10 Completed [facility] - OVER 65 OVER 65 09:22:00 [facility] FLUZONE HIGH DOSE FLUZONE HIGH DOSE 2019-03-10 Completed [facility] - OVER 65 OVER 65 09:22:00 [facility] FLUZONE HIGH DOSE FLUZONE HIGH DOSE 2019-03-10 Completed [facility] - OVER 65 OVER 65 00:00:00 [facility] Alexi Truong 2018-10-19 Completed [facility] - (Triamcinolone) (Triamcinolone) 08:48:00 [facility] Alexi Truong 2018-10-19 Completed [facility] - (Triamcinolone) (Triamcinolone) 08:48:00 [facility] Alexi Truong 2018-10-19 Completed [facility] - (Triamcinolone) (Triamcinolone) 08:48:00 [facility] Alexi Truong 2018-10-19 Completed [facility] - (Triamcinolone) (Triamcinolone) 08:48:00 [facility] Alexi Truong 2018-10-19 Completed [facility] - (Triamcinolone) (Triamcinolone) 08:48:00 [facility] Alexi Truong 2018-10-19 Completed [facility] - (Triamcinolone) (Triamcinolone) 08:48:00 [facility] diphtheria/pertussis 2012-05-09 Completed Robin rial , acel/tetanus adult 16:21:00 Herm sherry diphtheria/pertussis 2012-05-09 Completed Robin rial , acel/tetanus adult 16:21:00 Herm sherry Vital Signs Vital Name Observation Time Observation Value Comments Source height 2022-08-05 09:20:00 68.5 [in_i] [facility] weight 2022-08-05 09:20:00 231.1 [lb_av] [facility] temperature 2022-08-05 09:20:00 97.3 [degF] [facility] bmi 2022-08-05 09:20:00 34.62 kg/m2 [facility] oximetry 2022-08-05 09:20:00 99 % [facility] respiratory rate 2022-08-05 09:20:00 18 /min [facility] blood pressure 2022-08-05 09:20:00 126 mm[Hg] [facility] - systolic [facility] blood pressure 2022-08-05 09:20:00 73 mm[Hg] [facility] - diastolic [facility] height 2022-06-11 08:30:00 68.5 [in_i] [facility] weight 2022-06-11 08:30:00 225.4 [lb_av] [facility] temperature 2022-06-11 08:30:00 97.8 [degF] [facility] bmi 2022-06-11 08:30:00 33.77 kg/m2 [facility] blood pressure 2022-06-11 08:30:00 129 mm[Hg] [facility] - systolic [facility] blood pressure 2022-06-11 08:30:00 78 mm[Hg] [facility] - diastolic [facility] height 2022-04-23 09:00:00 68.5 [in_i] [facility] weight 2022-04-23 09:00:00 220 [lb_av] [facility] temperature 2022-04-23 09:00:00 97.8 [degF] [facility] bmi 2022-04-23 09:00:00 32.96 kg/m2 [facility] blood pressure 2022-04-23 09:00:00 124 mm[Hg] [facility] - systolic [facility] blood pressure 2022-04-23 09:00:00 76 mm[Hg] [facility] - diastolic [facility] height 2022-04-19 08:30:00 68.5 [in_i] [facility] weight 2022-04-19 08:30:00 223 [lb_av] [facility] temperature 2022-04-19 08:30:00 97.0 [degF] [facility] bmi 2022-04-19 08:30:00 33.41 kg/m2 [facility] oximetry 2022-04-19 08:30:00 95 % [facility] respiratory rate 2022-04-19 08:30:00 18 /min Comm on [facility] blood pressure 2022-04-19 08:30:00 132 mm[Hg] [facility] - systolic [facility] blood pressure 2022-04-19 08:30:00 78 mm[Hg] [facility] - diastolic [facility] height 2022-03-12 09:00:00 70 [in_i] [facility] weight 2022-03-12 09:00:00 223 [lb_av] [facility] temperature 2022-03-12 09:00:00 97.9 [degF] [facility] bmi 2022-03-12 09:00:00 31.99 kg/m2 [facility] blood pressure 2022-03-12 09:00:00 123 mm[Hg] [facility] - systolic [facility] blood pressure 2022-03-12 09:00:00 80 mm[Hg] [facility] - diastolic [facility] height 2022-02-07 11:00:00 70 [in_i] [facility] weight 2022-02-07 11:00:00 223 [lb_av] [facility] bmi 2022-02-07 11:00:00 31.99 kg/m2 [facility] blood pressure 2022-02-07 11:00:00 140 mm[Hg] [facility] - systolic [facility] blood pressure 2022-02-07 11:00:00 86 mm[Hg] [facility] - diastolic [facility] height 2022-01-21 08:15:00 70 [in_i] [facility] weight 2022-01-21 08:15:00 223 [lb_av] [facility] temperature 2022-01-21 08:15:00 98.0 [degF] [facility] bmi 2022-01-21 08:15:00 31.99 kg/m2 [facility] blood pressure 2022-01-21 08:15:00 134 mm[Hg] Common [facility] - systolic [facility] blood pressure 2022-01-21 08:15:00 82 mm[Hg] [facility] - diastolic [facility] height 2022-01-17 08:40:00 70 [in_i] [facility] weight 2022-01-17 08:40:00 221 [lb_av] [facility] temperature 2022-01-17 08:40:00 97.6 [degF] [facility] S pirit [facility] bmi 2022-01-17 08:40:00 31.71 kg/m2 [facility] oximetry 2022-01-17 08:40:00 99 % [facility] 2022-01-17 08:40:00 18 /min [facility] blood pressure 2022-01-17 08:40:00 138 mm[Hg] [facility] - systolic [facility] blood pressure 2022-01-17 08:40:00 69 mm[Hg] [facility] - diastolic [facility] height 2021-10-30 10:30:00 70 [in_i] Common [facility] weight 2021-10-30 10:30:00 230 [lb_av] [facility] temperature 2021-10-30 10:30:00 98.7 [degF] [facility] bmi 2021-10-30 10:30:00 33 kg/m2 [facility] blood pressure 2021-10-30 10:30:00 134 mm[Hg] [facility] - systolic [facility] blood pressure 2021-10-30 10:30:00 82 mm[Hg] [facility] - diastolic [facility] height 2021-10-17 08:10:00 70 [in_i] [facility] weight 2021-10-17 08:10:00 221.7 [lb_av] [facility] temperature 2021-10-17 08:10:00 97.9 [degF] [facility] bmi 2021-10-17 08:10:00 31.81 kg/m2 [facility] oximetry 2021-10-17 08:10:00 96 % [facility] S [facility] respiratory rate 2021-10-17 08:10:00 17 /min Comm on [facility] blood pressure 2021-10-17 08:10:00 136 mm[Hg] [facility] - systolic [facility] blood pressure 2021-10-17 08:10:00 73 mm[Hg] [facility] - diastolic [facility] height 2021-08-07 13:00:00 70 [in_i] [facility] weight 2021-08-07 13:00:00 225 [lb_av] [facility] temperature 2021-08-07 13:00:00 96.8 [degF] [facility] bmi 2021-08-07 13:00:00 32.28 kg/m2 [facility] oximetry 2021-08-07 13:00:00 94 % [facility] respiratory rate 2021-08-07 13:00:00 20 /min Comm on [facility] blood pressure 2021-08-07 13:00:00 124 mm[Hg] [facility] - systolic [facility] blood pressure 2021-08-07 13:00:00 76 mm[Hg] [facility] - diastolic [facility] height 2021-07-16 09:00:00 70 [in_i] [facility] - [facility] weight 2021-07-16 09:00:00 225 [lb_av] [facility] - [facility] temperature 2021-07-16 09:00:00 97.6 [degF] [facility] - [facility] bmi 2021-07-16 09:00:00 32.28 kg/m2 [facility] - [facility] blood pressure 2021-07-16 09:00:00 138 mm[Hg] [facility] - systolic [facility] blood pressure 2021-07-16 09:00:00 82 mm[Hg] [facility] - diastolic [facility] height 2021-06-19 08:45:00 70 [in_i] [facility] weight 2021-06-19 08:45:00 230 [lb_av] [facility] temperature 2021-06-19 08:45:00 97.2 [degF] [facility] bmi 2021-06-19 08:45:00 33 kg/m2 [facility] - [facility] blood pressure 2021-06-19 08:45:00 136 mm[Hg] [facility] - systolic [facility] blood pressure 2021-06-19 08:45:00 84 mm[Hg] [facility] - diastolic [facility] height 2021-06-12 08:45:00 70 [in_i] [facility] - [facility] weight 2021-06-12 08:45:00 230 [lb_av] [facility] temperature 2021-06-12 08:45:00 97.3 [degF] [facility] - [facility] bmi 2021-06-12 08:45:00 33 kg/m2 [facility] - [facility] blood pressure 2021-06-12 08:45:00 136 mm[Hg] [facility] - systolic [facility] blood pressure 2021-06-12 08:45:00 82 mm[Hg] [facility] - diastolic [facility] height 2021-06-05 09:30:00 70 [in_i] [facility] - [facility] weight 2021-06-05 09:30:00 230 [lb_av] [facility] - [facility] temperature 2021-06-05 09:30:00 97.3 [degF] [facility] - [facility] bmi 2021-06-05 09:30:00 33 kg/m2 [facility] - [facility] blood pressure 2021-06-05 09:30:00 136 mm[Hg] [facility] - systolic [facility] blood pressure 2021-06-05 09:30:00 82 mm[Hg] [facility] - diastolic [facility] height 2021-04-16 08:45:00 70 [in_i] [facility] - [facility] weight 2021-04-16 08:45:00 230 [lb_av] [facility] - [facility] bmi 2021-04-16 08:45:00 33 kg/m2 [facility] - [facility] blood pressure 2021-04-16 08:45:00 153 mm[Hg] [facility] - systolic [facility] blood pressure 2021-04-16 08:45:00 90 mm[Hg] [facility] - diastolic [facility] height 2021-04-11 08:20:00 70 [in_i] [facility] - [facility] weight 2021-04-11 08:20:00 230 [lb_av] [facility] - [facility] temperature 2021-04-11 08:20:00 98 [degF] [facility] - [facility] bmi 2021-04-11 08:20:00 33 kg/m2 [facility] - [facility] blood pressure 2021-04-11 08:20:00 132 mm[Hg] [facility] - systolic [facility] blood pressure 2021-04-11 08:20:00 67 mm[Hg] [facility] - diastolic [facility] height 2021-03-15 09:00:00 70 [in_i] [facility] - [facility] weight 2021-03-15 09:00:00 223 [lb_av] [facility] - [facility] bmi 2021-03-15 09:00:00 31.99 kg/m2 [facility] - [facility] blood pressure 2021-03-15 09:00:00 154 mm[Hg] [facility] - systolic [facility] blood pressure 2021-03-15 09:00:00 94 mm[Hg] [facility] - diastolic [facility] Systolic blood 2020-12-28 23:04:00 124 mm[Hg] Univer sity of pressure [facility] Diastolic blood 2020-12-28 23:04:00 69 mm[Hg] Unive rsity of [facility] Heart rate 2020-12-28 23:04:00 83 /min [facility] Body temperature 2020-12-28 23:04:00 35.67 [facility] rate 2020-12-28 23:04:00 16 /min [facility] Body height 2020-12-28 23:04:00 177.8 cm [facility] Body weight 2020-12-28 23:04:00 101.152 kg [facility] BMI 2020-12-28 23:04:00 32.00 kg/m2 [facility] Oxygen saturation in 2020-12-28 23:04:00 96 /min University of Arterial blood by [facility] Heart rate 2020-12-23 23:57:00 43 /min Universi ty [facility] Respiratory rate 2020-12-23 23:57:00 18 /min [facility] Oxygen saturation in 2020-12-23 23:57:00 97 /min University [facility] Arterial blood by [facility] Systolic blood 2020-12-23 23:52:00 137 mm[Hg] Univer sity of pressure [facility] Diastolic blood 2020-12-23 23:52:00 73 mm[Hg] Unive rsity of pressure [facility] Body temperature 2020-12-23 23:52:00 36.56 [facility] ersity of [facility] Body height 2020-12-23 23:52:00 177.8 cm Universi ty of [facility] Body weight 2020-12-23 23:52:00 101.237 kg Universi ty of [facility] BMI 2020-12-23 23:52:00 32.02 kg/m2 Universi ty [facility] Heart rate 2020-12-23 23:57:00 43 /min Universi ty of [facility] Respiratory rate 2020-12-23 23:57:00 18 /min [facility] Oxygen saturation in 2020-12-23 23:57:00 97 /min University of Arterial blood by [facility] Systolic blood 2020-12-23 23:52:00 137 mm[Hg] Univer sity of pressure [facility] Diastolic blood 2020-12-23 23:52:00 73 mm[Hg] Unive rsity of pressure [facility] Body temperature 2020-12-23 23:52:00 36.56 [facility] ersity of [facility] Body height 2020-12-23 23:52:00 177.8 cm Universi ty of [facility] Body weight 2020-12-23 23:52:00 101.237 kg Universi ty of [facility] BMI 2020-12-23 23:52:00 32.02 kg/m2 Universi ty [facility] Diastolic (mm Hg) 2012-05-13 17:51:00 Mem chava Jason Systolic (mm Hg) 2012-05-13 17:51:00 Robin shiv Jason Heart Rate 2012-05-13 17:51:00 [facility] Temperature Oral (F) 2012-05-13 17:51:00 98.6 F [facility] Respitory Rate 2012-05-13 17:51:00 Randi zhao [place] Systolic (mm Hg) 2012-05-13 13:50:00 Robin shiv Jason Diastolic (mm Hg) 2012-05-13 13:50:00 Mem orial [place] Heart Rate 2012-05-13 13:50:00 [facility] [place] Respitory Rate 2012-05-13 13:50:00 Memori al [place] Temperature Oral (F) 2012-05-13 13:50:00 98.4 F [facility] Temperature Oral (F) 2012-05-13 10:35:00 97.7 F [facility] Diastolic (mm Hg) 2012-05-13 10:35:00 Mem orial Jason Systolic (mm Hg) 2012-05-13 10:35:00 Robin rial [place] Respitory Rate 2012-05-13 10:35:00 Memori al [place] Heart Rate 2012-05-13 10:35:00 [facility] [place] Height 2012-05-09 15:43:00 177.80 cm [facility] [place] Weight 2012-05-09 15:43:00 [facility] Procedures Procedure Date / Time Performed Performing Clinician Sourc e XR HAND 3+ VW RIGHT 2020-12-28 23:56:32 Mabel Rayo [facility] ASSIGNMENT OF BENEFITS 2020-12-23 23:44:08 Doctor Unassigned, No [facility] Plan of Care Planned Activity Planned Date Details Comments Source Future Scheduled 2022-07-25 65+ P[facility]UMOCOCCAL [facility] Test 03:59:52 VACCINE (1 - PCV) [code = 65+ PNEUMOCOCCAL VACCINE (1 - PCV)] Future Scheduled 2022-07-25 INFLUENZA VACCINE [facility] Test 03:59:52 [code = INFLUENZA VACCINE] Future Scheduled 2022-07-25 COVID-19 VACCINE (#1) [facility] Test 03:59:52 [code = COVID-19 VACCINE (#1)] Future Scheduled 2022-07-25 COLONOSCOPY SCREENING [facility] Test 03:59:52 [code = COLONOSCOPY SCREENING] Future Scheduled 2022-07-25 SHINGLES VACCINES (1 Met [facility] Test 03:59:52 of 2) [code = SHINGLES VACCINES (1 of 2)] Future Scheduled 2022-07-25 65+ PNEUMOCOCCAL Methodi [facility] Test 03:59:52 VACCINE (1 - PCV) [code = 65+ PNEUMOCOCCAL VACCINE (1 - PCV)] Future Scheduled 2022-07-25 INFLUENZA VACCINE Method ist Hospital Test 03:59:52 [code = INFLUENZA VACCINE] Future Scheduled 2022-07-25 COVID-19 VACCINE (#1) [facility] Test 03:59:52 [code = COVID-19 VACCINE (#1)] Future Scheduled 2022-07-25 COLONOSCOPY SCREENING [facility] Test 03:59:52 [code = COLONOSCOPY SCREENING] Future Scheduled 2022-07-25 SHINGLES VACCINES (1 Met [facility] Test 03:59:52 of 2) [code = SHINGLES VACCINES (1 of 2)] Encounters Start End Encounter Admission Attending Care Care Encounter Source Date/Time Date/Time Type Type Clinicians Facility Department ID 2022-08-12 Outpatient Oh, STLMLC STLMLC [id number] Common 12:24:00 Efrain [id number] [facility] 2022-08-07 Outpatient Oh, STLMLC STLMLC [id number] Common 13:48:00 Efrain [id number] [facility] 2022-08-01 Outpatient Oh, STLMLC STLMLC [id number] Common 09:51:00 Efrain [facility] 2022-04-23 Outpatient Oh, STLMLC STLMLC [id number] Common 09:01:00 Efrain [facility] 2022-04-17 Outpatient Oh, STLMLC STLMLC [id number] Common 08:20:00 Efrain [facility] 2022-03-19 Outpatient Oh, STLMLC STLMLC [id number] Common 10:11:00 Efrain [facility] 2022-02-12 Outpatient Oh, STLMLC STLMLC [id number] Common 12:16:00 Efrain [facility] 2022-01-22 Outpatient Oh, STLMLC STLMLC [id number] Common 08:40:00 Efrain [facility] 2022-01-18 Outpatient Oh, STLMLC STLMLC [id number] Common 11:32:00 Efrain [facility] 2021-10-18 Outpatient Oh, STLMLC STLMLC [id number] Common 10:04:00 Efrain [facility] 2021-07-25 Outpatient Oh, STLMLC STLMLC [id number] Common 14:35:44 Efrain [facility] 2021-07-25 Outpatient Oh, STLMLC STLMLC [id number] Common 14:14:04 Efrain [facility] 2021-07-25 Outpatient Oh, STLMLC STLMLC [id number] Common 13:59:51 Efrain [id number] [facility] 2021-07-25 Outpatient Oh, STLMLC STLMLC [id number] Common 13:57:01 Efrain [id number] [facility] 2021-07-25 Outpatient Oh, STLMLC STLMLC [id number] Common 13:48:28 Efrain 60873 [facility] 2021-07-25 Outpatient Oh, STLMLC STLMLC [id number] Common 13:23:33 Efrain 16783 [facility] 2021-07-25 Outpatient Oh, STLMLC STLMLC [id number] Common 13:01:39 Efrain 70519 [facility] 2021-07-25 Outpatient Oh, STLMLC STLMLC [id number] Common 13:01:31 Efrain [id number] [facility] 2021-07-25 Outpatient Oh, STLMLC STLMLC [id number] Common 12:54:25 Efrain [id number] [facility] 2021-07-25 Outpatient Oh, STLMLC STLMLC [id number] Common 11:45:57 Efrain 37850 [facility] 2021-07-25 Outpatient Oh, STLMLC STLMLC [id number] Common 11:25:34 Efrain [id number] [facility] 2022-08-05 2022-08-05 OFFICE STLMLC STLMLC [id number] Co mmon 00:00:00 00:00:00 [facility] ESTAB PT - CHI LEVEL 4 [facility] 2022-07-24 2022-07-24 (TEL) STLMLC STLMLC [id number] Co mmon 00:00:00 00:00:00 [facility] 2022-06-11 2022-06-11 OFFICE STLMLC STLMLC [id number] Co mmon 00:00:00 00:00:00 VISIT [facility] PT - CHI LEVEL 4 [facility] 2022-06-11 2022-06-11 (TEL) STLMLC STLMLC [id number] Co mmon 00:00:00 00:00:00 [facility] 2022-06-03 2022-06-03 (TEL) STLMLC STLMLC [id number] Co mmon 00:00:00 00:00:00 [facility] 2022-05-29 2022-05-29 (TEL) STLMLC STLMLC [id number] Co mmon 00:00:00 00:00:00 [facility] 2022-05-21 2022-05-21 (TEL) STLMLC STLMLC [id number] Co mmon 00:00:00 00:00:00 [facility] 2022-05-06 2022-05-06 (TEL) STLMLC STLMLC [id number] Co mmon 00:00:00 00:00:00 [facility] 2022-04-30 2022-04-30 (TEL) STLMLC STLMLC [id number] Co mmon 00:00:00 00:00:00 [facility] 2022-04-23 2022-04-23 (TEL) STLMLC STLMLC [id number] Co mmon 00:00:00 00:00:00 [facility] 2022-04-23 2022-04-23 NON-BILLAB STLMLC STLMLC [id number] Common 00:00:00 00:00:00 LE VISIT Spiri t [facility] 2022-04-19 2022-04-19 OFFICE STLMLC STLMLC [id number] Co mmon 00:00:00 00:00:00 VISIT [facility] PT - CHI LEVEL 4 [facility] 2022-03-12 2022-03-12 NON-BILLAB STLMLC STLMLC [id number] Common 00:00:00 00:00:00 LE VISIT [facility] 2022-02-22 2022-02-22 (TEL) STLMLC STLMLC [id number] Co mmon 00:00:00 00:00:00 [facility] 2022-02-07 2022-02-07 NON-BILLAB STLMLC STLMLC [id number] Common 00:00:00 00:00:00 LE VISIT [facility] 2022-01-22 2022-01-22 (TEL) STLMLC STLMLC [id number] Co mmon 00:00:00 00:00:00 [facility] 2022-01-21 2022-01-21 OFFICE STLMLC STLMLC [id number] Co mmon 00:00:00 00:00:00 VISIT [facility] PT - CHI LEVEL [address] [place] [address] 2022-01-17 2022-01-17 OFFICE STLMLC STLMLC [id number] Co mmon 00:00:00 00:00:00 VISIT [facility] PT - CHI LEVEL [address] [place] [address] 2021-11-29 2021-11-29 (TEL) STLMLC STLMLC [id number] Co mmon 00:00:00 00:00:00 [facility] 2021-11-20 2021-11-20 (TEL) STLMLC STLMLC [id number] Co mmon 00:00:00 00:00:00 [facility] 2021-11-07 2021-11-07 (TEL) STLMLC STLMLC [id number] Co mmon 00:00:00 00:00:00 [facility] 2021-11-07 2021-11-07 (TEL) STLMLC STLMLC [id number] Co mmon 00:00:00 00:00:00 [facility] 2021-11-07 2021-11-07 (TEL) STLMLC STLMLC [id number] Co mmon 00:00:00 00:00:00 [facility] 2021-10-31 2021-10-31 (TEL) STLMLC STLMLC [id number] Co mmon 00:00:00 00:00:00 [facility] 2021-10-30 2021-10-30 OFFICE STLMLC STLMLC [id number] Co mmon 00:00:00 00:00:00 [facility] ESTAB PT - CHI LEVEL 4 [facility] 2021-10-17 2021-10-17 OFFICE STLMLC STLMLC [id number] Co mmon 00:00:00 00:00:00 [facility] ESTAB PT - CHI LEVEL 4 [facility] 2021-10-17 2021-10-17 (TEL) STLMLC STLMLC [id number] Co mmon 00:00:00 00:00:00 [facility] 2021-08-21 2021-08-21 (TEL) STLMLC STLMLC [id number] Co mmon 00:00:00 00:00:00 [facility] 2021-08-07 2021-08-07 OFFICE STLMLC STLMLC [id number] Co mmon 00:00:00 00:00:00 VISIT EST Spir it PT LEVEL 3 - [facility] 2021-07-21 2021-07-21 Letter AMBER العلي [id number] Univers 00:00:00 00:00:00 (Out) Gracy HAYES [id number] it y of [facility] [id number] Oh as [phone] [address] 2021-07-20 2021-07-20 Laboratory Only, Ang Db Test [facility] 1.2.8 40.114 [id number] Univers 10:00:00 10:15:00 Only Megan Davenport [facility] [id number] ity of [place] [id number] Oh as PANTERA?BLEA [phone] [address] MEDICAL OFFICE BUILDING 2021-07-20 2021-07-20 Outpatient R [facility] [id number] [facility] 10:00:00 10:00:[address] [facility] 2021-07-16 2021-07-16 OFFICE STLMLC STLMLC [id number] Co mmon 00:00:00 00:00:00 VISIT [facility] PT - CHI LEVEL [address] [place] [address] 2021-06-19 2021-06-19 (IN/ASP) STLMLC STLMLC [id number] C ommon 00:00:00 00:00:00 INJ ASP [facility] 2021-06-12 2021-06-12 (IN/ASP) STLMLC STLMLC [id number] C ommon 00:00:00 00:00:00 INJ ASP [facility] 2021-06-05 2021-06-05 OFFICE STLMLC STLMLC [id number] Co mmon 00:00:00 00:00:00 VISIT [facility] PT - CHI [address] 2021-05-15 2021-05-15 (TEL) STLMLC STLMLC [id number] Co mmon 00:00:00 00:00:00 [facility] 2021-05-15 2021-05-15 (TEL) STLMLC STLMLC [id number] Co mmon 00:00:00 00:00:00 [facility] 2021-04-17 2021-04-17 (TEL) STLMLC STLMLC [id number] Co mmon 00:00:00 00:00:00 [facility] 2021-04-16 2021-04-16 NON-BILLAB STLMLC STLMLC [id number] Common 00:00:00 00:00:00 LE VISIT Spiri t [facility] 2021-04-11 2021-04-11 OFFICE STLMLC STLMLC [id number] Co mmon 00:00:00 00:00:00 VISIT [facility] PT - CHI [address] 2021-04-04 2021-04-04 (TEL) STLMLC STLMLC [id number] Co mmon 00:00:00 00:00:00 [facility] 2021-03-26 2021-03-26 (TEL) STLMLC STLMLC [id number] Co mmon 00:00:00 00:00:00 [facility] 2021-03-15 2021-03-15 Outpatient STLMLC STLMLC [id number] Common 00:00:00 00:00:00 [facility] 2021-03-15 2021-03-15 OFFICE STLMLC STLMLC [id number] Co mmon 00:00:00 00:00:00 VISIT [facility] 4 [facility] 2021-03-06 2021-03-06 Outpatient STLMLC STLMLC [id number] Common 00:00:00 00:00:00 [facility] 2021-02-20 2021-02-20 Outpatient STLMLC STLMLC [id number] Common 00:00:00 00:00:00 [facility] 2021-02-16 2021-02-16 Outpatient STLMLC STLMLC [id number] Common 00:00:00 00:00:00 [facility] 2021-02-14 2021-02-14 Outpatient STLMLC STLMLC [id number] Common 00:00:00 00:00:00 [facility] 2021-02-12 2021-02-12 Outpatient STLMLC STLMLC [id number] Common 00:00:00 00:00:00 [facility] 2021-01-31 2021-01-31 Outpatient STLMLC STLMLC [id number] Common 00:00:00 00:00:00 [facility] 2021-01-29 2021-01-29 Outpatient STLMLC STLMLC [id number] Common 00:00:00 00:00:00 [facility] 2021-01-25 2021-01-25 Outpatient STLMLC STLMLC [id number] Common 00:00:00 00:00:00 [facility] 2021-01-10 2021-01-10 Outpatient STLMLC STLMLC [id number] Common 00:00:00 00:00:00 [facility] 2021-01-052021-01-05 Outpatient STLMLC STLMLC [id number] Common 00:00:00 00:00:00 [facility] 2020-12-28 2020-12-28 [facility] [id number] Univers 18:35:18 23:59:00 Encounter Mabel Meier [id number] ity of [place] [id number] [facility] [id number] [facility] [address] [place] 2020-12-28 2020-12-28 Urgent [facility] 1.2.840.114 [id number] Univers 17:56:38 19:55:27 Care Mabel Pollock [id number] ity of [place] [id number] Oh as Professio [id number] Ne dical nal [address] [place] [address] [facility] 2020-12-28 2020-12-28 [facility] [id number] Univers 18:00:00 18:00:00 MABEL vásquez o [facility] 2020-12-25 2020-12-25 Outpatient STLMLC STLMLC [id number] Common 00:00:00 00:00:00 [facility] 2020-12-23 2020-12-23 Urgent Provider, [facility] [id number] [id number] Univers 18:46:40 19:25:50 Care Epifanio Land [id number] ity of [place] [id number] Oh as Professio [id number] Ne dical nal [address] [place] [facility] 2020-12-23 2020-12-23 Urgent Provider, [facility] [id number] 18:46:40 19:25:50 Care [facility] [id number] Care [place] [id number] Professio [phone] nal [address] 2020-12-23 2020-12-23 [facility] [id number] Univers 18:40:00 18:40:00 EPIFANIO ity of [facility] 2020-12-23 2020-12-23 Orders Doctor AMBER 1.2.840.114 [id number] Univers 00:00:00 00:00:00 Only Unassigned, FREDDY [id number] ity [place] [facility] [id number] Oh as [id number] [address] 2020-12-23 2020-12-23 Orders Doctor AMBER [id number] [id number] 00:00:00 00:00:00 Only Unassigned, FREDDY [id number] [place] [facility] [id number] [id number] [facility] 2020-12-22 2020-12-22 Outpatient STLMLC STLMLC [id number] Common 00:00:00 00:00:00 [facility] 2020-12-22 2020-12-22 Outpatient STLMLC STLMLC [id number] Common 00:00:00 00:00:00 [facility] 2020-12-21 2020-12-21 Outpatient STLMLC STLMLC [id number] Common 00:00:00 00:00:00 [facility] 2020-12-07 2020-12-07 Outpatient STLMLC STLMLC [id number] Common 00:00:00 00:00:00 [facility] 2020-11-07 2020-11-07 Outpatient STLMLC STLMLC [id number] Common 00:00:00 00:00:00 [facility] 2020-11-07 2020-11-07 Outpatient STLMLC STLMLC [id number] Common 00:00:00 00:00:00 [facility] 2020-10-18 2020-10-18 Outpatient STLMLC STLMLC [id number] Common 00:00:00 00:00:00 [facility] 2020-10-18 2020-10-18 Outpatient STLMLC STLMLC [id number] Common 00:00:00 00:00:00 [facility] 2020-10-13 2020-10-13 Outpatient STLMLC STLMLC [id number] Common 00:00:00 00:00:00 [facility] 2020-10-05 2020-10-05 Outpatient STLMLC STLMLC [id number] Common 00:00:00 00:00:00 [facility] 2020-10-05 2020-10-05 Outpatient STLMLC STLMLC [id number] Common 00:00:00 00:00:00 [facility] 2020-10-05 2020-10-05 Outpatient STLMLC STLMLC [id number] Common 00:00:00 00:00:00 [facility] 2020-09-28 2020-09-28 Outpatient STLMLC STLMLC [id number] Common 00:00:00 00:00:00 [facility] 2020-08-30 2020-08-30 Outpatient STLMLC STLMLC [id number] Common 00:00:00 00:00:00 [facility] 2020-07-25 2020-07-25 Outpatient STLMLC STLMLC [id number] Common 00:00:00 00:00:00 [facility] 2020-07-07 2020-07-07 Outpatient STLMLC STLMLC [id number] Common 00:00:00 00:00:00 [facility] 2020-07-06 2020-07-06 Outpatient STLMLC STLMLC [id number] Common 00:00:00 00:00:00 [facility] 2020-07-06 2020-07-06 Outpatient STLMLC STLMLC [id number] Common 00:00:00 00:00:00 [facility] 2020-06-16 2020-06-16 Outpatient STLMLC STLMLC [id number] Common 00:00:00 00:00:00 [facility] 2020-05-08 2020-05-08 Outpatient STLMLC STLMLC [id number] Common 00:00:00 00:00:00 [facility] 2020-05-05 2020-05-05 Outpatient STLMLC STLMLC [id number] Common 00:00:00 00:00:00 [facility] 2020-04-18 2020-04-18 Outpatient STLMLC STLMLC [id number] Common 00:00:00 00:00:00 [facility] 2020-03-14 2020-03-14 Out[facility] [id number] Common 09:47:00 09:47:[address] [facility] 2020-03-14 2020-03-14 Out[facility] [id number] Common 08:40:00 08:40:[address] [facility] 2019-12-30 2019-12-30 Out[facility] [id number] Common 16:19:00 16:19:[address] [facility] 2019-12-14 2019-12-14 Out[facility] [id number] Common 16:59:00 16:59:[address] [facility] 2019-12-09 2019-12-09 Out[facility] [id number] Common 08:30:00 08:30:[address] [facility] 2019-11-30 2019-11-30 Outpatient [facility] [id number] Common 14:15:00 14:15:[address] [facility] 2019-10-01 2019-10-01 Out[facility] [id number] Common 15:37:00 15:37:[address] [facility] 2019-09-17 2019-09-17 Out[facility] [id number] Common 14:18:00 14:18:[address] [facility] 2019-09-16 2019-09-16 Out[facility] [id number] Common 11:31:00 11:31:[address] [facility] 2019-09-16 2019-09-16 Out[facility] [id number] Common 10:40:00 10:40:[address] [facility] 2019-09-08 2019-09-08 Out[facility] [id number] Common 08:00:00 08:00:[address] [facility] 2019-08-18 2019-08-18 Outpatient Perla-Gurpreet [facility] [id number] [facility] 07:17:00 07:17:00 _A_AH [id number] Family Practic e 2019-07-07 2019-07-07 Out[facility] [id number] Common 11:04:00 11:04:[address] [facility] 2019-06-28 2019-06-28 Out[facility] [id number] Common 10:47:00 10:47:[address] [facility] 2019-06-17 2019-06-17 Outpatient [facility] [id number] Common 10:39:00 10:39:[address] [facility] 2019-06-09 2019-06-09 Outpatient [facility] [id number] Common 08:45:00 08:45:[address] [facility] 2019-06-02 2019-06-02 Outpatient [facility] [id number] Common 09:21:00 09:21:[address] [facility] 2019-04-08 2019-04-08 Outpatient [facility] [id number] Common 10:52:00 10:52:[address] [facility] 2019-04-05 2019-04-05 Outpatient [facility] [id number] Common 16:24:00 16:24:00 t [address] [facility] 2019-03-30 2019-03-30 [id number] Common 15:56:00 15:56:[address] [facility] 2019-03-19 2019-03-19 [facility] 27 [id number] Common 11:15:00 11:15:[address] [facility] 2019-03-10 2019-03-10 [facility] [id number] Common 10:03:00 10:03:[address] [facility] 2019-03-10 2019-03-10 [facility] [id number] Common 08:45:00 08:45:[address] [facility] 2019-01-11 2019-01-11 [facility] [id number] Common 16:12:00 16:12:[address] [facility] 2018-12-24 2018-12-24 [facility] 26 [id number] Common 13:08:00 13:08:[address] [facility] 2018-12-15 2018-12-15 [facility] 26 [id number] Common 11:30:00 11:30:[address] [facility] 2018-12-11 2018-12-11 [facility] 26 [id number] Common 10:00:00 10:00:[address] [facility] 2018-12-10 2018-12-10 [facility] [id number] Common 11:32:00 11:32:[address] [facility] 2018-12-10 2018-12-10 [facility] [id number] Common 08:15:00 08:15:[address] [facility] 2018-10-29 2018-10-29 [facility] 25 [id number] Common 14:57:00 14:57:[address] [facility] 2018-10-19 2018-10-19 [facility] [id number] Common 08:45:00 08:45:[address] [facility] 2018-10-15 2018-10-15 [facility] 25 [id number] Common 10:55:00 10:55:[address] [facility] 2018-10-12 2018-10-12 [facility] [id number] Common 16:02:00 16:02:[address] [facility] 2018-09-10 2018-09-10 [facility] [id number] Common 08:30:00 08:30:[address] [facility] 2018-07-15 2018-07-15 [facility] [id number] Common 08:15:00 08:15:[address] [facility] 2018-06-09 2018-06-09 [facility] [id number] Common 08:15:00 08:15:[address] [facility] 2018-04-10 2018-04-10 [facility] 14 [id number] Common 08:45:00 08:45:[address] [facility] 2018-03-13 2018-03-13 [facility] [id number] Common 14:12:00 14:12:[address] [facility] 2018-02-13 2018-02-13 [facility] 15 [id number] Common 10:02:00 10:02:[address] [facility] 2018-01-12 2018-01-12 [facility] [id number] Common 15:40:00 15:40:[address] [facility] 2018-01-08 2018-01-08 [facility] [id number] Common 08:15:00 08:15:[address] [facility] 2017-12-18 2017-12-18 [facility] [id number] Common 08:30:00 08:30:[address] [facility] 2017-10-29 2017-10-29 [facility] 13 [id number] Common 08:15:00 08:15:[address] [facility] 2017-10-10 2017-10-10 [facility] 13 [id number] Common 15:42:00 15:42:[address] [facility] 2017-09-30 2017-09-30 [facility] 13 [id number] Common 14:06:00 14:06:[address] [facility] 2017-09-30 2017-09-30 [facility] [id number] Common 09:30:00 09:30:[address] [facility] 2012-12-24 2012-12-24 OD MHIE MHIE [id number] Memoria 15:20:00 23:59:00 02 joanna Gomez 2012-12-24 2012-12-24 OD MHIE MHIE [id number] Memoria 15:20:00 23:59:00 02 joanna Gomez 2012-05-28 2012-05-28 OD MHIE MHIE [id number] Memoria 13:52:00 23:59:00 00 joanna Gomez 2012-05-28 2012-05-28 OD MHIE MHIE [id number] Memoria 13:52:00 23:59:00 00 joanna [place] 2012-05-09 2012-05-13 Inpatient nullFlavo [facility] [place] [id number] Memoria 17:57:00 13:30:00 r Medical 67 l [facility] 2012-05-09 2012-05-13 Inpatient nullFlavo [facility] [place] [id number] Memoria 17:57:00 13:30:00 r Medical 67 l [facility] 2012-05-09 2012-05-09 AA nullFlavo [facility] [id number] Memoria 09:30:00 23:59:00 r Medical 70 l [facility] 2012-05-09 2012-05-09 AA nullFlavo [facility] [id number] Memoria 09:30:00 23:59:00 r Medical 70 l [facility] Results Test Test Test Results Result Source Description Time Comments Comments XR HAND 3+ VW 2020-12-28. No evidence for acute [facility] 02 fracture or radiopaque [facility] 00:26:48 foreign body. [id number] End Branch of Report ORDERING PHYSICIAN: MABEL RAYO HISTORY: ?Laceration TECHNIQUE: Right hand x-ray, ?3 views COMPARISON EXAMINATIONS: none available FINDINGS: The bones demonstrate no evidence for acute fracture ordislocation. ?No evidence for severe soft tissue swelling. No radiopaqueforeign bodies are noted. 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 [facility], Radiant Results Inft User - 12/28/2020 7:27 PM CDT ORDERING PHYSICIAN: MABEL Umana STATONHISTORY: LacerationTECHNIQUE: Right hand x-ray, 3 viewsCOMPARISON EXAMINATIONS: none availableFINDINGS: The bones demonstrate no evidence for acute fracture ordislocation. No evidence for severe soft tissue swelling. No radiopaqueforeign bodies are noted. 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 IMPRESSION1. No evidence for acute fracture or radiopaque foreign body. [id number] of Report IDE GLUCOSE TESTING 2012-05-13 17:31:00 Test Item Value Reference Range Interpretation Comme nts Gluc POC Lifscn (test code = Gluc POC Lifscn) 136 70-99 H [facility] GLUCOSE [id number] 17:31:00 Test Item Value Reference Range Interpretation Comments Gluc POC Lifscn (test code = Gluc POC 136 70-99 H Lifscn) [facility] GLUCOSE [id number] 12:28:00 Test Item Value Reference Range Interpretation Comments Gluc POC Lifscn (test code = Gluc POC 79 70-99 N Lifscn) [facility] GLUCOSE [id number] 12:28:00 Test Item Value Reference Range Interpretation Comments Comment1 (test code = Comment1) Notify RN/ [facility] GLUCOSE [id number] 12:28:00 Test Item Value Reference Range Interpretation Comments Gluc POC Lifscn (test code = Gluc POC 79 70-99 N Lifscn) [facility] GLUCOSE [id number] 12:28:00 Test Item Value Reference Range Interpretation Comments Comment1 (test code = Comment1) Notify RN/ [facility] GLUCOSE [id number] 03:17:00 Test Item Value Reference Range Interpretation Comments Gluc POC Lifscn (test code = Gluc POC 135 70-99 H Lifscn) [facility] GLUCOSE [id number] 03:17:00 Test Item Value Reference Range Interpretation Comments Comment1 (test code = Comment1) Notify RN/ [facility] GLUCOSE [id number] 03:17:00 Test Item Value Reference Range Interpretation Comments Gluc POC Lifscn (test code = Gluc POC 135 70-99 H Lifscn) [facility] GLUCOSE [id number] 03:17:00 Test Item Value Reference Range Interpretation Comments Comment1 (test code = Comment1) Notify RN/ [facility] GLUCOSE [id number] 23:34:00 Test Item Value Reference Range Interpretation Comments Comment1 (test code = Comment1) Notify RN/ [facility] GLUCOSE [id number] 23:34:00 Test Item Value Reference Range Interpretation Comments Comment1 (test code = Comment1) [facility]/ [facility]IqcwwcuKRUYYPUNX4746-57-50 07:59:00 Test Item Value Reference Range Interpretation Comments AGAP (test code = AGAP) 11.3 10.0-20.0 [facility]EX[facility]30[facility]64-36 07:59:00 Test Item Value Reference Range Interpretation Comments eGFR (test code = eGFR) 79 [facility]stBxkcjdiOKPQJDJVB6490-89-50 07:59:00 Test Item Value Reference Range Interpretation Comments Creatinine Lvl (test code = Creatinine 1.0 0.5-1.4 N Lvl) [facility]stGqhtwerLZZTJNKAK1735-69-23 07:59:00 Test Item Value Reference Range Interpretation Comments BUN (test code = BUN) 12 7-22 N [facility]stDcwnkhrPYOIAIOLV1073-56-52 07:59:00 Test Item Value Reference Range Interpretation Comments Potassium Lvl (test code = Potassium 4.3 3.5-5.1 N Lvl) [facility]stSttgmxrZFSACCBGO4986-55-87 07:59:00 Test Item Value Reference Range Interpretation Comments Sodium Lvl (test code = Sodium Lvl) 137 135-145 N [facility]stGzlshdvYOKEJHVHX0931-61-55 07:59:00 Test Item Value Reference Range Interpretation Comments Calcium Lvl (test code = Calcium Lvl) 8.4 8.5-10.5 L [facility]stScchglkSLXMMOOXH2294-45-06 07:59:00 Test Item Value Reference Range Interpretation Comments CO2 (test code = CO2) 28 24-32 N [facility]stOubmiidCJBZTBGMA8042-62-61 07:59:00 Test Item Value Reference Range Interpretation Comments Chloride Lvl (test code = Chloride Lvl) 102 95-109 N [facility]stBifbfblOFYDLZYZG5320-57-32 07:59:00 Test Item Value Reference Range Interpretation Comments Glucose Lvl (test code = Glucose Lvl) 126 70-99 H [facility] HospitalYcnxoruKISNOAQFRR0884-12-31 07:59:00 Test Item Value Reference Range Interpretation Comments Platelet (test code = Platelet) 184 133-450 N [facility] HospitalYuggugxMJCRJKNJEK8869-28-16 07:59:00 Test Item Value Reference Range Interpretation Comments MPV (test code = MPV) 8.4 7.4-10.4 N [facility] HospitalXdzkfuvFPDKKMZJZL8145-95-65 07:59:00 Test Item Value Reference Range Interpretation Comments MCHC (test code = MCHC) 34.4 32.0-36.0 N [facility] HospitalIiuzczdDNIUGWVWXK5566-44-17 07:59:00 Test Item Value Reference Range Interpretation Comments RDW (test code = RDW) 15.0 11.5-14.5 H [facility] HospitalUwxsumbWMNZYZBKPN6408-87-81 07:59:00 Test Item Value Reference Range Interpretation Comments WBC (test code = WBC) 9.0 3.7-10.4 N [facility] HospitalGizklcpDFEKIHXSDA1875-69-36 07:59:00 Test Item Value Reference Range Interpretation Comments Hct (test code = Hct) 36.4 42.0-54.0 L [facility] HospitalXdlvmloIIFDMJMRFV2591-62-24 07:59:00 Test Item Value Reference Range Interpretation Comments MCV (test code = MCV) 96.4 80.0-94.0 H [facility] HospitalPsduwqoKPBXVYCSFD8038-20-95 07:59:00 Test Item Value Reference Range Interpretation Comments RBC (test code = RBC) 3.78 4.70-6.10 L [facility] HospitalPqnjcefKSINMCOGRM5932-78-52 07:59:00 Test Item Value Reference Range Interpretation Comments Hgb (test code = Hgb) 12.5 14.0-18.0 L [facility] HospitalNaggswiDBZUUZCDBY7033-98-97 07:59:00 Test Item Value Reference Range Interpretation Comments MCH (test code = MCH) 33.1 pg 27.0-31.0 H [facility] HospitalHhejsfvNUDBMGTTEW4967-04-87 07:59:00 Test Item Value Reference Range Interpretation Comments INR (test code = INR) 1.03 0.85-1.17 N [facility] HospitalMfyoaukNVFSLZCOZJ1917-09-38 07:59:00 Test Item Value Reference Range Interpretation Comments PTT (test code = PTT) 29.3 s 22.9-35.8 N [facility] HospitalAcafuoaTTCOLMPVNG4663-43-14 07:59:00 Test Item Value Reference Range Interpretation Comments PT (test code = PT) 13.7 s 12.0-14.7 N [facility] HospitalGbshxzyRVGKMPWQRP9656-18-20 07:59:00 Test Item Value Reference Range Interpretation Comments Monocytes # (test code 0.8 See_Comment N [Aut omated message] The = Monocytes #) system which generated this result tra nsmitted reference range : <=0.8. The reference r nando was not used to int erpret this result as normal/abnormal . [facility] HospitalRwdswbqJDMYXKHWAB0900-40-95 07:59:00 Test Item Value Reference Range Interpretation Comments Eosinophils # (test code 0.2 See_Comment N [A utomated message] The = Eosinophils #) system whic h generated this result tra nsmitted reference range : <=0.5. The reference r nando was not used to int erpret this result as normal/abnormal . [facility] HospitalVltshhzQHGVNDMFOH3740-10-82 07:59:00 Test Item Value Reference Range Interpretation Comments Lymphocytes # (test code = Lymphocytes 1.6 1.0-5.5 N #) [facility] HospitalGpoociqKSOQFAZPZH3648-76-85 07:59:00 Test Item Value Reference Range Interpretation Comments Segs (test code = Segs) 71.2 45.0-75.0 N [facility] HospitalYeaizfwNOETMWFSFQ7114-11-61 07:59:00 Test Item Value Reference Range Interpretation Comments Basophils (test code = 0.3 See_Comment N [Aut omated message] The Basophils) system which ge nerated this result tra nsmitted reference range : <=1.0. The reference r nando was not used to int erpret this result as normal/abnormal . [facility] HospitalNvttzsjJEQQWPDGJM7614-83-20 07:59:00 Test Item Value Reference Range Interpretation Comments Segs-Bands # (test code = Segs-Bands #) 6.4 1.5-8.1 N [facility] HospitalVvyegilQCBIQCWZPU1666-83-87 07:59:00 Test Item Value Reference Range Interpretation Comments Monocytes (test code = Monocytes) 8.5 2.0-12.0 N [facility] HospitalOaeyfuxMAAQEJIYFL8580-12-82 07:59:00 Test Item Value Reference Range Interpretation Comments Eosinophils (test code = 2.3 See_Comment N [A utomated message] The Eosinophils) system which ge nerated this result tra nsmitted reference range : <=4.0. The reference r nando was not used to int erpret this result as normal/abnormal . [facility] HospitalWotmwbsKBCJPBLKXD0193-40-90 07:59:00 Test Item Value Reference Range Interpretation Comments Lymphocytes (test code = Lymphocytes) 17.7 20.0-40.0 L [facility]stXjblibjAUFIGHBOT7120-39-71 07:59:00 Test Item Value Reference Range Interpretation Comments AGAP (test code = AGAP) 11.3 10.0-20.0 N [facility]stWwrywprRQYEIEASW1281-13-73 07:59:00 Test Item Value Reference Range Interpretation Comments eGFR (test code = eGFR) 79 [facility]stPahjsatSLTRFLFUI5052-32-66 07:59:00 Test Item Value Reference Range Interpretation Comments Creatinine Lvl (test code = Creatinine 1.0 0.5-1.4 N Lvl) [facility]stHkmdscvAKLYLGWGA3602-68-37 07:59:00 Test Item Value Reference Range Interpretation Comments BUN (test code = BUN) 12 7-22 N [facility]stOukpxlnRSJHIVRPH3504-65-98 07:59:00 Test Item Value Reference Range Interpretation Comments Potassium Lvl (test code = Potassium 4.3 3.5-5.1 N Lvl) [facility]stSssklovPXNKOULOI3761-98-22 07:59:00 Test Item Value Reference Range Interpretation Comments Sodium Lvl (test code = Sodium Lvl) 137 135-145 N [facility]stRfyjrqmKYDCDIRKS1604-26-06 07:59:00 Test Item Value Reference Range Interpretation Comments Calcium Lvl (test code = Calcium Lvl) 8.4 8.5-10.5 L [facility]stSaeuanzKCCUPVTNZ2386-49-20 07:59:00 Test Item Value Reference Range Interpretation Comments CO2 (test code = CO2) 28 24-32 N [facility]stMtpaqtfOEZVLDMTD1080-13-36 07:59:00 Test Item Value Reference Range Interpretation Comments Chloride Lvl (test code = Chloride Lvl) 102 95-109 N [facility]stJesocauNROPPFWHG1593-01-00 07:59:00 Test Item Value Reference Range Interpretation Comments Glucose Lvl (test code = Glucose Lvl) 126 70-99 H [facility] HospitalSkkeaffKWDCOMTCVM7295-14-67 07:59:00 Test Item Value Reference Range Interpretation Comments Platelet (test code = Platelet) 184 133-450 N [facility] HospitalBvcyarnHIXYJGZGVT6516-59-92 07:59:00 Test Item Value Reference Range Interpretation Comments MPV (test code = MPV) 8.4 7.4-10.4 N [facility] HospitalTqrgnibYPOTMUPCZH5619-65-26 07:59:00 Test Item Value Reference Range Interpretation Comments MCHC (test code = MCHC) 34.4 32.0-36.0 N [facility] HospitalBjzitenCJXUKUTLLL4655-72-89 07:59:00 Test Item Value Reference Range Interpretation Comments RDW (test code = RDW) 15.0 11.5-14.5 H [facility] HospitalUuvwtqwORZXUDOWSO2992-91-21 07:59:00 Test Item Value Reference Range Interpretation Comments WBC (test code = WBC) 9.0 3.7-10.4 N [facility] HospitalMfmtmenESNZLELEHC1797-36-33 07:59:00 Test Item Value Reference Range Interpretation Comments Hct (test code = Hct) 36.4 42.0-54.0 L [facility] HospitalCmthpoqHFXJZXDMWA5351-99-60 07:59:00 Test Item Value Reference Range Interpretation Comments MCV (test code = MCV) 96.4 80.0-94.0 H [facility] HospitalGvgglawPQAAGFDFRN4150-63-82 07:59:00 Test Item Value Reference Range Interpretation Comments RBC (test code = RBC) 3.78 4.70-6.10 L [facility] HospitalTmkhpatCTZQDNHYMJ2362-46-97 07:59:00 Test Item Value Reference Range Interpretation Comments Hgb (test code = Hgb) 12.5 14.0-18.0 L [facility] HospitalEdyygzsXFZNCOKEGT6961-76-30 07:59:00 Test Item Value Reference Range Interpretation Comments MCH (test code = MCH) 33.1 pg 27.0-31.0 H [facility] HospitalXxjkpgnVQXYIGQWRI2981-18-66 07:59:00 Test Item Value Reference Range Interpretation Comments INR (test code = INR) 1.03 0.85-1.17 N [facility] HospitalUguwfkvZXPMDXKSMN3897-24-71 07:59:00 Test Item Value Reference Range Interpretation Comments PTT (test code = PTT) 29.3 s 22.9-35.8 N [facility] HospitalUtcxsekLUXNWFGPDJ1017-42-61 07:59:00 Test Item Value Reference Range Interpretation Comments PT (test code = PT) 13.7 s 12.0-14.7 N [facility] HospitalUiczluqUFVINDPZPU5109-07-89 07:59:00 Test Item Value Reference Range Interpretation Comments Monocytes # (test code 0.8 See_Comment N [Aut omated message] The = Monocytes #) system which generated this result tra nsmitted reference range : <=0.8. The reference r nando was not used to int erpret this result as normal/abnormal . [facility] HospitalRbgfbpnJRWSTVNVYE7129-00-24 07:59:00 Test Item Value Reference Range Interpretation Comments Eosinophils # (test code 0.2 See_Comment N [A utomated message] The = Eosinophils #) system whic h generated this result tra nsmitted reference range : <=0.5. The reference r nando was not used to int erpret this result as normal/abnormal . [facility] HospitalGzjnmjhJWMOLRGZHO1426-48-92 07:59:00 Test Item Value Reference Range Interpretation Comments Lymphocytes # (test code = Lymphocytes 1.6 1.0-5.5 N #) [facility] HospitalMzwmvevJWWFJXTZFH7986-05-17 07:59:00 Test Item Value Reference Range Interpretation Comments Segs (test code = Segs) 71.2 45.0-75.0 N [facility] HospitalAaowmrbOXEITRMIZS7137-28-31 07:59:00 Test Item Value Reference Range Interpretation Comments Basophils (test code = 0.3 See_Comment N [Aut omated message] The Basophils) system which ge nerated this result tra nsmitted reference range : <=1.0. The reference r nando was not used to int erpret this result as normal/abnormal . [facility] HospitalOswhsbjSMDJTTIRUV5031-46-62 07:59:00 Test Item Value Reference Range Interpretation Comments Segs-Bands # (test code = Segs-Bands #) 6.4 1.5-8.1 N [facility] HospitalHhklfmzNDKVMXYACV0836-89-87 07:59:00 Test Item Value Reference Range Interpretation Comments Monocytes (test code = Monocytes) 8.5 2.0-12.0 N [facility] HospitalAbegpkmZNAAEFPXQO0379-16-93 07:59:00 Test Item Value Reference Range Interpretation Comments Eosinophils (test code = 2.3 See_Comment N [A utomated message] The Eosinophils) system which ge nerated this result tra nsmitted reference range : <=4.0. The reference r nando was not used to int erpret this result as normal/abnormal . [facility] HospitalIkmjxhuCXRQAJMODE9090-94-61 07:59:00 Test Item Value Reference Range Interpretation Comments Lymphocytes (test code = Lymphocytes) 17.7 20.0-40.0 L [facility] HospitalFxiagliAYHSVXRGOS5446-01-52 22:00:00 Test Item Value Reference Range Interpretation Comments UA Bacteria (test code Occasional /HPF N = UA Bacteria) (05/09/2012 16:00:00) [facility] HospitalCxgkwurPQIUBKKATS7314-86-55 22:00:00 Test Item Value Reference Range Interpretation Comments Micro? (test code = Performed (05/09/2012 N Micro?) 16:00:00) [facility] HospitalHkgujivEHDZQGHTVQ0393-62-34 22:00:00 Test Item Value Reference Range Interpretation Comments UA Leuk Est (test Negative (05/09/2012 N code = UA Leuk Est) 16:00:00) [facility] RockEdacutoMUBBWVCMVU9431-53-92 22:00:00 Test Item Value Reference Range Interpretation Comments UA RBC (test 3-5 /HPF See_Comment A [Automated mes ash] code = UA RBC) *ABN*(05/09/2012 The syste m which 16:00:00) generated this result transmitted ref erence range: <=2. The reference range was not used to int erpret this result as normal/abnormal . [facility] RockNucivdkPQIRCZMKWN1253-11-98 22:00:00 Test Item Value Reference Range Interpretation Comments UA Sq Epi (test code = Rare /LPF (05/09/2012 N UA Sq Epi) 16:00:00) [facility] RockWguhioqRYXQIXSMWO6065-57-45 22:00:00 Test Item Value Reference Range Interpretation Comments UA WBC (test code = UA 0-2 /HPF (05/09/2012 N WBC) 16:00:00) [facility] RockNyzcofdSEOYGXPMSC9777-52-42 22:00:00 Test Item Value Reference Range Interpretation Comments UA Spec Grav (test code = UA Spec 1.010 1 N Grav) [facility] RockUlcgtvwHOXMQROZBX1008-09-20 22:00:00 Test Item Value Reference Range Interpretation Comments UA Turbidity (test code Slight Cloudy N = UA Turbidity) (05/09/2012 16:00:00) [facility] RockYsslfdpQQEZDFZAHT3939-85-18 22:00:00 Test Item Value Reference Range Interpretation Comments UA Color (test code = Light Yellow N UA Color) (05/09/2012 16:00:00) [facility] RockMroiqreLQSJENHUSQ2229-11-22 22:00:00 Test Item Value Reference Range Interpretation Comments UA Ketones (test code Negative = UA Ketones) *NA*(05/09/2012 16:00:00) [facility] RockBwtgzvjXEKECSECIV0107-51-02 22:00:00 Test Item Value Reference Range Interpretation Comments UA Glucose (test code Negative (05/09/2012 N = UA Glucose) 16:00:00) [facility] RockSbsknxqJUFOSKHLMV7454-86-38 22:00:00 Test Item Value Reference Range Interpretation Comments UA Urobilinogen (test code = UA 0.2 0.1-1.0 N Urobilinogen) [facility]AvmaenbEWHDTLEAFY5202-41-39 22:00:00 Test Item Value Reference Range Interpretation Comments UA Nitrite (test code Negative (05/09/2012 N = UA Nitrite) 16:00:00) [facility] HospitalJtjkmhhPHGXVIVLBG6847-21-11 22:00:00 Test Item Value Reference Range Interpretation Comments UA Nitrite (test code Negative (05/09/2012 N = UA Nitrite) 16:00:00) [facility] RockUpjdomsDXLCQFUFLS6234-69-13 22:00:00 Test Item Value Reference Range Interpretation Comments UA pH (test code = UA pH) 5.5 1 5.0-8.0 N [facility] RockShbeksxWOFFMTRGMH4785-83-70 22:00:00 Test Item Value Reference Range Interpretation Comments UA Protein (test code Negative (05/09/2012 N = UA Protein) 16:00:00) [facility] RockIyfmaslQBBOMOWNUB6198-44-95 22:00:00 Test Item Value Reference Range Interpretation Comments UA Bili (test code = Negative *NA*(05/09/2012 UA Bili) 16:00:00) [facility] RockUitfyhiMOSVKFHKVT8161-85-80 22:00:00 Test Item Value Reference Range Interpretation Comments UA Blood (test code = Moderate A UA Blood) *ABN*(05/09/2012 16:00:00) [facility] RockVhgnxvfQBGVLSCZTD7945-72-72 22:00:00 Test Item Value Reference Range Interpretation Comments UA Bacteria (test code Occasional /HPF N = UA Bacteria) (05/09/2012 16:00:00) [facility] RockWtqbeflMYHQNZBMPS4318-22-44 22:00:00 Test Item Value Reference Range Interpretation Comments Micro? (test code = Performed (05/09/2012 N Micro?) 16:00:00) [facility] RockKjmpqjbVNDQYVCYUA1530-90-86 22:00:00 Test Item Value Reference Range Interpretation Comments UA Leuk Est (test Negative (05/09/2012 N code = UA Leuk Est) 16:00:00) [facility] RockDqqsvsuBHTQLJNZTO4578-24-16 22:00:00 Test Item Value Reference Range Interpretation Comments UA RBC (test 3-5 /HPF See_Comment A [Automated mes ash] code = UA RBC) *ABN*(05/09/2012 The syste m which 16:00:00) generated this result transmitted ref erence range: <=2. The reference range was not used to int erpret this result as normal/abnormal . [facility] HospitalZrujcucXHWUVKDOUH2416-38-66 22:00:00 Test Item Value Reference Range Interpretation Comments UA Sq Epi (test code = Rare /LPF (05/09/2012 N UA Sq Epi) 16:00:00) [facility] RockSedtyviIDWLUKVYJX5830-31-95 22:00:00 Test Item Value Reference Range Interpretation Comments UA WBC (test code = UA 0-2 /HPF (05/09/2012 N WBC) 16:00:00) [facility] HospitalOwmkbrcVNGOEYZWDW2234-25-87 22:00:00 Test Item Value Reference Range Interpretation Comments UA Spec Grav (test code = UA Spec 1.010 1 N Grav) [facility] HospitalQiasbgeUOPOWBICHG1058-81-89 22:00:00 Test Item Value Reference Range Interpretation Comments UA Turbidity (test code Slight Cloudy N = UA Turbidity) (05/09/2012 16:00:00) [facility] RockQzqupakCMOQPPZNLN3082-61-41 22:00:00 Test Item Value Reference Range Interpretation Comments UA Color (test code = Light Yellow N UA Color) (05/09/2012 16:00:00) [facility] HospitalNcdeqmpMPMDBUZCSM5742-00-18 22:00:00 Test Item Value Reference Range Interpretation Comments UA Ketones (test code Negative = UA Ketones) *NA*(05/09/2012 16:00:00) [facility] RockZycuwpoTMFWXVWITP8861-28-50 22:00:00 Test Item Value Reference Range Interpretation Comments UA Glucose (test code Negative (05/09/2012 N = UA Glucose) 16:00:00) [facility] HospitalMjsfcczNLBPYCPAXP1947-41-84 22:00:00 Test Item Value Reference Range Interpretation Comments UA Urobilinogen (test code = UA 0.2 0.1-1.0 N Urobilinogen) [facility] HospitalGtrtxplSPBJWHRFTP8477-81-14 22:00:00 Test Item Value Reference Range Interpretation Comments UA pH (test code = UA pH) 5.5 1 5.0-8.0 N [facility] HospitalJohjllwVNKCGILXNJ7045-03-43 22:00:00 Test Item Value Reference Range Interpretation Comments UA Protein (test code Negative (05/09/2012 N = UA Protein) 16:00:00) [facility] HospitalDrjnqqpNQVJCFFLUO7767-55-10 22:00:00 Test Item Value Reference Range Interpretation Comments UA Bili (test code = Negative *NA*(05/09/2012 UA Bili) 16:00:00) [facility] RockGtwrabeIWBGCRWEQY0305-41-91 22:00:00 Test Item Value Reference Range Interpretation Comments UA Blood (test code = Moderate A UA Blood) *ABN*(05/09/2012 16:00:00) [facility]stHpijrtrVRHDBDSYO0101-73-04 19:55:00 Test Item Value Reference Range Interpretation Comments Troponin-I (test code no gt See_Comment N [Auto mated message] The = Troponin-I) system which g enerated this result transmit soren reference range : <=0.40. The reference r nando was not used to interpr et this result as hilton l/abnormal. [facility]crestWczizynAESEFXSVF0687-48-35 19:55:00 Test Item Value Reference Range Interpretation Comments Troponin-I (test code no gt See_Comment N [Auto mated message] The = Troponin-I) system which g enerated this result transmit soren reference range : <=0.40. The reference r nando was not used to interpr et this result as hilton l/abnormal. [facility] HospitalFlwacfqQLOGRRUXSK0651-27-86 15:48:00 Test Item Value Reference Range Interpretation Comments RBC (test code = RBC) 3.97 4.70-6.10 L [facility] HospitalChrfgywWWEPFVAQQS8513-72-18 15:48:00 Test Item Value Reference Range Interpretation Comments K-time (test code = K-time) 1.0 min 0.6-2.3 N [facility] HospitalElqnhseBUEUIUUYER3953-33-55 15:48:00 Test Item Value Reference Range Interpretation Comments Split Point (test code = Split Point) 0.6 min [facility] HospitalRnnodbmHCHEFBPOSS8009-20-42 15:48:00 Test Item Value Reference Range Interpretation Comments R-time (test code = R-time) 0.8 min 0.4-0.7 H [facility] HospitalKjjrgomTWDUFAAJZN5137-19-03 15:48:00 Test Item Value Reference Range Interpretation Comments Angle (test code = Angle) 76 degrees 64-80 N [facility] HospitalPdnnkwdLRTSCFCZEB8116-87-17 15:48:00 Test Item Value Reference Range Interpretation Comments Max Amp (test code = Max Amp) 69 mm 52-71 N [facility] HospitalKmewqzxMEFBIRYWEH4686-39-97 15:48:00 Test Item Value Reference Range Interpretation Comments G-value (test code = G-value) 11.1 5.0-11.6 N [facility] HospitalXmruzumBYANXZTWXJ8325-19-46 15:48:00 Test Item Value Reference Range Interpretation Comments Rapid TEG Sample Type Citrated Whole Blood (test code = Rapid TEG Sample Type) [facility] HospitalTgtubdgYSJUTPXNCN1180-26-41 15:48:00 Test Item Value Reference Range Interpretation Comments ACT (TEG) (test code = ACT (TEG)) 121 s 86-118 H [facility] HospitalGgagjksZDOSOYTLQP3403-96-05 15:48:00 Test Item Value Reference Range Interpretation Comments Estimated % Lysis (test 0.1 See_Comment N [Au tomated message] The code = Estimated % system wh ich generated Lysis) this result tra nsmitted reference range : <=7.5. The reference r nando was not used to int erpret this result as normal/abnormal . [facility] HospitalObvphgeYVVSATMKFJ2271-33-23 15:48:00 Test Item Value Reference Range Interpretation Comments Eosinophils (test code = 2.3 See_Comment N [A utomated message] The Eosinophils) system which ge nerated this result tra nsmitted reference range : <=4.0. The reference r nando was not used to int erpret this result as normal/abnormal . [facility] HospitalLggkybtBHVUJKELPU3052-72-15 15:48:00 Test Item Value Reference Range Interpretation Comments Basophils (test code = 0.3 See_Comment N [Aut omated message] The Basophils) system which ge nerated this result tra nsmitted reference range : <=1.0. The reference r nando was not used to int erpret this result as normal/abnormal . [facility] HospitalLrkarliWPBNJDKTNC8749-16-04 15:48:00 Test Item Value Reference Range Interpretation Comments Segs-Bands # (test code = Segs-Bands #) 6.2 1.5-8.1 N [facility] HospitalVpymzudADFMRKJSLE7716-66-90 15:48:00 Test Item Value Reference Range Interpretation Comments Lymphocytes # (test code = Lymphocytes 1.9 1.0-5.5 N #) [facility] HospitalTeeaqsdPSLOEGCJCT9224-61-27 15:48:00 Test Item Value Reference Range Interpretation Comments Lymphocytes (test code = Lymphocytes) 21.7 20.0-40.0 N [facility] HospitalFdwrqarCPWNZPCEWH0724-81-92 15:48:00 Test Item Value Reference Range Interpretation Comments Monocytes (test code = Monocytes) 6.4 2.0-12.0 N [facility] HospitalKdbolvnIKCPDPCJJB2530-61-28 15:48:00 Test Item Value Reference Range Interpretation Comments Segs (test code = Segs) 69.3 45.0-75.0 N [facility] HospitalNqtdwslSYPKRGFJTI1888-13-58 15:48:00 Test Item Value Reference Range Interpretation Comments Eosinophils # (test code 0.2 See_Comment N [A utomated message] The = Eosinophils #) system whic h generated this result tra nsmitted reference range : <=0.5. The reference r nando was not used to int erpret this result as normal/abnormal . [facility] HospitalRobprvwQZXTOGFMHA4177-97-09 15:48:00 Test Item Value Reference Range Interpretation Comments Monocytes # (test code 0.6 See_Comment N [Aut omated message] The = Monocytes #) system which generated this result tra nsmitted reference range : <=0.8. The reference r nando was not used to int erpret this result as normal/abnormal . [facility]stHlepmsrLOMMFFJSB7821-44-87 15:48:00 Test Item Value Reference Range Interpretation Comments Temp Juan (test code = Temp Juan) 37.0 [facility]stOjikqpzDSBHRAOZV3818-71-72 15:48:00 Test Item Value Reference Range Interpretation Comments pH Juan (test code = pH Juan) 7.37 7.28-7.42 N [facility]stSplfxceHTHDVVPQU5672-92-40 15:48:00 Test Item Value Reference Range Interpretation Comments pCO2 Juan (test code = pCO2 Juan) 44 38-52 N [facility]stJchwbeaIUUUXCDNU0859-71-84 15:48:00 Test Item Value Reference Range Interpretation Comments pO2 Juan (test code = pO2 Juan) 67 20-49 H [facility]stMlgfzumLPZBSUVWA6914-84-07 15:48:00 Test Item Value Reference Range Interpretation Comments HCO3 Juan (test code = HCO3 Juan) 25.4 22.0-26.0 N [facility]stMdmqhavZFRMCZBTD4055-70-65 15:48:00 Test Item Value Reference Range Interpretation Comments O2 Sat Juan (test code = O2 Sat Juan) 92.0 40.0-70.0 H [facility]stEunmkzyAKQRVZSPI5807-99-41 15:48:00 Test Item Value Reference Range Interpretation Comments BE Juan (test code = 0 See_Comment N [Automa soren message] The BE Juan) system which ge nerated this result transmit soren reference range : <=2. The reference range was not used to interpr et this result as hilton l/abnormal. [facility]stCirwxlkQYUHQAPPR5286-31-92 15:48:00 Test Item Value Reference Range Interpretation Comments Ethanol Lvl (test code = Ethanol Lvl) no gt [facility]stVovdjwtZVKBZVMJQ0754-87-07 15:48:00 Test Item Value Reference Range Interpretation Comments Etoh (%) (test code = Etoh (%)) no gt [facility]stVpmlkupRVNANRFOG8069-88-11 15:48:00 Test Item Value Reference Range Interpretation Comments Lactic Acid Lvl (test code = Lactic 1.5 0.5-2.2 N Acid Lvl) [facility]stVoerssqBDJTMGLGU8032-38-26 15:48:00 Test Item Value Reference Range Interpretation Comments AGAP (test code = AGAP) 15.5 10.0-20.0 N [facility]stNtmiagfVQYAHLMOA1631-49-48 15:48:00 Test Item Value Reference Range Interpretation Comments eGFR (test code = eGFR) 79 [facility]stPitcrcfUSKRHRYDE0994-53-73 15:48:00 Test Item Value Reference Range Interpretation Comments Calcium Lvl (test code = Calcium Lvl) 9.1 8.5-10.5 N [facility]stQznfsbcZOUYNZRSO3270-02-37 15:48:00 Test Item Value Reference Range Interpretation Comments CO2 (test code = CO2) 23 24-32 L [facility]stFknysvhFXMMADRSK0512-73-40 15:48:00 Test Item Value Reference Range Interpretation Comments Chloride Lvl (test code = Chloride Lvl) 104 95-109 N [facility]stGjdqnmwTMJGSXUEC8961-89-91 15:48:00 Test Item Value Reference Range Interpretation Comments Potassium Lvl (test code = Potassium 4.5 3.5-5.1 N Lvl) [facility]stTnygcctKRRFHUSTK5319-98-87 15:48:00 Test Item Value Reference Range Interpretation Comments Sodium Lvl (test code = Sodium Lvl) 138 135-145 N [facility] HillcrestUxassaqHTDKYBAFX8468-85-86 15:48:00 Test Item Value Reference Range Interpretation Comments Creatinine Lvl (test code = Creatinine 1.0 0.5-1.4 N Lvl) [facility]stUfwrmncUZGPZLOYQ0543-82-79 15:48:00 Test Item Value Reference Range Interpretation Comments Glucose Lvl (test code = Glucose Lvl) 124 70-99 H [facility]crestYxknvokGQPNNMMSG2243-59-88 15:48:00 Test Item Value Reference Range Interpretation Comments BUN (test code = BUN) 15 7-22 N [facility] HospitalVvgrojrKSTPURKFLJ3107-54-19 15:48:00 Test Item Value Reference Range Interpretation Comments RDW (test code = RDW) 14.0 11.5-14.5 N [facility] HospitalAttvuzbBSHPIXSAZT0694-44-98 15:48:00 Test Item Value Reference Range Interpretation Comments Platelet (test code = Platelet) 210 133-450 N [facility] HospitalGiqxzkgPOEJOELCQH6383-38-36 15:48:00 Test Item Value Reference Range Interpretation Comments MPV (test code = MPV) 8.7 7.4-10.4 N [facility] HospitalYoovktdTGSLGRXYBE4054-43-08 15:48:00 Test Item Value Reference Range Interpretation Comments MCH (test code = MCH) 32.1 pg 27.0-31.0 H [facility] HospitalLzuqxtdNTYKKQFYNA0353-91-55 15:48:00 Test Item Value Reference Range Interpretation Comments MCHC (test code = MCHC) 33.4 32.0-36.0 N [facility] HospitalQpkwlkzYGNMOYONPQ6091-53-39 15:48:00 Test Item Value Reference Range Interpretation Comments Hgb (test code = Hgb) 12.7 14.0-18.0 L [facility] HospitalXtjkxmxPVEVPGGZVH3386-85-26 15:48:00 Test Item Value Reference Range Interpretation Comments Hct (test code = Hct) 38.1 42.0-54.0 L [facility] HospitalMkmejokZZXFYJQMYL8847-35-61 15:48:00 Test Item Value Reference Range Interpretation Comments MCV (test code = MCV) 96.0 80.0-94.0 H [facility] HospitalKsiqkwxGNPXCEUZOK9867-92-88 15:48:00 Test Item Value Reference Range Interpretation Comments WBC (test code = WBC) 9.0 3.7-10.4 N [facility] HospitalNardvppTPOKEGQZIB0413-73-51 15:48:00 Test Item Value Reference Range Interpretation Comments RBC (test code = RBC) 3.97 4.70-6.10 L [facility] HospitalAnwnylpONBSXTCULG4729-25-23 15:48:00 Test Item Value Reference Range Interpretation Comments K-time (test code = K-time) 1.0 min 0.6-2.3 N [facility] HospitalMtwzczyDDMLOLUYZZ2831-06-26 15:48:00 Test Item Value Reference Range Interpretation Comments Split Point (test code = Split Point) 0.6 min [facility] HospitalPgktykkJGDMMWFBEF4850-38-61 15:48:00 Test Item Value Reference Range Interpretation Comments R-time (test code = R-time) 0.8 min 0.4-0.7 H [facility] HospitalRecgitdPPYYVEYNYV4393-90-76 15:48:00 Test Item Value Reference Range Interpretation Comments Angle (test code = Angle) 76 degrees 64-80 N [facility] HospitalBwnvxsmAOEKLYQWTS0215-60-67 15:48:00 Test Item Value Reference Range Interpretation Comments Max Amp (test code = Max Amp) 69 mm 52-71 N [facility] HospitalFtkqtolKKRRMDTSJP8534-45-02 15:48:00 Test Item Value Reference Range Interpretation Comments G-value (test code = G-value) 11.1 5.0-11.6 N [facility] HospitalHqhbjgyYBOPERXKXC7535-38-39 15:48:00 Test Item Value Reference Range Interpretation Comments Rapid TEG Sample Type Citrated Whole Blood (test code = Rapid TEG Sample Type) [facility] HospitalJfdrxbaXOEZALXSLR2212-43-04 15:48:00 Test Item Value Reference Range Interpretation Comments ACT (TEG) (test code = ACT (TEG)) 121 s 86-118 H [facility] HospitalZvsbkepSFOJJEREQS9839-41-86 15:48:00 Test Item Value Reference Range Interpretation Comments Estimated % Lysis (test 0.1 See_Comment N [Au tomated message] The code = Estimated % system wh ich generated Lysis) this result tra nsmitted reference range : <=7.5. The reference r nando was not used to int erpret this result as normal/abnormal . [facility] HospitalObaippjFWWYLMTZHK4558-47-37 15:48:00 Test Item Value Reference Range Interpretation Comments Eosinophils (test code = 2.3 See_Comment N [A utomated message] The Eosinophils) system which ge nerated this result tra nsmitted reference range : <=4.0. The reference r nando was not used to int erpret this result as normal/abnormal . [facility] HospitalKcyvybcENVGAWKZDZ3419-94-53 15:48:00 Test Item Value Reference Range Interpretation Comments Basophils (test code = 0.3 See_Comment N [Aut omated message] The Basophils) system which ge nerated this result tra nsmitted reference range : <=1.0. The reference r nando was not used to int erpret this result as normal/abnormal . [facility] HospitalKhprjlqAETODEXNKN1112-53-90 15:48:00 Test Item Value Reference Range Interpretation Comments Segs-Bands # (test code = Segs-Bands #) 6.2 1.5-8.1 N [facility] HospitalThppvucIUNLFUTJTS3033-93-10 15:48:00 Test Item Value Reference Range Interpretation Comments Lymphocytes # (test code = Lymphocytes 1.9 1.0-5.5 N #) [facility] HospitalSuswzgxSBPCXLUJCC4802-25-34 15:48:00 Test Item Value Reference Range Interpretation Comments Lymphocytes (test code = Lymphocytes) 21.7 20.0-40.0 N [facility] HospitalEkaohuaGIVYRKBFPO1328-84-73 15:48:00 Test Item Value Reference Range Interpretation Comments Monocytes (test code = Monocytes) 6.4 2.0-12.0 N [facility] HospitalXemsqveTHWTIMZSGM1639-07-57 15:48:00 Test Item Value Reference Range Interpretation Comments Segs (test code = Segs) 69.3 45.0-75.0 N [facility] HospitalYodjfcmDFNZIXHFNI3607-05-16 15:48:00 Test Item Value Reference Range Interpretation Comments Eosinophils # (test code 0.2 See_Comment N [A utomated message] The = Eosinophils #) system ic h generated this result tra nsmitted reference range : <=0.5. The reference r nando was not used to int erpret this result as normal/abnormal . [facility] HospitalBjfcyqrTFDOCNSTFC3470-03-49 15:48:00 Test Item Value Reference Range Interpretation Comments Monocytes # (test code 0.6 See_Comment N [Aut omated message] The = Monocytes #) system which generated this result tra nsmitted reference range : <=0.8. The reference r nando was not used to int erpret this result as normal/abnormal . [facility]stNmuuwtbRBECKZRIA5423-98-14 15:48:00 Test Item Value Reference Range Interpretation Comments Temp Juan (test code = Temp Juan) 37.0 [facility]stNzhcgqwBRSFAVITO9011-22-10 15:48:00 Test Item Value Reference Range Interpretation Comments pH Juan (test code = pH Juan) 7.37 7.28-7.42 N [facility]stDwfoqtkRXMLAOFVG0022-47-40 15:48:00 Test Item Value Reference Range Interpretation Comments pCO2 Juan (test code = pCO2 Juan) 44 38-52 N [facility]stDvscpnhIWOCGVWWM9119-86-80 15:48:00 Test Item Value Reference Range Interpretation Comments pO2 Juan (test code = pO2 Juan) 67 20-49 H [facility]stTweutyyLMRZQKPEA1050-82-21 15:48:00 Test Item Value Reference Range Interpretation Comments HCO3 Juan (test code = HCO3 Juan) 25.4 22.0-26.0 N [facility]stVthhovqGDSVHGKOV2934-50-94 15:48:00 Test Item Value Reference Range Interpretation Comments O2 Sat Juan (test code = O2 Sat Juan) 92.0 40.0-70.0 H [facility]stHbfeqekXEZZGGPZP4239-20-86 15:48:00 Test Item Value Reference Range Interpretation Comments BE Juan (test code = 0 See_Comment N [Automa soren message] The BE Juan) system which ge nerated this result transmit soren reference range : <=2. The reference range was not used to interpr et this result as hilton l/abnormal. [facility]stHtofavsBHXHCOTAM8360-31-89 15:48:00 Test Item Value Reference Range Interpretation Comments Ethanol Lvl (test code = Ethanol Lvl) no gt [facility]stOwmtaajRVXUPQLQP8840-48-37 15:48:00 Test Item Value Reference Range Interpretation Comments Etoh (%) (test code = Etoh (%)) no gt [facility]stHxyzfmuFCEHBAYVC3589-04-39 15:48:00 Test Item Value Reference Range Interpretation Comments Lactic Acid Lvl (test code = Lactic 1.5 0.5-2.2 N Acid Lvl) [facility]stJdjnnptEIDVIXVTV9725-28-68 15:48:00 Test Item Value Reference Range Interpretation Comments AGAP (test code = AGAP) 15.5 10.0-20.0 N [facility]stLgelvbmSQSPSKSOD4535-55-57 15:48:00 Test Item Value Reference Range Interpretation Comments eGFR (test code = eGFR) 79 [facility]stYgtctkjOHEZJVOQN4093-73-12 15:48:00 Test Item Value Reference Range Interpretation Comments Calcium Lvl (test code = Calcium Lvl) 9.1 8.5-10.5 N [facility]stTszdrozHRVCOXRPY0258-63-91 15:48:00 Test Item Value Reference Range Interpretation Comments CO2 (test code = CO2) 23 24-32 L [facility]stOszudrrTZBVZINAG0501-62-08 15:48:00 Test Item Value Reference Range Interpretation Comments Chloride Lvl (test code = Chloride Lvl) 104 95-109 N [facility]stDufocchQYLBXHNBL9362-99-08 15:48:00 Test Item Value Reference Range Interpretation Comments Potassium Lvl (test code = Potassium 4.5 3.5-5.1 N Lvl) [facility]stLzfawjvHDNTBGVWJ5777-27-38 15:48:00 Test Item Value Reference Range Interpretation Comments Sodium Lvl (test code = Sodium Lvl) 138 135-145 N [facility]stFgjdqflCKTFTZKJL2418-56-04 15:48:00 Test Item Value Reference Range Interpretation Comments Creatinine Lvl (test code = Creatinine 1.0 0.5-1.4 N Lvl) [facility]stStwyrvePACGRRUOR2929-07-34 15:48:00 Test Item Value Reference Range Interpretation Comments Glucose Lvl (test code = Glucose Lvl) 124 70-99 H [facility]stCvvuimiRTGWXOMDF1238-63-45 15:48:00 Test Item Value Reference Range Interpretation Comments BUN (test code = BUN) 15 7-22 N [facility] HospitalHuozbpfAYDFOSZAGY9992-69-54 15:48:00 Test Item Value Reference Range Interpretation Comments RDW (test code = RDW) 14.0 11.5-14.5 N [facility] HospitalIfwojiyOLFRGQXHJW8252-40-92 15:48:00 Test Item Value Reference Range Interpretation Comments Platelet (test code = Platelet) 210 133-450 N [facility] HospitalZigyxlmVBRYJGASZI0861-75-75 15:48:00 Test Item Value Reference Range Interpretation Comments MPV (test code = MPV) 8.7 7.4-10.4 N [facility] HospitalZuzybppISQKLQFIHT4289-56-90 15:48:00 Test Item Value Reference Range Interpretation Comments MCH (test code = MCH) 32.1 pg 27.0-31.0 H [facility] HospitalHjahrdnIUKYNANOHW3195-23-04 15:48:00 Test Item Value Reference Range Interpretation Comments MCHC (test code = MCHC) 33.4 32.0-36.0 N [facility] HospitalTauqxjvMLEXKCXUFZ9810-75-17 15:48:00 Test Item Value Reference Range Interpretation Comments Hgb (test code = Hgb) 12.7 14.0-18.0 L [id number] 15:48:00 Test Item Value Reference Range Interpretation Comments Hct (test code = Hct) 38.1 42.0-54.0 L [id number] 15:48:00 Test Item Value Reference Range Interpretation Comments MCV (test code = MCV) 96.0 80.0-94.0 H [id number] 15:48:00 Test Item Value Reference Range Interpretation Comments WBC (test code = WBC) 9.0 3.7-10.4 N [facility] [id number] 15:40:00 Test Item Value Reference Range Interpretation Comments Antibody Scrn (test Negative (05/09/2012 N code = Antibody Scrn) 09:40:00) [facility] [id number] 15:40:00 Test Item Value Reference Range Interpretation Comments ABO/Rh (test code = ABO/Rh) O POS [facility] [id number] 15:40:00 Test Item Value Reference Range Interpretation Comments Antibody Scrn (test Negative (05/09/2012 N code = Antibody Scrn) 09:40:00) [facility] [id number] 15:40:00 Test Item Value Reference Range Interpretation Comments ABO/Rh (test code = ABO/Rh) [facility]CT Knee Right Wo ContCT Knee Left Wo ConCT Knee Left Wo ConMRI Knee Left Wo ContMRI Knee Left Wo Cont
[2022-08-21] MEDS: HOME MED 1 EA UNK (Iron [Iron] 18 MG Tablet) PO SCH ×2 (13:46→20:31)
[2022-08-21] MEDS ORDERED: PNEUMOCOCCAL VACCINE 0.5 ML IMVAC ONE (14:00)
[2022-08-21] MEDS: CEFAZOLIN SODIUM 2 GM in NA CHLORIDE 0.9% 100 ML IVPB SCH (15:48)
[2022-08-21] MEDS: METFORMIN HCL 500 MG TAB PO SCH (15:49)
[2022-08-21] MEDS ORDERED: ATORVASTATIN 20 MG TAB PO SCH (21:00)
[2022-08-21] MEDS ORDERED: HOME MED 1 EA UNK (Metformin Hcl [Metformin Hcl] 1,000 MG Tablet) PO SCH (21:00)
--- NOTE | 2022-08-21 21:00 | P.OP ---
Preoperative diagnosis: right knee osteoarthritis Postoperative diagnosis: right knee osteoarthritis Primary procedure: right total knee arthroplasty Anesthesia: general Estimated blood loss: 40 cc Specimen: right knee bone remnants Findings: see dictation Operative Technique: Indication For Procedure: Kevin is a 77 year-old male presenting to my clinic with signs, symptoms and x-ray findings consistent with severe right knee osteoarthritis. I discussed with the patient at length risks and benefits associated with operative and nonoperative treatment. He had failed conservative treatment measures and had significant difficulties with ADLs secondary to his pain. We discussed operative treatment and elected to proceed with right total knee arthroplasty. He expressed understanding and elected to proceed with operative treatment. Description Of Procedure: After informed consent was obtained, the patient was identified in the preoperative holding area. The right lower extremity was marked. The patient was then taken to the PACU where he underwent a right lower extremity adductor canal block performed by Anesthesia. He was then taken to the operating room, transferred to the operating table in supine fashion, and placed under general anesthesia. The right lower extremity was then prepped and draped in usual sterile fashion. A time-out was initiated. The correct patient and procedure were confirmed and identified. The patient did receive his preoperative prophylactic antibiotics. The right lower extremity was then exsanguinated and tourniquet was inflated to 300 mmHg. Approximately 15 cm longitudinal incision was made centered over the anterior aspect of the right knee. Dissection was then taken to the extensor mechanism and a medial parapatellar arthrotomy was performed. The patella was everted and dislocated laterally and the knee was flexed in the fat pad. Medial lateral meniscus and ACL were all excised exposing the distal femur. Excess hypertrophic synovium was also excised within the suprapatellar pouch. The patient had a CT of his right knee preoperatively for surgical planning and creation of cutting blocks. The cutting block was then placed over the distal femur and pins were then placed. The distal femoral cutting block was then placed over the pins. Knee joint was then used to ensure proper depth cut and the distal femur was then cut. The chamfer cutting guide was then placed over the distal end of the femur. Anterior, posterior cuts as well as anterior and posterior chamfer cuts were then made again confirming proper depth of the cut using an Rojelio wing. Excess bone remnants were then sent to pathology for further evaluation. Next, attention was taken to the proximal tibia. A tibial jig and tibial cutting block was then placed on proximal aspect of the right tibia and locked into position. Pins were then placed and alignment guide was then used to confirm proper alignment of the cut and then coronal and sagittal planes. Once this was confirmed, the cutting jig was placed over the pins and the proximal tibia was cut. Sizing trays were then selected and size 12 mm spacer was used and there was good overall balance in flexion and extension. Next, the trial implants were then placed using the size 9 standard CR femur and a size F tibia with an 13 mm CR poly. There was overall good range of motion and good stability. The trial implants were then removed. This improved the overall stability of the knee and components. The wound was then irrigated thoroughly with normal saline and the knee was then injected with 30 cc of 0.5% Marcaine both in the posterior capsule and mediallateral gutters as well as quadriceps tendon and periosteum. The tibia was then punched. The femur was drilled. The cement was then prepared on the back table. Cement was then placed first on the tibial surface followed by size F tibia. Excess cement was removed with [place] elevators. Size 9 standard CR femur was then placed on the distal femur after cement was placed on the distal femur. Excess cement was then removed and a size 13 mm CR trial poly was then placed. The knee was held in extension as the cement hardened. Undersurface of the patella was prepared debriding osteophytes using rongeurs as well as osteophytes.. Cement was placed on the undersurface of the patella afte r it was cut and a size 29 patella was placed. Once the cement was hardened, the knee was ranged, there was good overall stability both in flexion, extension and as well as stability with varus and valgus stresses. Trial poly was then removed and a size 13 mm CR poly was then placed and locked into position. The knee was then ranged again. There was good overall range of motion both for flexion and extension with good stability. The wound was then irrigated again thoroughly with normal saline using pulse lavage. Tourniquet was let down. Hemostasis was achieved using Bovie electrocautery. Extensor mechanism was then approximated using a #1 Vicryl both in interrupted and running fashion. The fascia was then approximated using 0 Vicryl. Subcutaneous tissue was approximated with a 2-0 Vicryl. Skin was approximated using kaye. Sterile dressings were applied. The patient was awakened and transferred back in stable condition Complications: None Implants: Bi[employer] Renea Persona 9 CR femur, F tibia, 29 patella, 13 poly Fluids & blood products: per anesthesia; 95 mins @ 300 mmHg Transferred to: Recovery Room Condition: Good
[2022-08-21] MEDS: TRAMADOL HCL 50 MG TAB PO PRN (21:51)
[2022-08-22] MEDS: CEFAZOLIN SODIUM 2 GM in NA CHLORIDE 0.9% 100 ML IVPB SCH ×2 (00:52→09:12)
[2022-08-22 05:11] LABS: Hematocrit 32.4 % (39.6-49.0)
[2022-08-22] MEDS: ENOXAPARIN 30 MG/0.3 ML SQ SCH ×2 (05:41→09:04)
[2022-08-22 08:38] VITALS: TEMP 97.3
[2022-08-22] MEDS ORDERED: PANTOPRAZOLE 40MG TABLET PO SCH (09:00)
[2022-08-22] MEDS ORDERED: AMLODIPINE 5 MG TAB PO SCH (09:00)
[2022-08-22] MEDS ORDERED: CELECOXIB 100 MG CAPSULE PO SCH (09:00)
[2022-08-22] MEDS: HOME MED 1 EA UNK (Iron [Iron] 18 MG Tablet) PO SCH ×2 (09:00→12:51)
[2022-08-22] MEDS ORDERED: hydroCHLOROthiazide 25 MG TAB PO SCH (09:00)
[2022-08-22] MEDS ORDERED: HOME MED 1 EA UNK (Omeprazole [Prilosec] 40 MG Capsule.Dr) PO SCH (09:00)
--- NOTE | 2022-08-22 09:00 | P.CNS ---
Date of Consult: 08/21/22 Reason for Consult: Medical management Requesting Physician: Angelo Ram Chief Complaint: Right total knee arthroplasty History of Present Illness: Patient is a 77-year-old gentleman who came to the hospital for right total knee arthroplasty. Patient has a history of hypertension and diabetes. Patient presented to the hospital for elective right total knee arthroplasty. Patient has done well postoperatively. No complaints have been voiced. His pain is well controlled. He has his right knee in a continuous passive range of motion device. His pain is tolerable. Blood pressure and blood sugar are controlled. Home medications have been continued. Herbal supplementations are being held at this time. Patient will be monitored over the next 24 hours and anticipate discharge home in the morning with pain medication and anticoagulation as long as he does well with physical therapy. Allergies No Known Allergies Allergy (Verified 08/16/22 08:59) Home Medications: Amlodipine [Norvasc*] 5 mg PO DAILY 12/24/20 Atorvastatin Calcium [Lipitor*] 20 mg PO BEDTIME 12/24/20 Metformin HCl 1,000 mg PO BID 12/24/20 hydroCHLOROthiazide [Hydrochlorothiazide] 25 mg PO DAILY 12/24/20 Garlic 1 each PO DAILY 03/15/21 Turmeric Root Extract [Turmeric Curcumin] 500 mg PO DAILY 03/15/21 Cholecalciferol (Vitamin D3) [Vitamin D3] 2,000 unit PO BEDTIME 01/18/22 Cyanocobalamin (Vitamin B-12) [Vitamin B-12] 2,500 mcg SL DAILY 01/18/22 Docosahexanoic AC/Epa [Fish Oil 1,000 MG*] 1,000 mg PO DAILY 01/18/22 Iron 18 mg PO TID 01/18/22 Omeprazole [Prilosec] 40 mg PO DAILY 01/18/22 Zinc 50 mg PO BEDTIME 01/18/22 glucosamine HCL [Glucosamine HCl] 1,500 mg PO DAILY 01/18/22 Fluticasone/Umeclidin/Vilanter [Trelegy Ellipta 100-62.5-25] 1 each IH DAILY 08/16/22 hydroCHLOROthiazide [Hydrochlorothiazide] 25 mg PO DAILY 08/16/22 Hydrocodone 7.5/APAP 325 [[place] 7.5/325 mg*] 1 tab PO Q4H PRN tab 08/22/22 - Past Medical/Surgical History Diabetic: Yes -: asthma -: HTN -: DM -: LEFT WRIST -: Neck surgery -: Hernia repair -: Testicular surgery -: L/R TOTAL KNEE -: PRICILLA SHOULDER -: RIGHT ANKLE Psychosocial/ Personal History: Lives with , retired - Family History Father Medical History: Heart disease Mother Medical History: Lung disease - Social History Smoking Status: Never smoker Alcohol use: No CD- Drugs: No Caffeine use: No Place of Residence: Home Review of Systems 10-point ROS is otherwise unremarkable Physical Examination Temp Pulse Resp BP Pulse Ox 97.3 F 86 19 123/60 94 08/22/22 08:00 08/22/22 08:00 08/22/22 08:00 08/22/22 08:00 08/22/22 08:00 General: Alert, In no apparent distress, Oriented x3 HEENT: Atraumatic, PERRLA, Mucous membr. moist/pink, EOMI, Sclerae nonicteric Neck: Supple, 2+ carotid pulse no bruit, No LAD, Without JVD or thyroid abnormality Respiratory: Clear to auscultation bilaterally, Normal air movement Cardiovascular: Regular rate/rhythm, Normal S1 S2 Gastrointestinal: Normal bowel sounds, No tenderness Musculoskeletal: No tenderness Integumentary: No rashes Neurological: Normal gait, Normal speech, Normal tone, Normal affect Lymphatics: No axilla or inguinal lymphadenopathy Laboratory Data (last 24 hrs) 08/22/22 04:28: Hgb 10.9 L, Hct 32.4 L 08/21/22 12:01: Hgb 10.5 L, Hct 31.9 L - Problems (1) S/P total knee arthroplasty Current Visit: Yes Status: Acute (2) Hypertension Current Visit: Yes Status: Acute (3) Type 2 diabetes mellitus Current Visit: Yes Status: Acute (4) History of asthma Current Visit: Yes Status: Acute Conclusions/ Impression: Plan: 1. Continued management per orthopedics 2. Physical therapy evaluation 3. Continue antihypertensives as well as diabetic medications 4. Pain control 5. GI DVT prophylaxis Critical Care: No Time Spent Managing Pts care (In Minutes): 45
[2022-08-22] MEDS: METFORMIN HCL 500 MG TAB PO SCH (09:03)
[2022-08-22] MEDS: TRAMADOL HCL 50 MG TAB PO PRN (09:03)
[2022-08-22 10:58] VITALS: O2SAT 95
[2022-08-22 12:11] VITALS: BP 139/69
--- NOTE | 2022-08-22 13:05 | P.DS ---
Admission Date: 08/21/22 Discharge Date: 08/22/22 Disposition: DC HOME/HOME HEALTH CARE Discharge Condition: GOOD Reason for Admission: Right total knee arthroplasty Consultations: Hospitalist Medicine: Dr. Hall Procedures: R TKA 08/22/22 Brief History of Present Illness: Kevin underwent R TKA on 08/21/22 and was admitted to the floor postoperatively in stable condition. Hospital Course: Kevin did well after surgery and vital signs remained stable. Dr. Hall was consulted to aid with medical management. He received lovenox for DVT prophylaxis while in hospital and discharged with Xarelto and Thaxton. He ambulated safefly with PT and was discharged on 08/22/22 in stable condition Vital Signs/Physical Exam: Temp Pulse Resp BP Pulse Ox 97.3 F 81 18 139/69 95 08/22/22 12:00 08/22/22 12:00 08/22/22 12:00 08/22/22 12:00 08/22/22 12:00 Laboratory Data at Discharge: WBC 7.00 K/uL (4.3-10.9) 08/16/22 09:22 Hgb 10.9 g/dL (13.6-17.9) L 08/22/22 04:28 Hct 32.4 % (39.6-49.0) L 08/22/22 04:28 Plt Count 230 K/uL (152-406) 08/16/22 09:22 PT 10.3 SECONDS (9.5-12.5) 08/16/22 09:22 INR 0.94 08/16/22 09:22 APTT 32.4 SECONDS (24.3-36.9) 08/16/22 09:22 Sodium 136 mmol/L (136-145) 08/16/22 09:22 Potassium 3.9 mmol/L (3.5-5.1) 08/16/22 09:22 BUN 13 mg/dL (7-18) 08/16/22 09:22 Creatinine 0.84 mg/dL (0.70-1.30) 08/16/22 09:22 Glucose 193 mg/dL (74-106) H 08/16/22 09:22 Home Medications: Amlodipine [Norvasc*] 5 mg PO DAILY 12/24/20 Atorvastatin Calcium [Lipitor*] 20 mg PO BEDTIME 12/24/20 Metformin HCl 1,000 mg PO BID 12/24/20 hydroCHLOROthiazide [Hydrochlorothiazide] 25 mg PO DAILY 12/24/20 Garlic 1 each PO DAILY 03/15/21 Turmeric Root Extract [Turmeric Curcumin] 500 mg PO DAILY 03/15/21 Cholecalciferol (Vitamin D3) [Vitamin D3] 2,000 unit PO BEDTIME 01/18/22 Cyanocobalamin (Vitamin B-12) [Vitamin B-12] 2,500 mcg SL DAILY 01/18/22 Docosahexanoic AC/Epa [Fish Oil 1,000 MG*] 1,000 mg PO DAILY 01/18/22 Iron 18 mg PO TID 01/18/22 Omeprazole [Prilosec] 40 mg PO DAILY 01/18/22 Zinc 50 mg PO BEDTIME 01/18/22 glucosamine HCL [Glucosamine HCl] 1,500 mg PO DAILY 01/18/22 Fluticasone/Umeclidin/Vilanter [Trelegy Ellipta 100-62.5-25] 1 each IH DAILY 08/16/22 hydroCHLOROthiazide [Hydrochlorothiazide] 25 mg PO DAILY 08/16/22 Hydrocodone 7.5/APAP 325 [[place] 7.5/325 mg*] 1 tab PO Q4H PRN tab 08/22/22 Physician Discharge Instructions: Keep dressing clean, dry and intact. Begin Xarelto tomorrow morning August 23 in the morning with breakfast and take once a day. Follow-up with Dr. Ram in 2 weeks for staple removal. Continue use of JENELLE hose for 2 weeks to aid with swelling. Diet: ADA Activity: Weight bearing as tolerated Followup: Angelo Ram MD [ACTIVE - CAN ADMIT] - 1-2 Weeks
== END 2022-08-22 14:00 | disposition home health service (06) ==
LOC: OR 06:39 → 4TH 12:45
PROVIDERS: ADMIT Orthopaedic Surgery Sports Medicine; ATTEND Orthopaedic Surgery Sports Medicine
PROC: 0SRC069 Replacement of Right Knee Joint with Oxidized Zirconium on Polyethylene Synthetic Substitute, Cemented, Open Approach (ICD-10-PCS; principal; 2022-08-21 08:00)
DX: M17.11 Unilateral primary osteoarthritis, right knee (principal); I10 Essential (primary) hypertension; E11.9 Type 2 diabetes mellitus without complications; J45.909 Unspecified asthma, uncomplicated
CPT/HCPCS: 93005; 85025; 80048; 36415 ×3; 85610; 82947 ×7; 88304; 88311; 85730; 85018 ×2; 85014 ×2; 71046; 73560; 97110; 97116; 97161; 94010; 87811; 27447; J2704; J0171; J2310; J2001 ×2; J1650 ×2; J2250; J1170; J3010; J1100; J7030 ×2; G0378; G0379

== ENCOUNTER 2024-11-07 19:13 | Emergency (ER) | payer OTHER ==
[2024-11-07] MEDS ORDERED: CEFTRIAXONE 1000 MG/VIAL ONE (19:54)
[2024-11-07] MEDS ORDERED: IBUPROFEN 200 MG TAB PO ONE (19:55)
[2024-11-07] MEDS ORDERED: IBUPROFEN 400 MG TAB ONE (19:55)
[2024-11-07] MEDS ORDERED: ACETAMINOPHEN 500 MG TAB ONE (19:55)
[2024-11-07] MEDS ORDERED: AZITHROMYCIN 500 MG INJ IVPB ONE (19:55)
[2024-11-07] MEDS ORDERED: PROMETHAZINE 25 MG TABLET ONE (19:55)
[2024-11-07] MEDS ORDERED: GUAIFENESIN/DM 5 ML UCUP ONE (19:56)
[2024-11-07] MEDS ORDERED: NA CHLORIDE 0.9% 1,000 ML ONE ×2 (19:56→21:51)
[2024-11-07] MEDS ORDERED: NA CHLORIDE 0.9% 250 ML ONE (19:56)
[2024-11-07] MEDS ORDERED: BENZONATATE 100 MG CAP PO ONE (19:56)
--- NOTE | 2024-11-07 20:07 | RAD REPORT ---
EXAMINATION: ONE VIEW CHEST XR CLINICAL INDICATION: CONGESTION TECHNIQUE: Frontal chest projection is submitted. Examination is limited by patient positioning and t echnique. COMPARISON: 08/16/2022 FINDINGS: Mild reticular opacities in the left lower lung and right midlung likely represents viral or atypical infection. The heart is upper limit of normal in size. No displaced fractures identified. Cervical spine hardware.
[2024-11-07 20:24] LABS: PT Prothrombin Time 14.7 SECONDS (10-13.0); Protime INR 1.31
[2024-11-07 20:25] LABS: Influenza A Ag Negative; Influenza B Ag Negative; SARS-CoV-2 Antigen Rapid Res Negative (Negative)
[2024-11-07 20:27] LABS: Hematocrit 34.9 % (39.6-49.0); Hemoglobin 12.1 g/dL (13.6-17.9); MCH 31.2 pg (27.0-35.0); RBC Red Blood Cell Count 3.88 M/uL (4.33-5.43)
[2024-11-07 20:28] LABS: Absolute Eosinophils 0.2 K/uL (0-0.5); Absolute Monocytes 1.5 K/uL (0.1-1.3); Absolute Neutrophil 11.6 K/uL (1.8-8.0); Basophils % 0.3 % (0-1.3); Eosinophils % 1.7 % (0-4.4); Lymphocytes % 7.1 % (15.3-44.8); MCHC 34.7 g/dL (32.0-36.0); Monocytes % 10.2 % (3.3-12.3); Neutrophils % 80.7 % (41.7-73.7); Platelets 250 thou/uL (152-406); Red Cell Distribution Width 16.1 % (12.1-15.2)
[2024-11-07 20:36] LABS: Albumin 3.2 g/dL (3.4-5.0); Albumin/Globulin Ratio 0.7 (1.1-1.8); Anion Gap 10.7 mEq/L (5.0-15.0); Bilirubin Total 0.6 mg/dL (0.2-1.0); Globulin 4.9 g/dL (2.3-3.5); Potassium 3.7 mEq/L (3.5-5.1); Protein, Total 8.1 g/dL (6.4-8.2)
[2024-11-07] MEDS ORDERED: ALBUMIN HUMAN 25% 100 ML IV ONE (21:51)
[2024-11-07 22:05] LABS: Anion Gap 10.6 mEq/L (5.0-15.0); Potassium 3.6 mEq/L (3.5-5.1)
--- NOTE | 2024-11-07 23:45 | ER ---
Nurse's Notes [facility] Name: Kevin Barrow Age: 79 yrs Sex: Male : 1945 Arrival Date: 11/07/2024 Time: 19:13 Bed 7 Private MD: Diagnosis: Unspecified bacterial pneumonia;Atypical pneumonia, acute febrile illness Presentation: 11/07 19:28 Chief complaint: Patient states: WEAKNESS, COUGH, CONGESTION SINCE FRIDAY. NURSE ha1 FROM MY PRIMARY DOCTOR CALLED AND NOTIFIED ME OF ELEVATED WHITE BLOOD CELLS. 19:28 Coronavirus screen: Client denies travel out of the [place] in the last 14 days. Ebola ha1 Screen: No symptoms or risks identified at this time. Initial Sepsis Screen: Does the patient meet any 2 criteria? No. Patient's initial sepsis screen is negative. Does the patient have a suspected source of infection? No. Patient's initial sepsis screen is negative. Risk Assessment: Do you want to hurt yourself or someone else? Patient reports no desire to harm self or others. Onset of symptoms was November 03, 2024. 19:28 Method Of Arrival: Ambulatory ha1 19:28 Acuity: PIERRE 3 ha1 Triage Assessment: 20:06 The onset of the patients symptoms was. General: Appears comfortable, Behavior is calm, ha1 cooperative. Pain: Denies pain. Neuro: Level of Consciousness is awake, alert, obeys commands, Oriented to person, place, time, situation, Reports weakness GENERALIZED. Cardiovascular: Capillary refill < 3 seconds Patient's skin is warm and dry. Respiratory: Reports cough that is productive, persistent NASAL CONGESTION Airway is patent Respiratory effort is even, unlabored, Respiratory pattern is regular, symmetrical. GI: Abdomen is round obese. : No signs and/or symptoms were reported regarding the genitourinary system. Derm: Skin is pink, warm \T\ dry. Musculoskeletal: Circulation, motion, and sensation intact. Range of motion: intact in all extremities. Historical: - Allergies: 20:02 No Known Allergies; ha1 - Home Meds: 20:06 Aspirin Oral [Active]; gabapentin oral [Active]; garlic Oral [Active]; amlodipine oral ha1 [Active]; Metformin Oral [Active]; - PMHx: 20:02 Diabetes - NIDDM; Hypertension; Anemia; Asthma; ha1 - Immunization history:: Adult Immunizations up to date. - Infectious Disease History:: Denies. - Social history:: Smoking status: Patient denies any tobacco usage or history of. - Family history:: not pertinent. Screenin:00 [facility] ED Fall Risk Assessment (Adult) History of falling in the last 3 months, lg3 including since admission No falls in past 3 months (0 pts) Confusion or Disorientation No (0 pts) Intoxicated or Sedated No (0 pts) Impaired Gait No (0 pts) Mobility Assist Device Used No (0 pt) Altered Elimination No (0 pt) Score/Fall Risk Level 0 - 2 = Low Risk Oriented to surroundings, Maintained a safe environment, Educated pt \T\ family on fall prevention, incl call for assistance when getting out of bed, Assessed \T\ reinforced patient's understanding of fall precautions. Abuse screen: Denies threats or abuse. Denies injuries from another. Nutritional screening: No deficits noted. Tuberculosis screening: No symptoms or risk factors identified. Assessment: 20:00 General: Appears in no apparent distress. comfortable, Behavior is calm, cooperative. lg3 General: Reports feeling ill for fatigue for. Pain: Denies pain. Neuro: No deficits noted. Phipps Agitation-Sedation Scale (RASS): 0 - Alert and Calm Level of Consciousness is awake, alert, obeys commands, Oriented to person, place, time, situation. Cardiovascular: No deficits noted. Denies chest pain, shortness of breath, Capillary refill < 3 seconds Clubbing of nail beds is absent JVD is absent Patient's skin is warm and dry. Respiratory: Reports cough that is persistent pain with cough Airway is patent Respiratory effort is even, unlabored, Respiratory pattern is regular, symmetrical, Breath sounds are clear bilaterally. GI: No deficits noted. No signs and/or symptoms were reported involving the gastrointestinal system. Abdomen is round non-distended, obese. : No signs and/or symptoms were reported regarding the genitourinary system. EENT: No deficits noted. Reports nasal congestion nasal discharge. Derm: No deficits noted. No signs and/or symptoms reported regarding the dermatologic system. Skin is intact, is healthy with good turgor, Skin is dry, Skin is normal, Skin temperature is warm. Musculoskeletal: No deficits noted. Circulation, motion, and sensation intact. Range of motion: intact in all extremities, Reports generalized weakness. 21:37 Reassessment: Patient appears in no apparent distress at this time. No changes from lg3 previously documented assessment. Patient and/or family updated on plan of care and expected duration. Pain level reassessed. Patient is alert, oriented x 3, equal unlabored respirations, skin warm/dry/pink. 23:15 Reassessment: Patient appears in no apparent distress at this time. No changes from lg3 previously documented assessment. Patient and/or family updated on plan of care and expected duration. Pain level reassessed. Patient is alert, oriented x 3, equal unlabored respirations, skin warm/dry/pink. Patient states symptoms have improved. 11/08 00:22 Reassessment: Patient appears in no apparent distress at this time. No changes from lg3 previously documented assessment. Patient and/or family updated on plan of care and expected duration. Pain level reassessed. Patient is alert, oriented x 3, equal unlabored respirations, skin warm/dry/pink. Patient states feeling better. Patient states symptoms have improved. Vital Signs: 11/07 19:28 BP 144 / 80; Pulse 105; Resp 19 S; Temp 99.4(O); Pulse Ox 93% on R/A; Weight 100.7 kg; ha1 Height 5 ft. 11 in. ; Pain 0/10; 21:37 BP 96 / 68; Pulse 83; Resp 18 S; Pulse Ox 95% on R/A; lg3 23:15 BP 115 / 65; Pulse 75; Resp 16 S; Pulse Ox 96% on 2 lpm NC; lg3 11/08 00:23 BP 114 / 72; Pulse 75; Resp 17 S; Pulse Ox 96% on R/A; lg3 11/07 19:28 Body Mass Index 30.96 (100.70 kg, 180.34 cm) ha1 11/07 19:28 Pain Scale: Adult ha1 Kelly Coma Score: 11/07 23:39 Eye Response: spontaneous(4). Motor Response: obeys commands(6). Verbal Response: sp4 oriented(5). Total: 15. NIH Stroke Scale Scores: 20:13 NIHSS Score: 0 ha1 ED Course: 19:16 Patient arrived in ED. mr 19:17 Deep Lawson MD is Attending Physician. sp4 19:28 Arm band placed on right wrist. ha1 19:42 Able, Daylin, RN is Primary Nurse. lg3 20:00 Patient has correct armband on for positive identification. Placed in gown. Bed in low lg3 position. Call light in reach. Side rails up X 1. Client placed on continuous cardiac and pulse oximetry monitoring. NIBP monitoring applied. nurse monitoring on. Door closed. Noise minimized. Warm blanket given. Pillow given. Family accompanied patient. 20:02 Triage completed. ha1 20:03 Chest Single View XRAY In Process Unspecified. EDMS 20:05 Initial lab(s) drawn, by ED staff, sent to lab. Inserted saline lock: 20 gauge in right lg3 forearm, using aseptic technique. Blood collected. Flushed with 10 mL NS. 20:06 PT-INR Sent. oe 20:06 COVID-19 Ag + Flu A+B Ag Sent. oe 20:06 Lactate w/ 2H reflex if indic. Sent. oe 20:06 Blood Culture Adult (2) Sent. oe 20:06 CBC with Diff Sent. oe 20:06 CMP Sent. oe 20:06 Lipase Sent. oe 23:44 Rupesh Ortiz MD is Hospitalizing Provider. sp4 23:52 Efrain Oh DO is Referral Physician. sp4 05 00:05 EKG done, by ED staff, reviewed by Deep Lawson MD. oe 00:19 UA W/ Microscopic Sent. oe 00:24 No provider procedures requiring assistance completed. IV discontinued, intact, lg3 bleeding controlled, No redness/swelling at site. Pressure dressing applied. Administered Medications: 11/07 20:14 Drug: NS 0.9% IV 1000 ml IV at 1000 ml once; to be given as a bolus over 60 minutes lg3 Route: IV; Rate: 1000 ml; Site: right forearm; 21:42 Follow up: Response: No adverse reaction; IV Status: Completed infusion; IV Intake: lg3 1000ml 20:14 Drug: Promethazine PO 25 mg PO once Route: PO; lg3 21:42 Follow up: Response: No adverse reaction lg3 20:14 Drug: Tessalon Perle PO 200 mg PO once Route: PO; lg3 21:42 Follow up: Response: No adverse reaction lg3 20:14 Drug: Dextromethorphan-Guaifenesin PO Liquid 10 mg-100 mg/5 mL 10 ml PO once Route: PO; lg3 21:41 Follow up: Response: No adverse reaction; Marked relief of symptoms lg3 20:14 Drug: Rocephin - Rocephin (cefTRIAXone) IVPB 1 grams IVPB once over 30 mins; (mix in 50 lg3 mL NS) Route: IVPB; Infused Over: 30 mins; Site: right forearm; 21:41 Follow up: Response: No adverse reaction; IV Status: Completed infusion; IV Intake: [id number] 20:14 Drug: Zithromax IVPB 500 mg IVPB once over 1 hrs; mix in 250 mL NS Route: IVPB; Infused lg3 Over: 1 hrs; Site: right forearm; 21:41 Follow up: Response: No adverse reaction; IV Status: Completed infusion; IV Intake: lg3 250ml 20:14 Drug: Acetaminophen PO 1000 mg PO once Route: PO; lg3 21:41 Follow up: Response: No adverse reaction lg3 20:14 Drug: Ibuprofen PO 600 mg PO once Route: PO; lg3 21:41 Follow up: Response: No adverse reaction lg3 22:09 Drug: Albumin IVPB 25 grams 100 ml IVPB once; (Note: Albumin 25% concentration) Volume: lg3 100 ml; Route: IVPB; Site: right forearm; 23:16 Follow up: Response: No adverse reaction; IV Status: Completed infusion; IV Intake: lg3 100ml 22:10 Drug: NS 0.9% IV 1000 ml IV at 1000 ml once; to be given as a bolus over 60 minutes lg3 Route: IV; Rate: 1000 ml; Site: right forearm; 23:16 Follow up: Response: No adverse reaction; IV Status: Completed infusion; IV Intake: lg3 1000ml Medication: 05 00:24 VIS not applicable for this client. lg3 Intake: 11/07 21:41 IV: 250ml; Total: 250ml. lg3 21:41 IV: 50ml; Total: 300ml. lg3 21:42 IV: 1000ml; Total: 1300ml. lg3 23:16 IV: 100ml; Total: 1400ml. lg3 23:16 IV: 1000ml; Total: 2400ml. lg3 Outcome: 23:45 Decision to Hospitalize by Provider. spYoanna 23:53 Discharge ordered by MD. roman 05/12 00:24 Discharged to home ambulatory, with significant other, lg3 Condition: stable Discharge instructions given to patient, Instructed on discharge instructions, follow up and referral plans. medication usage, Demonstrated understanding of instructions, follow-up care, medications, Prescriptions given X 5 00:24 Patient left the ED. lg3 NIH Stroke Scale - NIH Stroke Score Date: 11/07/2024 Time: 20:13 Total Score = 0 10. Dysarthria (speech clarity - read or repeat words) - 0(Normal) 11. Extinction and Inattention (visual/tactile/auditory/spatial/personal) - 0(No abnormality) 1a. Level of Consciousness (LOC) - 0(Alert) 1b. Level of Consciousness (LOC) (Month \T\ Age) - 0(Both) 1c. LOC Commands (Open \T\ Closes Eyes/Integration Architect) - 0(Both) 2. Best Gaze (Lateral Gaze Paresis) - 0(Normal) 3. Visual Field Loss - 0(No visual loss) 4. Facial Palsy - 0(Normal) 5a. Left Arm: Motor (10-second hold) - 0(No drift) 5b. Right Arm: Motor (10-second hold) - 0(No drift) 6a. Left Leg: Motor (5-second hold - always test supine) - 0(No drift) 6b. Right Leg: Motor (5-second hold - always test supine) - 0(No drift) 7. Limb Ataxia (finger/nose \T\ heel/rain - test with eyes open) - 0(Absent) 8. Sensory Loss (pinprick arms/legs/face) - 0(Normal) 9. Best Language: Aphasia (description/naming/reading) - 0(No aphasia) Initials: ha1 Signatures: Dispatcher [employer] EDVT Christine Brown, Reg Reg mr Lopez, Daylin Madsen RN RN lg3 Zuleika Lopez RN RN ha1 Deep Lawson MD MD sp4
--- NOTE | 2024-11-07 23:45 | EDPHYS ---
Physician Documentation [facility] Name: Kevin Barrow Age: 79 yrs Sex: Male : 1945 Arrival Date: 11/07/2024 Time: 19:13 Bed 7 Private MD: ED Physician Deep Lawson HPI: 11/07 19:17 This 79 yrs old Male presents to ER via Unassigned with complaints of sp4 Weakness, Cough, Congestion, Fever. 23:39 Patient is a very pleasant 71-year-old male with history of diabetes, hypertension, sp4 anemia and asthma. Patient presents with 3 days of fever, cough, fatigue. . Historical: - Allergies: 20:02 No Known Allergies; ha1 - Home Meds: 20:06 Aspirin Oral [Active]; gabapentin oral [Active]; garlic Oral [Active]; amlodipine oral ha1 [Active]; Metformin Oral [Active]; - PMHx: 20:02 Diabetes - NIDDM; Hypertension; Anemia; Asthma; ha1 - Immunization history:: Adult Immunizations up to date. - Infectious Disease History:: Denies. - Social history:: Smoking status: Patient denies any tobacco usage or history of. - Family history:: not pertinent. ROS: 23:39 Constitutional: Positive fever, positive fatigue, positive feeling unwell, positive sp4 cough 23:39 All other systems are negative, Exam: 23:39 Constitutional: This is a well developed, well nourished patient who is awake, alert, sp4 and in no acute distress. Head/Face: Normocephalic, atraumatic. Eyes: Pupils equal round and reactive to light, extra-ocular motions intact. Lids and lashes normal. Conjunctiva and sclera are not injected. Cornea within normal limits. Periorbital areas with no swelling, redness, or edema. ENT: Nares patent. No nasal discharge, no septal abnormalities noted. Tympanic membranes are normal and external auditory canals are clear. Oropharynx with no redness, swelling, or masses, exudates, or evidence of obstruction, uvula midline. Mucous membranes moist. Neck: Trachea midline, no thyromegaly or masses palpated, and no cervical lymphadenopathy. Supple, full range of motion without nuchal rigidity, or vertebral point tenderness. Chest/axilla: Normal chest wall appearance and motion. Nontender with no deformity. No lesions are appreciated. Cardiovascular: Regular rate and rhythm with a normal S1 and S2. No gallops, murmurs, or rubs. Normal PMI, no JVD. No pulse deficits. Respiratory: Lungs have equal breath sounds bilaterally, clear to auscultation and percussion. No rales, rhonchi or wheezes noted. No increased work of breathing, no retractions or nasal flaring. Abdomen/GI: Soft, with normal bowel sounds. No distension or tympany. No guarding or rebound. No evidence of tenderness throughout. Back: No spinal tenderness. No costovertebral tenderness. Skin: Warm, dry with normal turgor. Normal color with no rashes, no lesions, and no evidence of cellulitis. MS/ Extremity: Pulses equal, no cyanosis. Neurovascular intact. Full, normal range of motion. Neuro: Awake and alert, GCS 15, oriented to person, place, time, and situation. Cranial nerves II-XII grossly intact. Motor strength 5/5 in all extremities. Sensory grossly intact. Psych: Awake, alert, with orientation to person, place and time. Behavior, mood, and affect are within normal limits 11/08 00:07 ECG was reviewed by the Attending Physician. EKG at 2358 normal sinus rhythm normal sp4 EKG rate 76 Vital Signs: 11/07 19:28 BP 144 / 80; Pulse 105; Resp 19 S; Temp 99.4(O); Pulse Ox 93% on R/A; Weight 100.7 kg; ha1 Height 5 ft. 11 in. ; Pain 0/10; 21:37 BP 96 / 68; Pulse 83; Resp 18 S; Pulse Ox 95% on R/A; lg3 23:15 BP 115 / 65; Pulse 75; Resp 16 S; Pulse Ox 96% on 2 lpm NC; lg3 11/08 00:23 BP 114 / 72; Pulse 75; Resp 17 S; Pulse Ox 96% on R/A; lg3 11/07 19:28 Body Mass Index 30.96 (100.70 kg, 180.34 cm) [facility] 11/07 19:28 Pain Scale: Adult [facility] NIH Stroke Scale Scores: 11/07 20:13 NIHSS Score: 0 [facility] Kelly Coma Score: 23:39 Eye Response: spontaneous(4). Motor Response: obeys commands(6). Verbal Response: sp4 oriented(5). Total: 15. MDM: 19:29 Medical Screening Exam initiated sp4 23:42 Data reviewed: vital signs, nurses notes, old medical records, lab test result(s), EKG, sp4 radiologic studies. Consideration of Admission/Observation Patient was admitted/placed on observation. Consideration of Admission/Observation Escalation of care including admission/observation considered. ED course: EXAMINATION: ONE VIEW CHEST XR CLINICAL INDICATION: CONGESTION TECHNIQUE: Frontal chest projection is submitted. Examination is limited by patient positioning and technique. COMPARISON: 08/16/2022 FINDINGS: Mild reticular opacities in the left lower lung and right midlung likely represents viral or atypical infection. The heart is upper limit of normal in size. No displaced fractures identified. Cervical spine hardware. . 23:43 Management of patient was discussed with the following: Hospitalist: Luma [employer] sp4 admission team . ED course: Positive for developing pneumonia. Patient was still feeling unwell after management in the ER. Will request admission for observation. IV hydration and IV antibiotics.. 23:56 ED course: Positive for developing pneumonia. Patient was offered admission for sp4 observation. Patient wishes to be discharged at this time. Advised to return to the emergency room in case of worsening symptoms.. 11/07 19:29 Order name: CBC with Diff; Complete Time: 20:53 4 11/07 19:29 Order name: CMP; Complete Time: 20:53 4 11/07 19:29 Order name: Lipase; Complete Time: 20:53 4 11/07 19:36 Order name: UA W/ Microscopic sp4 11/07 19:36 Order name: Blood Culture Adult (2) sp4 11/07 19:36 Order name: Lactate w/ 2H reflex if indic.; Complete Time: 20:53 4 11/07 19:36 Order name: COVID-19 Ag + Flu A+B Ag; Complete Time: 20:53 4 11/07 19:38 Order name: PT-INR; Complete Time: 20:53 [facility] 11/07 21:09 Order name: BMP; Complete Time: 22:17 [facility] 11/07 19:37 Order name: Chest Single View XRAY; Complete Time: 20:53 4 11/07 23:43 Order name: EKG; Complete Time: 23:44 sp4 11/07 19:29 Order name: IV Saline Lock; Complete Time: 20:06 sp4 11/07 19:29 Order name: Labs collected and sent; Complete Time: 20:06 sp4 11/07 23:43 Order name: EKG - Nurse/Tech; Complete Time: 00:19 sp4 EC:58 Rate is 76 beats/min. Rhythm is regular, Normal Sinus Rhythm. QRS [place] is Normal. SD sp4 interval is normal. QRS interval is normal. QT interval is normal. No Q waves. T waves are Normal. No ST changes noted. Clinical impression: Normal ECG. Interpreted by me. Reviewed by me. Administered Medications: 20:14 Drug: NS 0.9% IV 1000 ml IV at 1000 ml once; to be given as a bolus over 60 minutes lg3 Route: IV; Rate: 1000 ml; Site: right forearm; 21:42 Follow up: Response: No adverse reaction; IV Status: Completed infusion; IV Intake: lg3 1000ml 20:14 Drug: Promethazine PO 25 mg PO once Route: PO; lg3 21:42 Follow up: Response: No adverse reaction lg3 20:14 Drug: Tessalon Perle PO 200 mg PO once Route: PO; lg3 21:42 Follow up: Response: No adverse reaction lg3 20:14 Drug: Dextromethorphan-Guaifenesin PO Liquid 10 mg-100 mg/5 mL 10 ml PO once Route: PO; lg3 21:41 Follow up: Response: No adverse reaction; Marked relief of symptoms lg3 20:14 Drug: Rocephin - Rocephin (cefTRIAXone) IVPB 1 grams IVPB once over 30 mins; (mix in 50 lg3 mL NS) Route: IVPB; Infused Over: 30 mins; Site: right forearm; 21:41 Follow up: Response: No adverse reaction; IV Status: Completed infusion; IV Intake: 83gshc4 20:14 Drug: Zithromax IVPB 500 mg IVPB once over 1 hrs; mix in 250 mL NS Route: IVPB; Infused lg3 Over: 1 hrs; Site: right forearm; 21:41 Follow up: Response: No adverse reaction; IV Status: Completed infusion; IV Intake: lg3 250ml 20:14 Drug: Acetaminophen PO 1000 mg PO once Route: PO; lg3 21:41 Follow up: Response: No adverse reaction lg3 20:14 Drug: Ibuprofen PO 600 mg PO once Route: PO; lg3 21:41 Follow up: Response: No adverse reaction lg3 22:09 Drug: Albumin IVPB 25 grams 100 ml IVPB once; (Note: Albumin 25% concentration) Volume: lg3 100 ml; Route: IVPB; Site: right forearm; 23:16 Follow up: Response: No adverse reaction; IV Status: Completed infusion; IV Intake: lg3 100ml 22:10 Drug: NS 0.9% IV 1000 ml IV at 1000 ml once; to be given as a bolus over 60 minutes lg3 Route: IV; Rate: 1000 ml; Site: right forearm; 23:16 Follow up: Response: No adverse reaction; IV Status: Completed infusion; IV Intake: lg3 1000ml Disposition Summary: 11/07/24 23:53 Discharge Ordered Notes: Location: Home(11/07/24 23:53) sp4 Problem: new(11/07/24 23:53) sp4 Symptoms: have improved(11/07/24 23:53) sp4 Condition: Stable(11/07/24 23:53) sp4 Diagnosis - Unspecified bacterial pneumonia sp4 - Atypical pneumonia, acute febrile illness sp4 Followup: sp4 - With: Efrain Oh DO - When: 7 - 10 days - Reason: Recheck today's complaints Discharge Instructions: - Discharge Summary Sheet sp4 - Community-Acquired Pneumonia, Adult sp4 Forms: - Patient Portal Instructions sp4 Prescriptions: - dextromethorphan-guaifenesin 20-400 mg Oral tablet - take 1 tablet ORAL route every 6 hours as needed for cough; 60 tablet; Refills: sp4 0, Product Selection Permitted - Ibuprofen 600 mg Oral Tablet - take 1 tablet ORAL route every 6 hours As needed take with food; 30 tablet; sp4 Refills: 0, Product Selection Permitted - Zithromax Z-Carlos 250 mg Oral Tablet - take 1 tablet ORAL route as directed for 5 days Day 1 - take two (2) tablets sp4 one time. Day 2, 3, 4 , 5 take one (1) tablet once daily.; 6 tablet; Refills: 0, Product Selection Permitted - benzonatate 200 mg Oral capsule - take 1 capsule ORAL route every 6 hours PRN cough; 60 capsule; Refills: 0, sp4 Product Selection Permitted - promethazine 25 mg Oral tablet - take 1 tablet ORAL route every 6 hours As needed PRN nausea; 30 tablet; sp4 Refills: 0, Product Selection Permitted NIH Stroke Scale - NIH Stroke Score Date: 11/07/2024 Time: 20:13 Total Score = 0 10. Dysarthria (speech clarity - read or repeat words) - 0(Normal) 11. Extinction and Inattention (visual/tactile/auditory/spatial/personal) - 0(No abnormality) 1a. Level of Consciousness (LOC) - 0(Alert) 1b. Level of Consciousness (LOC) (Month \T\ Age) - 0(Both) 1c. LOC Commands (Open \T\ Closes Eyes/Cigarette And Filter Chief Inspector) - 0(Both) 2. Best Gaze (Lateral Gaze Paresis) - 0(Normal) 3. Visual Field Loss - 0(No visual loss) 4. Facial Palsy - 0(Normal) 5a. Left Arm: Motor (10-second hold) - 0(No drift) 5b. Right Arm: Motor (10-second hold) - 0(No drift) 6a. Left Leg: Motor (5-second hold - always test supine) - 0(No drift) 6b. Right Leg: Motor (5-second hold - always test supine) - 0(No drift) 7. Limb Ataxia (finger/nose \T\ heel/rain - test with eyes open) - 0(Absent) 8. Sensory Loss (pinprick arms/legs/face) - 0(Normal) 9. Best Language: Aphasia (description/naming/reading) - 0(No aphasia) Initials: ha1 Signatures: Dispatcher [employer] EDMS Daylin Koroma, RN RN lg3 Zuleika Lopez RN RN ha1 Deep Lawson MD MD sp4 Corrections: (The following items were deleted from the chart) 19: 19:29 CBC+H.LAB.BRZ ordered. EDMS EDMS 19:29 19:29 COMPREHENSIVE METABOLIC PANEL+C.LAB.BRZ ordered. EDMS EDMS 19:29 19:29 LIPASE+C.LAB.BRZ ordered. EDMS EDMS 19:37 19:37 BLOOD CULTURE*+BA.LAB.BRZ ordered. EDMS EDMS 19:37 19:37 LACTATE+C.LAB.BRZ ordered. EDMS EDMS 19:37 19:37 COVID-19 Ag + Flu A+B Ag+I.LAB.BRZ ordered. EDMS EDMS 19:46 19:38 Head Brain Wo Cont+CT.RAD.BRZ ordered. EDMS EDMS 23:52 23:45 Observation sp4 sp4 23:52 23:45 Rupesh Ortiz sp4 sp4 23:52 23:45 Telemetry/MedSurg (observation) sp4 sp4 23:52 23:45 Fair sp4 sp4 23:52 23:45 new sp4 sp4 23:52 23:45 have improved sp4 sp4 23:52 23:45 Standard sp4 sp4 23:52 23:45 sp4 sp4 23:52 23:45 Acute atypical pneumonia, acute febrile illness, generalized weakness. sp4sp4
[2024-11-08 00:24] LABS: Sqamous Epithelial None Seen /HPF (None Seen); Urine Bacteria None Seen /HPF (<20); Urine Bilirubin NEGATIVE (Negative); Urine Blood Negative (Negative); Urine Clarity Clear (Clear); Urine Color Light-Yellow (Yellow); Urine Glucose NEGATIVE (Negative); Urine Ketones NEGATIVE (Negative); Urine Micro Reflex YN NO BILL MICROSCOPIC; Urine Mucus Slight /HPF (None Seen); Urine Nitrite NEGATIVE (Negative); Urine Protein NEGATIVE (Negative); Urine RBC None Seen /HPF (None Seen); Urine Urobilinogen Normal (Normal); Urine WBC <5 /HPF (<5)
[2024-11-08 00:39] VITALS: TEMP 99.4
[2024-11-08 00:50] VITALS: O2SAT 96
[2024-11-08 00:51] VITALS: BP 114/72
--- NOTE | 2024-11-08 11:56 | EKG ---
Test Date: 2024-11-07 Test Time: 23:58:14 Cheese Processor: ZELDA MEASUREMENT RESULTS: Intervals: Rate: 76 NV: 184 QRSD: 96 QT: 404 QTc: 454 [place]: P: 60 NV: 184 QRS: 25 T: 40 INTERPRETIVE STATEMENTS: Normal sinus rhythm Normal ECG Compared to ECG 08/16/2022 09:12:25 No significant changes Electronically Signed On 11-08-24 11:56:02 CDT by Cecil Perez
== END 2024-11-08 00:24 | disposition home or self-care (01) ==
LOC: ER 19:13
DX: J15.9 Unspecified bacterial pneumonia (principal); E11.9 Type 2 diabetes mellitus without complications; I10 Essential (primary) hypertension; Z79.82 Long term (current) use of aspirin; Z11.52 Encounter for screening for COVID-19
CPT/HCPCS: 96365; 96367; 96368; 93005; 87040 ×2; 85025; 81001; 80048; 36415; 85610; 83605; 83690; 80053; 71045; 99285; 96366; 87428; Q0169; P9047; J7050; J7030 ×2; J0696